=== PATIENT | female | born 1995 | race Caucasian/White ===

== ENCOUNTER 2016-06-23 19:28 | Emergency (ER) | payer OTHER ==
[~2016-06-23] VITALS: Ht 157.5 cm; Wt 63.2 kg
[~2016-06-23 19:28] MED LIST: DOXY100T17 PO
[2016-06-23 19:37] VITALS: TEMP 36.9; Ht 157.5 cm; Wt 63.2 kg
[2016-06-23 21:05] LABS: BASO % 0.3 %; BASO ABS # 0.03 K/uL (0-0.2); COMPLETE YES; EOS % 7.1 %; HEMATOCRIT 39.4 % (37-47); IG% 0.2 %; LYMPH % 23.3 %; LYMPH ABS # 2.08 K/uL (1.2-3.4); MEAN CELL VOLUME 83.8 fL (80-100); MEAN CORPUSCULAR HEMOGLOBIN 29.1 pg (25-34); MEAN CORPUSCULAR HGB CONC 34.8 g/dl (32-36); MEAN PLATELET VOLUME 11.7 fL (7.4-10.4); MONO % 8.6 %; NEUT % 60.5 %; PLATELET COUNT 199 K/uL (130-400); WHITE BLOOD COUNT 8.91 K/uL (4.8-10.8)
[2016-06-23 21:15] LABS: URINE APPEARANCE CLOUDY (CLEAR); URINE BILIRUBIN NEG (NEG); URINE COLOR YELLOW; URINE EPITHELIAL CELL AUTO >30 /lpf (0-5); URINE NITRITE NEG (NEG); URINE PH 6.5 (4.5-7.5); URINE SPECIFIC GRAVITY 1.025 (1.000-1.030); UROBILINOGEN NEG (NEG); ZZUR CULT IF INDIC CLEAN CATCH YES
[2016-06-23 21:17] LABS: MANUAL MICROSCOPIC REQUIRED? NO; REVIEW REQ? YES
[2016-06-23 21:22] LABS: ALT/SGPT 23 U/L (12-78); BLOOD UREA NITROGEN 9 mg/dl (7-18); CALCIUM 9.1 mg/dl (8.5-10.1); CARBON DIOXIDE 20 mmol/L (21-32); CHLORIDE 104 mmol/L (98-107); CREATININE 0.49 mg/dl (0.60-1.20); GLUCOSE 77 mg/dl (70-99); POTASSIUM 3.8 mmol/L (3.5-5.1); SODIUM 138 mmol/L (136-145)
[2016-06-23] MEDS ORDERED: ACET-1311 PO (21:23)
[2016-06-23 21:25] LABS: PREG INTERNAL NEGATIVE QC NEG CLEAR BACKGROUND; PREG INTERNAL POSITIVE QC POS CONTROL LINE
[2016-06-23 21:35] VITALS: BP 107/66; PULSE 85; O2SAT 99
[2016-06-23 21:41] LABS: ALB/GLOB RATIO 1.1 (0.9-2); ALKALINE PHOSPHATASE 81 U/L (45-117); AST/SGOT 16 U/L (15-37); THYROID STIMULATING HORMONE 0.372 uIu/ml (0.300-4.500)
--- NOTE | 2016-06-23 23:24 | EMERGENCY ROOM VISIT NOTE ---
History First contact with patient: 20:19 Chief Complaint: OTHER COMPLAINT Stated Complaint: DIZZINESS, LACK OF ENERGY, MORNING SICKNESS History of Present Illness The patient is a 20 year old female who presents to the Emergency Room with complaints of nausea, abdominal cramping, and lightheadedness for the past several days. The patient is sexually active, and states that she took an at- home test was positive. Patient is concerned that she is . She states this would be her third overall, however she had 2 previous spontaneous abortions. The patient has not had vaginal drainage, discharge, or bleeding. Her period was to start this week, and has not occurred. Review of Systems More than 10 systems were reviewed and otherwise negative with the exception of history of present illness. Past Medical/Surgical History Medical Problems: (1) Bipolar 1 disorder (2) Depression Family History Cancer Diabetes mellitus FHx: cancer Heart disease Hypertension Kidney disease Kidney stones Social History Smoking Status: Current Every Day Smoker Alcohol Use: none Drug Use: none Marital Status: in relationship Housing Status: lives with significant other Occupation Status: employed Current/Historical Medications Scheduled PRN Acetaminophen (Tylenol), 650 MG PO Q6H PRN for Pain Allergies Coded Allergies: No Known Allergies (Unverified , 09/29/15) Physical Exam Vital Signs Date Time Temp Pulse Resp B/P Pulse Ox O2 Delivery O2 Flow Rate FiO2 06/23/16 21:35 85 18 107/66 99 Room Air 06/23/16 19:37 36.9 97 18 110/74 96 Room Air Pain Rating (0-10): 2.0 Physical Exam VITALS: Vitals are noted on the nurse's note and reviewed by myself. Vital signs stable. GENERAL: Well-developed, well-nourished, white female, who is in no acute distress and resting comfortably. Patient is cooperative with the examination. HEAD: Normocephalic atraumatic. EARS: External ear normal. External auditory canals clear, tympanic membranes pearly wang without erythema or effusion bilaterally. EYES: Pupils equal round and reactive to light and accommodation. Conjunctivae without injection, sclerae without icterus. Extraocular movements intact. NOSE: Patent, turbinates without inflammation or discharge. MOUTH: Mucous membranes moist. Tonsils are not enlarged. Pharynx without erythema, blood, or exudate. Uvula midline. Airway patent. NECK: Supple without nuchal rigidity. No lymphadenopathy. No thyromegaly. Cervical spine is nontender. HEART: Regular rate and rhythm without murmurs gallops or rubs. LUNGS: Clear to auscultation bilaterally without wheezes, rales or rhonchi. No retractions or accessory muscle use. ABDOMEN: Positive normal bowel sounds x 4. Soft, nontender, without masses or organomegaly. No guarding or rebound tenderness. MUSCULOSKELETAL: No muscle atrophy, erythema, or edema noted. Full range of motion without joint tenderness in all extremities. Medical Decision & Procedures Laboratory Results 06/23/16 20:45 Red Blood Count 4.70, Mean Corpuscular Volume 83.8, Mean Corpuscular Hemoglobin 29.1, Mean Corpuscular Hemoglobin Concent 34.8, Mean Platelet Volume 11.7, Neutrophils (%) (Auto) 60.5, Lymphocytes (%) (Auto) 23.3, Monocytes (%) (Auto) 8.6, Eosinophils (%) (Auto) 7.1, Basophils (%) (Auto) 0.3, Neutrophils # (Auto) 5.38, Lymphocytes # (Auto) 2.08, Monocytes # (Auto) 0.77, Eosinophils # (Auto) 0.63, Basophils # (Auto) 0.03 06/23/16 20:45 Test 06/23/16 20:45 White Blood Count 8.91 K/uL (4.8-10.8) Red Blood Count 4.70 M/uL (4.2-5.4) Hemoglobin 13.7 g/dL (12.0-16.0) Hematocrit 39.4 % (37-47) Mean Corpuscular Volume 83.8 fL (80-100) Mean Corpuscular Hemoglobin 29.1 pg (25-34) Mean Corpuscular Hemoglobin Concent 34.8 g/dl (32-36) Platelet Count 199 K/uL (130-400) Mean Platelet Volume 11.7 fL (7.4-10.4) Neutrophils (%) (Auto) 60.5 % Lymphocytes (%) (Auto) 23.3 % Monocytes (%) (Auto) 8.6 % Eosinophils (%) (Auto) 7.1 % Basophils (%) (Auto) 0.3 % Neutrophils # (Auto) 5.38 K/uL (1.4-6.5) Lymphocytes # (Auto) 2.08 K/uL (1.2-3.4) Monocytes # (Auto) 0.77 K/uL (0.11-0.59) Eosinophils # (Auto) 0.63 K/uL (0-0.5) Basophils # (Auto) 0.03 K/uL (0-0.2) RDW Standard Deviation 39.3 fL (36.4-46.3) RDW Coefficient of Variation 12.9 % (11.5-14.5) Immature Granulocyte % (Auto) 0.2 % Immature Granulocyte # (Auto) 0.02 K/uL (0.00-0.02) Urine Color YELLOW Urine Appearance CLOUDY (CLEAR) Urine pH 6.5 (4.5-7.5) Urine Specific [place] 1.025 (1.000-1.030) Urine Protein NEG (NEG) Urine Glucose (UA) NEG (NEG) Urine Ketones NEG (NEG) Urine Occult Blood NEG (NEG) Urine Nitrite NEG (NEG) Urine Bilirubin NEG (NEG) Urine Urobilinogen NEG (NEG) Urine Leukocyte Esterase NEG (NEG) Urine WBC (Auto) 1-5 /hpf (0-5) Urine RBC (Auto) 0-4 /hpf (0-4) Urine Hyaline Casts (Auto) 0 /lpf (0-5) Urine Epithelial Cells (Auto) >30 /lpf (0-5) Urine Bacteria (Auto) 2+ (NEG) Urine Crystals CALCIUM OXALATE (NONE Urine Pathogenic Casts /lpf (0) Anion Gap 14.0 mmol/L (3-11) Est Creatinine Clear Calc Drug Dose 158.7 ml/min Estimated GFR () > 150.0 Estimated GFR (Non- 139.3 BUN/Creatinine Ratio 18.0 (10-20) Calcium Level 9.1 mg/dl (8.5-10.1) Total Bilirubin 0.1 mg/dl (0.2-1) Aspartate Amino Transf (AST/SGOT) 16 U/L (15-37) Alanine Aminotransferase (ALT/SGPT) 23 U/L (12-78) Alkaline Phosphatase 81 U/L (45-117) Total Protein 7.0 gm/dl (6.4-8.2) Albumin 3.7 gm/dl (3.4-5.0) Globulin 3.3 gm/dl (2.5-4.0) Albumin/Globulin Ratio 1.1 (0.9-2) Lipase 127 U/L (73-393) Thyroid Stimulating Hormone (TSH) 0.372 uIu/ml (0.300-4.500) Human Chorionic Gonadotropin, Qual POS (NEG) ED Course Physical exam and history were performed. Nursing notes and EMR were reviewed. Patient appears to have several vague symptoms that seem to correlate with . The patient has a primary concern she may be . IV access was established and labs were obtained. The patient bloodwork is as above and was reviewed. She does not have a significant elevated white blood cell count, anemia, bandemia, or gross fluctuant imbalance. TSH is normal.. Was without signs of infection. Her screen was positive here in the department. Overall the patient appears stable for discharge home. She essentially came to the emergency department today to have a test, and to be evaluated for her nausea. She did not require fluids or antiemetics here in the department. She is , and I would consider her to be a high-risk as her 2 previous pregnancies ended with spontaneous . She is to contact her ATTENDANT CAMPGROUND in the morning to arrange appropriate follow-up. She is to avoid NSAIDs and begin a multivitamin, preferably with iron. The patient was pleased with plan of care and voiced understanding. She rated her discomfort a 0/10 at the time of departure. The chart was completed utilizing [employer] Speech Voice Recognition Software. Grammatical errors, random word insertions, pronoun errors, and incomplete sentences are an occasional consequence of this system due to software limitations, ambient noise, and hardware issues. Any formal questions or concerns about the content, text, or information contained within the body of this dictation should be directly addressed to the provider for clarification. . Medical Decision Differential diagnosis: Etiologies such as , gastroenteritis, food borne illness, infections, appendicitis, diverticulitis, inflammatory bowel disease, obstruction, GI bleed , biliary pathology, as well as others were entertained. Impression Primary Impression: test positive Departure Information Dispostion Home / Self-Care Condition GOOD Forms HOME CARE DOCUMENTATION FORM, IMPORTANT VISIT INFORMATION Patient Instructions My [facility] Additional Instructions You were seen and evaluated today on an emergency basis only. This is not a substitute for, or an effort to provide, complete comprehensive medical care. It is not possible to recognize and treat all injuries or illnesses in a single emergency department visit. For this reason it is recommended that you followup with ATTENDANT C[employer]GROUND by telephone in the morning to arrange a follow-up visit. They will likely consider you a high risk , and may wish to see you soon. Begin a daily multivitamin. We also recommend that you take elemental iron. You may need to take a stool softener like Colace while on iron. You are welcome to return to the emergency department anytime with new, worsening, or concerning symptoms.
== END 2016-06-23 22:00 | disposition home or self-care (01) ==
LOC: C.EDB 19:30 → C.EDC 22:00
DX: Z32.01 Encounter for pregnancy test, result positive (principal); F17.200 Nicotine dependence, unspecified, uncomplicated; F31.9 Bipolar disorder, unspecified

== ENCOUNTER → 2016-06-26 | Outpatient (CLI) | payer OTHER ==
[~2016-06-26] MED LIST changes: +ACET-1311 PO; +ACET325T96 PO; +CEPH-571 PO; +CEPH500C PO; +DFL150; -DOXY100T17 PO; +FERR1TAB23 PO; +KFL500 PO; +MTR600X PO; +NITR-5 PO; +OXYC-57 PO; +PREN1TAB29 PO; +PRENTAB26 PO
[2016-06-26 14:26] LABS: URINE APPEARANCE CLOUDY (CLEAR); URINE BILIRUBIN NEG (NEG); URINE COLOR DK YELLOW; URINE EPITHELIAL CELL AUTO >30 /lpf (0-5); URINE NITRITE NEG (NEG); URINE SPECIFIC GRAVITY 1.027 (1.000-1.030); UROBILINOGEN NEG (NEG)
[2016-06-26 14:33] LABS: MANUAL MICROSCOPIC REQUIRED? NO; REVIEW REQ? YES
== END | disposition home or self-care (01) ==
LOC: C.LABSPEC 13:58
PROVIDERS: ATTEND Obstetrics & Gynecology
DX: Z34.01 Encounter for supervision of normal first pregnancy, first trimester (principal)

== ENCOUNTER → 2016-07-08 | Outpatient (CLI) | payer OTHER ==
[2016-07-08 11:24] LABS: BASO % 0.3 %; BASO ABS # 0.02 K/uL (0-0.2); COMPLETE YES; EOS % 5.9 %; HEMATOCRIT 38.6 % (37-47); IG% 0.1 %; LYMPH % 21.6 %; LYMPH ABS # 1.59 K/uL (1.2-3.4); MEAN CELL VOLUME 84.5 fL (80-100); MEAN CORPUSCULAR HEMOGLOBIN 28.7 pg (25-34); MEAN CORPUSCULAR HGB CONC 33.9 g/dl (32-36); MEAN PLATELET VOLUME 11.9 fL (7.4-10.4); MONO % 6.4 %; NEUT % 65.7 %; PLATELET COUNT 213 K/uL (130-400); RED BLOOD COUNT 4.57 M/uL (4.2-5.4); WHITE BLOOD COUNT 7.35 K/uL (4.8-10.8)
[2016-07-12 02:30] LABS: CHLAMYDIA TRACH RNA*** NOT DETECTED (NOT DETECTED); GC (NEIS GONORRHOEAE)RNA** NOT DETECTED (NOT DETECTED)
== END | disposition home or self-care (01) ==
LOC: C.LAB1850 09:56
PROVIDERS: ATTEND Obstetrics & Gynecology
DX: Z34.01 Encounter for supervision of normal first pregnancy, first trimester (principal)

== ENCOUNTER → 2016-07-08 | Outpatient (CLI) | payer OTHER | END | disposition home or self-care (01) | LOC: C.PAPS 09:16 | PROVIDERS: ATTEND Obstetrics & Gynecology | DX: Z12.4 Encounter for screening for malignant neoplasm of cervix (principal) ==

== ENCOUNTER 2016-08-17 09:20 | Emergency (ER) | payer OTHER ==
[~2016-08-17] VITALS: Ht 157.5 cm; Wt 63.5 kg
[2016-08-17 09:17] VITALS: TEMP 36.7; Ht 157.5 cm; Wt 63.5 kg
[~2016-08-17 09:20] MED LIST changes: -ACET325T96 PO; -CEPH-571 PO; -CEPH500C PO; -DFL150; -FERR1TAB23 PO; -KFL500 PO; -MTR600X PO; -NITR-5 PO; -OXYC-57 PO; -PREN1TAB29 PO; -PRENTAB26 PO
[2016-08-17] MEDS ORDERED: PREN1TAB29 PO (09:33)
[2016-08-17] MEDS ORDERED: FERR1TAB23 PO (09:33)
[2016-08-17] MEDS ORDERED: SODIUM CHLORIDE 0.9% 1000ML 1,000 ML IV STA (10:04)
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
[2016-08-17 10:42] LABS: BASO % 0.2 %; BASO ABS # 0.02 K/uL (0-0.2); COMPLETE YES; EOS % 4.5 %; HEMATOCRIT 38.5 % (37-47); IG% 0.2 %; LYMPH % 20.5 %; LYMPH ABS # 1.88 K/uL (1.2-3.4); MEAN CELL VOLUME 85.4 fL (80-100); MEAN CORPUSCULAR HEMOGLOBIN 28.8 pg (25-34); MEAN CORPUSCULAR HGB CONC 33.8 g/dl (32-36); MONO % 4.5 %; NEUT % 70.1 %; PLATELET COUNT 183 K/uL (130-400); RED BLOOD COUNT 4.51 M/uL (4.2-5.4); WHITE BLOOD COUNT 9.18 K/uL (4.8-10.8)
[2016-08-17 10:47] LABS: URINE APPEARANCE CLOUDY (CLEAR); URINE BILIRUBIN NEG (NEG); URINE COLOR YELLOW; URINE NITRITE NEG (NEG); URINE SPECIFIC GRAVITY 1.015 (1.000-1.030); UROBILINOGEN NEG (NEG)
[2016-08-17 10:50] LABS: MANUAL MICROSCOPIC REQUIRED? NO; REVIEW REQ? NO; URINE EPITHELIAL CELL AUTO >30 /lpf (0-5)
[2016-08-17 10:51] LABS: ZZUR CULT IF INDIC CLEAN CATCH YES
[2016-08-17 11:05] LABS: ALT/SGPT 16 U/L (12-78); AST/SGOT 12 U/L (15-37); BLOOD UREA NITROGEN 4 mg/dl (7-18); BUN/CREATININE RATIO 8.1 (10-20); CALCIUM 8.9 mg/dl (8.5-10.1); CARBON DIOXIDE 25 mmol/L (21-32); CHLORIDE 104 mmol/L (98-107); CREATININE 0.51 mg/dl (0.60-1.20); GLUCOSE 76 mg/dl (70-99); POTASSIUM 4.1 mmol/L (3.5-5.1); SODIUM 139 mmol/L (136-145)
[2016-08-17 11:08] LABS: ALKALINE PHOSPHATASE 68 U/L (45-117)
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
[2016-08-17] MEDS ORDERED: NITR-5 PO (14:08)
[2016-08-17] MEDS ORDERED: NITROFURANTOIN MONOHYDRATE 100 MG CAP PO STA (14:09)
[2016-08-17 14:32] VITALS: BP 101/65; PULSE 80; O2SAT 100
== END 2016-08-17 14:33 | disposition home or self-care (01) ==
LOC: EDBD 09:20 → C.EDB 09:22
DX: O99.342 Other mental disorders complicating pregnancy, second trimester (principal); O99.332 Smoking (tobacco) complicating pregnancy, second trimester; N30.00 Acute cystitis without hematuria; V89.2XXA Person injured in unspecified motor-vehicle accident, traffic, initial encounter; F31.9 Bipolar disorder, unspecified; Z3A.15 15 weeks gestation of pregnancy; F17.210 Nicotine dependence, cigarettes, uncomplicated; Z83.3 Family history of diabetes mellitus; Z82.49 Family history of ischemic heart disease and other diseases of the circulatory system; Z84.1 Family history of disorders of kidney and ureter

== ENCOUNTER → 2016-08-25 | Outpatient (CLI) | payer OTHER ==
[~2016-08-25] MED LIST changes: -ACET-1311 PO; +ACET325T96 PO; +CEPH-571 PO; +CEPH500C PO; +DFL150; +FERR1TAB23 PO; +KFL500 PO; +MTR600X PO; +NITR-5 PO; +OXYC-57 PO; +PREN1TAB29 PO; +PRENTAB26 PO
[2016-08-25 17:53] LABS: GTGD 50 Grams
[2016-08-27 15:31] LABS: AFP CONCENTRATION 53.5 NG/ML; AFP MULTIPLE OF MEDIAN 1.45; AFPTS GESTATIONAL AGE 16.6 WEEKS; AFPTS INSULIN DEP DIABETIC? NO; AFPTS MATERNAL WT 140 LBS; ALPHA-FETOPROTEIN RACE CAUCASIAN=W; HISTORY OF NTD NO; REPEAT SAMPLE? NO
== END | disposition home or self-care (01) ==
LOC: C.LAB1850 16:45
PROVIDERS: ATTEND Obstetrics & Gynecology
DX: Z34.02 Encounter for supervision of normal first pregnancy, second trimester (principal)

== ENCOUNTER 2016-09-30 19:02 | Outpatient (CLI) | payer OTHER ==
[~2016-09-30] VITALS: Ht 157.5 cm; Wt 63.7 kg
[~2016-09-30 19:02] MED LIST changes: -ACET325T96 PO; -CEPH-571 PO; -CEPH500C PO; -DFL150; -KFL500 PO; -MTR600X PO; -OXYC-57 PO; -PRENTAB26 PO
[2016-09-30 19:32] LABS: URINE APPEARANCE CLOUDY (CLEAR); URINE BILIRUBIN NEG (NEG); URINE COLOR YELLOW; URINE EPITHELIAL CELL AUTO >30 /lpf (0-5); URINE NITRITE NEG (NEG); URINE PH 5.5 (4.5-7.5); URINE SPECIFIC GRAVITY 1.022 (1.000-1.030); UROBILINOGEN NEG (NEG); ZZUR CULT IF INDIC CLEAN CATCH YES
[2016-09-30 19:35] LABS: MANUAL MICROSCOPIC REQUIRED? NO; REVIEW REQ? YES
[2016-09-30] MEDS ORDERED: NITROFURANTOIN MONOHYDRATE 100 MG CAP PO STA (20:10)
[2016-09-30 20:11] VITALS: Ht 157.5 cm; Wt 63.7 kg
--- NOTE | 2016-10-07 06:43 | EDITING REQUIRED CODING QUERY ---
DIAGNOSIS NEEDED To promote full compliance with coding requirements relating to patient care, physician participation is requested in all cases of marble supervisor uncertainty. Please assist us with the question(s) below: Coding Question: The patient received care in labor and delivery on 09/30/16 as noted within the record. Please document the diagnosis that is being addressed by the medication/treatment. Provider Response: DIAGNOSIS: facial flushing General fatigue Recent spider or tick bite 2nd trimester Thank you for your assistance, Nahomi Hull - Supervisor [employer]
[2017-02-15] MEDS ORDERED: OXYC-57 PO (09:39)
[2017-02-15] MEDS ORDERED: KFL500 PO (09:39)
[2017-02-15] MEDS ORDERED: MTR600X PO (09:40)
[2017-05-03] MEDS ORDERED: LAMO100T16 PO (11:27)
== END 2016-09-30 20:41 | disposition home or self-care (01) ==
LOC: C.LD 19:02 → C.OPB 19:02
PROVIDERS: ATTEND Obstetrics & Gynecology
DX: O99.89 Other specified diseases and conditions complicating pregnancy, childbirth and the puerperium (principal); R53.83 Other fatigue; Z3A.22 22 weeks gestation of pregnancy; T14.8 Other injury of unspecified body region; W57.XXXA Bitten or stung by nonvenomous insect and other nonvenomous arthropods, initial encounter

== ENCOUNTER → 2016-10-21 | Outpatient (CLI) | payer OTHER ==
[~2016-10-21] MED LIST changes: +ACET-1256 PO; +ACET325T96 PO; +CEPH-571 PO; +CEPH500C PO; +DFL150; -FERR1TAB23 PO; +KFL500 PO; +LAMO100T16 PO; +MTR600X PO; +OXYC-57 PO; +PRENTAB26 PO
[2016-10-21 17:10] LABS: URINE APPEARANCE CLOUDY (CLEAR); URINE BILIRUBIN NEG (NEG); URINE COLOR YELLOW; URINE EPITHELIAL CELL AUTO >30 /lpf (0-5); URINE NITRITE NEG (NEG); URINE SPECIFIC GRAVITY 1.014 (1.000-1.030); UROBILINOGEN NEG (NEG)
[2016-10-21 17:13] LABS: MANUAL MICROSCOPIC REQUIRED? NO; REVIEW REQ? NO
== END | disposition home or self-care (01) ==
LOC: C.LABSPEC 16:28
PROVIDERS: ATTEND Obstetrics & Gynecology
DX: Z34.03 Encounter for supervision of normal first pregnancy, third trimester (principal)

== ENCOUNTER → 2016-11-21 | Outpatient (CLI) | payer OTHER ==
[2016-11-21 13:13] LABS: HEMATOCRIT 35.4 % (37-47)
[2016-11-21 13:57] LABS: GTGD 50 Grams
== END | disposition home or self-care (01) ==
LOC: C.LAB1850 11:59
PROVIDERS: ATTEND Obstetrics & Gynecology
DX: Z34.03 Encounter for supervision of normal first pregnancy, third trimester (principal)

== ENCOUNTER → 2016-11-21 | Outpatient (CLI) | payer OTHER ==
[2016-11-21 14:40] LABS: URINE APPEARANCE TURBID (CLEAR); URINE BILIRUBIN NEG (NEG); URINE COLOR YELLOW; URINE EPITHELIAL CELL AUTO >30 /lpf (0-5); URINE NITRITE NEG (NEG); URINE PH 8.5 (4.5-7.5); URINE SPECIFIC GRAVITY 1.016 (1.000-1.030); UROBILINOGEN NEG (NEG)
[2016-11-21 14:54] LABS: MANUAL MICROSCOPIC REQUIRED? NO; REVIEW REQ? YES
[2016-11-24 07:27] LABS: CHLAMYDIA TRACH RNA*** NOT DETECTED (NOT DETECTED); GC (NEIS GONORRHOEAE)RNA** NOT DETECTED (NOT DETECTED)
== END | disposition home or self-care (01) ==
LOC: C.LABSPEC 13:58
PROVIDERS: ATTEND Obstetrics & Gynecology
DX: Z34.03 Encounter for supervision of normal first pregnancy, third trimester (principal)

== ENCOUNTER 2016-11-25 18:02 | Outpatient (CLI) | payer OTHER ==
[~2016-11-25] VITALS: Ht 160 cm; Wt 70.5 kg
[~2016-11-25 18:02] MED LIST changes: -ACET-1256 PO; -ACET325T96 PO; -CEPH-571 PO; -CEPH500C PO; -DFL150; -KFL500 PO; -LAMO100T16 PO; -MTR600X PO; -OXYC-57 PO; -PRENTAB26 PO
[2016-11-25] MEDS ORDERED: DFL150 (19:10)
[2016-11-25] MEDS ORDERED: PRENTAB26 PO (19:10)
[2016-11-25 19:11] VITALS: Ht 160 cm; Wt 70.5 kg
[2016-11-25 19:42] LABS: URINE APPEARANCE CLEAR (CLEAR); URINE BILIRUBIN NEG (NEG); URINE COLOR YELLOW; URINE EPITHELIAL CELL AUTO >30 /lpf (0-5); URINE NITRITE NEG (NEG); URINE SPECIFIC GRAVITY 1.018 (1.000-1.030); UROBILINOGEN NEG (NEG)
[2016-11-25 19:44] LABS: MANUAL MICROSCOPIC REQUIRED? NO; REVIEW REQ? YES
[2017-05-03] MEDS ORDERED: LAMO100T16 PO (11:27)
== END 2016-11-25 20:03 | disposition home or self-care (01) ==
LOC: C.LD 18:02 → C.OPB 18:02
PROVIDERS: ATTEND Obstetrics & Gynecology
DX: O26.893 Other specified pregnancy related conditions, third trimester (principal); R10.2 Pelvic and perineal pain; Z3A.29 29 weeks gestation of pregnancy

== ENCOUNTER 2016-11-27 14:08 | Emergency (ER) | payer OTHER ==
[~2016-11-27] VITALS: Ht 157.5 cm; Wt 70.1 kg
[~2016-11-27 14:08] MED LIST changes: +DFL150; -PREN1TAB29 PO; +PRENTAB26 PO
[2016-11-27 14:13] VITALS: TEMP 36.8; Ht 157.5 cm; Wt 70.1 kg
[2016-11-27] MEDS ORDERED: SODIUM CHLORIDE 0.9% 1000ML 1,000 ML IV STA (14:37)
[2016-11-27] MEDS ORDERED: ACETAMINOPHEN/CODEINE 300/30MG TAB PO ONE (14:45)
[2016-11-27 15:02] LABS: BASO % 0.2 %; BASO ABS # 0.03 K/uL (0-0.2); COMPLETE YES; HEMATOCRIT 36.4 % (37-47); IG% 0.5 %; LYMPH % 14.2 %; LYMPH ABS # 1.91 K/uL (1.2-3.4); MEAN CELL VOLUME 86.9 fL (80-100); MEAN CORPUSCULAR HEMOGLOBIN 28.9 pg (25-34); MEAN CORPUSCULAR HGB CONC 33.2 g/dl (32-36); MEAN PLATELET VOLUME 11.4 fL (7.4-10.4); MONO % 5.8 %; NEUT % 74.3 %; PLATELET COUNT 177 K/uL (130-400); RED BLOOD COUNT 4.19 M/uL (4.2-5.4); WHITE BLOOD COUNT 13.44 K/uL (4.8-10.8)
[2016-11-27 15:20] LABS: ALT/SGPT 13 U/L (12-78); BLOOD UREA NITROGEN 7 mg/dl (7-18); BUN/CREATININE RATIO 12.6 (10-20); CALCIUM 9.4 mg/dl (8.5-10.1); CARBON DIOXIDE 24 mmol/L (21-32); CHLORIDE 107 mmol/L (98-107); CREATININE 0.58 mg/dl (0.60-1.20); GLUCOSE 69 mg/dl (70-99); POTASSIUM 3.7 mmol/L (3.5-5.1); SODIUM 138 mmol/L (136-145)
[2016-11-27 15:23] LABS: ALKALINE PHOSPHATASE 90 U/L (45-117); AST/SGOT 13 U/L (15-37)
[2016-11-27 15:43] LABS: URINE APPEARANCE TURBID (CLEAR); URINE BILIRUBIN NEG (NEG); URINE COLOR YELLOW; URINE EPITHELIAL CELL AUTO >30 /lpf (0-5); URINE NITRITE NEG (NEG); UROBILINOGEN NEG (NEG); ZZUR CULT IF INDIC CLEAN CATCH YES
[2016-11-27 15:48] LABS: MANUAL MICROSCOPIC REQUIRED? NO; REVIEW REQ? YES
[2016-11-27] MEDS ORDERED: CEFTRIAXONE SOD INJ 1 GM ADDVIAL IV STA (16:18)
[2016-11-27 16:41] VITALS: BP 97/59; PULSE 90; O2SAT 98
[2016-11-27] MEDS ORDERED: CEPH500C PO (17:02)
--- NOTE | 2016-11-27 17:14 | EMERGENCY ROOM VISIT NOTE ---
History Report prepared by [place]af[place]: Forrest Adan Under the Supervision of: Dr. Bianca Hernandez M.D. First contact with patient: 14:22 Chief Complaint: BACK PAIN Stated Complaint: BACK PAIN History of Present Illness The patient is a 21 year old female who presents to the Emergency Room with complaints of constant "sharp" lower back pain beginning five hours ago. She is 29 weeks . She denies any excessive straining or injury yesterday. The patient denies any pain radiating down her legs. She states that she has been having problems walking due to the pain. The patient was seen earlier this week for back and abdominal pain. She is being treated for a yeast infection, and states that she has been having to strain to urinate recently. She states that she has been eating and drinking normally. The patient states that she did not have any of her symptoms yesterday. Source of History: patient Onset: Five hours ago Position: back (lower) Quality: sharp Timing: constant Associated Symptoms: + urinary symptoms Note: The patient denies any pain radiating down her legs. Review of Systems See HPI for pertinent positives & negatives. A total of 10 systems reviewed and were otherwise negative. Past Medical & Surgical Medical Problems: (1) Bipolar 1 disorder (2) Depression (3) Pelvic pain affecting in third trimester, antepartum Family History Cancer Diabetes mellitus FHx: cancer Heart disease Hypertension Kidney disease Kidney stones Social History Smoking Status: Current Every Day Smoker Alcohol Use: none Drug Use: none Marital Status: in relationship Housing Status: lives with significant other Occupation Status: employed Current/Historical Medications Scheduled Cephalexin (Keflex), 1 CAP PO QID Miscellaneous Medications Fluconazole (Fluconazole) Allergies Coded Allergies: No Known Allergies (Unverified , 11/27/16) Physical Exam Vital Signs Date Time Temp Pulse Resp B/P (MAP) Pulse Ox O2 Delivery O2 Flow Rate FiO2 11/27/16 16:41 90 18 97/59 98 Room Air 11/27/16 14:35 93 11/27/16 14:13 36.8 88 17 107/66 97 Room Air Physical Exam Vital signs reviewed. General: Well-appearing female, in no significant distress. HEENT: No scleral icterus, PERRLA, neck supple. Atraumatic. Cardiovascular: Regular rate and rhythm, no extra sounds. Pulmonary: Clear to auscultation bilaterally, normal work of breathing. Abdomen: Gravid, nontender, nondistended, positive bowel sounds. Musculoskeletal: Atraumatic, no peripheral edema. Tender to the bilateral lumbar paraspinous muscles. Positive CVA tenderness. Neurologic: Patient awake alert and oriented x 3 Skin: Warm, dry, no rash Medical Decision & Procedures Laboratory Results 11/27/16 14:45 Red Blood Count 4.19, Mean Corpuscular Volume 86.9, Mean Corpuscular Hemoglobin 28.9, Mean Corpuscular Hemoglobin Concent 33.2, Mean Platelet Volume 11.4, Neutrophils (%) (Auto) 74.3, Lymphocytes (%) (Auto) 14.2, Monocytes (%) (Auto) 5.8, Eosinophils (%) (Auto) 5.0, Basophils (%) (Auto) 0.2, Neutrophils # (Auto) 9.98, Lymphocytes # (Auto) 1.91, Monocytes # (Auto) 0.78, Eosinophils # (Auto) 0.67, Basophils # (Auto) 0.03 11/27/16 14:45 Test 11/27/16 14:45 White Blood Count 13.44 K/uL (4.8-10.8) Red Blood Count 4.19 M/uL (4.2-5.4) Hemoglobin 12.1 g/dL (12.0-16.0) Hematocrit 36.4 % (37-47) Mean Corpuscular Volume 86.9 fL (80-100) Mean Corpuscular Hemoglobin 28.9 pg (25-34) Mean Corpuscular Hemoglobin Concent 33.2 g/dl (32-36) Platelet Count 177 K/uL (130-400) Mean Platelet Volume 11.4 fL (7.4-10.4) Neutrophils (%) (Auto) 74.3 % Lymphocytes (%) (Auto) 14.2 % Monocytes (%) (Auto) 5.8 % Eosinophils (%) (Auto) 5.0 % Basophils (%) (Auto) 0.2 % Neutrophils # (Auto) 9.98 K/uL (1.4-6.5) Lymphocytes # (Auto) 1.91 K/uL (1.2-3.4) Monocytes # (Auto) 0.78 K/uL (0.11-0.59) Eosinophils # (Auto) 0.67 K/uL (0-0.5) Basophils # (Auto) 0.03 K/uL (0-0.2) RDW Standard Deviation 41.3 fL (36.4-46.3) RDW Coefficient of Variation 12.9 % (11.5-14.5) Immature Granulocyte % (Auto) 0.5 % Immature Granulocyte # (Auto) 0.07 K/uL (0.00-0.02) Urine Color YELLOW Urine Appearance TURBID (CLEAR) Urine pH 7.0 (4.5-7.5) Urine Specific [place] 1.020 (1.000-1.030) Urine Protein NEG (NEG) Urine Glucose (UA) NEG (NEG) Urine Ketones NEG (NEG) Urine Occult Blood 2+ (NEG) Urine Nitrite NEG (NEG) Urine Bilirubin NEG (NEG) Urine Urobilinogen NEG (NEG) Urine Leukocyte Esterase SMALL (NEG) Urine WBC (Auto) >30 /hpf (0-5) Urine RBC (Auto) 10-30 /hpf (0-4) Urine Hyaline Casts (Auto) 1-5 /lpf (0-5) Urine Epithelial Cells (Auto) >30 /lpf (0-5) Urine Bacteria (Auto) 4+ (NEG) Urine Crystals CALCIUM OXALATE (NONE Urine Pathogenic Casts /lpf (0) Anion Gap 7.0 mmol/L (3-11) Est Creatinine Clear Calc Drug Dose 139.6 ml/min Estimated GFR () > 150.0 Estimated GFR (Non- 130.8 BUN/Creatinine Ratio 12.6 (10-20) Calcium Level 9.4 mg/dl (8.5-10.1) Total Bilirubin 0.2 mg/dl (0.2-1) Direct Bilirubin < 0.1 mg/dl (0-0.2) Aspartate Amino Transf (AST/SGOT) 13 U/L (15-37) Alanine Aminotransferase (ALT/SGPT) 13 U/L (12-78) Alkaline Phosphatase 90 U/L (45-117) Total Protein 6.2 gm/dl (6.4-8.2) Albumin 2.8 gm/dl (3.4-5.0) Laboratory results per my review. Medications Administered Medications (Trade) Dose Ordered Sig/Otry Route Start Time Stop Time Status Last Admin Dose Admin Sodium Chloride 1,000 ml @ 200 mls/hr Q5H STAT IV 11/27/16 14:37 11/27/16 17:37 DC 11/27/16 14:52 200 MLS/HR Acetaminophen/ Codeine Phosphate (Tylenol w/ Codeine #3 Tab) 1 tab NOW ONCE PO 11/27/16 14:45 11/27/16 14:46 DC 11/27/16 14:58 1 TAB Ceftriaxone Sodium (Rocephin Inj) 1 gm NOW STAT IV 11/27/16 16:18 11/27/16 16:20 DC 11/27/16 16:18 1 GM ED Course 1436: Past medical records reviewed. The patient was evaluated in room A10. A complete history and physical examination was performed. 1437: Ordered Sodium Chloride 1000 ml @ 200 mls/hr IV. 1445: Ordered Tylenol w/ Codeine #3 Tab PO. 1618: Ordered Rocephin Inj 1 gm IV. 1705: Upon reevaluation, the patient appeared to have improvement of her symptoms. I discussed findings with her. She verbalized agreement of the treatment plan. The patient was discharged home. Medical Decision Differential diagnosis: Etiologies such as musculoskeletal, disc herniation, fracture, aortic disease, metastatic disease, cord compression, discitis, infection, renal colic, gastrointestinal, acute exacerbation of chronic back pain, sciatica, cauda equina, as well as others were entertained. This patient was evaluated and appeared to be in no significant distress. IV access was obtained and laboratory work was drawn. The patient was placed on the professor of fine art and found to be in a normal sinus rhythm. Patient's physical exam is consistent with a musculoskeletal back pain however her exam is inconsistent. She was hydrated with normal saline solution. She was given Tylenol 3 for pain. heart tones were appreciated in the 130s. Patient's urinalysis is concerning for infection. She was given 1 g of IV ceftriaxone. On reevaluation, she was informed of the findings. She complained that she does not have any food at home. She was given information on [facility] and [facility]. Dr. Sanchez of [facility] was contacted and has agreed with outpatient management. She will be seen in the office tomorrow. She will return to the ER for worsening of symptoms or any medical concerns. Consults Time Called: 1635 Consulting Physician: Dr. Laura POLK Returned Call: 1640 I reviewed the patient's case with Dr. Sanchez. He recommends outpatient care and will follow up with the patient in the office. Impression Primary Impression: Pyelonephritis Additional Impression: Scribe Attestation The scribe's documentation has been prepared under my direction and personally reviewed by me in its entirety. I confirm that the note above accurately reflects all work, treatment, procedures, and medical decision making performed by me. Departure Information Dispostion Home / Self-Care Referrals No Doctor, Assigned (PCP) Forms HOME CARE DOCUMENTATION FORM, IMPORTANT VISIT INFORMATION Patient Instructions My [facility] Additional Instructions Diangosis: Pyelonephritis Keflex 500 mg four times daily for 10 days. Drink plenty of clear fluids. Follow up with [facility] tomorrow, call for an appt first thing in the am. This was discussed with Dr Sanchez. Return to the ED for worsening of symptoms or any medical concerns. Problem Qualifiers Additional Impression: Weeks of gestation: 29 weeks Qualified Codes: Z3A.29 - 29 weeks gestation of
[2016-11-27] MEDS ORDERED: CEPH-571 PO (18:38)
[2016-11-27] MEDS ORDERED: PRENTAB26 PO (21:39)
== END 2016-11-27 17:25 | disposition home or self-care (01) ==
LOC: EDBD 14:08 → C.EDA 14:09
DX: N12 Tubulo-interstitial nephritis, not specified as acute or chronic (principal); Z3A.29 29 weeks gestation of pregnancy; F31.9 Bipolar disorder, unspecified; Z83.3 Family history of diabetes mellitus; Z82.49 Family history of ischemic heart disease and other diseases of the circulatory system; F17.200 Nicotine dependence, unspecified, uncomplicated

== ENCOUNTER 2016-11-27 18:19 | Emergency (ER) | payer OTHER ==
[~2016-11-27] VITALS: Ht 157.5 cm; Wt 68.0 kg
[~2016-11-27 18:19] MED LIST changes: +CEPH500C PO
[2016-11-27 18:23] VITALS: TEMP 36.6; Ht 157.5 cm; Wt 68.0 kg
[2016-11-27] MEDS ORDERED: CEPH-571 PO (18:38)
--- NOTE | 2016-11-27 18:56 | EMERGENCY ROOM VISIT NOTE ---
History First contact with patient: 18:30 Chief Complaint: BACK PAIN Stated Complaint: INTENSE CRAMPS, BACK PAIN, LEG PAIN History of Present Illness The patient is a 21 year old female who presents to the Emergency Room with complaints of back pain. The patient was just discharged from this emergency department with back pain and diagnosed with pyelonephritis. The patient is 30 weeks . She returns to the emergency department because she is still having back pain and abdominal cramping. She states that she is not feeling the baby move. She states that she is still nauseated and in pain. She rates her discomfort a 10/10. She denies any fevers or chills. She denies any diarrhea. She denies any numbness, tingling in the lower extremities bilaterally. Review of Systems A 10 system review of systems was completed with positives and pertinent negatives listed in the HPI. Past Medical/Surgical History Medical Problems: (1) Bipolar 1 disorder (2) Depression (3) Pelvic pain affecting in third trimester, antepartum Family History Cancer Diabetes mellitus FHx: cancer Heart disease Hypertension Kidney disease Kidney stones Social History Smoking Status: Current Every Day Smoker Alcohol Use: none Drug Use: none Marital Status: in relationship Housing Status: lives with significant other Occupation Status: employed Current/Historical Medications Scheduled Multivit/Min/Iron/Fol Ac/Pren ( Vitamin), 1 TAB PO DAILY Miscellaneous Medications Fluconazole (Fluconazole) Allergies Coded Allergies: No Known Allergies (Unverified , 11/27/16) Physical Exam Vital Signs Date Time Temp Pulse Resp B/P (MAP) Pulse Ox O2 Delivery O2 Flow Rate FiO2 11/27/16 19:06 86 18 100/66 99 11/27/16 18:23 36.6 81 20 91/58 96 Room Air Physical Exam VITALS: Vitals are noted on the nurse's note and reviewed by myself. Vital signs stable. GENERAL: This is a 21-year-old female, in no acute distress, nondiaphoretic, well-developed well-nourished. SKIN: The skin was without rashes, erythema, edema, or bruising. There is no tenting of the skin. Capillary reflex less than 2 seconds. HEAD: Normocephalic atraumatic. EARS: The external ears are normal in appearance. EYES: Pupils equal round and reactive to light and accommodation. Conjunctivae without injection, sclerae without icterus. Extraocular movements intact. NOSE: Patent, turbinates without inflammation or discharge. MOUTH: Mucous membranes moist. Tonsils are not enlarged. Pharynx without erythema or exudate. Uvula midline. Airway patent. Tongue does not deviate. NECK: Supple without nuchal rigidity. No lymphadenopathy. No thyromegaly. Cervical spine is nontender. No JVD. HEART: Regular rate and rhythm without murmurs gallops or rubs. LUNGS: Clear to auscultation bilaterally without wheezes, rales or rhonchi. No retractions or accessory muscle use. ABDOMEN: Positive bowel sounds x 4. Soft, nontender, without masses or organomegaly. MUSCULOSKELETAL: No muscle atrophy, erythema, or edema noted. There is tenderness to palpation diffusely over the back but worse on the left. NEURO: Patient was alert and oriented to person place and time. Normal sensation to light and sharp touch. Deep tendon reflexes 2+ throughout. No focal neurological deficits. Medical Decision & Procedures ED Course The patient was seen and examined. Previous visits were reviewed. The patient does not have a fever. The patient was just discharged from the ER with pyelonephritis. At that time, she had requested several times to go to labor and delivery. This was discussed with the on-call CHEMICAL ENGINEERING TEACHER but it was felt that this may more be musculoskeletal or pyelonephritis. The patient is crouched in front of the toilet with some vomiting upon initial evaluation. The patient was able to walk without any significant difficulty whatsoever from the bathroom to the bed. She does not have any neurologic deficit on exam or by history to suggest cauda equina or cord compression. The patient has not had any vaginal bleeding. She states she has had cramping and states she can't feel the baby move now. She has not had any falls or injuries. I discussed the case with Dr. Hernandez who recommends that CHEMICAL ENGINEERING TEACHER be consulted and she go upstairs for monitoring I discussed the case with Dr. Sanchez. The patient will be sent to L&D for monitoring. Otherwise, discharge instructions as previously discussed. Medical Decision DIFFERENTIAL DIAGNOSIS: Lumbar strain, degenerative disc disease, spondylolisthesis, herniated disc, spinal stenosis, osteoporosis, fracture, cauda equina syndrome, neoplasm, infection, inflammatory arthritis, labor, demise, urinary tract infection, pyelonephritis, appendicitis, among others Impression Primary Impression: Back pain Additional Impression: Pyelonephritis Departure Information Dispostion Home / Self-Care Condition GOOD Referrals Meagan Sage MD (PCP) Shanae Sanchez M.D. Patient Instructions My [facility], Preg Back Pain Additional Instructions Go directly upstairs to Labor and Delivery for monitoring Otherwise, instructions as before. Problem Qualifiers Primary Impression: Back pain Back pain location: low back pain
[2016-11-27 19:06] VITALS: BP 100/66; PULSE 86; O2SAT 99
[2016-11-27] MEDS ORDERED: PRENTAB26 PO (21:39)
== END 2016-11-27 19:06 | disposition home or self-care (01) ==
LOC: C.EDB 18:21 → C.EDC 19:06
DX: M54.5 Low back pain (principal); N12 Tubulo-interstitial nephritis, not specified as acute or chronic; Z3A.30 30 weeks gestation of pregnancy; F31.9 Bipolar disorder, unspecified; Z83.3 Family history of diabetes mellitus; Z82.49 Family history of ischemic heart disease and other diseases of the circulatory system; F17.200 Nicotine dependence, unspecified, uncomplicated

== ENCOUNTER 2016-11-27 19:22 | Outpatient (CLI) | payer OTHER ==
[~2016-11-27] VITALS: Ht 157.5 cm; Wt 69.0 kg
[~2016-11-27 19:22] MED LIST changes: +CEPH-571 PO; +PREN1TAB29 PO
[2016-11-27 21:39] VITALS: Ht 157.5 cm; Wt 69.0 kg
[2017-05-03] MEDS ORDERED: LAMO100T16 PO (11:27)
== END 2016-11-27 20:12 | disposition home or self-care (01) ==
LOC: C.OPB 19:22 → C.LD 19:22 → C.OPB 19:33
PROVIDERS: ATTEND Obstetrics & Gynecology
DX: O36.8130 Decreased fetal movements, third trimester, not applicable or unspecified (principal); Z3A.30 30 weeks gestation of pregnancy

== ENCOUNTER 2016-11-27 20:17 | Emergency (ER) | payer OTHER ==
[~2016-11-27] VITALS: Ht 157.5 cm; Wt 68.0 kg
[~2016-11-27 20:17] MED LIST changes: -PREN1TAB29 PO
[2016-11-27 20:20] VITALS: TEMP 36.5; Ht 157.5 cm; Wt 68.0 kg
[2016-11-27] MEDS ORDERED: ONDANSETRON 4MG OD TAB PO STA (20:39)
--- NOTE | 2016-11-27 20:43 | EMERGENCY ROOM VISIT NOTE ---
History First contact with patient: 20:26 Chief Complaint: PAIN (GENERALIZED) Stated Complaint: LOWER BACK PAIN, DIZZY History of Present Illness The patient is a 21 year old female who presents to the Emergency Room with complaints of back pain. The patient is 30 weeks . This is her third visit to the emergency department today. The patient had initial an extensive evaluation that revealed pyelonephritis. The patient returned because she stated she was not feeling the baby move and was having pain. She was sent to labor and delivery and the baby appears to be in no distress. The patient return to the ER because she is still having pain. I did discuss with her several times the concern for narcotic use during the fact that it is a class C. The patient is afebrile. She does not have any loss of bowel or bladder control, numbness, tingling or weakness in the legs. She does not have any vaginal bleeding or discharge. Review of Systems A 10 system review of systems was completed with positives and pertinent negatives listed in the HPI. Past Medical/Surgical History Medical Problems: (1) Bipolar 1 disorder (2) Depression (3) Pelvic pain affecting in third trimester, antepartum Family History Cancer Diabetes mellitus FHx: cancer Heart disease Hypertension Kidney disease Kidney stones Social History Smoking Status: Current Every Day Smoker Alcohol Use: none Drug Use: none Marital Status: in relationship Housing Status: lives with significant other Occupation Status: employed Current/Historical Medications Scheduled Multivit/Min/Iron/Fol Ac/Pren ( Vitamin), 1 TAB PO DAILY Miscellaneous Medications Fluconazole (Fluconazole) Allergies Coded Allergies: No Known Allergies (Unverified , 11/27/16) Physical Exam Vital Signs Date Time Temp Pulse Resp B/P (MAP) Pulse Ox O2 Delivery O2 Flow Rate FiO2 11/27/16 21:37 82 16 104/61 97 11/27/16 20:20 36.5 81 16 98/63 95 Room Air Physical Exam VITALS: Vitals are noted on the nurse's note and reviewed by myself. Vital signs stable. GENERAL: This is a 21-year-old female, in no acute distress, nondiaphoretic, well-developed well-nourished. SKIN: The skin was without rashes, erythema, edema, or bruising. There is no tenting of the skin. Capillary reflex less than 2 seconds. HEAD: Normocephalic atraumatic. EARS: The external ears are normal in appearance. EYES: Pupils equal round and reactive to light and accommodation. Conjunctivae without injection, sclerae without icterus. Extraocular movements intact. NOSE: Patent, turbinates without inflammation or discharge. MOUTH: Mucous membranes moist. Tonsils are not enlarged. Pharynx without erythema or exudate. Uvula midline. Airway patent. Tongue does not deviate. NECK: Supple without nuchal rigidity. No lymphadenopathy. No thyromegaly. Cervical spine is nontender. No JVD. HEART: Regular rate and rhythm without murmurs gallops or rubs. LUNGS: Clear to auscultation bilaterally without wheezes, rales or rhonchi. No retractions or accessory muscle use. ABDOMEN: Positive bowel sounds x 4, gravid in appearance. Soft, nontender, without masses or organomegaly. Dela Cruz sign negative. MUSCULOSKELETAL: No muscle atrophy, erythema, or edema noted. Full range of motion without joint tenderness in all extremities. There is tenderness to palpation over the back and flank bilaterally. Normal gait. Strength 5/5 throughout. NEURO: Patient was alert and oriented to person place and time. Normal sensation to light and sharp touch. Deep tendon reflexes 2+ throughout. No focal neurological deficits. Medical Decision & Procedures Medications Administered Medications (Trade) Dose Ordered Sig/Tory Route Start Time Stop Time Status Last Admin Dose Admin Acetaminophen/ Codeine Phosphate (TYLENOL W/ CODEINE #3 Home Pack) 1 homepack UD ONCE PO 11/27/16 20:45 11/27/16 20:51 DC 11/27/16 21:35 1 HOMEPACK Acetaminophen/ Codeine Phosphate (Tylenol w/ Codeine #3 Tab) 1 tab NOW ONCE PO 11/27/16 20:45 11/27/16 20:51 DC 11/27/16 20:46 1 TAB Ondansetron HCl (Zofran Odt) 4 mg NOW STAT PO 11/27/16 20:39 11/27/16 20:41 DC 11/27/16 20:45 4 MG Ondansetron HCl (ZOFRAN ODT 4MG Home Pack) 1 homepack UD ONCE PO 11/27/16 20:45 11/27/16 20:51 DC 11/27/16 21:35 1 HOMEPACK ED Course The patient was seen and examined. This is her third visit in the department. She has also gone to labor and delivery for monitoring. the patient presents because she is having persistent back pain. She does not have any neurologic deficit on exam or by history. She does not have any fever. The patient does seem to have a small spasm on the left side of the paraspinous muscles on repeat examination. I discussed the risks, benefits and alternatives of narcotic pain medication. The patient understands but is requesting pain medication. She was given a take-home pack of Tylenol 3 as well as Zofran. The patient will see DADO OPERATOR tomorrow. She should return with worsening symptoms. I have the case several times with my attending, Dr. Hernandez. She initially evaluated the patient in the emergency department and did not feel that any additional studies would be of benefit at this time. Medical Decision DIFFERENTIAL DIAGNOSIS: Cervical strain, cervical spondylosis, cervical discogenic pain, thoracic outlet syndrome, cervical radiculopathy, herpes zoster , cervical disc herniation, bulging, meningitis, among others. Impression Primary Impression: Low back pain during Additional Impression: Pyelonephritis Departure Information Dispostion Home / Self-Care Condition GOOD Referrals Meagan Sage MD (PCP) Patient Instructions My [facility], Preg Back Pain Additional Instructions Tylenol #3 every 4-6 hours for severe pain Zofran as needed, as prescribed Follow up with DADO OPERATOR tomorrow as discussed Return with worsening symptoms, fevers, loss of bowel or bladder, worsening symptoms Problem Qualifiers
[2016-11-27] MEDS ORDERED: ACETAMINOPHEN/CODEINE 300/30MG TAB PO ONE (20:45)
[2016-11-27] MEDS ORDERED: TYLENOL #3 HOME PACK PO ONE (20:45)
[2016-11-27] MEDS ORDERED: ONDANSETRON HOME PACK 4MG OD TAB PO ONE (20:45)
[2016-11-27 21:37] VITALS: BP 104/61; PULSE 82; O2SAT 97
[2016-11-27] MEDS ORDERED: PRENTAB26 PO (21:39)
== END 2016-11-27 21:38 | disposition home or self-care (01) ==
LOC: C.EDB 20:18 → C.EDC 21:38
DX: M54.5 Low back pain (principal); N12 Tubulo-interstitial nephritis, not specified as acute or chronic; O26.893 Other specified pregnancy related conditions, third trimester; O99.343 Other mental disorders complicating pregnancy, third trimester; F31.9 Bipolar disorder, unspecified; O99.333 Smoking (tobacco) complicating pregnancy, third trimester; Z3A.30 30 weeks gestation of pregnancy; Z82.49 Family history of ischemic heart disease and other diseases of the circulatory system; Z83.3 Family history of diabetes mellitus; Z84.1 Family history of disorders of kidney and ureter

== ENCOUNTER → 2016-12-29 | Outpatient (CLI) | payer OTHER ==
[~2016-12-29] MED LIST changes: +ACET325T96 PO; -CEPH-571 PO; -CEPH500C PO; +KFL500 PO; +MTR600X PO; -NITR-5 PO; +OXYC-57 PO
[2016-12-29 18:35] LABS: URINE APPEARANCE CLEAR (CLEAR); URINE BILIRUBIN NEG (NEG); URINE COLOR YELLOW; URINE EPITHELIAL CELL AUTO >30 /lpf (0-5); URINE NITRITE NEG (NEG); URINE PH 6.5 (4.5-7.5); URINE SPECIFIC GRAVITY 1.019 (1.000-1.030); UROBILINOGEN NEG (NEG)
[2016-12-29 18:37] LABS: MANUAL MICROSCOPIC REQUIRED? NO; REVIEW REQ? NO
== END | disposition home or self-care (01) ==
LOC: C.LABSPEC 08:47
PROVIDERS: ATTEND Obstetrics & Gynecology
DX: Z34.03 Encounter for supervision of normal first pregnancy, third trimester (principal)

== ENCOUNTER → 2017-01-14 | Outpatient (CLI) | payer OTHER | END | disposition home or self-care (01) | LOC: C.LABSPEC 15:19 | PROVIDERS: ATTEND Obstetrics & Gynecology | DX: Z34.03 Encounter for supervision of normal first pregnancy, third trimester (principal) ==

== ENCOUNTER 2017-02-03 12:49 | Outpatient (CLI) | payer OTHER ==
[~2017-02-03] VITALS: Ht 157.5 cm; Wt 71.2 kg
[~2017-02-03 12:49] MED LIST changes: -ACET325T96 PO; -KFL500 PO; -MTR600X PO; -OXYC-57 PO
[2017-02-03 13:56] VITALS: Ht 157.5 cm; Wt 71.2 kg
== END 2017-02-03 14:28 | disposition home or self-care (01) ==
LOC: C.OPB 12:49 → C.LD 12:50 → C.OPB 14:28
PROVIDERS: ATTEND Obstetrics & Gynecology
DX: O99.89 Other specified diseases and conditions complicating pregnancy, childbirth and the puerperium (principal); M62.838 Other muscle spasm; Z3A.39 39 weeks gestation of pregnancy

== ENCOUNTER 2017-02-07 16:33 | Outpatient (CLI) | payer OTHER ==
[~2017-02-07 16:33] MED LIST changes: -DFL150
== END 2017-02-07 18:40 | disposition home or self-care (01) ==
LOC: C.LD 16:33 → C.OPB 16:33
PROVIDERS: ATTEND Obstetrics & Gynecology
DX: Z34.83 Encounter for supervision of other normal pregnancy, third trimester (principal)

== ENCOUNTER 2017-02-08 23:48 | Outpatient (CLI) | payer OTHER ==
[~2017-02-08] VITALS: Ht 157.5 cm; Wt 72.6 kg
[2017-02-09 00:13] VITALS: Ht 157.5 cm; Wt 72.6 kg
== END 2017-02-09 00:50 | disposition home or self-care (01) ==
LOC: C.OPB 23:48 → C.LD 23:48 → C.OPB 02-09 00:50
PROVIDERS: ATTEND Obstetrics & Gynecology
DX: O36.8130 Decreased fetal movements, third trimester, not applicable or unspecified (principal); Z3A.00 Weeks of gestation of pregnancy not specified

== ENCOUNTER 2017-02-11 18:25 | Outpatient (CLI) | payer OTHER ==
[~2017-02-11] VITALS: Ht 157.5 cm; Wt 72.7 kg
[2017-02-11 19:26] VITALS: Ht 157.5 cm; Wt 72.7 kg
[2017-02-11] MEDS ORDERED: ACET325T96 PO (23:28)
== END 2017-02-11 19:57 | disposition home or self-care (01) ==
LOC: C.OPB 18:25 → C.LD 18:25 → C.OPB 19:57
PROVIDERS: ATTEND Obstetrics & Gynecology
DX: O48.0 Post-term pregnancy (principal); Z3A.00 Weeks of gestation of pregnancy not specified

== ENCOUNTER 2017-02-11 22:13 | Inpatient (IN) | payer OTHER ==
[~2017-02-11] VITALS: Ht 157.5 cm; Wt 72.6 kg
[2017-02-11] MEDS ORDERED: LACTATED RINGER'S 1000ML 1,000 ML IV SCH (22:49)
[2017-02-11] MEDS ORDERED: BUTORPHANOL TARTRATE 1 MG/ML VIAL IV PRN (23:00)
[2017-02-11] MEDS ORDERED: ACET325T96 PO (23:28)
[2017-02-11 23:29] LABS: HEMATOCRIT 35.7 % (37-47); MEAN CELL VOLUME 85.6 fL (80-100); MEAN CORPUSCULAR HGB CONC 33.9 g/dl (32-36); MEAN PLATELET VOLUME 11.9 fL (7.4-10.4); PLATELET COUNT 163 K/uL (130-400); RED BLOOD COUNT 4.17 M/uL (4.2-5.4); WHITE BLOOD COUNT 12.39 K/uL (4.8-10.8)
[2017-02-11 23:32] VITALS: Ht 157.5 cm; Wt 72.6 kg
[2017-02-12] MEDS ORDERED: MISOPROSTOL 25 MCG TAB ONE ×2 (07:44→11:55)
[2017-02-12] MEDS ORDERED: MISOPROSTOL 25 MCG TAB PV ONE (07:45)
[2017-02-12] MEDS ORDERED: ACETAMINOPHEN 325 MG TAB PO PRN ×2 (08:45→12:00)
[2017-02-12] MEDS ORDERED: MISOPROSTOL 25 MCG TAB PV PRN (12:00)
[2017-02-12] MEDS ORDERED: BUTORPHANOL TARTRATE 1 MG/ML VIAL IV PRN (17:15)
[2017-02-12] MEDS ORDERED: LACTATED RINGER'S 1000ML 500 ML IV PRN ×3 (19:03→22:50)
[2017-02-12] MEDS ORDERED: OXYTOCIN 30 UNITS/500ML NSS IV PRN (19:15)
[2017-02-12] MEDS ORDERED: BUPIVACAINE 0.25% 30 ML VIAL ONE (19:57)
[2017-02-12] MEDS ORDERED: FENTANYL 2MCG/ML ROPIV 1.25MG/ML 100ML BAG EPI ONE (19:57)
[2017-02-12] MEDS ORDERED: FENTANYL CITRATE INJ 50 MCG/1 ML 2 ML VIAL ONE (19:57)
[2017-02-12] MEDS ORDERED: EpHEDrine SULFATE INJ 50 MG/ML AMP ONE (19:57)
[2017-02-12] MEDS: LACTATED RINGER'S 1000ML 1,000 ML IV PRN ×2 (20:26→21:38)
[2017-02-12] MEDS ORDERED: NALOXONE HCL INJ 0.4 MG/1 ML VIAL/CARP IV PRN (21:00)
[2017-02-12] MEDS ORDERED: FENTANYL 2MCG/ML ROPIV 1.25MG/ML 100ML BAG EPI PRN (21:00)
[2017-02-12] MEDS ORDERED: EpHEDrine SULFATE INJ 50 MG/ML AMP IV PRN ×3 (21:00→23:00)
[2017-02-12] MEDS ORDERED: LACTATED RINGER'S 1000ML 1,000 ML IV SCH (22:05)
[2017-02-12] MEDS ORDERED: CEFAZOLIN IV 2,000 MG in DEXTROSE 5% 50ML 50 ML IV STA (22:07)
[2017-02-12] MEDS ORDERED: CITRIC ACID/SODIUM CITRATE 15 ML UDC PO ONE (22:15)
[2017-02-12] MEDS ORDERED: MoRPHine SULFATE PF 1 MG/ML 10 ML AMP/VIAL ONE (22:21)
[2017-02-12] MEDS ORDERED: PHENYLEPHRINE HCL INJ 10 MG/ML VIAL ONE (22:33)
[2017-02-12] MEDS ORDERED: ONDANSETRON INJ 2 MG/ML 2 ML VIAL ONE (22:33)
[2017-02-12] MEDS ORDERED: EpHEDrine SULFATE 50MG/5ML SYR ONE (22:33)
[2017-02-12] MEDS ORDERED: PROPOFOL IV EMULSION 10 MG/ML 20 ML VIAL IV ONE (22:33)
[2017-02-12] MEDS ORDERED: LANOLIN OINT EXT PRN ×2 (22:45)
[2017-02-12] MEDS ORDERED: SUPERCREAM 0.870 % 15GM JAR EXT PRN (22:45)
[2017-02-12] MEDS ORDERED: HYDROCORTISONE ACETATE 25 MG SUPP PR PRN (22:45)
[2017-02-12] MEDS ORDERED: BENZOCAINE 20% AER SPR 82.5 GM CAN EXT PRN (22:45)
[2017-02-12] MEDS ORDERED: DIPHTHERIA/TETANUS/PERTUSSIS 0.5 ML SYR/VIAL IM. ONE (22:45)
[2017-02-12] MEDS ORDERED: SODIUM CHLORIDE 0.9% 1000ML 1,000 ML IV PRN (22:50)
[2017-02-12] MEDS ORDERED: NALOXONE HCL INJ 0.08 MG in SYRINGE 1.8 ML IV PRN (22:50)
[2017-02-12] MEDS ORDERED: NALOXONE HCL INJ 1 MG in SODIUM CHLORIDE 0.9% 1000ML 1,000 ML IV PRN ×4 (22:50)
--- NOTE | 2017-02-12 22:51 | [facility] Post Operative Brief Note ---
Immediate Operative Summary Operative Date Feb 12, 2017. Pre-Operative Diagnosis 1) 41 WEEKS post dates 2) Non-reassuring heart rate tracing Post-Operative Diagnosis same Procedure(s) Performed Emergent LCT C/S Surgeon Tereso Stave And Bolt Equalizer Surgeon(s) Nursing Estimated Blood Loss 800 Findings Viable female infant, Apgars 8/9; weight 6lbs 6ozs, gasses pending, placenta for exam, normal appearing tubes and ovaries Fluids (cc crystalloids) 1000 Specimens 1) Cord Blood 2) Cord gasses 3) Placenta Drains Kraus to gravity Anesthesia Epidural Complication(s) None Disposition L&D
[2017-02-12] MEDS ORDERED: DiphenhydrAMINE HCL 50 MG/ML VIAL IV PRN (23:00)
[2017-02-12] MEDS ORDERED: NALBUPHINE HCL INJ 10 MG/ML AMP IV PRN (23:00)
[2017-02-12] MEDS ORDERED: NO NARCOTICS OR SEDATIVES SCH (23:00)
[2017-02-12] MEDS ORDERED: PROMETHAZINE HCL INJ 12.5 MG in SODIUM CHLORIDE 0.9% 50ML 50 ML IV PRN ×4 (23:00)
[2017-02-12] MEDS ORDERED: PHENYLEPHRINE 100MCG/ML 5ML SYR IV PRN (23:00)
[2017-02-12] MEDS ORDERED: MEPERIDINE HCL 25 MG/ML CARP IV PRN ×2 (23:00)
[2017-02-12] MEDS ORDERED: ONDANSETRON INJ 2 MG/ML 2 ML VIAL IV PRN ×2 (23:00)
[2017-02-12] MEDS ORDERED: MoRPHine SULFATE PF 1 MG/ML 10 ML AMP/VIAL EPI PRN (23:00)
[2017-02-12] MEDS ORDERED: NALOXONE HCL 0.4 MG/1 ML VIAL/CARP IV PRN (23:00)
[2017-02-12] MEDS ORDERED: KETOROLAC TROMETHAMINE 30 MG/ML VIAL IV. PRN (23:00)
[2017-02-12] MEDS ORDERED: ATROPINE SULFATE 0.1 MG/ML 5ML SYR IV PRN (23:00)
[2017-02-13] VITALS (21 sets, daily range): BP systolic 100–110; BP diastolic 56–75; PULSE 65–103; TEMP 36.7–37.2; O2SAT 95–100
[2017-02-13] MEDS: OXYTOCIN INJ 20 UNITS in LACTATED RINGER'S 1000ML 1,000 ML IV SCH ×2 (00:48→08:47)
--- NOTE | 2017-02-13 01:01 | OPERATIVE REPORT ---
DATE OF OPERATION: 02/12/2017 PREOPERATIVE DIAGNOSES: 1. A 41 week . 2. Nonreassuring heart rate tracing. POSTOPERATIVE DIAGNOSIS: Same. PROCEDURE PERFORMED: Emergent low cervical transverse section. SURGEON: Dr. Rider. ANESTHESIA: Epidural. FINDINGS: A viable female with Apgars of 8 and 9, weight of 6 pounds 6 ounces. Placenta sent for pathological evaluation. Cord gases pending. Normal appearing tubes and ovaries bilaterally. PROCEDURE IN DETAIL: The patient was taken to the operating room and after verbal consent for an emergent section, she was placed in a supine position and prepped and draped in a sterile fashion. A Pfannenstiel type incision was made. Underlying subcutaneous tissue was dissected down to the ventral abdominal fascia, which was nicked and opened in a horizontal manner. Preperitoneal fascia was dissected away until the peritoneal cavity was entered and opened in a vertical manner. Bladder blade was placed. The uterus was entered in a sharp dissection and opened in a semi-lunar fashion manually. Viable female was delivered. Cord was clamped and cut and the baby was passed off to pediatrics who was in attendance for the delivery. Cord gases, and cord blood samples were obtained. Placenta delivered spontaneously and the uterus exteriorized. The uterine cavity was wiped clean of any residual blood tissue and/or clot. The uterine incision was then closed with 2 layers of 4-0 Vicryl, the first, a running locking stitch; the second, an imbricating stitch. Hemostasis was achieved and the uterus was returned to the pelvic cavity. The paracolic gutters were cleared bilaterally of any blood tissue and/or clot. Uterine incision was inspected for hemostasis, which was present. Sponge and needle count was correct. The rectus muscles were plicated in the midline with a running 2-0 Vicryl suture. The fascia was closed laterally with a running 0 Vicryl stitch. The subcutaneous tissue was irrigated with warm saline and the skin incision was closed with a 4-0 Monocryl subcuticular suture. Sterile dressing was applied and the patient was taken to the recovery room in satisfactory condition. I attest to the content of the Intraoperative Record and any orders documented therein. Any exceptions are noted below. MYAH
--- NOTE | 2017-02-13 01:30 | Anesthesiology Progress Note ---
Anesthesia Post Op Note Date & Time Feb 13, 2017 at 01:30 Vital Signs Pain Intensity: 0.0 Vital Signs Past 12 Hours Date Time Temp Pulse Resp B/P (MAP) Pulse Ox O2 Delivery O2 Flow Rate FiO2 02/13/17 01:00 18 99 Notes Mental Status: alert / awake / arousable, participated in evaluation Pt Amnestic to Procedure: Yes Nausea / Vomiting: adequately controlled Pain: adequately controlled Airway Patency, RR, SpO2: stable & adequate BP & HR: stable & adequate Hydration State: stable & adequate Anesthetic Complications: no major complications apparent
[2017-02-13] MEDS: KETOROLAC TROMETHAMINE 30 MG/ML VIAL IV. PRN ×2 (02:01→08:42)
--- NOTE | 2017-02-13 07:06 | Progress Note ---
Subjective Feb 13, 2017. Subjective conversation w/ patient, physical exam, chart review, lab review Ambulation: limited ambulation Voiding: gayle catheter in place Passing Gas: Yes Diet Tolerance: Clear Liquids Lochia: Moderate Feeding Type: Breast Feeding Pain: controlled Review of Systems Respiratory: No shortness of breath Cardiac: No chest pain Abdomen: No nausea, No vomiting Female : No dysuria Objective Vital Signs Date Time Temp Pulse Resp B/P (MAP) Pulse Ox O2 Delivery O2 Flow Rate FiO2 02/13/17 06:00 16 100 02/13/17 05:00 16 99 02/13/17 04:00 18 100 02/13/17 03:40 37.0 72 18 104/65 (78) 99 Room Air 02/13/17 03:00 18 100 02/13/17 02:00 16 98 02/13/17 01:30 99 Room Air 02/13/17 01:30 36.7 65 18 104/71 (82) Room Air 02/13/17 01:00 18 99 Physical Exam General Appearance: WELL-APPEARING, WD/WN, NO APPARENT DISTRESS Respiratory/Chest: lungs clear, normal breath sounds Cardiovascular: regular rate, rhythm, no gallop Abdomen: normal bowel sounds, soft, + distended Fundus: Firm, Tender (appropriately tender), Relation to Umbilicus (at level of U) Incision Description: Clean, Dry & Intact Extremities: no calf tenderness Laboratory Results Last 24 Hours Test 02/13/17 06:00 Assessment and Plan Post-Op Day#: 1 Continue Routine Care: - Vital Signs reviewed and WNL. - Hgb Pending. - Blood Type: A+, GBS -, Rubella Immune. - Pt is doing well clinically. - Encourage Ambulation, Monitor and Control pain with Motrin PRN, Resume regular diet, Monitor Lochia - Encourage Breast Feeding. - Continue routine post op care. TORI MORTON PGY1 FM RESIDENT Resident Physician Supervision Note: I interviewed and examined the patient. Discussed with Dr. Morton and agree with findings and plan as documented in the note. Any exceptions or clarifications are listed here: I have serious concern about the patient's ability to care of the baby. She has minimal coping skills to take care of herself, do not believe she has the emotional maturity to care for the . Social Service consult in place. Documented By: Félix Rider Resident Tracking Resident Involvement: Resident Care Provided Care Provided: OB Delivery
[2017-02-13 07:44] LABS: BASO % 0.1 %; BASO ABS # 0.01 K/uL (0-0.2); COMPLETE YES; EOS % 0.6 %; HEMATOCRIT 33.5 % (37-47); IG% 0.3 %; LYMPH % 10.6 %; LYMPH ABS # 1.73 K/uL (1.2-3.4); MEAN CELL VOLUME 85.9 fL (80-100); MEAN CORPUSCULAR HEMOGLOBIN 27.4 pg (25-34); MEAN CORPUSCULAR HGB CONC 31.9 g/dl (32-36); MEAN PLATELET VOLUME 11.8 fL (7.4-10.4); MONO % 4.1 %; NEUT % 84.3 %; PLATELET COUNT 142 K/uL (130-400); WHITE BLOOD COUNT 16.29 K/uL (4.8-10.8)
[2017-02-13] MEDS: FERROUS SULFATE 325 MG TAB PO SCH (08:43)
--- NOTE | 2017-02-13 10:06 | Discharge Instructions ---
Discharge Instructions Date of Service Feb 13, 2017. Admission Reason for Admission: Post Term Discharge Discharge Diagnosis / Problem: DELIVERY Discharge Goals Goal(s): Routine recovery after Medications Continue Dispensed Medications: supercream, dermaplast, tucks, lansinoh Activity Recommendations Activity Limitations: per Instructions/Follow-up section . Instructions / Follow-Up Instructions / Follow-Up ACTIVITY RECOMMENDATIONS: * Gradual return to full activity over the next 2-3 weeks. * No lifting - nothing heavier than baby over the next 2-3 weeks. * Do not engage in vigorous exercise, sexual activity or sports until cleared by your physician. * Do not drive or operate any motorized equipment until cleared by your physician. * You may shower/bathe daily. MEDICATIONS: For discomfort or pain, you may use Acetaminophen (Tylenol), Ibuprofen (Advil), or Naproxen (Aleve) following the package directions. For constipation you may use Colace following the package directions. BREAST CARE: If you are not breast feeding: * Wear a supportive bra 24 hours a day for one to two weeks. * Avoid stimulating your breasts and nipples as much as possible during the first few weeks after delivery. * When taking a shower, have the warm water hit your back, not breasts. * When your breasts feel full, apply ice packs. Usually three to four times a day helps ease the discomfort. * Take a mild pain medication (Tylenol / Motrin) when you are uncomfortable. If breast feeding: * Use breast milk to lubricate nipples. Lansinoh cream may be used for sore nipples. You do not need to remove cream prior to breast feeding. If using a different brand of cream, check the label for directions regarding removal of cream prior to nursing. * Wear a supportive bra. * If having problems with breasts or breast feeding, call a fashion consultant sales or your health care provider. SPECIAL CARE INSTRUCTIONS: When you are discharged from the hospital, it is important for you to follow the instructions listed below: * During the first week at home, you should be able to care for yourself and your baby. In addition, the usual light household activities are encouraged. * Limit your activities to the way you feel. Do not try to clean the house or move furniture. Be sensible. * If you actively engage in sports and have done so up until the time of your delivery, you may resume these activities as soon as you feel able. This may take up to one month or even longer. Use good judgment. * Continue to take your vitamins for at least six weeks after the of your baby. * Your diet need not be limited unless you were on a special diet before your delivery. Breast-feeding mothers need around 2500 calories per day and at least 64-80 ounces of fluid per day (8 to 10 glasses). * You should eat foods from the four major food groups. Crash diets or fad diets are to be avoided. Eating lean meats, fresh fruits and vegetables, low-fat dairy products, high fiber foods and a regular exercise program, will help you get back to your pre- weight without putting your health at risk. * Constipation is sometimes a problem after delivery. Take a mild laxative as needed. If breast feeding, Milk of Magnesia is acceptable to use. You may use a suppository or Fleets enema. * A daily shower or tub bath is suggested. Wash incision daily with warm soapy water and pat dry. It doesn't need to be covered unless drainage is present. * A bloody vaginal discharge will usually continue until around four weeks . A small amount of bleeding may continue for as long as six weeks. Vaginal discharge changes from the bright red bleeding after delivery to pink then brownish and finally yellowish-pink before becoming white and disappearing. * Bleeding may increase with activity. Your first period may come in 4-8 weeks. If you are breast feeding, your period may be delayed even longer. * [place] (sex) can begin whenever both you and your partner feel comfortable and do not have any form of genital infection. It is recommended that you wait at least six weeks for internal and external healing to occur. If you have questions, please talk to your health care practitioner. A condom should be used to prevent infection and . * Foreplay, gentle intercourse and lubrication is very important the first several times to prevent pain. A water-based lubricant such as K-Y jelly or Astroglide may be used. * If you have RH negative blood and your baby is RH positive, you will receive RHOGAM by injection prior to discharge. The nurse will give you a card to keep with you that has the date and place that you received RHOGAM after delivery. * During your care, you had a Rubella screen done to check for the presence of rubella antibodies in your blood. If your test was negative, you will receive a Rubella vaccine prior to discharge. This vaccine may cause a fever, soreness at the injection site and flu-like symptoms. If these symptoms persist, notify your health care practitioner. is not advised for one month after a Rubella vaccine. * Verbalizes understanding of car seat law as reviewed with patient nursing. * Car Seat hand-out given and reviewed with patient by nursing. * Shaken baby information reviewed with patient by nursing. Call you doctor if: * Heavy bleeding (saturating several pads an hour) or passing clots the size of your fist. * A fever >101 degrees F (38.3 degrees C) on two occasions four hours apart and /or chills. * Unusual pain in the pelvic or vaginal areas. * Call the doctor for any increased redness, drainage or swelling around the incision and any pain unrelieved by prescribed pain medication. * "Baby Blues" lasting longer than two weeks. If you have any questions or concerns, call your health care practitioner at . FOLLOW UP VISIT: * Please call the office at to schedule a 6 week examination. It is important you keep this appointment. It is important for you to make arrangements for either yearly or twice yearly check-ups thereafter. Current Hospital Diet Patient's current hospital diet: Regular OB Diet Discharge Diet Recommended Diet: Regular Diet Procedures Procedures Performed: Emergent LCT C/S Pending Studies Studies pending at discharge: no Medical Emergencies . Who to Call and When: Medical Emergencies: If at any time you feel your situation is an emergency, please call [phone] immediately. . Non-Emergent Contact Non-Emergency issues call your: Primary Care Provider . . "Provider Documentation" section prepared by Nina Morton. . VTE Core Measure Inpt VTE Proph given/why not?: SCD's
[2017-02-13] MEDS ORDERED: DC INTRASPINAL MORPHINE SCH (15:00)
[2017-02-13] MEDS ORDERED: DiphenhydrAMINE HCL 50 MG/ML VIAL IV PRN (15:00)
[2017-02-13] MEDS ORDERED: KETOROLAC TROMETHAMINE 30 MG/ML VIAL IV. PRN (15:00)
[2017-02-13] MEDS ORDERED: ONDANSETRON INJ 2 MG/ML 2 ML VIAL IV PRN (17:00)
[2017-02-13] MEDS ORDERED: OXYCODONE/ACETAMINOPHEN 5-325 TAB PO PRN (17:00)
[2017-02-13] MEDS: IBUPROFEN 600 MG TAB PO PRN ×2 (17:04→21:36)
[2017-02-13] MEDS: OXYCODONE/ACETAMINOPHEN 5-325 TAB PO PRN (21:36)
[2017-02-14] MEDS: IBUPROFEN 600 MG TAB PO PRN ×4 (04:29→19:45)
[2017-02-14 07:29] LABS: HEMATOCRIT 30.1 % (37-47)
--- NOTE | 2017-02-14 07:30 | Progress Note ---
Subjective Feb 14, 2017. Subjective conversation w/ patient, physical exam, chart review, lab review Ambulation: ambulating normally Voiding: no voiding problems Passing Gas: Yes Diet Tolerance: Regular Diet Feeding Type: Bottle Feeding Pain: controlled Review of Systems Respiratory: No shortness of breath Cardiac: No chest pain Abdomen: No nausea, No vomiting Female : No dysuria Objective Vital Signs Date Time Temp Pulse Resp B/P (MAP) Pulse Ox O2 Delivery O2 Flow Rate FiO2 02/13/17 23:35 Room Air 02/13/17 23:20 37.2 99 18 101/56 (71) Room Air 02/13/17 19:00 36.9 101 20 108/72 (84) Room Air 02/13/17 16:00 20 99 02/13/17 15:30 36.9 96 20 110/75 (87) 98 Room Air 02/13/17 15:30 98 Room Air 02/13/17 15:00 20 99 02/13/17 14:00 18 96 02/13/17 13:00 18 99 02/13/17 12:00 18 100 02/13/17 12:00 37.0 103 18 106/67 (80) 95 Room Air 02/13/17 11:00 20 100 02/13/17 10:00 18 100 02/13/17 09:00 18 100 02/13/17 08:00 18 99 02/13/17 08:00 37.0 92 18 100/68 (79) 97 Room Air Physical Exam General Appearance: WELL-APPEARING, WD/WN, NO APPARENT DISTRESS Respiratory/Chest: lungs clear, normal breath sounds, no respiratory distress Cardiovascular: regular rate, rhythm, no gallop Abdomen: normal bowel sounds, soft Fundus: Firm, Non-Tender, Relation to Umbilicus (at level of U) Incision Description: Clean, Dry & Intact Extremities: no calf tenderness Laboratory Results Last 24 Hours Test 02/14/17 06:54 Assessment and Plan Post-Op Day#: 2 Continue Routine Care: - Vital Signs reviewed and WNL. - Hgb 9.9. - Blood Type: A+, GBS -, Rubella Immune. - Pt is doing well clinically. - Encourage Ambulation, Monitor and Control pain with Motrin PRN, Resume regular diet, Monitor Lochia - Encourage Breast Feeding. - Continue routine post op care. TORI TONNY PGY1 FM RESIDENT Resident Physician Supervision Note: I interviewed and examined the patient. Discussed with Dr. Morton and agree with findings and plan as documented in the note. Any exceptions or clarifications are listed here: [None] Documented By: Meagan Sage Resident Tracking Resident Involvement: Resident Care Provided Care Provided: OB Delivery
[2017-02-14 08:10] VITALS: BP 104/71; PULSE 96; TEMP 37.2
[2017-02-14] MEDS: FERROUS SULFATE 325 MG TAB PO SCH (08:18)
[2017-02-14] MEDS: OXYCODONE/ACETAMINOPHEN 5-325 TAB PO PRN ×3 (08:19→21:42)
[2017-02-14 16:10] VITALS: BP 113/77; PULSE 118; TEMP 37.3; O2SAT 98
[2017-02-14] MEDS ORDERED: NURSING VERBAL MED ORDER ONE (16:45)
[2017-02-14] MEDS: ACETAMINOPHEN 325 MG TAB PO PRN (17:04)
[2017-02-14] MEDS: DOCUSATE SODIUM 100 MG CAP PO SCH (19:36)
[2017-02-14] MEDS ORDERED: MAGNESIUM HYDROXIDE SUSP 30 ML UDC PO SCH (22:00)
[2017-02-14] MEDS: SENNA 8.6 MG TAB PO SCH ×2 (22:29→23:09)
[2017-02-14 23:25] VITALS: BP 110/74; PULSE 100; TEMP 36.4; O2SAT 97
[2017-02-15] MEDS: OXYCODONE/ACETAMINOPHEN 5-325 TAB PO PRN (04:11)
[2017-02-15] MEDS: IBUPROFEN 600 MG TAB PO PRN (07:27)
[2017-02-15] MEDS: FERROUS SULFATE 325 MG TAB PO SCH (07:27)
[2017-02-15] MEDS: DOCUSATE SODIUM 100 MG CAP PO SCH (07:27)
[2017-02-15 08:20] VITALS: BP 113/76; PULSE 98; TEMP 37
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
[2017-02-15] MEDS: ACETAMINOPHEN 325 MG TAB PO PRN (09:26)
[2017-02-15] MEDS ORDERED: KFL500 PO (09:39)
[2017-02-15] MEDS ORDERED: OXYC-57 PO (09:39)
[2017-02-15] MEDS ORDERED: MTR600X PO (09:40)
[2017-02-15] MEDS ORDERED: CEPHALEXIN MONOHYDRATE 500 MG CAP PO SCH (12:00)
[2017-02-15 12:30] VITALS: BP_DIAS 76; PULSE 98; TEMP 37
--- NOTE | 2017-02-16 09:10 | DISCHARGE SUMMARY ---
ADMITTING DIAGNOSIS: Postdates . DISCHARGE DIAGNOSES: 1. Same. 2. Nonreassuring heart rate tracing. PROCEDURES PERFORMED: 1. Emergent low cervical transverse section. 2. Social service consult. DISCHARGE MEDICATIONS: 1. Percocet 5/325 1-2 p.o. q. 4-6 hours p.r.n. pain. 2. Motrin 600 mg p.o. q. 6 hours p.r.n. pain. 3. Keflex 500 mg p.o. t.i.d. for 7 days. ADMISSION HISTORY OF PRESENT ILLNESS: The patient is a 21-year-old 3, para 0 with an EDC of 05 February by first trimester ultrasound who was admitted on 11 February for a postdate induction. The patient had a cervical Kraus placed on the 11 of February and had been discharged home. She returned by ambulance complaining of severe abdominal pain. The patient has been compliant in her care. She carries several psychiatric diagnoses and discontinued all psychiatric medication after finding out she was . The patient has been homeless at times during the living in different shelters in the [facility]. The patient's blood type is A positive, antibody negative, rubella immune, hepatitis B negative. She had a normal 1 hour Glucola x2. She had a negative cell free DNA genetic screen and she had a negative third trimester beta strep culture. ADMISSION PHYSICAL EXAMINATION: GENERAL: Showed a gravid female in no acute distress. VITAL SIGNS: Blood pressure of 120/70. HEENT: Unremarkable. NECK: Supple. LUNGS: Clear. HEART: With a regular rhythm and rate. ABDOMEN: Gravid, vertex, positive heart tones, estimated weight of 7 pounds, mild palpable contractions. PELVIC: Showed the cervix to be fingertip dilated, 50% effaced and posterior. EXTREMITIES: Showed no deep calf tenderness. NEUROLOGIC: Grossly intact. HOSPITAL COURSE: The patient was admitted from the Emergency Room with severe abdominal pain. The Kraus bulb was removed with no cervical change. Tracing was category 1 with variability and accelerations. Because of the postdates status of the , the patient received Cytotec 25 mcg intravaginally to try to induce labor. Social service consult was obtained for the patient's living situations and questions about the obstetrical staffs concerns about the patient's ability to take care of the child. The patient had no cervical change after the first dose and had her second dose of Cytotec placed. 8 hours after the second Cytotec dose, the patient was 1 cm dilated, 90% effaced and -2 station, tracing was category 2. Contractions were q.1-2h. 5 minutes, but were mild to palpation. Because of the frequency of contractions, Cytotec was not felt to be appropriate. The patient received Stadol initially for p.r.n. pain. Contractions spaced out after the Stadol and the third Cytotec dosage was placed at 1830 hours. Tracing was category 1 and at that point, approximately 2 hours after the third Cytotec dose, the patient had received an epidural because of discomfort. The tracing then degenerated into a category 3 with repeated decelerations with slow return to baseline fluid bolus, oxygen and ephedrine times x3, brought to baseline up to 120/30 but repeated decels to the 80s. Tracing was felt to be borderline category 3 and with the patient, remote from vaginal delivery, a decision was made to proceed with an emergent section. The patient was taken to the operating room and under epidural anesthesia underwent an emergency section. She delivered a viable female with Apgars of 8 and 9, a weight of 6 pounds 6 ounces, normal appearing tubes and ovaries bilaterally. Placenta was sent for pathological evaluation. Postoperatively, the patient did well. Kraus catheter was removed on the first postoperative day. H&H came back at 10.7 and 33.5. A social service consult was obtained secondary to concerns about the patient's ability to take care of the child. The patient was interviewed by criminal justice social worker and CYS who deemed the patient competent with enough resources at home to allow the baby to be taken and discharged with the patient. The patient was discharged home on the third postoperative day with the routine discharge instructions and the prescriptions for the medications as listed as above. She will follow up in 2 weeks' time for a postoperative check but as always she has been instructed to call with any questions, problems or difficulties. MYAH
== END 2017-02-15 12:35 | disposition home or self-care (01) | DRG 765 ==
LOC: C.OPB 22:13 → C.LD 22:13 → C.OPB 22:51 → C.LD 22:51 → C.OBG 02-13 00:55
PROVIDERS: ADMIT Obstetrics & Gynecology; ATTEND Obstetrics & Gynecology
PROC: 3E0P7GC Introduction of Other Therapeutic Substance into Female Reproductive, Via Natural or Artificial Opening (ICD-10-PCS; principal; 2017-02-12 22:19)
PROC: 10D00Z1 Extraction of Products of Conception, Low, Open Approach (ICD-10-PCS; principal; 2017-02-12 22:19)
DX: O48.0 Post-term pregnancy (principal); Z3A.41 41 weeks gestation of pregnancy; O76 Abnormality in fetal heart rate and rhythm complicating labor and delivery; O99.73 Diseases of the skin and subcutaneous tissue complicating the puerperium; L03.311 Cellulitis of abdominal wall; O99.344 Other mental disorders complicating childbirth; O99.334 Smoking (tobacco) complicating childbirth; F17.200 Nicotine dependence, unspecified, uncomplicated; Z59.8 Other problems related to housing and economic circumstances; Z37.0 Single live birth

== ENCOUNTER → 2017-02-27 | Outpatient (CLI) | payer OTHER ==
[~2017-02-27] MED LIST changes: +ACET325T96 PO; +KFL500 PO; +MTR600X PO; +OXYC-57 PO
[2017-02-27 17:47] LABS: URINE APPEARANCE CLEAR (CLEAR); URINE BILIRUBIN NEG (NEG); URINE COLOR YELLOW; URINE EPITHELIAL CELL AUTO >30 /lpf (0-5); URINE NITRITE NEG (NEG); URINE SPECIFIC GRAVITY 1.021 (1.000-1.030); UROBILINOGEN NEG (NEG); ZZUR CULT IF INDIC CLEAN CATCH YES
[2017-02-27 17:54] LABS: MANUAL MICROSCOPIC REQUIRED? NO; REVIEW REQ? NO
== END | disposition home or self-care (01) ==
LOC: C.LABSPEC 17:07
PROVIDERS: ATTEND Obstetrics & Gynecology
DX: Z39.2 Encounter for routine postpartum follow-up (principal)

== ENCOUNTER 2017-04-19 10:43 | Emergency (ER) | payer OTHER ==
[~2017-04-19] VITALS: Ht 157.5 cm; Wt 68.0 kg
[2017-04-19 11:01] VITALS: TEMP 37; Ht 157.5 cm; Wt 68.0 kg
[2017-04-19] MEDS ORDERED: LAMO100T16 PO (11:27)
[2017-04-19 11:54] LABS: URINE APPEARANCE CLEAR (CLEAR); URINE BILIRUBIN NEG (NEG); URINE COLOR YELLOW; URINE EPITHELIAL CELL AUTO >30 /lpf (0-5); URINE NITRITE NEG (NEG); URINE SPECIFIC GRAVITY 1.034 (1.000-1.030); UROBILINOGEN NEG (NEG); ZZUR CULT IF INDIC CLEAN CATCH YES
[2017-04-19 11:59] LABS: MANUAL MICROSCOPIC REQUIRED? NO; REVIEW REQ? NO
[2017-04-19] MEDS ORDERED: IBUPROFEN 600 MG TAB PO STA (12:27)
[2017-04-19] MEDS ORDERED: MICONAZOLE NITRATE 2% CR 30 GM TUBE EXT STA (12:27)
[2017-04-19] MEDS ORDERED: FLUCONAZOLE 50 MG TAB PO ONE (12:30)
[2017-04-19 13:44] VITALS: BP 105/68; PULSE 72; O2SAT 93
--- NOTE | 2017-04-19 18:18 | EMERGENCY ROOM VISIT NOTE ---
History Report prepared by Dafne: Jossie Escamilla Under the Supervision of: Dr. Luke Lorenzo M.D. First contact with patient: 11:55 Chief Complaint: URINARY SYMPTOMS Stated Complaint: NAUSEA,CRAMPING,BURN WHEN URINATING Nursing Triage Summary: patient to ed via triage, c/o generalized pain with urinary symptoms, states "I had a c-sectiont wo weeks ago and my incision hurts too" History of Present Illness The patient is a 21 year old female who presents to the Emergency Room with complaints of urinary symptoms beginning prior to arrival. The patient also reports having white vaginal discharge and burning with urination. She states that she had a section 2 weeks ago and that her incision has also been hurting. The patient reports a history of urinary tract yeast. She also reports having cramps in her bladder. The patient states that she is bottle feeding. Pt denies LOC, headache, fevers, chills, diaphoresis, visual changes, neck pain, chest pain, breathing difficulties, nausea, vomiting, abdominal pain, back pain , melena, hematochezia, numbness, weakness, lymphadenopathy, rash, or other complaints. Source of History: patient Onset: prior to arrival Position: other (global) Quality: other (urinary symptoms ) Associated Symptoms: + urinary symptoms (burning with urination), No fevers Note: additional symptom: white vaginal discharge, cramps in bladder Review of Systems See HPI for pertinent positives and negatives. A total of ten systems were reviewed and were otherwise negative. Past Medical & Surgical Medical Problems: (1) Abdominal pain (2) Back pain (3) Bipolar 1 disorder (4) Cramping affecting , antepartum (5) Decreased movement affecting management of in third trimester (6) Depression (7) Fatigue (8) Lightheaded (9) Medication overdose (10) Near syncope (11) Negative test (12) Paresthesias (13) Pelvic pain affecting in third trimester, antepartum (14) Post term (15) (16) test positive (17) with 39 completed weeks gestation (18) Viral illness Surgical Problems: (1) Previous section Family History Cancer Diabetes mellitus FHx: cancer Heart disease Hypertension Kidney disease Kidney stones Social History Smoking Status: Current Every Day Smoker Alcohol Use: none Drug Use: none Marital Status: in relationship Housing Status: lives with significant other Occupation Status: employed Current/Historical Medications Scheduled Lamotrigine (Lamictal), 100 MG PO HS Multivit/Min/Iron/Fol Ac/Pren ( Vitamin), 1 TAB PO DAILY Allergies Coded Allergies: No Known Allergies (Unverified , 04/19/17) Physical Exam Vital Signs Date Time Temp Pulse Resp B/P (MAP) Pulse Ox O2 Delivery O2 Flow Rate FiO2 04/19/17 13:44 72 20 105/68 93 04/19/17 12:15 69 95/59 93 04/19/17 11:01 37.0 98 20 119/71 97 Room Air Physical Exam GENERAL: Awake, alert, well-appearing, in no distress HENT: Normocephalic, atraumatic. Oropharynx unremarkable. EYES: Normal conjunctiva. Sclera non-icteric. NECK: Supple. No nuchal rigidity. FROM. No JVD. RESPIRATORY: Clear to auscultation. CARDIAC: Regular rate, normal rhythm. Extremities warm and well perfused. Pulses equal. ABDOMEN: Soft, non-distended. No tenderness to palpation. No rebound or guarding. No masses. incision is clean, dry, intact. Healing well and no sign of infection. RECTAL: Deferred. : Labia and vaginal erythema. White discharge present. MUSCULOSKELETAL: Chest examination reveals no tenderness. The back is symmetrical on inspection without obvious abnormality. There is no CVA tenderness to palpation. No joint edema. LOWER EXTREMITIES: Calves are equal size bilaterally and non-tender. No edema. No discoloration. NEURO: Normal sensorium. No sensory or motor deficits noted. SKIN: No rash or jaundice noted. Medical Decision & Procedures Laboratory Results Test 04/19/17 11:30 Urine Color YELLOW Urine Appearance CLEAR (CLEAR) Urine pH 6.0 (4.5-7.5) Urine Specific [place] 1.034 (1.000-1.030) Urine Protein NEG (NEG) Urine Glucose (UA) NEG (NEG) Urine Ketones NEG (NEG) Urine Occult Blood NEG (NEG) Urine Nitrite NEG (NEG) Urine Bilirubin NEG (NEG) Urine Urobilinogen NEG (NEG) Urine Leukocyte Esterase NEG (NEG) Urine WBC (Auto) 1-5 /hpf (0-5) Urine RBC (Auto) 0-4 /hpf (0-4) Urine Hyaline Casts (Auto) 5-10 /lpf (0-5) Urine Epithelial Cells (Auto) >30 /lpf (0-5) Urine Bacteria (Auto) 1+ (NEG) Urine Test NEG (NEG) Laboratory results reviewed by me Medications Administered Medications (Trade) Dose Ordered Sig/Tory Route Start Time Stop Time Status Last Admin Dose Admin Fluconazole (Diflucan Tab) 150 mg NOW ONCE PO 04/19/17 12:30 04/19/17 12:31 DC 04/19/17 12:51 150 MG Ibuprofen (Motrin Tab) 600 mg NOW STAT PO 04/19/17 12:27 04/19/17 12:28 DC 04/19/17 12:50 600 MG Miconazole Nitrate (Monistat-Derm Crm) 1 appln NOW STAT EXT 04/19/17 12:27 04/19/17 12:28 DC 04/19/17 12:27 1 APPLN ED Course 1215: The patient was evaluated in room C6. A complete history and physical exam was performed. 1227: Ordered Miconazole Nitrate 1 appln EXT, Ibuprofen 600 mg PO. 1230: Ordered Fluconazole 150 mg PO. 1330: I reevaluated the patient. Discussed results and discharge instructions: She verbalized understanding and agreement. The patient is ready for discharge. Medical Decision Triage Nursing notes reviewed. The patient's presentation and history were concerning for urinary symptoms and recent Etiologies such as UTI, vaginitis, wound complication, intra-abdominal process, appendicitis, diverticulitis, obstruction, inflammatory bowel disease, infections, genitourinary, UTI, , as well as others were entertained. The patient was evaluated. Physical examination revealed findings consistent with a candidal vaginitis. Urinalysis did not reveal significant findings. A culture was sent. The patient had a benign abdomen and a well-healing surgical incision. Blood work or imaging was felt to be unnecessary. The patient has a history of yeast infections. She was given a dose of Diflucan here. Monistat was also ordered. The patient was treated with a dose of Motrin. Conservative management was discussed. She will follow-up closely as an outpatient. If she worsens in any way she will be back. By the evaluation outlined above other emergent etiologies such as those listed in the differential, as well as others, were deemed relatively unlikely. The patient was educated about the findings as listed above. All questions were answered and the patient was pleased with the treatment. Return instructions were outlined and the patient was discharged in stable condition. The patient was referred to her PCP for follow-up for a recheck of the current condition. Medication Reconcilliation Current Medication List: was personally reviewed by me Blood Pressure Screening Patient's blood pressure: Normal blood pressure Impression Primary Impression: Candidal vaginitis Additional Impression: Dysuria Scribe Attestation The scribe's documentation has been prepared under my direction and personally reviewed by me in its entirety. I confirm that the note above accurately reflects all work, treatment, procedures, and medical decision making performed by me. Departure Information Dispostion Home / Self-Care Referrals No Doctor, Assigned (PCP) Forms HOME CARE DOCUMENTATION FORM, IMPORTANT VISIT INFORMATION Patient Instructions My [facility] Additional Instructions Use the Monistat twice daily topically for one week to the vaginal area. Ibuprofen(Motrin, Advil) may be used for fever or pain. Use 600mg every six hours as needed. Take with food. Avoid using more than 2400mg in a 24 hour period. Do not use 2400mg per day for more than three consecutive days without physician direction. Prolonged inappropriate use can lead to stomach upset or ulcers. (AND/OR) Acetaminophen(Tylenol) may be used for fever or pain. Use 1000mg every six hours as needed. Avoid using more than 4000mg in a 24 hour period. Rest and drink plenty of fluids as Continue current medications. Return to the ER immediately for worsening or persistent abdominal pain, vomiting, fevers, chest pains, difficulty breathing, black or bloody stools, worsening of your condition, or as needed. Follow up with your primary physician in 2-3 days for a recheck of your current condition. Problem Qualifiers
== END 2017-04-19 13:44 | disposition home or self-care (01) ==
LOC: C.EDB 10:44 → C.EDC 13:44
DX: B37.3 Candidiasis of vulva and vagina (principal); R30.0 Dysuria; N89.8 Other specified noninflammatory disorders of vagina; F31.9 Bipolar disorder, unspecified; Z79.899 Other long term (current) drug therapy; Z82.49 Family history of ischemic heart disease and other diseases of the circulatory system; Z83.3 Family history of diabetes mellitus; Z84.1 Family history of disorders of kidney and ureter; F17.200 Nicotine dependence, unspecified, uncomplicated

== ENCOUNTER 2017-05-03 17:35 | Emergency (ER) | payer OTHER ==
[~2017-05-03] VITALS: Ht 157.5 cm; Wt 68.6 kg
[~2017-05-03 17:35] MED LIST changes: -ACET325T96 PO; -KFL500 PO; +LAMO100T16 PO; -MTR600X PO; -OXYC-57 PO; -PRENTAB26 PO
[2017-05-03 17:43] VITALS: Ht 157.5 cm; Wt 68.6 kg
[2017-05-03] MEDS ORDERED: KETOROLAC TROMETHAMINE 30 MG/ML VIAL IV STA (18:36)
[2017-05-03] MEDS ORDERED: ACET-1256 PO (18:55)
--- NOTE | 2017-05-03 19:18 | DIAGNOSTIC IMAGING REPORT ---
SINGLE VIEW CHEST CLINICAL HISTORY: Cough. Dyspnea. FINDINGS: An AP, portable, upright chest radiograph is compared to study dated 09/18/2014. The examination is degraded by portable technique and patient rotation. The cardiomediastinal silhouette is unremarkable. The lungs and pleural spaces are clear. No pneumothorax is seen. The bony thorax is grossly intact. IMPRESSION: No active disease in the chest. Electronically signed by: Osmar Byrne M.D. 05/03/2017 7:17 PM Dictated Date/Time: 05/03/2017 7:17 PM
[2017-05-03 19:22] LABS: BASO % 0.6 %; BASO ABS # 0.03 K/uL (0-0.2); COMPLETE YES; EOS % 11.3 %; HEMATOCRIT 39.8 % (37-47); IG% 0.2 %; LYMPH % 49.6 %; LYMPH ABS # 2.41 K/uL (1.2-3.4); MEAN CORPUSCULAR HEMOGLOBIN 28.4 pg (25-34); MEAN CORPUSCULAR HGB CONC 33.4 g/dl (32-36); MEAN PLATELET VOLUME 11.7 fL (7.4-10.4); MONO % 8.2 %; NEUT % 30.1 %; PLATELET COUNT 220 K/uL (130-400); RED BLOOD COUNT 4.68 M/uL (4.2-5.4); WHITE BLOOD COUNT 4.86 K/uL (4.8-10.8)
[2017-05-03 19:40] LABS: BLOOD UREA NITROGEN 16 mg/dl (7-18); BUN/CREATININE RATIO 22.6 (10-20); CALCIUM 8.6 mg/dl (8.5-10.1); CARBON DIOXIDE 27 mmol/L (21-32); CHLORIDE 108 mmol/L (98-107); CREATININE 0.72 mg/dl (0.60-1.20); GLUCOSE 85 mg/dl (70-99); POTASSIUM 3.7 mmol/L (3.5-5.1); SODIUM 137 mmol/L (136-145)
[2017-05-03 19:45] LABS: ALKALINE PHOSPHATASE 108 U/L (45-117); ALT/SGPT 34 U/L (12-78); AST/SGOT 17 U/L (15-37)
[2017-05-03 19:46] LABS: URINE APPEARANCE CLEAR (CLEAR); URINE BILIRUBIN NEG (NEG); URINE COLOR YELLOW; URINE NITRITE NEG (NEG); URINE SPECIFIC GRAVITY 1.043 (1.000-1.030); UROBILINOGEN NEG (NEG)
[2017-05-03 19:57] LABS: MANUAL MICROSCOPIC REQUIRED? NO; REVIEW REQ? YES
[2017-05-03 20:01] VITALS: BP 104/73; PULSE 76; TEMP 36.8; O2SAT 98
[2017-05-03 20:12] LABS: PREG INTERNAL NEGATIVE QC NEG CLEAR BACKGROUND; PREG INTERNAL POSITIVE QC POS CONTROL LINE
--- NOTE | 2017-05-03 20:33 | EMERGENCY ROOM VISIT NOTE ---
History Report prepared by Dafne: Shashi Bedolla Under the Supervision of: Dr. Piyush Chatman D.O. First contact with patient: 18:26 Chief Complaint: RESPIRATORY PROBLEMS Stated Complaint: PROBLEMS BREATHING, PRESSURE IN CHEST, COUGH, PAIN Nursing Triage Summary: pt reports "cough that started the other day after drinking faucet water " History of Present Illness The patient is a 21 year old female who presents to the Emergency Room with complaints of constant illness starting a week ago. The patient states that she is having some shortness of breath, a productive cough brining up mucous, runny nose, ear pain, and a sore throat. She additionally states that she has pain in her chest which started last night and feels like a stabbing pain which is worsened with movement and twisting and bending over. The patient reports that her menstrual period ended today. She denies any past medical history. Pt denies headache, change in vision, fevers, chest pain, shortness of breath, nausea, vomiting, diarrhea, pain with urination, vaginal discharge, and melena. No history of diabetes, hypertension, hyperlipidemia or CAD. Source of History: patient Onset: a week ago Position: other (global ) Quality: other (illness) Timing: constant Associated Symptoms: + sorethroat, + cough, + chest pain, + SOB Review of Systems See HPI for pertinent positives & negatives. A total of 10 systems reviewed and were otherwise negative. Past Medical & Surgical Medical Problems: (1) Abdominal pain (2) Back pain (3) Bipolar 1 disorder (4) Cramping affecting , antepartum (5) Decreased movement affecting management of in third trimester (6) Depression (7) Fatigue (8) Lightheaded (9) Medication overdose (10) Near syncope (11) Negative test (12) Paresthesias (13) Pelvic pain affecting in third trimester, antepartum (14) Post term (15) (16) test positive (17) with 39 completed weeks gestation (18) Viral illness Surgical Problems: (1) Previous section Family History Cancer Diabetes mellitus FHx: cancer Heart disease Hypertension Kidney disease Kidney stones Social History Smoking Status: Current Every Day Smoker Alcohol Use: none Drug Use: none Marital Status: in relationship Housing Status: lives with significant other Occupation Status: employed Current/Historical Medications Scheduled Lamotrigine (Lamictal), 100 MG PO HS Multivit/Min/Iron/Fol Ac/Pren ( Vitamin), 1 TAB PO DAILY Scheduled PRN Acetaminophen (Tylenol), 1,000 MG PO Q6H PRN for Pain or Fever Allergies Coded Allergies: No Known Allergies (Unverified , 04/19/17) Physical Exam Vital Signs Date Time Temp Pulse Resp B/P (MAP) Pulse Ox O2 Delivery O2 Flow Rate FiO2 05/03/17 20:01 36.8 76 18 104/73 98 Room Air 05/03/17 19:34 36.8 90 18 109/69 98 Room Air 05/03/17 17:43 37.0 99 18 121/79 98 Room Air Physical Exam GENERAL: Sitting up in bed, alert, well appearing, well nourished, no distress, non-toxic EYE EXAM: normal conjunctiva. OROPHARYNX: no exudate, no erythema, lips, buccal mucosa, and tongue normal and mucous membranes are moist NECK: supple, no nuchal rigidity, no adenopathy, non-tender LUNGS: Clear to auscultation. Normal chest wall mechanics HEART: no murmurs, S1 normal and S2 normal CHEST: Acute reproducible anterior chest wall pain. ABDOMEN: abdomen soft, non-tender, normo-active bowel sounds, no masses, no rebound or guarding. BACK: Back is symmetrical on inspection and there is no deformity, no midline tenderness, no CVA tenderness. SKIN: no rashes and no bruising UPPER EXTREMITIES: upper extremities are grossly normal. LOWER EXTREMITIES: Calves are equal bilaterally. No pitting edema. NEURO EXAM: Normal sensorium, cranial nerves II-XII grossly intact, normal speech, no gross weakness of arms, no gross weakness of legs. Gross sensation intact. Medical Decision & Procedures ER Provider Diagnostic Interpretation: Radiology results as stated below per my review and the radiologist's interpretation: SINGLE VIEW CHEST CLINICAL HISTORY: Cough. Dyspnea. FINDINGS: An AP, portable, upright chest radiograph is compared to study dated 09/18/2014. The examination is degraded by portable technique and patient rotation. The cardiomediastinal silhouette is unremarkable. The lungs and pleural spaces are clear. No pneumothorax is seen. The bony thorax is grossly intact. IMPRESSION: No active disease in the chest. Electronically signed by: Osmar Byrne M.D. 05/03/2017 7:17 PM Dictated Date/Time: 05/03/2017 7:17 PM Laboratory Results 05/03/17 18:55 Red Blood Count 4.68, Mean Corpuscular Volume 85.0, Mean Corpuscular Hemoglobin 28.4, Mean Corpuscular Hemoglobin Concent 33.4, Mean Platelet Volume 11.7, Neutrophils (%) (Auto) 30.1, Lymphocytes (%) (Auto) 49.6, Monocytes (%) (Auto) 8.2, Eosinophils (%) (Auto) 11.3, Basophils (%) (Auto) 0.6, Neutrophils # (Auto ) 1.46, Lymphocytes # (Auto) 2.41, Monocytes # (Auto) 0.40, Eosinophils # (Auto ) 0.55, Basophils # (Auto) 0.03 05/03/17 18:55 Test 05/03/17 18:50 05/03/17 18:55 Urine Color YELLOW Urine Appearance CLEAR (CLEAR) Urine pH 5.0 (4.5-7.5) Urine Specific [place] 1.043 (1.000-1.030) Urine Protein NEG (NEG) Urine Glucose (UA) NEG (NEG) Urine Ketones 1+ (NEG) Urine Occult Blood NEG (NEG) Urine Nitrite NEG (NEG) Urine Bilirubin NEG (NEG) Urine Urobilinogen NEG (NEG) Urine Leukocyte Esterase NEG (NEG) White Blood Count 4.86 K/uL (4.8-10.8) Red Blood Count 4.68 M/uL (4.2-5.4) Hemoglobin 13.3 g/dL (12.0-16.0) Hematocrit 39.8 % (37-47) Mean Corpuscular Volume 85.0 fL (80-100) Mean Corpuscular Hemoglobin 28.4 pg (25-34) Mean Corpuscular Hemoglobin Concent 33.4 g/dl (32-36) Platelet Count 220 K/uL (130-400) Mean Platelet Volume 11.7 fL (7.4-10.4) Neutrophils (%) (Auto) 30.1 % Lymphocytes (%) (Auto) 49.6 % Monocytes (%) (Auto) 8.2 % Eosinophils (%) (Auto) 11.3 % Basophils (%) (Auto) 0.6 % Neutrophils # (Auto) 1.46 K/uL (1.4-6.5) Lymphocytes # (Auto) 2.41 K/uL (1.2-3.4) Monocytes # (Auto) 0.40 K/uL (0.11-0.59) Eosinophils # (Auto) 0.55 K/uL (0-0.5) Basophils # (Auto) 0.03 K/uL (0-0.2) RDW Standard Deviation 42.7 fL (36.4-46.3) RDW Coefficient of Variation 13.8 % (11.5-14.5) Immature Granulocyte % (Auto) 0.2 % Immature Granulocyte # (Auto) 0.01 K/uL (0.00-0.02) D-Dimer 380 ug/L FEU (0-500) Anion Gap 2.0 mmol/L (3-11) Est Creatinine Clear Calc Drug Dose 111.3 ml/min Estimated GFR () 137.8 Estimated GFR (Non- 118.9 BUN/Creatinine Ratio 22.6 (10-20) Calcium Level 8.6 mg/dl (8.5-10.1) Total Bilirubin < 0.1 mg/dl (0.2-1) Direct Bilirubin < 0.1 mg/dl (0-0.2) Aspartate Amino Transf (AST/SGOT) 17 U/L (15-37) Alanine Aminotransferase (ALT/SGPT) 34 U/L (12-78) Alkaline Phosphatase 108 U/L (45-117) Troponin I < 0.015 ng/ml (0-0.045) Total Protein 7.2 gm/dl (6.4-8.2) Albumin 3.4 gm/dl (3.4-5.0) Lipase 184 U/L (73-393) Human Chorionic Gonadotropin, Qual NEG (NEG) Laboratory results per my review. Medications Administered Medications (Trade) Dose Ordered Sig/Tory Route Start Time Stop Time Status Last Admin Dose Admin Ketorolac Tromethamine (Toradol Inj) 30 mg NOW STAT IV 05/03/17 18:36 05/03/17 18:38 DC 05/03/17 19:26 30 MG ECG Indication: SOB/dyspnea Rate (beats per minute): 83 Rhythm: sinus rhythm Findings: no acute ischemic change, no ectopy, other (normal axis) ED Course ED COURSE: Vital signs were reviewed and showed tachycardia The patients medical record was reviewed The above diagnostic studies were performed and reviewed. ED treatments and interventions as stated above. 182: The patient was evaluated in room B12. A complete history and physical examination was performed. 1835: Toradol 30mg IV 1952: Upon reevaluation, the patient is doing well.I discussed my findings with the patient and she understands and agrees with the treatment plan. Based on the patients age, coexisting illnesses, exam and lab findings the decision to treat as an outpatient was made. The patient remained stable while under my care. The patient appeared well at the time of discharge. Medical Decision Differential diagnoses includes but is not limited to acute coronary syndrome, myocardial infarction, pericarditis, pulmonary embolus, aortic dissection, pneumonia, pneumothorax, musculoskeletal, shingles, esophageal. Patient is a 21-year-old female who presents to ER for cough associated with a runny nose and a sore throat. Patient also complains of chest pain which started last night. It is clearly reproducible on exam. No cardiac risk factors. Troponin was negative. D-dimer negative. EKG unremarkable. Chest x- ray shows no infiltrate. Patient was given IV Toradol had significant improvement of symptoms. Based on her presentation I do believe that this is all consistent with a viral URI. Boyfriend was sick with same symptoms. CBC all BMP, LFTs, lipase was negative. Patient was updated bedside. She was discharged follow-up with PCP and take Tylenol or Motrin as needed for pain. Discussed with Pt concerning signs and symptoms to watch out for. Pt was instructed to follow up with their PCP and discussed with the patient their option to return to the ED at anytime for persistent or worsening symptoms. The appropriate anticipatory guidance and out-patient management, including indications for return to the emergency department, were explained at length to the patient and understood. Medication Reconcilliation Current Medication List: was personally reviewed by me Blood Pressure Screening Patient's blood pressure: Normal blood pressure Impression Primary Impression: Viral URI Additional Impression: Musculoskeletal chest pain Scribe Attestation The scribe's documentation has been prepared under my direction and personally reviewed by me in its entirety. I confirm that the note above accurately reflects all work, treatment, procedures, and medical decision making performed by me. Departure Information Dispostion Home / Self-Care Referrals No Doctor, Assigned (PCP) Forms HOME CARE DOCUMENTATION FORM, IMPORTANT VISIT INFORMATION, WORK / SCHOOL INSTRUCTIONS Patient Instructions ED URI Viral, My [facility] Additional Instructions Please follow up with your primary care doctor with in the next 24 hours. Any worsening of your symptoms, please return to the ED immediately. This includes any fevers greater than 100.4, worsening pain, chest pain, shortness breath, persistent nausea, vomiting, unable to eat or drink, or any other concerning signs or symptoms from your standpoint. Please take Tylenol or Motrin as needed for pain. Problem Qualifiers
[2017-05-03] MEDS ORDERED: PRENTAB26 PO (21:39)
== END 2017-05-03 20:11 | disposition home or self-care (01) ==
LOC: C.EDB 17:36
DX: J06.9 Acute upper respiratory infection, unspecified (principal); F31.9 Bipolar disorder, unspecified; Z83.3 Family history of diabetes mellitus; Z80.9 Family history of malignant neoplasm, unspecified; Z82.49 Family history of ischemic heart disease and other diseases of the circulatory system; Z84.1 Family history of disorders of kidney and ureter; F17.210 Nicotine dependence, cigarettes, uncomplicated; Z79.899 Other long term (current) drug therapy

== ENCOUNTER 2017-06-03 19:38 | Inpatient (IN) | payer OTHER ==
[~2017-06-03] VITALS: Ht 154.9 cm; Wt 59.4 kg
[~2017-06-03 19:38] MED LIST changes: +ACET-1256 PO; +PRENTAB26 PO
--- NOTE | 2017-06-03 20:17 | EMERGENCY ROOM VISIT NOTE ---
History Report prepared by [place]: David Arellano Under the Supervision of: Dr. Felice Boudreaux D.O. First contact with patient: 19:48 Chief Complaint: MENTAL HEALTH EVALUATION Stated Complaint: OVERDOSE History of Present Illness The patient is a 21 year old female who presents to the Emergency Room via EMS due to a recent overdose that began 12 hours ago. Patient states that she took 10 Tylenol pills that were 500mg strength each. She states she took the Tylenol both to get rid of her back pain and to cause herself harm. Patient adds that she told her cousin and two friends about taking the pills. Her cousin then told her mother, who then rushed over to her house and called the ambulance. She states that she has been "overwhelmed" with life at home. She states that she is overwhelmed because people have told her that the people around her 4 month old daughter are not safe people. She adds that she has not signed away parental custody of her child. In addition, patient states she is an open relationship with another darlene named "Tahir". She states that he stopped answering her text throughout the day today which exacerbated her depressive episode. Pertinent past medical history includes major depression. She adds that she was admitted to the [facility] in 2009 for suicidal and homicidal ideations. She adds that she has a history of cutting. She states her last doctor's visit was a month ago. She adds that she feels safe at home. She states she is currently on her menstrual period, but is worried about being . Pertinent medication includes Lamictal. She states she previously took Neurontin. Patient states that she would like to be on an anti-depressant. Patient denies drinking any alcohol today. She states she uses tobacco. She denies any rashes, nausea, vomiting, painful urination, and diarrhea. Source of History: patient Onset: 12 hours ago Position: other (Overdose) Associated Symptoms: No nausea, No vomiting, No diarrhea, No rash Note: Patient denies painful urination. Review of Systems See HPI for pertinent positives & negatives. A total of 10 systems reviewed and were otherwise negative. Past Medical & Surgical Medical Problems: (1) Abdominal pain (2) Acetaminophen overdose (3) Back pain (4) Bipolar 1 disorder (5) Cramping affecting , antepartum (6) Decreased movement affecting management of in third trimester (7) Depression (8) Fatigue (9) Intentional overdose of drug in tablet form (10) Lightheaded (11) Medication overdose (12) Near syncope (13) Negative test (14) Paresthesias (15) Pelvic pain affecting in third trimester, antepartum (16) Post term (17) (18) test positive (19) with 39 completed weeks gestation (20) Viral illness Surgical Problems: (1) Previous section Family History Cancer Diabetes mellitus FHx: cancer Heart disease Hypertension Kidney disease Kidney stones Social History Smoking Status: Current Every Day Smoker Alcohol Use: none Drug Use: none Marital Status: in relationship Housing Status: lives with significant other Occupation Status: employed Current/Historical Medications Scheduled Lamotrigine (Lamictal), 100 MG PO HS Scheduled PRN Acetaminophen (Tylenol), 1,000 MG PO Q6H PRN for Pain or Fever Allergies Coded Allergies: No Known Allergies (Unverified , 04/19/17) Physical Exam Vital Signs Date Time Temp Pulse Resp B/P (MAP) Pulse Ox O2 Delivery O2 Flow Rate FiO2 06/04/17 00:40 85 16 119/83 96 06/03/17 23:02 65 16 115/72 98 Room Air 06/03/17 21:25 66 14 112/67 97 Room Air 06/03/17 19:40 36.7 60 18 111/77 99 Room Air Physical Exam GENERAL: Patient is awake, alert, and in no acute distress. Patient is resting comfortably and showing no signs of anxiety EYES: The conjunctivae are clear. The pupils are round and reactive. EARS, NOSE, MOUTH AND THROAT: The nose is without any evidence of any deformity. Mucous membranes are moist tongue is midline NECK: The neck is nontender and supple. RESPIRATORY: Normal respiratory effort is noted there is no evidence of wheezing rhonchi or rales CARDIOVASCULAR: Regular rate and rhythm noted there no murmurs rubs or gallops normal S1 normal S2 GASTROINTESTINAL: The abdomen is soft. Bowel sounds are present in all quadrants. Abdomen is nontender MUSCULOSKELETAL/EXTREMITIES: There is no evidence of gross deformity full range of motion is noted in the hips and shoulders SKIN: There is no obvious evidence of any rash. There are no petechiae, pallor or cyanosis noted. NEUROLOGIC: Patient is awake alert and oriented x3 strength is symmetric patellar reflexes are 2+ bilaterally PSYCH: Awake and alert. Affect was animated. Patient has mild tangential thought processes. Currently denying SI and HI Medical Decision & Procedures Laboratory Results 06/03/17 20:29 Red Blood Count 4.77, Mean Corpuscular Volume 83.4, Mean Corpuscular Hemoglobin 27.7, Mean Corpuscular Hemoglobin Concent 33.2, Mean Platelet Volume 11.7, Neutrophils (%) (Auto) 49.1, Lymphocytes (%) (Auto) 41.6, Monocytes (%) (Auto) 4.8, Eosinophils (%) (Auto) 4.1, Basophils (%) (Auto) 0.4, Neutrophils # (Auto) 2.67, Lymphocytes # (Auto) 2.26, Monocytes # (Auto) 0.26, Eosinophils # (Auto) 0.22, Basophils # (Auto) 0.02 06/03/17 20:29 Test 06/03/17 19:56 06/03/17 20:29 Urine Color YELLOW Urine Appearance SL CLOUDY (CLEAR) Urine pH 5.0 (4.5-7.5) Urine Specific [place] >= 1.030 (1.000-1.030) Urine Protein TRACE (NEG) Urine Glucose (UA) NEG (NEG) Urine Ketones 2+ (NEG) Urine Occult Blood NEG (NEG) Urine Nitrite NEG (NEG) Urine Bilirubin NEG (NEG) Urine Urobilinogen NEG (NEG) Urine Leukocyte Esterase NEG (NEG) Urine RBC 0-4 /hpf (0-4) Urine WBC 1-5 /hpf (0-5) Urine Epithelial Cells >30 /lpf (0-5) Urine Bacteria NEG (NEG) Urine Mucus PRESENT (NONE PRSENT) Human Chorionic Gonadotropin, Qual NEG (NEG) Urine Opiates Screen NEG (NEG) Urine Methadone, Qualitative NEG (NEG) Urine Barbiturates NEG (NEG) Urine Phencyclidine (PCP) Level NEG (NEG) Ur Amphetamine/Methamphetamine POS (NEG) MDMA (Ecstasy) Screen NEG (NEG) Urine Benzodiazepines Screen NEG (NEG) Urine Cocaine Metabolite NEG (NEG) Urine Marijuana (THC) NEG (NEG) White Blood Count 5.43 K/uL (4.8-10.8) Red Blood Count 4.77 M/uL (4.2-5.4) Hemoglobin 13.2 g/dL (12.0-16.0) Hematocrit 39.8 % (37-47) Mean Corpuscular Volume 83.4 fL (80-100) Mean Corpuscular Hemoglobin 27.7 pg (25-34) Mean Corpuscular Hemoglobin Concent 33.2 g/dl (32-36) Platelet Count 232 K/uL (130-400) Mean Platelet Volume 11.7 fL (7.4-10.4) Neutrophils (%) (Auto) 49.1 % Lymphocytes (%) (Auto) 41.6 % Monocytes (%) (Auto) 4.8 % Eosinophils (%) (Auto) 4.1 % Basophils (%) (Auto) 0.4 % Neutrophils # (Auto) 2.67 K/uL (1.4-6.5) Lymphocytes # (Auto) 2.26 K/uL (1.2-3.4) Monocytes # (Auto) 0.26 K/uL (0.11-0.59) Eosinophils # (Auto) 0.22 K/uL (0-0.5) Basophils # (Auto) 0.02 K/uL (0-0.2) RDW Standard Deviation 43.1 fL (36.4-46.3) RDW Coefficient of Variation 14.0 % (11.5-14.5) Immature Granulocyte % (Auto) 0.0 % Immature Granulocyte # (Auto) 0.00 K/uL (0.00-0.02) Prothrombin Time 10.5 SECONDS (9.0-12.0) Prothromb Time International Ratio 1.0 (0.9-1.1) Activated Partial Thromboplast Time 26.6 SECONDS (21.0-31.0) Partial Thromboplastin Ratio 1.0 Anion Gap 6.0 mmol/L (3-11) Est Creatinine Clear Calc Drug Dose 91.3 ml/min Estimated GFR () 121.3 Estimated GFR (Non- 104.7 BUN/Creatinine Ratio 8.4 (10-20) Calcium Level 8.6 mg/dl (8.5-10.1) Total Bilirubin 0.3 mg/dl (0.2-1) Direct Bilirubin < 0.1 mg/dl (0-0.2) Aspartate Amino Transf (AST/SGOT) 16 U/L (15-37) Alanine Aminotransferase (ALT/SGPT) 27 U/L (12-78) Alkaline Phosphatase 124 U/L (45-117) Total Creatine Kinase 62 U/L (26-192) Total Protein 7.4 gm/dl (6.4-8.2) Albumin 3.6 gm/dl (3.4-5.0) Lipase 105 U/L (73-393) Salicylates Level 2.8 mg/dl (2.8-20) Acetaminophen Level 36 ug/ml (10-30) Ethyl Alcohol mg/dL < 3.0 mg/dl (0-3) Laboratory results per my review. Medications Administered Medications (Trade) Dose Ordered Sig/Tory Route Start Time Stop Time Status Last Admin Dose Admin Acetylcysteine 8910 mg/Dextrose 244.55 ml @ 244.55 mls/hr 2330 IV 06/03/17 23:30 06/04/17 00:29 DC 06/03/17 23:36 244.55 MLS/HR Acetylcysteine 2970 mg/Dextrose 514.85 ml @ 128.713 mls/hr TODAY@0030 IV 06/04/17 00:30 06/04/17 04:29 06/04/17 00:43 128.713 MLS/HR ECG Indication: other (Overdose) Rate (beats per minute): 53 Rhythm: sinus bradycardia Findings: no ectopy, other (No acute ST segment changes.) Comparison ECG Date: 05/03/2017 Change: no significant change ED Course 1999: The patient was evaluated in room A8. A complete history and physical examination were performed. 2204: Nurse called poison control because patient's Tylenol level was 36, 13.5 hours after ingestion. 5: Poison control said to treat the patient. 2240: Acetylcysteine 1ea IV 2330: Acetylcysteine 8,910mg 244.55ml IV 0030: Acetylcystein 2,2970mg 514.85ml IV 0430: Acetylcysteine 5,940mg 1,029.7ml IV 0025: Upon reevaluation, the patient will be further evaluated. I discussed results and treatment plan with her. She verbalizes agreement and understanding. I spoke with Dr. Arsenio Landrum of the [facility] [place] The patient will be evaluated for further management and care. Medical Decision Prior records/ancillary studies reviewed. Triage Nursing notes reviewed. Additional history obtained from the prehospital personnel. The patient's history was concerning for possible psychiatric disturbance. Differential diagnosis: Etiologies such as mood disorder, infection, hypoglycemia, electrolyte abnormalities, cardiac sources, intracerebral event, toxicologic, neurologic, as well as others were entertained. The patient is a 21-year-old female who presented to emergency department for an evaluation of mental health problems. The patient's had significant anxiety problems. She has multiple relationships at this time and has been having arguments with her significant other's. The patient took unknown amount of Tylenol at approximate 7 o'clock this morning. She made this known to some family members. The patient had a mental health evaluation in the field and then was sent to the emergency department for further evaluation. The patient was unable to be medically cleared because her Tylenol level was still elevated. We discussed this case with Poison Control Center and they recommended starting the n-acetylcysteine protocol. I discussed his case with the on-call [facility] hospitalist group. They've agreed to evaluate the patient in the emergency department for further management and disposition. Medication Reconcilliation Current Medication List: was personally reviewed by me Blood Pressure Screening Patient's blood pressure: Normal blood pressure Blood pressure disposition: Did not require urgent referral Consults Time Called: 001 Consulting Physician: Dr. Arsenio Landrum - Hospitalist Returned Call: 0020 I discussed the patient's case with Dr. Arsenio Landrum. The patient will be evaluated for further management. Impression Primary Impression: Depression Additional Impression: Tylenol overdose Scribe Attestation The scribe's documentation has been prepared under my direction and personally reviewed by me in its entirety. I confirm that the note above accurately reflects all work, treatment, procedures, and medical decision making performed by me. Departure Information Dispostion Being Evaluated By Hospitalist Referrals No Doctor, Assigned (PCP) Forms HOME CARE DOCUMENTATION FORM, IMPORTANT VISIT INFORMATION Patient Instructions My [facility] Problem Qualifiers
[2017-06-03 20:46] LABS: BASO % 0.4 %; BASO ABS # 0.02 K/uL (0-0.2); EOS % 4.1 %; EOS ABS # 0.22 K/uL (0-0.5); HEMATOCRIT 39.8 % (37-47); HEMOGLOBIN 13.2 g/dL (12.0-16.0); LYMPH % 41.6 %; LYMPH ABS # 2.26 K/uL (1.2-3.4); MEAN CELL VOLUME 83.4 fL (80-100); MEAN CORPUSCULAR HEMOGLOBIN 27.7 pg (25-34); MEAN CORPUSCULAR HGB CONC 33.2 g/dl (32-36); MEAN PLATELET VOLUME 11.7 fL (7.4-10.4); MONO % 4.8 %; MONO ABS # 0.26 K/uL (0.11-0.59); NEUT % 49.1 %; NEUT ABS # 2.67 K/uL (1.4-6.5); PLATELET COUNT 232 K/uL (130-400); RED CELL DISTRIBUTION WIDTH SD 43.1 fL (36.4-46.3); WHITE BLOOD COUNT 5.43 K/uL (4.8-10.8)
[2017-06-03 21:05] LABS: ALBUMIN 3.6 gm/dl (3.4-5.0); ALT/SGPT 27 U/L (12-78); AST/SGOT 16 U/L (15-37); BLOOD UREA NITROGEN 7 mg/dl (7-18); CALCIUM 8.6 mg/dl (8.5-10.1); CARBON DIOXIDE 24 mmol/L (21-32); GLUCOSE 78 mg/dl (70-99); LIPASE 105 U/L (73-393); POTASSIUM 3.6 mmol/L (3.5-5.1); SODIUM 137 mmol/L (136-145)
[2017-06-03 21:06] LABS: PTT PATIENT 26.6 SECONDS (21.0-31.0)
[2017-06-03 21:07] LABS: ALKALINE PHOSPHATASE 124 U/L (45-117); TOTAL PROTEIN 7.4 gm/dl (6.4-8.2)
[2017-06-03] MEDS ORDERED: ACETYLCYSTEINE IV 21 HOUR REGIMEN IV STA (22:40)
[2017-06-03] MEDS ORDERED: ACETYLCYSTEINE IV SCH (23:30)
[2017-06-03] MEDS ORDERED: DEXTROSE 5% IV SCH (23:30)
[2017-06-04] MEDS ORDERED: ACETYLCYSTEINE IV 21 HOUR REGIMEN IV STA (00:12)
[2017-06-04] MEDS ORDERED: ALUMINUM/MAGNESIUM/SIMETH (MAALOX MAX) 30 ML UDC PO PRN (00:15)
[2017-06-04] MEDS ORDERED: MAGNESIUM HYDROXIDE SUSP 30 ML UDC PO PRN (00:15)
[2017-06-04] MEDS ORDERED: ONDANSETRON INJ 2 MG/ML 2 ML VIAL IV PRN (00:15)
[2017-06-04] MEDS ORDERED: POLYETHYLENE (MIRALAX) 17 GM PACK PO PRN (00:15)
[2017-06-04] MEDS ORDERED: ZOLPIDEM TARTRATE 5 MG TAB PO PRN (00:15)
[2017-06-04] MEDS ORDERED: ACETYLCYSTEINE IV SCH (00:30)
[2017-06-04] MEDS ORDERED: DEXTROSE 5% IV SCH (00:30)
[2017-06-04 00:40] VITALS: O2SAT 96
[2017-06-04] MEDS ORDERED: DiphenhydrAMINE HCL 50 MG/ML VIAL IV STA (00:45)
--- NOTE | 2017-06-04 01:09 | History and Physical ---
History & Physical Date & Time of Service: Jun 04, 2017 at 01:02 Chief Complaint: Overdose Primary Care Physician: No Doctor, Assigned History of Present Illness Source: patient 21 y/o F with bipolar disorder presents to the ER having ingested a large amount of Tylenol with intent to commit suicide. She states that she was depressed earlier in the day as her daughter is currently residing with a grandparent. As I understood, she technically has custody of her child, however , her grandmother does not want to transfer the child to her care as she is concerned regarding the company she keeps. She states that she does not know who called EMS after she had ingested Tylenol, although she may have discussed her overdose with a friend or relative. On arrival to the hospital, a toxic level was confirmed. LFTs are thus far normal. She states that she ingested a total of 5g, 12 hours prior to arrival. It is noted that the information provided to the ER attending varies from what the pt provided to the medical service. Past Medical/Surgical History Medical Problems: (1) Abdominal pain Status: Resolved (2) Back pain Status: Resolved (3) Bipolar 1 disorder Status: Chronic (4) Cramping affecting , antepartum Status: Resolved (5) Decreased movement affecting management of in third trimester Status: Resolved (6) Depression Status: Chronic (7) Fatigue Status: Resolved (8) Lightheaded Status: Resolved (9) Medication overdose Status: Resolved (10) Near syncope Status: Resolved (11) Negative test Status: Resolved (12) Paresthesias Status: Resolved (13) Pelvic pain affecting in third trimester, antepartum Status: Resolved (14) Status: Resolved (15) test positive Status: Resolved (16) with 39 completed weeks gestation Status: Resolved (17) Viral illness Status: Resolved Surgical Problems: (1) Previous section Status: Resolved Family History Cancer Diabetes mellitus FHx: cancer Heart disease Hypertension Kidney disease Kidney stones Social History Smoking Status: Current Every Day Smoker Drug Use: none Marital Status: in relationship Housing status: lives with family Occupational Status: employed Multi-Drug Resistant Organisms History of MDRO: No Allergies Coded Allergies: No Known Allergies (Unverified , 04/19/17) Home Medications Scheduled Lamotrigine (Lamictal), 100 MG PO HS Scheduled PRN Acetaminophen (Tylenol), 1,000 MG PO Q6H PRN for Pain or Fever Review of Systems Constitutional: No fever, No chills, No sweats Eyes: No worsening of vision ENT: No hearing loss, No unusual epistaxis, No nasal symptoms Respiratory: No cough, No sputum, No wheezing Cardiovascular: No chest pain Abdomen: No pain, No nausea, No vomiting Musculoskeletal: No joint pain Genitourinary - Female: No dysuria, No urinary frequency, No urinary urgency Neurologic: No memory loss, No paralysis, No weakness Psychiatric: + depression symptoms, + problem reported (Suicidal ideation) Endocrine: No fatigue Hematologic / Lymphatic: No abnormal bleeding/bruising Integumentary: No rash Allergic / Immunologic: No environmental allergies Physical Exam Vital Signs Date Time Temp Pulse Resp B/P (MAP) Pulse Ox O2 Delivery O2 Flow Rate FiO2 06/04/17 00:40 85 16 119/83 96 06/03/17 23:02 65 16 115/72 98 Room Air 06/03/17 21:25 66 14 112/67 97 Room Air 06/03/17 19:40 36.7 60 18 111/77 99 Room Air General Appearance: WD/WN, no apparent distress Head: normocephalic ENT: normal ENT inspection, pharynx normal Neck: supple, no JVD Respiratory/Chest: chest non-tender, lungs clear, normal breath sounds Cardiovascular: regular rate, rhythm, no edema, no gallop Abdomen/GI: normal bowel sounds, non tender, soft Back: normal inspection, no muscle spasm Extremities/Musculoskelatal: normal inspection, no calf tenderness, normal capillary refill Neurologic/Psych: preparation operator II-XII nml as tested, no motor/sensory deficits, alert, oriented x 3 Skin: normal color Diagnostics Laboratory Results Results Past 24 Hours Test 06/03/17 19:56 06/03/17 20:29 Range/Units Urine Color YELLOW Urine Appearance SL CLOUDY CLEAR Urine pH 5.0 4.5-7.5 Urine Specific [place] >= 1.030 1.000-1.030 Urine Protein TRACE NEG Urine Glucose (UA) NEG NEG Urine Ketones 2+ NEG Urine Occult Blood NEG NEG Urine Nitrite NEG NEG Urine Bilirubin NEG NEG Urine Urobilinogen NEG NEG Urine Leukocyte Esterase NEG NEG Urine RBC 0-4 0-4 /hpf Urine WBC 1-5 0-5 /hpf Urine Epithelial Cells >30 0-5 /lpf Urine Bacteria NEG NEG Urine Mucus PRESENT NONE PRSENT Human Chorionic Gonadotropin, Qual NEG NEG Urine Opiates Screen NEG NEG Urine Methadone, Qualitative NEG NEG Urine Barbiturates NEG NEG Urine Phencyclidine (PCP) Level NEG NEG Ur Amphetamine/Methamphetamine POS NEG MDMA (Ecstasy) Screen NEG NEG Urine Benzodiazepines Screen NEG NEG Urine Cocaine Metabolite NEG NEG Urine Marijuana (THC) NEG NEG White Blood Count 5.43 4.8-10.8 K/uL Red Blood Count 4.77 4.2-5.4 M/uL Hemoglobin 13.2 12.0-16.0 g/dL Hematocrit 39.8 37-47 % Mean Corpuscular Volume 83.4 80-100 fL Mean Corpuscular Hemoglobin 27.7 25-34 pg Mean Corpuscular Hemoglobin Concent 33.2 32-36 g/dl Platelet Count 232 130-400 K/uL Mean Platelet Volume 11.7 7.4-10.4 fL Neutrophils (%) (Auto) 49.1 % Lymphocytes (%) (Auto) 41.6 % Monocytes (%) (Auto) 4.8 % Eosinophils (%) (Auto) 4.1 % Basophils (%) (Auto) 0.4 % Neutrophils # (Auto) 2.67 1.4-6.5 K/uL Lymphocytes # (Auto) 2.26 1.2-3.4 K/uL Monocytes # (Auto) 0.26 0.11-0.59 K/uL Eosinophils # (Auto) 0.22 0-0.5 K/uL Basophils # (Auto) 0.02 0-0.2 K/uL RDW Standard Deviation 43.1 36.4-46.3 fL RDW Coefficient of Variation 14.0 11.5-14.5 % Immature Granulocyte % (Auto) 0.0 % Immature Granulocyte # (Auto) 0.00 0.00-0.02 K/uL Prothrombin Time 10.5 9.0-12.0 SECONDS Prothromb Time International Ratio 1.0 0.9-1.1 Activated Partial Thromboplast Time 26.6 21.0-31.0 SECONDS Partial Thromboplastin Ratio 1.0 Sodium Level 137 136-145 mmol/L Potassium Level 3.6 3.5-5.1 mmol/L Chloride Level 107 98-107 mmol/L Carbon Dioxide Level 24 21-32 mmol/L Anion Gap 6.0 3-11 mmol/L Blood Urea Nitrogen 7 7-18 mg/dl Creatinine 0.80 0.60-1.20 mg/dl Est Creatinine Clear Calc Drug Dose 91.3 ml/min Estimated GFR () 121.3 Estimated GFR (Non- 104.7 BUN/Creatinine Ratio 8.4 10-20 Random Glucose 78 70-99 mg/dl Calcium Level 8.6 8.5-10.1 mg/dl Total Bilirubin 0.3 0.2-1 mg/dl Direct Bilirubin < 0.1 0-0.2 mg/dl Aspartate Amino Transf (AST/SGOT) 16 15-37 U/L Alanine Aminotransferase (ALT/SGPT) 27 12-78 U/L Alkaline Phosphatase 124 45-117 U/L Total Creatine Kinase 62 26-192 U/L Total Protein 7.4 6.4-8.2 gm/dl Albumin 3.6 3.4-5.0 gm/dl Lipase 105 73-393 U/L Salicylates Level 2.8 2.8-20 mg/dl Acetaminophen Level 36 10-30 ug/ml Ethyl Alcohol mg/dL < 3.0 0-3 mg/dl Impression Assessment and Plan 21 y/o F with bipolar disorder presents to the ER having ingested a large amount of Tylenol with intent to commit suicide. She states that she was depressed earlier in the day as her daughter is currently residing with a grandparent. As I understood, she technically has custody of her child, however , her grandmother does not want to transfer the child to her care as she is concerned regarding the company she keeps. She states that she does not know who called EMS after she had ingested Tylenol, although she may have discussed her overdose with a friend or relative. On arrival to the hospital, a toxic level was confirmed. LFTs are thus far normal. She states that she ingested a total of 5g, 12 hours prior to arrival. The pt is assigned to the medical floor for treatment with Acetadote. We have placed her on one-to-one observation and requested a mental health evaluation. LFTs will be trended. She will remain on Lamotrigine for depression/bipolar disorder. UDS is + for Amphetamines - she denies use presently Full code Lovenox prophylaxis Total time for this admit including review of labs, meds, imaging - discussion with pt and ER attending - 35 min Level of Care Med/Surg Resuscitation Status FULL RESUSCITATION VTE Prophylaxis VTE Risk Assessment Done? Y/N: Yes Risk Level: Very Low Given or contraindicated: Enoxaparin (Lovenox)SQ
[2017-06-04 01:24] VITALS: BP 130/86; PULSE 72; TEMP 36.6; O2SAT 92
[2017-06-04 01:30] VITALS: BP 130/86; PULSE 72; TEMP 36.6; Ht 154.9 cm; Wt 59.4 kg
[2017-06-04] MEDS: D5NSS + 20MEQ KCL 1,000 ML IV SCH ×2 (03:16→12:23)
[2017-06-04] MEDS: DEXTROSE 5% IV SCH ×2 (06:04→06:41)
[2017-06-04] MEDS: ACETYLCYSTEINE IV SCH ×2 (06:04→06:41)
[2017-06-04 07:32] VITALS: BP 104/70; PULSE 66; TEMP 36.6; O2SAT 98
[2017-06-04] MEDS ORDERED: ENOXAPARIN 40 MG/0.4 ML SYR SQ SCH (08:00)
[2017-06-04 08:35] LABS: HEMATOCRIT 39.9 % (37-47); HEMOGLOBIN 13.4 g/dL (12.0-16.0); MEAN CELL VOLUME 83.3 fL (80-100); MEAN CORPUSCULAR HGB CONC 33.6 g/dl (32-36); MEAN PLATELET VOLUME 12.1 fL (7.4-10.4); PLATELET COUNT 214 K/uL (130-400); RED CELL DISTRIBUTION WIDTH SD 42.2 fL (36.4-46.3); WHITE BLOOD COUNT 5.77 K/uL (4.8-10.8)
[2017-06-04 09:51] LABS: ALT/SGPT 25 U/L (12-78); AST/SGOT 10 U/L (15-37); BLOOD UREA NITROGEN 8 mg/dl (7-18); CALCIUM 8.4 mg/dl (8.5-10.1); CARBON DIOXIDE 21 mmol/L (21-32); CREATININE 0.69 mg/dl (0.60-1.20); GLUCOSE 97 mg/dl (70-99); POTASSIUM 3.4 mmol/L (3.5-5.1); SODIUM 141 mmol/L (136-145)
[2017-06-04 09:54] LABS: ALKALINE PHOSPHATASE 101 U/L (45-117); TOTAL PROTEIN 6.5 gm/dl (6.4-8.2)
[2017-06-04 11:29] LABS: ALKALINE PHOSPHATASE 100 U/L (45-117); ALT/SGPT 20 U/L (12-78); AST/SGOT 11 U/L (15-37); TOTAL PROTEIN 6.4 gm/dl (6.4-8.2)
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
[2017-06-04] MEDS ORDERED: NICOTINE 14 MG/24 HR TDSY TD SCH (14:45)
[2017-06-04 15:00] VITALS: BP 112/70; PULSE 63; TEMP 36.3; O2SAT 97
[2017-06-04 15:08] LABS: INR 1.1 (0.9-1.1)
[2017-06-04 15:32] LABS: ALKALINE PHOSPHATASE 101 U/L (45-117); ALT/SGPT 21 U/L (12-78); AST/SGOT 9 U/L (15-37); TOTAL PROTEIN 6.5 gm/dl (6.4-8.2)
--- NOTE | 2017-06-04 16:38 | Discharge Instructions ---
Discharge Instructions Date of Service Jun 04, 2017. Admission Reason for Admission: Acetaminophen Od, Intentional Od Of Drug In Tablet Discharge Discharge Diagnosis / Problem: tylenol overdose, depression Discharge Goals Goal(s): Diagnostic testing, Therapeutic intervention Activity Recommendations Activity Limitations: as noted below Lifting Limitations: gradually increase as tolerated . Current Hospital Diet Patient's current hospital diet: Regular Diet Discharge Diet Recommended Diet: Regular Diet Pending Studies Studies pending at discharge: yes List of pending studies: will need LFT check 06/04/17 at 1900, if not done on floor Medical Emergencies . Who to Call and When: Medical Emergencies: If at any time you feel your situation is an emergency, please call 911 immediately. . Non-Emergent Contact Non-Emergency issues call your: Primary Care Provider Call Non-Emergent contact if: temperature is above 101, your pain is unusual for you . . "Provider Documentation" section prepared by David Chun. . VTE Core Measure Inpt VTE Proph given/why not?: Enoxaparin (Lovenox)SQ
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
[2017-06-04 17:28] VITALS: BP 112/70; PULSE 63; TEMP 36.3; O2SAT 97
[2017-06-04 20:31] LABS: ALBUMIN 3.4 gm/dl (3.4-5.0); CALCIUM 8.6 mg/dl (8.5-10.1); CREATININE 0.7 mg/dl (0.60-1.20); POTASSIUM 3.9 mmol/L (3.5-5.1)
[2017-06-04 20:48] LABS: TOTAL PROTEIN 7.1 gm/dl (6.4-8.2)
--- NOTE | 2017-06-05 07:12 | Discharge Summary ---
Discharge Summary Date of Service Jun 04, 2017. Discharge Summary Admission Date: Jun 04, 2017 at 00:16 Discharge Date: Jun 04, 2017 Discharge Disposition: Acute care mental health Principal Diagnosis: tylenol overdose, depression Problems/Secondary Diagnoses: (1) Depression Status: Chronic Consultations: [facility], requests need for inpatient mental health treatment Medication Reconciliation Continued Medications: Lamotrigine (Lamictal) 100 Mg Tab 100 MG PO HS, TAB Discontinued Medications: Acetaminophen (Tylenol) 500 Mg Tab 1000 MG PO Q6H PRN for Pain or Fever, TAB Discharge Exam Review of Systems: Constitutional: No fever, No chills Respiratory: No cough, No sputum Cardiovascular: No chest pain, No edema Abdomen: No pain, No nausea, No vomiting Neurologic: No memory loss, No weakness Psychiatric: + depression symptoms, + anxiety Endocrine: + fatigue Physical Exam: General Appearance: WD/WN, + mild distress (emotional) Eyes: normal inspection, PERRL, EOMI, sclerae normal Abdomen / GI: non tender, soft Neurologic/Psychiatric: alert, oriented x 3 Skin: normal color, warm/dry, no rash Hospital Course 21 y/o F with bipolar disorder presents to the ER after a tylenol overdose and suiscide gesture. On arrival to the hospital, a toxic level was confirmed. LFTs have remained normal. She states that she ingested a total of 5g, 12 hours prior to arrival. Completed treatment with Acetadote prior to transfer to Behavioral health unit for mental health evaluation. LFT's have remained without elevation, Poison control was contacted She remains on Lamotrigine for depression/bipolar disorder. Tobacco abuse, pt requested nicotine patch Full code Total Time Spent: Greater than 30 minutes This includes examination of the patient, discharge planning, medication reconciliation, and communication with other providers. Discharge Instructions Please refer to the electronic Patient Visit Report (Discharge Instructions) for additional information.
== END 2017-06-04 22:00 | DRG 918 ==
LOC: C.EDB 19:38 → C.4E 06-04 00:16 → ENRESERV 06-04 00:27
PROVIDERS: ADMIT Internal Medicine; ATTEND Internal Medicine
DX: T39.1X2A Poisoning by 4-Aminophenol derivatives, intentional self-harm, initial encounter (principal); T50.992A Poisoning by other drugs, medicaments and biological substances, intentional self-harm, initial encounter; F31.9 Bipolar disorder, unspecified; F41.0 Panic disorder [episodic paroxysmal anxiety]; R82.5 Elevated urine levels of drugs, medicaments and biological substances; F17.200 Nicotine dependence, unspecified, uncomplicated; Z62.810 Personal history of physical and sexual abuse in childhood; Z91.5 Personal history of self-harm; Z63.32 Other absence of family member; Z79.899 Other long term (current) drug therapy

== ENCOUNTER 2017-06-04 22:00 | Inpatient (IN) | payer OTHER ==
[~2017-06-04] VITALS: Ht 154.9 cm; Wt 64.7 kg
[~2017-06-04 22:00] MED LIST changes: -PRENTAB26 PO
[2017-06-04] MEDS ORDERED: NURSING VERBAL MED ORDER ONE ×3 (22:45→23:00)
[2017-06-04] MEDS ORDERED: hydrOXYzine HCL 25 MG TAB PO PRN ×2 (23:00)
[2017-06-04] MEDS ORDERED: ACETAMINOPHEN 325 MG TAB PO PRN (23:00)
[2017-06-04] MEDS ORDERED: SODIUM CHLORIDE 0.65% NA SOLN 45 ML (OCEAN) PRN (23:00)
[2017-06-04] MEDS ORDERED: BISMUTH SUBSALICYLATE PER ML OMNICELL CHARGE PO PRN (23:00)
[2017-06-04] MEDS ORDERED: ALUMINUM/MAGNESIUM SUSP 30 ML UDC PO PRN (23:00)
[2017-06-04] MEDS ORDERED: MAGNESIUM HYDROXIDE SUSP 30 ML UDC PO PRN (23:00)
[2017-06-04 23:21] VITALS: BP 111/75; PULSE 89; TEMP 36.9; Ht 154.9 cm; Wt 64.7 kg
[2017-06-05] MEDS ORDERED: NURSING VERBAL MED ORDER ONE
[2017-06-05 06:35] VITALS: BP_SYST 105; BP_SYST 117; BP_DIAS 70; BP_DIAS 83; PULSE 77; PULSE 99; TEMP 36.8
[2017-06-05] MEDS: IBUPROFEN 600 MG TAB PO PRN ×3 (07:09→22:03)
[2017-06-05] MEDS: NICOTINE 14 MG/24 HR TDSY TD SCH (08:07)
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
[2017-06-05] MEDS ORDERED: NICOTINE POLACRILEX 2 MG GUM MT PRN (14:15)
[2017-06-06 06:31] VITALS: BP_SYST 100; BP_SYST 109; BP_DIAS 68; BP_DIAS 72; PULSE 75; PULSE 85; TEMP 36.8
[2017-06-06] MEDS: NICOTINE 14 MG/24 HR TDSY TD SCH (08:02)
[2017-06-06] MEDS: IBUPROFEN 600 MG TAB PO PRN ×2 (08:42→19:32)
[2017-06-06] MEDS ORDERED: RISPERIDONE 0.5 MG TAB PO ONE (11:00)
--- NOTE | 2017-06-06 11:43 | Psychiatric Progress Notes ---
Progress Note Date of Service Jun 06, 2017. (Lexie Love, RAVI) Interval History 21 yo female transferred from the medical floor following an intentional toxic ingestions of tylenol in a suicide attempt. She is admitted voluntarily with a back up 302 petitioner's statement. (Lexie Love, RAVI) Chief Complaint "I need to be put on an antidepressant". (Lexie Love, RAVI) Subjective Patient was seen & assessed interval progress reviewed with Nursing. - broke off relationship with daughter's father, Antonino this morning - Meeting Thursday with new boyfriend, Tahir Pt was seen today along with weekend rounding psychiatrist, Dr. Al. Pt states she feels she is doing well. Pt states her dose of Lamictal was increased to 150mg. She reports being on Lamictal for the past 4 months and that it has been helpful overall, but she feels it has not adequately been targeting her depression. Pt states "it helps, but it just takes where I'm at in the morning and keeps me there all day". Pt was to have a meeting this afternoon with her fiance/daughter's father in order to break off the relationship in a safe environment as she was concerned about his reaction. She reports she was able to call him this morning and "broke things off" which he took "better than I thought he would". Pt reports significant family history of bipolar disorder, but is uncertain of medications that have worked well for other family members. Pt denies SI, HI, A/V hallucination at this time. (Lexie Love, PRISCILAC) Review of Systems Psych: denies symptoms other than stated above Constitutional: denied Cardiovascular: denied GI: denied Neurologic: denied Remainder of 10 body systems also reviewed and denied other than noted above. (Lexie Love, PRISCILAC) Sleep Information Total Hours of Sleep: 6.50 (Lexie Love, RAVI) Meal Information Percent of Breakfast Consumed: 100 Percent of Lunch Consumed: 100 Percent of Dinner Consumed: 100 (Lexie Love, PRISCILAC) Mental Status Exam During interview pt is: alert and oriented, cooperative Appearance: appropriately dressed, appropriately groomed Eye contact is: good Motor behavior is: steady gait & station, no abnormal motor movements Speech: normal in rate, rhythm & volume (rapid speech, mildly expansive in discussion) Affect: euthymic Mood is: other (cheerful) Thought process: tangential (mildly so) Thought content: reality based without delusions Suicidal thought are: denied Homicidal thoughts are: denied Hallucinations: auditory, denies visual Cognition: memory grossly intact, language grossly intact Intelligence estimated to be: below average Insight: impaired Judgement: impaired (Lexie Love, PRISCILAC) Medication Trials neurontin- didn't help abilify- couldn't afford Concerta- father wanted her off of it celexa- doesn't remember Risperdal - good response (Lexie Love, DONG-C) Impression Pt continues to participate frequently in activities on the unit and engage with peers outside of scheduled events. She states that she has not had ongoing incidence of command hallucinations since admission. Pt agrees with bipolar disorder diagnosis as it seems to be very prevalent in her family history. She does feel Lamictal has been helpful, but feels that her depressive symptoms are ongoing at this point. Pt started on Risperdal 0.5mg at bedtime as she has had a good response to this medication in the past, could consider other options such as Seroquel or Abilify (not previously covered) as well. Pt reports she broke off relationship with ex-fiance, Antonino, which went better than she expected. (Lexie Love, PRISCILAC) Plan (1) Bipolar disorder current episode depressed 1/ - Q 15 min checks for safety - Encourage participation in group and individual counseling - Coordinate with OP providers - Family meeting with Antonino and Antonino's mother who currently has the baby - Increase Lamictal to 150 mg. daily - OP records already obtained and on the medical admission's chart - Instructed never to take OTC weight loss supplements in view of bipolarity ( possibly explains +UDS for amphetamines). 1/6 - Trial Risperdal 0.5mg to target depressive symptoms while tapering Lamictal to an effective dosage. Risperdal 0.25 ordered for now, 0.5mg standing at bedtime. Risperdal considered as it has been effective for her in the past, could also consider Seroquel or Abilify (not previously covered by insurance) if response is unfavorable. - Continue current dosage of Lamictal 150mg. - Family meetings with Tahir scheduled, follow up on status with ex-Antonino gasca - Continue to encourage participation in groups and therapy. (Lexie Love PA-C) Pt was seen for face to face examination with Lexie Love PA-C and I am in agreement with her assessment and plan as above. Pt described recollection that she decompensated when risperdal was discontinued after a lengthy duration of tx in the past. Common risks and benefits of the medication were reviewed including metabolic and motor. She will require fasting lab work for baseline. (Tony Al MD) Discharge / Aftercare Planning Primary Care Physician: Name: [facility] Psychiatrist: Name: Dr. Didi FREY Date of Appointment: Jun 10, 2017 Time of Appointment: 1:45 p.m. Therapist: Name: SHANTE Sanchez Date of Appointment: Jun 12, 2017 Time of Appointment: 10 a.m. Search Specialist: Name: Denisse Canaseragairving Zhang (Lexie Love PA-C) Visit Code E&M Code: 38086 (Lexie Love PA-C) Inventory Assets Strengths: Love of daughter Needs: Abstain from alcohol (Lexie Love PA-C) Risk Factors Assessment : Yes /single/: No Higher / Fall in social status: No Access to guns: No Health problems: No Mental Health Diagnoses: Yes Substance use disorders: No Previous attempt: Yes Family history of suicide: Yes Previous psychiatric stay: Yes Hopelessness: No (Lexie Love PA-C) Protective Factors Assessment Hindu beliefs: No : No Responsible for young children: Yes Employed: No Stable relationships: No Supportive family: No (Lexie Love PA-C) Data Vital Signs Last 24 Hrs: Date Time Temp Pulse Resp B/P (MAP) Pulse Ox O2 Delivery O2 Flow Rate FiO2 06/06/17 06:31 36.8 85 16 100/68 75 109/72 Meds Administered Last 24 Hrs: Meds Administered (Past 24Hrs) Medications (Trade) Dose Ordered Sig/Tory Route Start Time Stop Time Status Last Admin Dose Admin Ibuprofen (Motrin Tab) 600 mg Q6H PRN PO 06/04/17 23:15 07/04/17 23:14 06/06/17 08:42 600 MG Nicotine (Nicoderm Cq 14MG Patch) 1 patch QAM TD 06/05/17 09:00 07/05/17 08:59 06/06/17 08:02 1 PATCH Miscellaneous (Remove Nicoderm Patch) 1 ea QAM N/A 06/06/17 09:00 07/06/17 08:59 06/06/17 08:14 1 EA Lamotrigine (Lamictal Tab) 150 mg HS PO 06/05/17 22:00 07/05/17 21:59 06/05/17 21:37 150 MG Nicotine Polacrilex (Nicorette 2MG Gum) 1 piece Q2H PRN MT 06/05/17 14:15 07/05/17 14:14 06/05/17 15:11 1 PIECE (Lexie Love, RAVI)
[2017-06-06] MEDS: RISPERIDONE 0.5 MG TAB PO SCH (22:12)
[2017-06-07 06:54] VITALS: BP_SYST 106; BP_SYST 94; BP_DIAS 62; BP_DIAS 71; PULSE 101; PULSE 81; TEMP 36.3
[2017-06-07] MEDS: IBUPROFEN 600 MG TAB PO PRN ×3 (07:58→20:35)
[2017-06-07] MEDS: NICOTINE 14 MG/24 HR TDSY TD SCH (07:59)
--- NOTE | 2017-06-07 15:51 | Psychiatric Progress Notes ---
Progress Note Date of Service Jun 07, 2017. Interval History 21 yo female transferred from the medical floor following an intentional toxic ingestions of tylenol in a suicide attempt. She is admitted voluntarily with a back up 302 petitioner's statement. Chief Complaint "I'm awesome." Subjective Patient was seen & assessed interval progress reviewed with Treatment Team. Per staff, patient seems a little more calm and composed in last 24 hours. She has another family meeting with her boyfriend scheduled for tomorrow. On interview she rates her mood 10+. She does acknowledge some irritability regarding interactions with another patient who "is pushing my bitch button" but denies concern that she will lose behavioral control. She expresses eagerness for discharge. She denies any suicidal ideation presently. Review of Systems Denies constitutional symptoms. Denies dystonia, dyskinesia, restlessness Psychiatric: No depression symptoms Sleep Information Total Hours of Sleep: 6.50 Meal Information Percent of Breakfast Consumed: 90 Percent of Lunch Consumed: 90 Percent of Dinner Consumed: 75 Mental Status Exam During interview pt is: alert and oriented, cooperative Appearance: appropriately dressed, appropriately groomed Eye contact is: good Motor behavior is: steady gait & station, no abnormal motor movements Speech: normal in rate, rhythm & volume Affect: euthymic Mood is: other (amazing) Thought process: goal directed Thought content: reality based without delusions Suicidal thought are: denied Homicidal thoughts are: denied Hallucinations: denies auditory, denies visual Cognition: memory grossly intact, language grossly intact Intelligence estimated to be: below average Insight: impaired Judgement: limited Medication Trials neurontin- didn't help abilify- couldn't afford Concerta- father wanted her off of it celexa- doesn't remember Risperdal - good response Impression Pt continues to participate frequently in activities on the unit and engage with peers outside of scheduled events. She states that she has not had ongoing incidence of command hallucinations since admission. Pt agrees with bipolar disorder diagnosis as it seems to be very prevalent in her family history. She does feel Lamictal has been helpful, but feels that her depressive symptoms are ongoing at this point. Pt started on Risperdal 0.5mg at bedtime as she has had a good response to this medication in the past, could consider other options such as Seroquel or Abilify (not previously covered) as well. Pt reports she broke off relationship with romuloAntonino taveras, which went better than she expected. Plan (1) Bipolar disorder current episode depressed 06/05 - Q 15 min checks for safety - Encourage participation in group and individual counseling - Coordinate with OP providers - Family meeting with Antonino and Antonino's mother who currently has the baby - Increase Lamictal to 150 mg. daily - OP records already obtained and on the medical admission's chart - Instructed never to take OTC weight loss supplements in view of bipolarity ( possibly explains +UDS for amphetamines). 06/06 - Trial Risperdal 0.5mg to target depressive symptoms while tapering Lamictal to an effective dosage. Risperdal 0.25 ordered for now, 0.5mg standing at bedtime. Risperdal considered as it has been effective for her in the past, could also consider Seroquel or Abilify (not previously covered by insurance) if response is unfavorable. - Continue current dosage of Lamictal 150mg. - Family meetings with Tahir scheduled, follow up on status with romulodarcy Antonino - Continue to encourage participation in groups and therapy. 06/07 - Tolerating Risperdal well and affect more contained today. - Has another family meeting scheduled for tomorrow with boyfriend - fasting lab order for AM for baseline as she will likely be discharged on risperdal Discharge / Aftercare Planning Primary Care Physician: Name: [facility] Psychiatrist: Name: Dr. Didi FREY Date of Appointment: Jun 10, 2017 Time of Appointment: 1:45 p.m. Therapist: Name: SHANTE Sanchez Date of Appointment: Jun 12, 2017 Time of Appointment: 10 a.m. Dining Room Supervisor: Name: Wale Salcedo Visit Code E&M Code: 66672 Inventory Assets Strengths: Love of daughter Needs: Abstain from alcohol Risk Factors Assessment : Yes /single/: No Higher / Fall in social status: No Access to guns: No Health problems: No Mental Health Diagnoses: Yes Substance use disorders: No Previous attempt: Yes Family history of suicide: Yes Previous psychiatric stay: Yes Hopelessness: No Protective Factors Assessment Alevism beliefs: No : No Responsible for young children: Yes Employed: No Stable relationships: No Supportive family: No Data Vital Signs Last 24 Hrs: Date Time Temp Pulse Resp B/P (MAP) Pulse Ox O2 Delivery O2 Flow Rate FiO2 06/07/17 06:54 36.3 81 16 94/62 101 106/71 Meds Administered Last 24 Hrs: Meds Administered (Past 24Hrs) Medications (Trade) Dose Ordered Sig/Tory Route Start Time Stop Time Status Last Admin Dose Admin Miscellaneous (Remove Nicoderm Patch) 1 ea QAM N/A 06/06/17 09:00 07/06/17 08:59 06/06/17 22:17 1 EA Lamotrigine (Lamictal Tab) 150 mg HS PO 06/05/17 22:00 07/05/17 21:59 06/06/17 22:11 150 MG Risperidone (Risperdal Tab) 0.25 mg NOW ONCE PO 06/06/17 11:00 06/06/17 11:01 DC 06/06/17 11:42 0.25 MG Risperidone (Risperdal Tab) 0.5 mg HS PO 06/06/17 22:00 07/06/17 21:59 06/06/17 22:12 0.5 MG
[2017-06-07] MEDS: RISPERIDONE 0.5 MG TAB PO SCH (21:25)
[2017-06-08 07:03] VITALS: BP_SYST 111; BP_SYST 112; BP_DIAS 77; PULSE 105; PULSE 96; TEMP 36.6
[2017-06-08] MEDS: NICOTINE 14 MG/24 HR TDSY TD SCH (09:40)
[2017-06-08] MEDS ORDERED: LAMO100T16 PO (10:48)
[2017-06-08] MEDS ORDERED: RISP-99 PO (10:48)
[2017-06-08] MEDS ORDERED: NICO14DI5 TD (10:48)
[2017-06-08] MEDS ORDERED: NCR2 MT (10:48)
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
== END 2017-06-08 11:14 | disposition home or self-care (01) | DRG 885 ==
LOC: C.MHU 22:00
PROVIDERS: ADMIT Psychiatry & Neurology Child & Adolescent Psychiatry; ATTEND Psychiatry & Neurology Child & Adolescent Psychiatry
DX: F31.9 Bipolar disorder, unspecified (principal); R45.851 Suicidal ideations; F17.200 Nicotine dependence, unspecified, uncomplicated; Z79.899 Other long term (current) drug therapy; Z62.810 Personal history of physical and sexual abuse in childhood

== ENCOUNTER 2017-06-10 13:44 | Emergency (ER) | payer OTHER ==
[~2017-06-10] VITALS: Ht 157.5 cm; Wt 63.8 kg
[~2017-06-10 13:44] MED LIST changes: -ACET-1256 PO; +NCR2 MT; +NICO14DI5 TD; +RISP-99 PO
[2017-06-10 13:47] VITALS: Ht 157.5 cm; Wt 63.8 kg
--- NOTE | 2017-06-10 14:36 | EMERGENCY ROOM VISIT NOTE ---
History First contact with patient: 14:05 Chief Complaint: VAGINAL BLEEDING Stated Complaint: RIGHT SIDE PAIN,CRAMPS,BLEEDING History of Present Illness The patient is a 21 year old female who presents to the Emergency Room with complaints of vaginal bleeding that started this morning. The patient reports taking a home test yesterday. It was positive. She did not have any pads or tampons. She has been using toilet paper to control the bleeding, which she describes as "pretty bad." She denies any clots. She is having right -sided abdominal cramping. The patient is having a total of 5 miscarriages. She reportedly has a 4-month-old daughter, which she does not have custody of. Patient was admitted to the mental health unit last week for an intentional Tylenol overdose. She was discharged 3 days ago. She currently denies any suicidal ideations. She denies any illicit drug use. No fever or chills. Review of Systems 10 system review performed and negative unless noted in HPI or below Past Medical/Surgical History Medical Problems: (1) Abdominal pain (2) Acetaminophen overdose (3) Back pain (4) Bipolar 1 disorder (5) Bipolar disorder current episode depressed (6) Cramping affecting , antepartum (7) Decreased movement affecting management of in third trimester (8) Depression (9) Fatigue (10) Intentional overdose of drug in tablet form (11) Lightheaded (12) Medication overdose (13) Near syncope (14) Negative test (15) Paresthesias (16) Pelvic pain affecting in third trimester, antepartum (17) Post term (18) (19) test positive (20) with 39 completed weeks gestation (21) Viral illness Surgical Problems: (1) Previous section Family History Cancer Diabetes mellitus FHx: cancer Heart disease Hypertension Kidney disease Kidney stones Social History Smoking Status: Current Every Day Smoker Alcohol Use: none Drug Use: none Marital Status: in relationship Housing Status: lives with significant other Occupation Status: employed Current/Historical Medications Scheduled Lamotrigine (Lamictal), 150 MG PO HS Nicotine (Nicoderm Cq 14MG Patch), 1 PATCH TD QAM Risperidone (Risperidone), 0.5 MG PO HS Scheduled PRN Nicotine Polacrilex (Nicorelief), 1 PIECE MT Q2H PRN for TO AVOID WITHDRAWL SYMPTOMS Physical Exam Vital Signs Date Time Temp Pulse Resp B/P (MAP) Pulse Ox O2 Delivery O2 Flow Rate FiO2 06/10/17 17:03 36.8 77 16 111/66 96 06/10/17 16:18 77 16 111/66 96 Room Air 06/10/17 13:47 36.8 122 18 112/76 97 Room Air Physical Exam VITALS: Vitals are noted on the nurse's note and reviewed by myself. Vital signs stable. GENERAL: 21-year-old female, in no acute distress, nondiaphoretic, well- developed well-nourished. SKIN: The skin was without rashes, erythema, edema, or bruising. HEAD: Normocephalic atraumatic. NECK: Supple without nuchal rigidity. No JVD. HEART: Regular rate and rhythm without murmurs gallops or rubs. LUNGS: Clear to auscultation bilaterally without wheezes, rales or rhonchi. No accessory muscle use. ABDOMEN: Positive bowel sounds x 4.Soft, nontender, without organomegaly. No guarding or rebound tenderness. MUSCULOSKELETAL: No muscle atrophy, erythema, or edema noted.. Strength 5/5 throughout. NEURO: Patient was alert and oriented to person place and time. Normal sensation to touch. No focal neurological deficits. Medical Decision & Procedures ER Provider Diagnostic Interpretation: Transabdominal pelvic ultrasound Patient Name: KACIE SILVEIRA Unit Number: [id number] Dictated: 06/10/171526 Transcribed: 06/10/171526 ARG Printed Date/Time: [~ rep prt dt]/[~ rep prt tm] [~ rep ct labl] - [~ rep ct ivnm] [facility] [place] [address] Dictated: 06/10/171526 Transcribed: 06/10/171526 ARG Printed Date/Time: [~ rep prt dt]/[~ rep prt tm] [~ rep ct labl] - [~ rep ct ivnm] IMPRESSION: Indwelling IUD. No significant abnormalities identified, on this transabdominal examination. Electronically signed by: Austyn Potter M.D. 06/10/2017 3:30 PM Dictated Date/Time: 06/10/2017 3:27 PM The status of this report is Signed. Draft = Not yet reviewed or approved by Radiologist. Signed = Reviewed and approved by Radiologist. <AttendingPhy></AttendingPhy> <FamilyPhy>No Doctor, Assigned</FamilyPhy> < PrimaryPhy>No Doctor, Assigned</PrimaryPhy> <UnitNumber>[id number]</UnitNumber> <VisitNumber>[id number]</VisitNumber> <PatientName>KACIE SILVEIRA</ PatientName> <DateOfBirth>1995</DateOfBirth> <Location>[facility]</Location> < ServiceDate>06/10/17</ServiceDate> <MNE>ESINDI</MNE> <OrderingPhy>Anastasia Child PA-C</OrderingPhy> <OrderingPhyMNE>f rep ord dr potter</OrderingPhyMNE> < DictatingPhyMNE>f rep dict dr potter</DictatingPhyMNE> <CCListMNE>f rep ct mne</ CCListMNE> <AdmittingPhyMNE>f pt admit dr potter</AdmittingPhyMNE> <AttendingPhyMNE >f pt attend dr potter</AttendingPhyMNE> <ConsultingPhyMNE>f pt consult dr potter</ConsultingPhyMNE> <FamilyPhyMNE>f pt fam dr potter</FamilyPhyMNE> <OtherPhyMNE>f pt other dr potter</OtherPhyMNE> < PrimaryPhyMNE>f pt prim care dr potter</PrimaryPhyMNE> <ReferringPhyMNE>f pt referring dr potter</ReferringPhyMNE> Laboratory Results 06/10/17 14:35 Red Blood Count 4.98, Mean Corpuscular Volume 82.9, Mean Corpuscular Hemoglobin 28.3, Mean Corpuscular Hemoglobin Concent 34.1, Mean Platelet Volume 11.5, Neutrophils (%) (Auto) 55.5, Lymphocytes (%) (Auto) 33.0, Monocytes (%) (Auto) 5.6, Eosinophils (%) (Auto) 5.2, Basophils (%) (Auto) 0.5, Neutrophils # (Auto) 3.09, Lymphocytes # (Auto) 1.84, Monocytes # (Auto) 0.31, Eosinophils # (Auto) 0.29, Basophils # (Auto) 0.03 06/10/17 14:35 Test 06/10/17 14:35 06/10/17 15:39 06/10/17 16:52 White Blood Count 5.57 K/uL (4.8-10.8) Red Blood Count 4.98 M/uL (4.2-5.4) Hemoglobin 14.1 g/dL (12.0-16.0) Hematocrit 41.3 % (37-47) Mean Corpuscular Volume 82.9 fL (80-100) Mean Corpuscular Hemoglobin 28.3 pg (25-34) Mean Corpuscular Hemoglobin Concent 34.1 g/dl (32-36) Platelet Count 241 K/uL (130-400) Mean Platelet Volume 11.5 fL (7.4-10.4) Neutrophils (%) (Auto) 55.5 % Lymphocytes (%) (Auto) 33.0 % Monocytes (%) (Auto) 5.6 % Eosinophils (%) (Auto) 5.2 % Basophils (%) (Auto) 0.5 % Neutrophils # (Auto) 3.09 K/uL (1.4-6.5) Lymphocytes # (Auto) 1.84 K/uL (1.2-3.4) Monocytes # (Auto) 0.31 K/uL (0.11-0.59) Eosinophils # (Auto) 0.29 K/uL (0-0.5) Basophils # (Auto) 0.03 K/uL (0-0.2) RDW Standard Deviation 42.1 fL (36.4-46.3) RDW Coefficient of Variation 14.0 % (11.5-14.5) Immature Granulocyte % (Auto) 0.2 % Immature Granulocyte # (Auto) 0.01 K/uL (0.00-0.02) Anion Gap 7.0 mmol/L (3-11) Est Creatinine Clear Calc Drug Dose 94.4 ml/min Estimated GFR () 117.7 Estimated GFR (Non- 101.6 BUN/Creatinine Ratio 16.1 (10-20) Calcium Level 8.9 mg/dl (8.5-10.1) Total Bilirubin 0.3 mg/dl (0.2-1) Aspartate Amino Transf (AST/SGOT) 18 U/L (15-37) Alanine Aminotransferase (ALT/SGPT) 24 U/L (12-78) Alkaline Phosphatase 118 U/L (45-117) Total Protein 7.4 gm/dl (6.4-8.2) Albumin 3.8 gm/dl (3.4-5.0) Globulin 3.6 gm/dl (2.5-4.0) Albumin/Globulin Ratio 1.1 (0.9-2) Human Chorionic Gonadotropin, Quant < 1 mIU/mL Urine Color DK YELLOW Urine Appearance CLOUDY (CLEAR) Urine pH 5.0 (4.5-7.5) Urine Specific [place] 1.032 (1.000-1.030) Urine Protein TRACE (NEG) Urine Glucose (UA) NEG (NEG) Urine Ketones 2+ (NEG) Urine Occult Blood 3+ (NEG) Urine Nitrite NEG (NEG) Urine Bilirubin NEG (NEG) Urine Urobilinogen NEG (NEG) Urine Leukocyte Esterase TRACE (NEG) Urine WBC (Auto) 1-5 /hpf (0-5) Urine RBC (Auto) 0-4 /hpf (0-4) Urine Hyaline Casts (Auto) 5-10 /lpf (0-5) Urine Epithelial Cells (Auto) >30 /lpf (0-5) Urine Bacteria (Auto) 1+ (NEG) Urine Crystals CALCIUM OXALATE (NONE Urine Pathogenic Casts /lpf (0) Urine Mucus PRESENT (NONE PRSENT) Urine Yeast (Auto) (NONE PRSENT) Urine Opiates Screen NEG (NEG) Urine Methadone, Qualitative NEG (NEG) Urine Barbiturates NEG (NEG) Urine Phencyclidine (PCP) Level NEG (NEG) Ur Amphetamine/Methamphetamine NEG (NEG) MDMA (Ecstasy) Screen NEG (NEG) Urine Benzodiazepines Screen NEG (NEG) Urine Cocaine Metabolite NEG (NEG) Urine Marijuana (THC) NEG (NEG) Bedside Glucose 74 mg/dl (70-90) ED Course Patient was seen and examined Vital signs including blood pressure were reviewed medications list was verified with patient Labs were obtained, and a saline lock was established Imaging was performed Upon reevaluation, the patient was resting comfortably in bed. We discussed the results of her workup. She voiced understanding. I reviewed discharge instructions the patient. They voiced understanding and had no further questions. Medical Decision Differential diagnosis: , threatened miscarriage, spontaneous miscarriage, heavy menses, coagulopathy, infection This patient is a 21-year-old female that presents to the emergency department with complaints of vaginal bleeding that started this morning in the setting of being . She told me at the bedside that she took a test yesterday that was positive. While the patient was getting an ultrasound, she admitted that she did not take a test, just felt movement in her belly and thought she was . On exam, the patient is nontoxic in appearance. Her abdomen was benign. Her hCG Quant is less than 1. She is not anemic. Her ultrasound reveals an IUD in good position with no other acute abnormalities. She could be having some breakthrough bleeding. I believe she is stable to be discharged home. She was encouraged to have close follow-up with her [facility]. She is comfortable with this plan. She will return to the emergency department with any new, worsening or concerning symptoms. Of note, the patient was recently admitted for an intentional Tylenol overdose. This was thoroughly questioned today. She adamantly denies any thoughts of harming herself or others. she feels safe at home. This chart was completed in part utilizing [employer] Speech Voice Recognition software. Attempts were made to minimize the grammatical errors, random word insertions, pronoun errors and incomplete sentences. Any formal questions or concerns about the content, text or information contained within the body of this dictation should be directly addressed to the provider for clarification. Medication Reconcilliation Current Medication List: was personally reviewed by me Blood Pressure Screening Patient's blood pressure: Normal blood pressure Impression Primary Impression: Vaginal bleeding Departure Information Dispostion Home / Self-Care Condition GOOD Referrals No Doctor, Assigned (PCP) Meagan Sage MD Patient Instructions My [facility] Additional Instructions You had been evaluated in the emergency department for vaginal bleeding. A test was performed and negative. There were no significant abnormalities on the ultrasound Please continue current medications as prescribed. Please follow up closely with your [facility] doctor. Call tomorrow morning for a follow-up appointment. Do not hesitate to return to the emergency department with any new, worsening or concerning symptoms; especially, bleeding through more than 2 pads per hour or severe pain.
[2017-06-10 14:46] LABS: BASO % 0.5 %; BASO ABS # 0.03 K/uL (0-0.2); EOS % 5.2 %; EOS ABS # 0.29 K/uL (0-0.5); HEMATOCRIT 41.3 % (37-47); HEMOGLOBIN 14.1 g/dL (12.0-16.0); IG# 0.01 K/uL (0.00-0.02); LYMPH ABS # 1.84 K/uL (1.2-3.4); MEAN CELL VOLUME 82.9 fL (80-100); MEAN CORPUSCULAR HEMOGLOBIN 28.3 pg (25-34); MEAN CORPUSCULAR HGB CONC 34.1 g/dl (32-36); MEAN PLATELET VOLUME 11.5 fL (7.4-10.4); MONO % 5.6 %; MONO ABS # 0.31 K/uL (0.11-0.59); NEUT % 55.5 %; NEUT ABS # 3.09 K/uL (1.4-6.5); PLATELET COUNT 241 K/uL (130-400); RED CELL DISTRIBUTION WIDTH SD 42.1 fL (36.4-46.3); WHITE BLOOD COUNT 5.57 K/uL (4.8-10.8)
[2017-06-10 15:07] LABS: ALBUMIN 3.8 gm/dl (3.4-5.0); CALCIUM 8.9 mg/dl (8.5-10.1); CREATININE 0.82 mg/dl (0.60-1.20); POTASSIUM 3.9 mmol/L (3.5-5.1)
[2017-06-10 15:10] LABS: TOTAL PROTEIN 7.4 gm/dl (6.4-8.2)
--- NOTE | 2017-06-10 15:31 | DIAGNOSTIC IMAGING REPORT ---
EXAMINATION: PELVIC ULTRASOUND (transabdominal only) CLINICAL HISTORY: vag bleeding COMPARISON STUDY: ultrasound dated 08/17/2016 FINDINGS: The uterus measured 6.6 x 3.2 x 4.6 cm. The endometrial stripe measured 4 mm. An IUD is visualized. The right ovary measured 21 x 13 x 14 mm. The left ovary measured 33 x 22 x 16 mm.. There is no ultrasonographic evidence of ovarian torsion. It should be noted that ovarian torsion can be present with normal Doppler ultrasonographic findings. There was no evidence of pathologic free pelvic fluid. IMPRESSION: Indwelling IUD. No significant abnormalities identified, on this transabdominal examination. Electronically signed by: Austyn Potter M.D. 06/10/2017 3:30 PM Dictated Date/Time: 06/10/2017 3:27 PM
[2017-06-10 17:03] VITALS: BP 111/66; PULSE 77; TEMP 36.8; O2SAT 96
== END 2017-06-10 17:05 | disposition home or self-care (01) ==
LOC: C.EDB 13:47 → C.EDC 17:05
DX: N93.9 Abnormal uterine and vaginal bleeding, unspecified (principal); F31.9 Bipolar disorder, unspecified; F17.200 Nicotine dependence, unspecified, uncomplicated; Z97.5 Presence of (intrauterine) contraceptive device; Z80.9 Family history of malignant neoplasm, unspecified; Z83.3 Family history of diabetes mellitus; Z82.49 Family history of ischemic heart disease and other diseases of the circulatory system; Z84.1 Family history of disorders of kidney and ureter

== ENCOUNTER → 2017-06-17 | Outpatient (CLI) | payer OTHER ==
[~2017-06-17] MED LIST changes: +BCPILLS PO
== END | disposition home or self-care (01) ==
LOC: C.LAB1850 12:14
PROVIDERS: ATTEND Physician Assistant
DX: N92.6 Irregular menstruation, unspecified (principal)

== ENCOUNTER 2017-06-18 20:14 | Emergency (ER) | payer OTHER ==
[~2017-06-18] VITALS: Ht 157.5 cm; Wt 64.6 kg
[~2017-06-18 20:14] MED LIST changes: -BCPILLS PO
[2017-06-18 20:34] VITALS: TEMP 36.6; Ht 157.5 cm; Wt 64.6 kg
--- NOTE | 2017-06-18 22:48 | DIAGNOSTIC IMAGING REPORT ---
CT SCAN OF THE BRAIN WITHOUT IV CONTRAST CLINICAL HISTORY: Headache. COMPARISON STUDY: No priors. TECHNIQUE: Unenhanced axial CT scan of the brain is performed from the vertex to the skull base. A dose lowering technique was utilized adhering to the principles of ALARA. CT DOSE: 537.48 mGy.cm FINDINGS: Brain parenchyma: The brain parenchyma is normal in appearance. There is no hemorrhage, mass effect, or evidence of acute territorial ischemia by CT criteria. Mcclain-white matter is preserved. No extra-axial fluid collection is seen. Ventricles, sulci, cisterns: Normal in configuration. Intracranial vasculature: The visualized intracranial vasculature at the skull base is normal in appearance. Calvarium: Unremarkable. Sinuses and mastoids: The visualized paranasal sinuses are clear. The mastoid air cells are well pneumatized. Orbits: The bony orbits are grossly intact. IMPRESSION: No acute intracranial abnormality. Electronically signed by: Omsar Byrne M.D. 06/18/2017 10:46 PM Dictated Date/Time: 06/18/2017 10:45 PM
[2017-06-18 23:28] VITALS: BP 126/62; PULSE 74; O2SAT 99
--- NOTE | 2017-06-22 18:24 | EMERGENCY ROOM VISIT NOTE ---
History First contact with patient: 21:41 Chief Complaint: OTHER COMPLAINT Stated Complaint: HAS TROUBLE REMEMBERING THINGS/FORGETS History of Present Illness The patient is a 21 year old female who presents to the Emergency Room with complaints of headache and difficulty remembering things today. The patient has a long-standing history of mental health disease and was recently admitted following suicidality. The patient is not homicidal or suicidal today. She does not have self harm thoughts. She is not had significant medication changes. Evidently she has episodes of anxiety/panic attacks, and had one of these today according to her boyfriend. The boyfriend attempted to console her , however her episode lasted longer than normal. She ultimately improved after 15-20 minutes, and return to baseline. At that time the patient had difficulty remembering what happened. The episode was not seizure-like, and she did not injure herself. She has had episodes like this in the past. No recent fevers or chills. She does not report other symptoms. She rates her discomfort a 2/ 10. Review of Systems More than 10 systems were reviewed and otherwise negative with the exception of history of present illness. Past Medical/Surgical History Medical Problems: (1) Abdominal pain (2) Acetaminophen overdose (3) Back pain (4) Bipolar 1 disorder (5) Bipolar disorder current episode depressed (6) Cramping affecting , antepartum (7) Decreased movement affecting management of in third trimester (8) Depression (9) Fatigue (10) Intentional overdose of drug in tablet form (11) Lightheaded (12) Medication overdose (13) Near syncope (14) Negative test (15) Paresthesias (16) Pelvic pain affecting in third trimester, antepartum (17) Post term (18) (19) test positive (20) with 39 completed weeks gestation (21) Viral illness Surgical Problems: (1) Previous section Family History Cancer Diabetes mellitus FHx: cancer Heart disease Hypertension Kidney disease Kidney stones Social History Smoking Status: Never Smoker Alcohol Use: none Drug Use: none Marital Status: in relationship Housing Status: lives with significant other Occupation Status: employed Current/Historical Medications Scheduled Control Pills ( Control Pills), 1 TAB PO DAILY Lamotrigine (Lamictal), 150 MG PO HS Nicotine (Nicoderm Cq 14MG Patch), 1 PATCH TD QAM Risperidone (Risperidone), 0.5 MG PO HS Scheduled PRN Nicotine Polacrilex (Nicorelief), 1 PIECE MT Q2H PRN for TO AVOID WITHDRAWL SYMPTOMS Physical Exam Vital Signs Date Time Temp Pulse Resp B/P (MAP) Pulse Ox O2 Delivery O2 Flow Rate FiO2 06/18/17 23:28 74 18 126/62 99 Room Air 06/18/17 20:34 36.6 71 18 113/73 99 Room Air Physical Exam VITALS: Vitals are noted on the nurse's note and reviewed by myself. Vital signs stable. GENERAL: Well-developed, well-nourished, white female, who is in no acute distress and resting comfortably. Patient is cooperative with the examination. GCS 15 HEAD: Normocephalic atraumatic. EARS: External ear normal. External auditory canals clear, tympanic membranes pearly mcclain without erythema or effusion bilaterally. EYES: Pupils equal round and reactive to light and accommodation. Conjunctivae without injection, sclerae without icterus. Extraocular movements intact. NOSE: Patent, turbinates without inflammation or discharge. MOUTH: Mucous membranes moist. Tonsils are not enlarged. Pharynx without erythema, blood, or exudate. Uvula midline. Airway patent. NECK: Supple without nuchal rigidity. No lymphadenopathy. No thyromegaly. Cervical spine is nontender. HEART: Regular rate and rhythm without murmurs gallops or rubs. LUNGS: Clear to auscultation bilaterally without wheezes, rales or rhonchi. No retractions or accessory muscle use. ABDOMEN: Positive normal bowel sounds x 4. Soft, nontender, without masses or organomegaly. No guarding or rebound tenderness. MUSCULOSKELETAL: No muscle atrophy, erythema, or edema noted. Full range of motion without joint tenderness in all extremities. No tenderness to palpation. Normal gait. Strength 5/5 throughout. NEURO: Patient was alert and oriented to person place and time. CN II through XII grossly intact. Medical Decision & Procedures ER Provider Diagnostic Interpretation: [~ rep ct add3]] CT SCAN OF THE BRAIN WITHOUT IV CONTRAST CLINICAL HISTORY: Headache. COMPARISON STUDY: No priors. TECHNIQUE: Unenhanced axial CT scan of the brain is performed from the vertex to the skull base. A dose lowering technique was utilized adhering to the principles of ALARA. CT DOSE: 537.48 mGy.cm FINDINGS: Brain parenchyma: The brain parenchyma is normal in appearance. There is no hemorrhage, mass effect, or evidence of acute territorial ischemia by CT criteria. Mcclain-white matter is preserved. No extra-axial fluid collection is seen. Ventricles, sulci, cisterns: Normal in configuration. Intracranial vasculature: The visualized intracranial vasculature at the skull base is normal in appearance. Calvarium: Unremarkable. Sinuses and mastoids: The visualized paranasal sinuses are clear. The mastoid air cells are well pneumatized. Orbits: The bony orbits are grossly intact. IMPRESSION: No acute intracranial abnormality. ED Course Physical exam and history were performed. Nursing notes, EMR, and Medication List were personally reviewed. Patient appears to have a history of anxiety, panic attacks, and recent suicidality. On examination she appears well. Neurologically she is intact. Her GCS is 15. I do not appreciate signs of meningitis or encephalitis. She is evidently been with her boyfriend all day, and he does not believe that she has ingested any medication other than her prescriptions. I discussed options of care with the patient and her primary complaint is a headache, and CT scan was performed. The patient was monitored for some time here in the emergency department. She was comfortably able to watch television and use her cell phone in the department. Her CT scan does not show acute findings. I did offer mental health evaluation to the patient, however she has these resources in place. She does not appear to need inpatient care at this time, and I do suspect a large portion of her symptoms or mental health-related. The patient needs to follow with her PCP and her specialist for further care and management. She was otherwise invited back to the ER with any new, worsening, or concerning symptoms. The chart was completed utilizing [employer] Speech Voice Recognition Software. Grammatical errors, random word insertions, pronoun errors, and incomplete sentences are an occasional consequence of this system due to software limitations, ambient noise, and hardware issues. Any formal questions or concerns about the content, text, or information contained within the body of this dictation should be directly addressed to the provider for clarification. . Medical Decision The differential diagnosis includes, but is not limited to: acute intracranial bleed, meningitis, encephalitis, mass or mass effect, sinusitis, infection, tumor, headache, temporal arteritis and carbon monoxide exposure, and migraine. Impression Primary Impression: Headache Departure Information Dispostion Home / Self-Care Condition GOOD Forms HOME CARE DOCUMENTATION FORM, IMPORTANT VISIT INFORMATION Patient Instructions My [facility] Additional Instructions You were seen and evaluated today on an emergency basis only. This is not a substitute for, or an effort to provide, complete comprehensive medical care. It is not possible to recognize and treat all injuries or illnesses in a single emergency department visit. For this reason it is recommended that you followup with your primary care physician or neurologist this week for ongoing care and evaluation. Rest today in a quiet, peaceful, dark environment and get a full 8-10 hrs of sleep tonight. Avoid loud noises, smoke/smoking, alcohol, bright lights, stress, or physical exertion today to minimize the chance the headache may return. Continue current medications. Ibuprofen(Motrin, Advil) may be used for fever or pain. Use 600mg every six hours as needed. Take with food. Avoid using more than 2400mg in a 24 hour period. Do not use 2400mg per day for more than three consecutive days without physician direction. Prolonged inappropriate use can lead to stomach upset or ulcers. (AND/OR) Acetaminophen(Tylenol) may be used for fever or pain. Use 1000mg every six hours as needed. Avoid using more than 4000mg in a 24 hour period. Return to the ER for passing out, worsening headache, vision problems, neck stiffness/pain, fevers, vomiting, worsening of your condition, or as needed.
== END 2017-06-18 23:39 | disposition home or self-care (01) ==
LOC: C.EDB 20:15 → C.EDC 23:39
DX: R51 Headache (principal); R41.82 Altered mental status, unspecified; F31.9 Bipolar disorder, unspecified; Z79.3 Long term (current) use of hormonal contraceptives; Z83.3 Family history of diabetes mellitus; Z82.49 Family history of ischemic heart disease and other diseases of the circulatory system; Z84.1 Family history of disorders of kidney and ureter

== ENCOUNTER 2017-06-26 19:18 | Emergency (ER) | payer OTHER ==
[~2017-06-26] VITALS: Ht 157.5 cm; Wt 64.0 kg
[2017-06-26 19:33] VITALS: TEMP 36.8; Ht 157.5 cm; Wt 64.0 kg
[2017-06-26] MEDS ORDERED: DiphenhydrAMINE HCL 50 MG/ML VIAL IV STA (20:34)
[2017-06-26] MEDS ORDERED: KETOROLAC TROMETHAMINE 30 MG/ML VIAL IV STA (20:34)
[2017-06-26] MEDS ORDERED: PROCHLORPERAZINE 5 MG/ML 2 ML VIAL IV STA (20:34)
[2017-06-26] MEDS ORDERED: MAGNESIUM SULFATE 1GM / D5W 1 GM BAG IV STA (20:34)
[2017-06-26] MEDS ORDERED: LAMO150T PO (20:42)
[2017-06-26] MEDS ORDERED: RISP0.5T10 PO (20:42)
--- NOTE | 2017-06-26 20:43 | EMERGENCY ROOM VISIT NOTE ---
History Report prepared by [place]: David Arellano Under the Supervision of: Dr. Phan Moreno M.D. First contact with patient: 20:26 Chief Complaint: SEIZURE Stated Complaint: SEIZURE, STROKE LIKE SX History of Present Illness The patient is a 21 year old female who presents to the Emergency Room with complaints of intermittent weakness on the right side of her body that began 3 hours ago. She states that the weakness eventually turned into pain. She has associated symptoms of a headache. She states she does not fully remember what occurred during the episode. She states her symptoms of weakness and pain have resolved since coming to the ED. She denies a history of right sided body weakness. She states her friend said "she had a stroke". Patient denies a history of strokes. Patient adds that she had a seizure 2 weeks ago. She states during her seizure episode she "lost all memory for 2 hours". She denies being referred to a neurologist after her seizure episode. She denies currently seeing a neurologist. She denies taking seizure medications. Patient denies having a PCP. Source of History: patient Onset: 3 hours ago Position: other (Right side of body) Timing: intermittent Associated Symptoms: + headache Review of Systems See HPI for pertinent positives & negatives. A total of 10 systems reviewed and were otherwise negative. Past Medical & Surgical Medical Problems: (1) Abdominal pain (2) Acetaminophen overdose (3) Back pain (4) Bipolar 1 disorder (5) Bipolar disorder current episode depressed (6) Cramping affecting , antepartum (7) Decreased movement affecting management of in third trimester (8) Depression (9) Fatigue (10) Intentional overdose of drug in tablet form (11) Lightheaded (12) Medication overdose (13) Near syncope (14) Negative test (15) Paresthesias (16) Pelvic pain affecting in third trimester, antepartum (17) Post term (18) (19) test positive (20) with 39 completed weeks gestation (21) Viral illness Surgical Problems: (1) Previous section Family History Cancer Diabetes mellitus FHx: cancer Heart disease Hypertension Kidney disease Kidney stones Social History Smoking Status: Current Every Day Smoker Alcohol Use: none Drug Use: none Marital Status: in relationship Housing Status: lives with significant other Occupation Status: employed Current/Historical Medications Scheduled Control Pills ( Control Pills), 1 TAB PO QPM Lamotrigine (Lamictal), 150 MG PO QD@1200 Risperidone (Risperdal), 0.5 MG PO QD@1200 Allergies Coded Allergies: No Known Allergies (Unverified , 06/18/17) Physical Exam Vital Signs Date Time Temp Pulse Resp B/P (MAP) Pulse Ox O2 Delivery O2 Flow Rate FiO2 06/26/17 22:18 91 16 111/71 100 Room Air 06/26/17 21:30 96 15 116/70 99 Room Air 06/26/17 21:23 79 06/26/17 21:22 98 Room Air 06/26/17 21:17 98 Room Air 06/26/17 21:17 98 Room Air 06/26/17 19:33 36.8 90 18 105/68 99 Room Air Physical Exam GENERAL: Patient is a healthy-appearing well-nourished female HEAD: Normocephalic atraumatic EYES: Ocular movements intact pupils equal and react to light OROPHARYNX mucous membranes are moist no exudates present no erythema or edema present NECK: Supple no nuchal rigidity CHEST: Good equal expansion LUNGS: Clear and equal to auscultation CARDIAC: Normal S1 and S2 ABDOMEN: Soft nontender no guarding BACK: No CVA tenderness EXTREMITIES: No pain upon palpation normal muscle strength in all groups no clubbing cyanosis or edema. No evidence of meningitis or cephalitis on exam. NEURO: Patient is following commands and answering questions appropriately. Alert and oriented x3 Cranial Nerves 2-12 grossly intact Medical Decision & Procedures Laboratory Results 06/26/17 20:50 Red Blood Count 4.52, Mean Corpuscular Volume 83.8, Mean Corpuscular Hemoglobin 27.9, Mean Corpuscular Hemoglobin Concent 33.2, Mean Platelet Volume 11.5, Neutrophils (%) (Auto) 53.3, Lymphocytes (%) (Auto) 30.4, Monocytes (%) (Auto) 6.6, Eosinophils (%) (Auto) 9.1, Basophils (%) (Auto) 0.5, Neutrophils # (Auto) 4.70, Lymphocytes # (Auto) 2.68, Monocytes # (Auto) 0.58, Eosinophils # (Auto) 0.80, Basophils # (Auto) 0.04 06/26/17 20:50 Test 06/26/17 20:50 White Blood Count 8.81 K/uL (4.8-10.8) Red Blood Count 4.52 M/uL (4.2-5.4) Hemoglobin 12.6 g/dL (12.0-16.0) Hematocrit 37.9 % (37-47) Mean Corpuscular Volume 83.8 fL (80-100) Mean Corpuscular Hemoglobin 27.9 pg (25-34) Mean Corpuscular Hemoglobin Concent 33.2 g/dl (32-36) Platelet Count 202 K/uL (130-400) Mean Platelet Volume 11.5 fL (7.4-10.4) Neutrophils (%) (Auto) 53.3 % Lymphocytes (%) (Auto) 30.4 % Monocytes (%) (Auto) 6.6 % Eosinophils (%) (Auto) 9.1 % Basophils (%) (Auto) 0.5 % Neutrophils # (Auto) 4.70 K/uL (1.4-6.5) Lymphocytes # (Auto) 2.68 K/uL (1.2-3.4) Monocytes # (Auto) 0.58 K/uL (0.11-0.59) Eosinophils # (Auto) 0.80 K/uL (0-0.5) Basophils # (Auto) 0.04 K/uL (0-0.2) RDW Standard Deviation 42.9 fL (36.4-46.3) RDW Coefficient of Variation 14.1 % (11.5-14.5) Immature Granulocyte % (Auto) 0.1 % Immature Granulocyte # (Auto) 0.01 K/uL (0.00-0.02) Prothrombin Time 9.7 SECONDS (9.0-12.0) Prothromb Time International Ratio 0.9 (0.9-1.1) Activated Partial Thromboplast Time 23.4 SECONDS (21.0-31.0) Partial Thromboplastin Ratio 0.9 Anion Gap 7.0 mmol/L (3-11) Est Creatinine Clear Calc Drug Dose 114.0 ml/min Estimated GFR () 143.9 Estimated GFR (Non- 124.2 BUN/Creatinine Ratio 20.0 (10-20) Calcium Level 8.9 mg/dl (8.5-10.1) Phosphorus Level 3.6 mg/dl (2.5-4.9) Magnesium Level 2.0 mg/dl (1.8-2.4) Thyroid Stimulating Hormone (TSH) 1.830 uIu/ml (0.300-4.500) Labs reviewed by ED physician. Medications Administered Medications (Trade) Dose Ordered Sig/Tory Route Start Time Stop Time Status Last Admin Dose Admin Ketorolac Tromethamine (Toradol Inj) 30 mg NOW STAT IV 06/26/17 20:34 06/26/17 20:37 DC 06/26/17 20:55 30 MG Prochlorperazine Edisylate (Compazine Inj) 10 mg NOW STAT IV 06/26/17 20:34 06/26/17 20:37 DC 06/26/17 20:56 10 MG Diphenhydramine HCl (Benadryl Inj) 50 mg NOW STAT IV 06/26/17 20:34 06/26/17 20:37 DC 06/26/17 20:55 50 MG Magnesium Sulfate (Magnesium Sulfate) 1 gm NOW STAT IV 06/26/17 20:34 06/26/17 20:37 DC 06/26/17 20:56 1 GM ED Course 2030: Past medical records reviewed. The patient was evaluated in room A11. A complete history and physical examination was performed. 2033: Magnesium Sulfate 1gm IV, Benadryl Inj 50mg IV, Compazine Inj 10mg IV, Toradol Inj 30mg IV 5: Upon reexamination the patient is resting comfortably. I discussed results and treatment plan with the patient. She verbalizes agreement and understanding. The patient is ready for discharge. Medical Decision Differential diagnosis: Etiologies such as infection, hypoglycemia, electrolyte abnormalities, cardiac sources, intracerebral event, trauma, toxicologic, neurologic, as well as others were entertained. This is a 21-year-old female who presents emergency Department with a history of seizures. The patient reports she had a shaking sensation to the right side of her body which lasted several minutes during which she could not control the right side of her body. This resolved. Per bystanders the patient was then confused. Based on this I do feel that the patient had a seizure. She is moving all 4 extremities at this point. She just had a CAT scan of the head performed approximately 2 weeks ago. She has a normal CBC normal renal profile. Patient has no evidence of meningitis encephalitis on examination. She was given Toradol Compazine and Benadryl here in the emergency department. I stressed the need for follow-up with neurology. Patient was in agreement with the treatment plan. Medication Reconcilliation Current Medication List: was personally reviewed by me Blood Pressure Screening Patient's blood pressure: Normal blood pressure Blood pressure disposition: Did not require urgent referral Impression Primary Impression: Seizure Scribe Attestation The scribe's documentation has been prepared under my direction and personally reviewed by me in its entirety. I confirm that the note above accurately reflects all work, treatment, procedures, and medical decision making performed by me. Departure Information Dispostion Home / Self-Care Referrals No Doctor, Assigned (PCP) Forms HOME CARE DOCUMENTATION FORM, IMPORTANT VISIT INFORMATION Patient Instructions ED Seizure Recurrent, My [facility] Additional Instructions For a new PCP call [phone]. Need follow up with DR Ziegler's office You have been examined and treated today on an emergency basis only. This is not a substitute for, or an effort to provide, complete comprehensive medical care. It is impossible to recognize and treat all injuries or illnesses in a single emergency department visit. It is therefore important that you follow up closely with your PCP. Call as soon as possible for an appointment. Thank you for your time and consideration. I look forward to speaking with you again soon. Please don't hesitate to call us if you have any questions.
[2017-06-26 21:14] LABS: BASO % 0.5 %; BASO ABS # 0.04 K/uL (0-0.2); EOS % 9.1 %; HEMATOCRIT 37.9 % (37-47); HEMOGLOBIN 12.6 g/dL (12.0-16.0); IG# 0.01 K/uL (0.00-0.02); LYMPH % 30.4 %; LYMPH ABS # 2.68 K/uL (1.2-3.4); MEAN CELL VOLUME 83.8 fL (80-100); MEAN CORPUSCULAR HEMOGLOBIN 27.9 pg (25-34); MEAN CORPUSCULAR HGB CONC 33.2 g/dl (32-36); MEAN PLATELET VOLUME 11.5 fL (7.4-10.4); MONO % 6.6 %; MONO ABS # 0.58 K/uL (0.11-0.59); NEUT % 53.3 %; PLATELET COUNT 202 K/uL (130-400); RED CELL DISTRIBUTION WIDTH CV 14.1 % (11.5-14.5); RED CELL DISTRIBUTION WIDTH SD 42.9 fL (36.4-46.3); WHITE BLOOD COUNT 8.81 K/uL (4.8-10.8)
[2017-06-26 21:17] VITALS: O2SAT 98
[2017-06-26 21:28] LABS: INR 0.9 (0.9-1.1); PTT PATIENT 23.4 SECONDS (21.0-31.0)
[2017-06-26 21:33] LABS: CALCIUM 8.9 mg/dl (8.5-10.1); CREATININE 0.68 mg/dl (0.60-1.20); POTASSIUM 3.6 mmol/L (3.5-5.1)
[2017-06-26 21:44] LABS: PHOSPHORUS 3.6 mg/dl (2.5-4.9)
[2017-06-26] MEDS ORDERED: BCPILLS PO (21:44)
[2017-06-26 22:18] VITALS: BP 111/71; PULSE 91; O2SAT 100
== END 2017-06-26 22:20 | disposition home or self-care (01) ==
LOC: C.EDB 19:19 → C.EDA 22:20
DX: R56.9 Unspecified convulsions (principal); F31.9 Bipolar disorder, unspecified; F17.200 Nicotine dependence, unspecified, uncomplicated; Z79.3 Long term (current) use of hormonal contraceptives; Z80.9 Family history of malignant neoplasm, unspecified; Z83.3 Family history of diabetes mellitus; Z82.49 Family history of ischemic heart disease and other diseases of the circulatory system; Z84.1 Family history of disorders of kidney and ureter

== ENCOUNTER 2017-07-16 07:05 | Emergency (ER) | payer OTHER ==
[~2017-07-16] VITALS: Ht 157.5 cm; Wt 63.4 kg
[~2017-07-16 07:05] MED LIST changes: +BCPILLS PO; -LAMO100T16 PO; +LAMO150T PO; -NCR2 MT; -NICO14DI5 TD; -RISP-99 PO; +RISP0.5T10 PO
[2017-07-16 07:09] VITALS: TEMP 36.4; Ht 157.5 cm; Wt 63.4 kg
[2017-07-16] MEDS ORDERED: ONDANSETRON 4MG OD TAB PO STA (07:24)
[2017-07-16] MEDS ORDERED: ACETAMINOPHEN 500 MG TAB PO STA (08:11)
--- NOTE | 2017-07-16 08:17 | DIAGNOSTIC IMAGING REPORT ---
KUB CLINICAL HISTORY: 21 years-old Female presenting with ABD PAIN. TECHNIQUE: Single supine view of the abdomen was obtained. COMPARISON: CT from 03/26/2016. FINDINGS: Nonobstructive bowel gas pattern. No gross pneumoperitoneum. Allowing for bowel gas and stool, calcification projects over the right kidney suspicious for right renal calculus. This was not present on prior CT. Transitional lumbosacral anatomy of L5 with sacralization of the right transverse process. Lung bases clear. IMPRESSION: 1. No bowel obstruction or free air. 2. Findings suspicious for right renal calculus though no nephrolithiasis was visualized on most recent CT from March. Electronically signed by: Fransisco Gray M.D. 07/16/2017 8:16 AM Dictated Date/Time: 07/16/2017 8:14 AM
[2017-07-16 08:55] VITALS: BP 101/58; O2SAT 98
[2017-07-16] MEDS ORDERED: PHEN-876 PO (09:11)
[2017-07-16] MEDS ORDERED: SULF800T23 PO (09:11)
[2017-07-16 09:55] VITALS: PULSE 76
--- NOTE | 2017-07-16 14:16 | EMERGENCY ROOM VISIT NOTE ---
History First contact with patient: 07:08 Chief Complaint: ILLNESS Stated Complaint: ILLNESS History of Present Illness The patient is a 21 year old female who presents to the Emergency Room via BLS ambulance with audible complaints, including urinary symptoms, nausea, abdominal pain, hurting all over and diarrhea. The patient reports that she developed urinary symptoms yesterday. She shortly thereafter developed lower abdominal pain. The pain does not extend into the back. The patient denies fevers or chills. She has had nausea without vomiting. She has had approximately 5-6 episodes of watery diarrhea over the past 24 hours. The patient does report a prior history of UTI, but cannot recall the last episode. She cannot rule out . The patient is currently menstruating, and reports moderate bleeding. The patient has not taken any medicine for her pain. She has not taken a home test. The patient reports she currently no longer has money. She also lost her medical assistance "because I misused my food stamps". The patient rates her overall discomfort an 8 out of 10. Review of Systems HEENT: Denies dizziness, visual problems, hearing loss, tinnitus. Denies difficulty swallowing or oral lesions. PULMONARY: Denies cough, shortness of breath, sputum production or hemoptysis. CARDIOVASCULAR: Denies chest pain, palpitations, dyspnea on exertion, orthopnea or peripheral edema. GASTROINTESTINAL: Denies recent constipation, otherwise see history of present illness. GENITOURINARY: Reports dysuria, frequency and urgency. She has not noticed any hematuria. NEUROLOGIC: Denies history of epilepsy, CVA, TIA or chronic headaches. MUSCULOSKELETAL: Denies history of joint tenderness/swelling. SKIN: Denies rashes or lesions. PSYCHIATRIC: History of mental illness. ENDOCRINE: Denies history of diabetes or thyroid disorders. Past Medical/Surgical History Medical Problems: (1) Abdominal pain (2) Acetaminophen overdose (3) Back pain (4) Bipolar 1 disorder (5) Bipolar disorder current episode depressed (6) Cramping affecting , antepartum (7) Decreased movement affecting management of in third trimester (8) Depression (9) Fatigue (10) Intentional overdose of drug in tablet form (11) Lightheaded (12) Medication overdose (13) Near syncope (14) Negative test (15) Paresthesias (16) Pelvic pain affecting in third trimester, antepartum (17) Post term (18) (19) test positive (20) with 39 completed weeks gestation (21) Viral illness Surgical Problems: (1) Previous section Family History Cancer Diabetes mellitus FHx: cancer Heart disease Hypertension Kidney disease Kidney stones Social History Smoking Status: Current Every Day Smoker Alcohol Use: none Drug Use: none Marital Status: in relationship Housing Status: lives with significant other Occupation Status: employed Current/Historical Medications Scheduled Lamotrigine (Lamictal), 150 MG PO QD@1200 Risperidone (Risperdal), 0.5 MG PO QD@1200 Sulfa/Trimethoprim (Bactrim Ds 800MG/160MG), 1 TAB PO BID Scheduled PRN Phenazopyridine HCl (Pyridium), 200 MG PO TID PRN for dysuria Physical Exam Vital Signs Date Time Temp Pulse Resp B/P (MAP) Pulse Ox O2 Delivery O2 Flow Rate FiO2 07/16/17 09:55 76 16 07/16/17 08:55 57 16 101/58 98 Room Air 07/16/17 07:09 36.4 59 18 119/71 98 Room Air Physical Exam CONSTITUTIONAL: Healthy and well nourished. Alert and oriented X 3. She does not appear in any acute distress on exam. PSYCHIATRIC: Flat affect. She answers all questions appropriately. HEENT: Normocephalic, atraumatic. Pupils equal, round and reactive. Ears and nares are clear. No scrotal icterus or conjunctival injection/pallor. OROPHARYNX: No posterior frontal erythema. Mucous membranes are normal. NECK: Full active range of motion without discomfort. No nuchal rigidity. RESPIRATORY: Clear to auscultation bilaterally with no wheezing, crackles, rhonchi or stridor. CARDIOVASCULAR: Regular rate and rhythm with no murmurs, rubs or gallops. GASTROINTESTINAL: Bowel sounds present in all quadrants. Examination shows mild nonfocal tenderness to palpation of the abdomen. Negative McBurney's point tenderness. Negative CVA tenderness. MUSCULOSKELETAL: Full range of motion of all joints without discomfort. Patient has no focal tenderness through the central thoracolumbar spine. No erythema or bogginess to palpation of the major joints. INTEGUMENTARY: No rash or other significant dermatologic conditions noted. HEMATOLOGIC: No ecchymosis or petechiae noted. NEUROLOGIC: No focal neurologic deficits noted. Medical Decision & Procedures ER Provider Diagnostic Interpretation: My interpretation of a KUB x-ray does not show any free air or obvious obstructive pattern. The radiologist questions a possible right renal calculus which was not visualized on the patient's last CT in March 2017. Radiologist report is as follows: KUB CLINICAL HISTORY: 21 years-old Female presenting with ABD PAIN. TECHNIQUE: Single supine view of the abdomen was obtained. COMPARISON: CT from 03/26/2016. FINDINGS: Nonobstructive bowel gas pattern. No gross pneumoperitoneum. Allowing for bowel gas and stool, calcification projects over the right kidney suspicious for right renal calculus. This was not present on prior CT. Transitional lumbosacral anatomy of L5 with sacralization of the right transverse process. Lung bases clear. IMPRESSION: 1. No bowel obstruction or free air. 2. Findings suspicious for right renal calculus though no nephrolithiasis was visualized on most recent CT from March. Laboratory Results Test 07/16/17 07:41 Urine Color YELLOW Urine Appearance CLOUDY (CLEAR) Urine pH 5.0 (4.5-7.5) Urine Specific [place] 1.033 (1.000-1.030) Urine Protein TRACE (NEG) Urine Glucose (UA) NEG (NEG) Urine Ketones TRACE (NEG) Urine Occult Blood 3+ (NEG) Urine Nitrite NEG (NEG) Urine Bilirubin NEG (NEG) Urine Urobilinogen NEG (NEG) Urine Leukocyte Esterase NEG (NEG) Urine WBC (Auto) 10-30 /hpf (0-5) Urine RBC (Auto) 0-4 /hpf (0-4) Urine Hyaline Casts (Auto) 1-5 /lpf (0-5) Urine Epithelial Cells (Auto) >30 /lpf (0-5) Urine Bacteria (Auto) 1+ (NEG) Urine Pathogenic Casts /lpf (0) Urine Test NEG (NEG) Urine is negative. Urine dip and urinalysis show hematuria with possible infection. Urine culture is pending. Medications Administered Medications (Trade) Dose Ordered Sig/Tory Route Start Time Stop Time Status Last Admin Dose Admin Ondansetron HCl (Zofran Odt) 4 mg NOW STAT PO 07/16/17 07:24 07/16/17 07:27 DC 07/16/17 07:41 4 MG Acetaminophen (Tylenol Tab) 1,000 mg NOW STAT PO 07/16/17 08:11 07/16/17 08:13 DC 07/16/17 08:17 1,000 MG ED Course Patient history and physical exam were performed. Nurse's notes were reviewed. Vital signs were reviewed and were normal. The patient was administered Zofran ODT for nausea. Urine was negative. Urine dip and urinalysis is consistent with infection. Urine cultures are pending. A KUB x-ray was normal, and suggestive of a possible right nephrolithiasis. No ureteral calculi appreciated. The patient was advised that her symptoms are likely secondary to a UTI. The patient was provided a prescription for Bactrim DS and Pyridium. Alternatively she may use [id number] Azo for urine discomfort if her Pyridium prescription is unaffordable. The patient was instructed to follow-up with her PCP if symptoms are not improving within the next 2-3 days. Return to the emergency department for any progressively worsening symptoms, increasing fever, persistent vomiting, worsening abdominal pain or other concerning symptoms. The patient was happy with plan of care, and voiced understanding of all discharge instructions. Medical Decision Patient presents to the emergency department with urinary complaints, and also voiced concern that she has a urinary tract infection. Her urinalysis is consistent with an infection. Vital exam is not consistent with pyelonephritis. Her abdominal exam is otherwise benign. The patient is currently afebrile. At this point, I do not feel that further advanced imaging studies or laboratory studies are needed. Medication Reconcilliation Current Medication List: was personally reviewed by me Blood Pressure Screening Patient's blood pressure: Normal blood pressure Impression Primary Impression: Urinary tract infection Departure Information Prescriptions Phenazopyridine HCl (Pyridium) 200 Mg Tab 200 MG PO TID Y for dysuria, #6 TAB Prov: Moise Finch PA 07/16/17 Sulfa/Trimethoprim (Bactrim Ds 800MG/160MG) Tab 1 TAB PO BID for 5 Days, #10 TAB Prov: Moise Finch PA 07/16/17 Referrals No Doctor, Assigned (PCP) Patient Instructions [facility] Problem Qualifiers Primary Impression: Urinary tract infection
== END 2017-07-16 09:55 | disposition home or self-care (01) ==
LOC: EDBD 07:05 → C.EDB 07:06
DX: N39.0 Urinary tract infection, site not specified (principal); R19.7 Diarrhea, unspecified; R11.0 Nausea; F31.9 Bipolar disorder, unspecified; Z79.899 Other long term (current) drug therapy; Z87.440 Personal history of urinary (tract) infections; Z82.49 Family history of ischemic heart disease and other diseases of the circulatory system; Z83.3 Family history of diabetes mellitus; Z84.1 Family history of disorders of kidney and ureter; F17.200 Nicotine dependence, unspecified, uncomplicated

== ENCOUNTER 2017-07-22 16:09 | Emergency (ER) | payer OTHER ==
[~2017-07-22] VITALS: Ht 157.5 cm; Wt 63.2 kg
[~2017-07-22 16:09] MED LIST changes: -BCPILLS PO; -LAMO150T PO; +PHEN-876 PO; +SULF800T23 PO
[2017-07-22 16:41] VITALS: Ht 157.5 cm; Wt 63.2 kg
[2017-07-22 18:38] LABS: BASO % 0.5 %; BASO ABS # 0.04 K/uL (0-0.2); EOS % 7.4 %; EOS ABS # 0.59 K/uL (0-0.5); HEMATOCRIT 37.9 % (37-47); HEMOGLOBIN 12.8 g/dL (12.0-16.0); IG# 0.02 K/uL (0.00-0.02); LYMPH % 29.3 %; LYMPH ABS # 2.33 K/uL (1.2-3.4); MEAN CELL VOLUME 83.8 fL (80-100); MEAN CORPUSCULAR HEMOGLOBIN 28.3 pg (25-34); MEAN CORPUSCULAR HGB CONC 33.8 g/dl (32-36); MEAN PLATELET VOLUME 11.7 fL (7.4-10.4); MONO % 4.7 %; MONO ABS # 0.37 K/uL (0.11-0.59); NEUT % 57.8 %; PLATELET COUNT 195 K/uL (130-400); RED CELL DISTRIBUTION WIDTH CV 14.3 % (11.5-14.5); RED CELL DISTRIBUTION WIDTH SD 43.9 fL (36.4-46.3); WHITE BLOOD COUNT 7.95 K/uL (4.8-10.8)
--- NOTE | 2017-07-22 18:43 | EMERGENCY ROOM VISIT NOTE ---
History First contact with patient: 18:09 Chief Complaint: URINARY SYMPTOMS Stated Complaint: CRAMPS, VAGINAL PAINS, PAIN WHEN URINATING Nursing Triage Summary: patinet with UTI and on antibiotics comes today with no improvment of pain and nausea History of Present Illness The patient is a 21 year old female who presents to the Emergency Room with complaints of persistent urinary symptoms. The patient reports that she was seen here 1 week ago and diagnosed with a UTI. She was placed on antibiotics but states that these did not help. She reports vaginal burning and irritation as well. She reports she has had some lower abdominal cramping for approximately 2 weeks. She has had persistent burning with urination. She reports some creamy white vaginal discharge. She denies any recent new sexual partners or concern for STI. She denies any fever/chills, changes in bowel movements, nausea or vomiting. Review of Systems A complete 10 point review of systems was reviewed with the patient with pertinent positives and negatives as per history of present illness. All else were negative. Past Medical/Surgical History Medical Problems: (1) Abdominal pain (2) Acetaminophen overdose (3) Back pain (4) Bipolar 1 disorder (5) Bipolar disorder current episode depressed (6) Cramping affecting , antepartum (7) Decreased movement affecting management of in third trimester (8) Depression (9) Fatigue (10) Intentional overdose of drug in tablet form (11) Lightheaded (12) Medication overdose (13) Near syncope (14) Negative test (15) Paresthesias (16) Pelvic pain affecting in third trimester, antepartum (17) Post term (18) (19) test positive (20) with 39 completed weeks gestation (21) Viral illness Surgical Problems: (1) Previous section Family History Cancer Diabetes mellitus FHx: cancer Heart disease Hypertension Kidney disease Kidney stones Social History Smoking Status: Current Every Day Smoker Alcohol Use: none Drug Use: none Marital Status: in relationship Housing Status: lives with significant other Occupation Status: employed Current/Historical Medications Scheduled Acetaminophen (Tylenol), 1,000 MG PO PRN UD Lamotrigine (Lamictal), 150 MG PO QPM Metronidazole (Flagyl), 500 MG PO BID Risperidone (Risperdal), 0.5 MG PO QPM Scheduled PRN Phenazopyridine HCl (Pyridium), 200 MG PO TID PRN for dysuria Physical Exam Vital Signs Date Time Temp Pulse Resp B/P (MAP) Pulse Ox O2 Delivery O2 Flow Rate FiO2 07/22/17 16:41 36.9 81 18 114/78 97 Room Air Physical Exam VITALS: Vitals are noted on the nurse's note and reviewed by myself. Vital signs stable. GENERAL: This is a 21-year-old female, in no acute distress, nondiaphoretic, well-developed well-nourished. SKIN: The skin was without rashes. HEART: Regular rate and rhythm without murmurs gallops or rubs. LUNGS: Clear to auscultation bilaterally without wheezes, rales or rhonchi. ABDOMEN: Soft, moderate tenderness to palpation across the lower abdomen without guarding or rebound tenderness. PELVIC: Moderate amount of foul-smelling whitish green vaginal discharge. No cervicitis. No cervical motion or adnexal tenderness. NEURO: Patient was alert and oriented to person place and time. Medical Decision & Procedures ER Provider Diagnostic Interpretation: PELVIC ULTRASOUND, TRANSABDOMINAL AND TRANSVAGINAL HISTORY: pelvic pain, vaginal discharge COMPARISON: Pelvic ultrasound 06/10/2017. FINDINGS: Uterus: 8.1 x 4.5 x 4.8 cm. Endometrial stripe: 8 mm in thickness. Right ovary: Normal in size and demonstrates normal color flow. Left ovary: Normal in size and demonstrates normal color flow. A 2.4 cm cyst. Miscellaneous:Trace pelvic free fluid. IMPRESSION: 1. A 2.4 cm simple cyst within the left ovary. 2. Normal right ovary. 3. Normal uterus. 4. Trace pelvic free fluid. This is likely physiologic. Laboratory Results 07/22/17 18:30 Red Blood Count 4.52, Mean Corpuscular Volume 83.8, Mean Corpuscular Hemoglobin 28.3, Mean Corpuscular Hemoglobin Concent 33.8, Mean Platelet Volume 11.7, Neutrophils (%) (Auto) 57.8, Lymphocytes (%) (Auto) 29.3, Monocytes (%) (Auto) 4.7, Eosinophils (%) (Auto) 7.4, Basophils (%) (Auto) 0.5, Neutrophils # (Auto) 4.60, Lymphocytes # (Auto) 2.33, Monocytes # (Auto) 0.37, Eosinophils # (Auto) 0.59, Basophils # (Auto) 0.04 07/22/17 18:30 Test 07/22/17 18:15 07/22/17 18:30 07/22/17 21:10 Urine Color YELLOW Urine Appearance SL CLOUDY (CLEAR) Urine pH 6.0 (4.5-7.5) Urine Specific [place] 1.020 (1.000-1.030) Urine Protein NEG (NEG) Urine Glucose (UA) NEG (NEG) Urine Ketones TRACE (NEG) Urine Occult Blood NEG (NEG) Urine Nitrite NEG (NEG) Urine Bilirubin NEG (NEG) Urine Urobilinogen NEG (NEG) Urine Leukocyte Esterase NEG (NEG) Urine Test NEG (NEG) White Blood Count 7.95 K/uL (4.8-10.8) Red Blood Count 4.52 M/uL (4.2-5.4) Hemoglobin 12.8 g/dL (12.0-16.0) Hematocrit 37.9 % (37-47) Mean Corpuscular Volume 83.8 fL (80-100) Mean Corpuscular Hemoglobin 28.3 pg (25-34) Mean Corpuscular Hemoglobin Concent 33.8 g/dl (32-36) Platelet Count 195 K/uL (130-400) Mean Platelet Volume 11.7 fL (7.4-10.4) Neutrophils (%) (Auto) 57.8 % Lymphocytes (%) (Auto) 29.3 % Monocytes (%) (Auto) 4.7 % Eosinophils (%) (Auto) 7.4 % Basophils (%) (Auto) 0.5 % Neutrophils # (Auto) 4.60 K/uL (1.4-6.5) Lymphocytes # (Auto) 2.33 K/uL (1.2-3.4) Monocytes # (Auto) 0.37 K/uL (0.11-0.59) Eosinophils # (Auto) 0.59 K/uL (0-0.5) Basophils # (Auto) 0.04 K/uL (0-0.2) RDW Standard Deviation 43.9 fL (36.4-46.3) RDW Coefficient of Variation 14.3 % (11.5-14.5) Immature Granulocyte % (Auto) 0.3 % Immature Granulocyte # (Auto) 0.02 K/uL (0.00-0.02) Anion Gap 4.0 mmol/L (3-11) Est Creatinine Clear Calc Drug Dose 94.0 ml/min Estimated GFR () 117.7 Estimated GFR (Non- 101.6 BUN/Creatinine Ratio 6.4 (10-20) Calcium Level 8.6 mg/dl (8.5-10.1) Total Bilirubin 0.2 mg/dl (0.2-1) Aspartate Amino Transf (AST/SGOT) 15 U/L (15-37) Alanine Aminotransferase (ALT/SGPT) 19 U/L (12-78) Alkaline Phosphatase 103 U/L (45-117) Total Protein 6.6 gm/dl (6.4-8.2) Albumin 3.4 gm/dl (3.4-5.0) Globulin 3.2 gm/dl (2.5-4.0) Albumin/Globulin Ratio 1.1 (0.9-2) Human Chorionic Gonadotropin, Qual NEG (NEG) Date/Time Source Procedure Growth Status 07/22/17 21:10 Vaginal Swab Trichomonas Preparation - Final Complete Medications Administered Medications (Trade) Dose Ordered Sig/Tory Route Start Time Stop Time Status Last Admin Dose Admin Fluconazole (Diflucan Tab) 150 mg NOW ONCE PO 07/22/17 21:30 07/22/17 21:31 DC 07/22/17 21:36 150 MG Azithromycin (Zithromax Tab) 1,000 mg NOW ONCE PO 07/22/17 21:30 07/22/17 21:31 DC 07/22/17 21:35 1,000 MG Metronidazole (Flagyl Tab) 500 mg NOW STAT PO 07/22/17 21:18 07/22/17 21:22 DC 07/22/17 21:35 500 MG Ceftriaxone Sodium (Rocephin Im) 997.5 mg STK-MED ONCE IM 07/22/17 21:26 07/22/17 21:27 DC 07/22/17 21:37 250 MG Medical Decision Differential diagnosis includes urinary tract infection, BV, STI, vaginal candidiasis, PID, ovarian cyst, among others. The patient is a 21-year-old female who presents today complaining of urinary symptoms and vaginal discharge. Pelvic ultrasound showed a small left-sided ovarian cyst. Labs revealed no leukocytosis, anemia or concerning electrolyte abnormalities. Urinalysis was not suggestive of infection. Urine and serum pregnancies were negative. Pelvic exam was performed and did show a moderate amount of discharge. Cultures were obtained and are pending. Patient was treated empirically with Rocephin, Zithromax, Diflucan and will be placed on Flagyl as I suspect BV. No evidence of PID on exam. She was instructed to follow-up with [employer]. Based on the patient's presentation and work up, I feel the patient is stable for outpatient treatment. The patient was educated to return to the emergency department for any worsening of their current condition or new/concerning symptoms. She will follow up with [employer]. Medication Reconcilliation Current Medication List: was personally reviewed by me Blood Pressure Screening Patient's blood pressure: Normal blood pressure Impression Primary Impression: Vaginal discharge Departure Information Dispostion Home / Self-Care Condition GOOD Prescriptions Metronidazole (Flagyl) 500 Mg Tab 500 MG PO BID for 7 Days, #13 TAB Prov: Celestina Vargas .RAVI 07/22/17 Referrals No Doctor, Assigned (PCP) Patient Instructions My [facility] Additional Instructions Some of your cultures are still pending. You will be contacted if these become positive. If you do not hear from us in 2-3 days, you may contact the ED. For pain control, you can use the following clei-ptr-lkpluco medicines (if >12 yo): - Regular strength (325mg/tab) Tylenol (acetaminophen) 2 tabs every 4-6 hours as needed. Do not exceed 12 tablets in a 24 hour period. Avoid taking more than 4 grams (4000 mg) of Tylenol per day. This includes any other sources of acetaminophen you may take on a regular basis. - Regular strength (200 mg/tab) Advil (ibuprofen) 1-2 tabs every 4-6 hours as needed. Do not exceed a dose of 3200 mg per day. You were prescribed Flagyl to be taken as prescribed. This is an antibiotic. All antibiotics have the potential to cause diarrhea. Stop this medication and contact a medical provider if you were to develop any significant adverse side effects including: wheezing, shortness of breath, passing out, vomiting, or a diffuse rash. Always take antibiotics as directed and COMPLETE the ENTIRE course regardless of the improvement of your symptoms. Do not drink any alcohol while taking the medication, as it will make you very ill. Follow-up with [facility]. Return to the ED with worsening pain, fevers or any other new/concerning symptoms.
[2017-07-22 18:57] LABS: ALBUMIN 3.4 gm/dl (3.4-5.0); CALCIUM 8.6 mg/dl (8.5-10.1); CREATININE 0.82 mg/dl (0.60-1.20); POTASSIUM 3.5 mmol/L (3.5-5.1)
[2017-07-22] MEDS ORDERED: ACET-1256 PO (18:57)
[2017-07-22 19:00] LABS: TOTAL PROTEIN 6.6 gm/dl (6.4-8.2)
--- NOTE | 2017-07-22 20:24 | DIAGNOSTIC IMAGING REPORT ---
PELVIC ULTRASOUND, TRANSABDOMINAL AND TRANSVAGINAL HISTORY: pelvic pain, vaginal discharge COMPARISON: Pelvic ultrasound 06/10/2017. FINDINGS: Uterus: 8.1 x 4.5 x 4.8 cm. Endometrial stripe: 8 mm in thickness. Right ovary: Normal in size and demonstrates normal color flow. Left ovary: Normal in size and demonstrates normal color flow. A 2.4 cm cyst. Miscellaneous:Trace pelvic free fluid. IMPRESSION: 1. A 2.4 cm simple cyst within the left ovary. 2. Normal right ovary. 3. Normal uterus. 4. Trace pelvic free fluid. This is likely physiologic. Electronically signed by: Meño Bryant M.D. 07/22/2017 8:22 PM Dictated Date/Time: 07/22/2017 8:21 PM
[2017-07-22] MEDS ORDERED: LAMO150T PO (20:42)
[2017-07-22] MEDS ORDERED: METRONIDAZOLE 250 MG TAB PO STA (21:18)
[2017-07-22] MEDS ORDERED: CEFTRIAXONE SOD 350MG/ML 1 GM VIAL IM ONE (21:26)
[2017-07-22] MEDS ORDERED: METR-163 PO (21:26)
[2017-07-22] MEDS ORDERED: FLUCONAZOLE 50 MG TAB PO ONE (21:30)
[2017-07-22] MEDS ORDERED: AZITHROMYCIN 250 MG TAB PO ONE (21:30)
[2017-07-22] MEDS ORDERED: CEFTRIAXONE SOD INJ 250 MG/ML VIAL IM ONE (21:30)
[2017-07-22 22:25] VITALS: BP 125/68; PULSE 81; TEMP 36.9; O2SAT 97
== END 2017-07-22 22:26 | disposition home or self-care (01) ==
LOC: C.EDB 16:12 → C.EDA 22:26
DX: N89.8 Other specified noninflammatory disorders of vagina (principal); F31.9 Bipolar disorder, unspecified; F32.9 Major depressive disorder, single episode, unspecified; Z80.9 Family history of malignant neoplasm, unspecified; Z83.3 Family history of diabetes mellitus; Z82.49 Family history of ischemic heart disease and other diseases of the circulatory system; Z84.1 Family history of disorders of kidney and ureter; F17.210 Nicotine dependence, cigarettes, uncomplicated; Z79.899 Other long term (current) drug therapy

== ENCOUNTER 2017-07-31 01:23 | Emergency (ER) | payer SELFPAY ==
[~2017-07-31] VITALS: Ht 157.5 cm; Wt 64.5 kg
[~2017-07-31 01:23] MED LIST changes: +ACET-1256 PO; +LAMO150T PO; +MTR500 PO
[2017-07-31 01:31] VITALS: TEMP 36.8; O2SAT 96; Ht 157.5 cm; Wt 64.5 kg
[2017-07-31] MEDS ORDERED: SODIUM CHLORIDE 0.9% 1000ML 2,000 ML IV STA (02:06)
--- NOTE | 2017-07-31 02:08 | EMERGENCY ROOM VISIT NOTE ---
History Report prepared by [place]: Jossie Escamilla Under the Supervision of: Dr. Jeb Boyd M.D. First contact with patient: 01:35 Chief Complaint: OVERDOSE (INTENTIONAL) Stated Complaint: OVERDOSE History of Present Illness The patient is a 21 year old female who presents to the Emergency Room with complaints of an overdose occurring shortly prior to arrival. The patient states that she 15-20 pills of Risperidone. She reports that her depression and anxiety have been worse recently and that she was trying to get rid of it with the overdose. The patient denies that she was trying to kill herself. The patient states that she did not tell anyone that she is trying to hurt herself. The patient denies having other symptoms. Source of History: patient Onset: shortly prior to arrival Position: other (global) Quality: other (overdose) Timing: constant Associated Symptoms: No fevers Review of Systems See HPI for pertinent positives & negatives. A total of 10 systems reviewed and were otherwise negative. Past Medical & Surgical Medical Problems: (1) Abdominal pain (2) Acetaminophen overdose (3) Back pain (4) Bipolar 1 disorder (5) Bipolar disorder current episode depressed (6) Cramping affecting , antepartum (7) Decreased movement affecting management of in third trimester (8) Depression (9) Fatigue (10) Intentional overdose of drug in tablet form (11) Lightheaded (12) Medication overdose (13) Near syncope (14) Negative test (15) Paresthesias (16) Pelvic pain affecting in third trimester, antepartum (17) Post term (18) (19) test positive (20) with 39 completed weeks gestation (21) Viral illness Surgical Problems: (1) Previous section Family History Cancer Diabetes mellitus FHx: cancer Heart disease Hypertension Kidney disease Kidney stones Social History Smoking Status: Current Some Day Smoker Alcohol Use: none Drug Use: none Marital Status: in relationship Housing Status: lives with significant other Occupation Status: employed Current/Historical Medications Scheduled Lamotrigine (Lamictal), 150 MG PO QPM Risperidone (Risperdal), 0.5 MG PO QPM Scheduled PRN Acetaminophen (Tylenol), 1,000 MG PO Q4 PRN for Pain Allergies Coded Allergies: No Known Allergies (Unverified , 07/31/17) Physical Exam Vital Signs Date Time Temp Pulse Resp B/P (MAP) Pulse Ox O2 Delivery O2 Flow Rate FiO2 07/31/17 07:04 135 07/31/17 06:56 84 18 110/73 96 Room Air 07/31/17 06:00 108 15 111/66 94 Room Air 07/31/17 05:30 97 14 120/70 95 Room Air 07/31/17 05:09 98 07/31/17 05:00 104 15 109/68 94 Room Air 07/31/17 04:30 94 15 109/68 96 Room Air 07/31/17 04:00 97 15 110/66 96 Room Air 07/31/17 03:30 99 16 111/65 96 Room Air 07/31/17 03:23 123/73 07/31/17 03:00 105 14 111/67 98 Room Air 07/31/17 02:30 103 16 112/68 96 Room Air 07/31/17 02:00 112 15 101/55 98 Room Air 07/31/17 01:32 114 07/31/17 01:31 96 Room Air 07/31/17 01:31 36.8 119 20 116/73 96 Room Air Physical Exam GENERAL: Patient is well appearing and in no acute distress. HEENT: No acute trauma, normocephalic atraumatic, mucous membranes moist, no nasal congestion, no scleral icterus. NECK: No stridor, no adenopathy, no meningismus, trachea is midline. LUNGS: No dyspnea. Clear to auscultation and equal bilaterally. No wheeze, no rhonchi. HEART:Mildly tachycardic, regular rhythm. No murmurs, rubs, gallops appreciated. ABDOMEN: Soft, nontender, bowel sounds positive, no masses appreciated, no peritonitis. BACK: No midline tenderness, no CVA tenderness EXTREMITIES: Normal motion all extremities, no cyanosis, no edema. NEUROLOGIC: Alert and oriented, no acute motor or sensory deficits, no focal weakness, cranial nerves grossly intact. Somnolent. Answers all questions. SKIN: No rash, no jaundice, no diaphoresis. PSYCH: Admits depression, admits suicidal ideation. Medical Decision & Procedures Laboratory Results 07/31/17 02:22 Red Blood Count 4.83, Mean Corpuscular Volume 84.5, Mean Corpuscular Hemoglobin 28.6, Mean Corpuscular Hemoglobin Concent 33.8, Mean Platelet Volume 11.9, Neutrophils (%) (Auto) 72.0, Lymphocytes (%) (Auto) 18.5, Monocytes (%) (Auto) 5.8, Eosinophils (%) (Auto) 3.2, Basophils (%) (Auto) 0.4, Neutrophils # (Auto) 5.63, Lymphocytes # (Auto) 1.45, Monocytes # (Auto) 0.45, Eosinophils # (Auto) 0.25, Basophils # (Auto) 0.03 07/31/17 02:22 Test 07/31/17 02:22 07/31/17 03:25 07/31/17 04:48 White Blood Count 7.82 K/uL (4.8-10.8) Red Blood Count 4.83 M/uL (4.2-5.4) Hemoglobin 13.8 g/dL (12.0-16.0) Hematocrit 40.8 % (37-47) Mean Corpuscular Volume 84.5 fL (80-100) Mean Corpuscular Hemoglobin 28.6 pg (25-34) Mean Corpuscular Hemoglobin Concent 33.8 g/dl (32-36) Platelet Count 191 K/uL (130-400) Mean Platelet Volume 11.9 fL (7.4-10.4) Neutrophils (%) (Auto) 72.0 % Lymphocytes (%) (Auto) 18.5 % Monocytes (%) (Auto) 5.8 % Eosinophils (%) (Auto) 3.2 % Basophils (%) (Auto) 0.4 % Neutrophils # (Auto) 5.63 K/uL (1.4-6.5) Lymphocytes # (Auto) 1.45 K/uL (1.2-3.4) Monocytes # (Auto) 0.45 K/uL (0.11-0.59) Eosinophils # (Auto) 0.25 K/uL (0-0.5) Basophils # (Auto) 0.03 K/uL (0-0.2) RDW Standard Deviation 44.0 fL (36.4-46.3) RDW Coefficient of Variation 14.2 % (11.5-14.5) Immature Granulocyte % (Auto) 0.1 % Immature Granulocyte # (Auto) 0.01 K/uL (0.00-0.02) Anion Gap 9.0 mmol/L (3-11) Est Creatinine Clear Calc Drug Dose 102.4 ml/min Estimated GFR () 129.1 Estimated GFR (Non- 111.3 BUN/Creatinine Ratio 11.0 (10-20) Calcium Level 9.5 mg/dl (8.5-10.1) Total Bilirubin 0.3 mg/dl (0.2-1) Aspartate Amino Transf (AST/SGOT) 14 U/L (15-37) Alanine Aminotransferase (ALT/SGPT) 19 U/L (12-78) Alkaline Phosphatase 101 U/L (45-117) Total Protein 7.6 gm/dl (6.4-8.2) Albumin 3.8 gm/dl (3.4-5.0) Globulin 3.8 gm/dl (2.5-4.0) Albumin/Globulin Ratio 1.0 (0.9-2) Thyroid Stimulating Hormone (TSH) 3.690 uIu/ml (0.300-4.500) Salicylates Level < 1.7 mg/dl (2.8-20) Ethyl Alcohol mg/dL < 3.0 mg/dl (0-3) Urine Color YELLOW Urine Appearance CLEAR (CLEAR) Urine pH 5.5 (4.5-7.5) Urine Specific [place] 1.007 (1.000-1.030) Urine Protein NEG (NEG) Urine Glucose (UA) NEG (NEG) Urine Ketones NEG (NEG) Urine Occult Blood NEG (NEG) Urine Nitrite NEG (NEG) Urine Bilirubin NEG (NEG) Urine Urobilinogen NEG (NEG) Urine Leukocyte Esterase NEG (NEG) Urine WBC (Auto) 1-5 /hpf (0-5) Urine RBC (Auto) 0-4 /hpf (0-4) Urine Hyaline Casts (Auto) 1-5 /lpf (0-5) Urine Epithelial Cells (Auto) >30 /lpf (0-5) Urine Bacteria (Auto) NEG (NEG) Urine Test NEG (NEG) Urine Opiates Screen NEG (NEG) Urine Methadone, Qualitative NEG (NEG) Urine Barbiturates NEG (NEG) Urine Phencyclidine (PCP) Level NEG (NEG) Ur Amphetamine/Methamphetamine NEG (NEG) MDMA (Ecstasy) Screen NEG (NEG) Urine Benzodiazepines Screen NEG (NEG) Urine Cocaine Metabolite NEG (NEG) Urine Marijuana (THC) NEG (NEG) Acetaminophen Level 5 ug/ml (10-30) Laboratory results as reviewed by me. Medications Administered Medications (Trade) Dose Ordered Sig/Tory Route Start Time Stop Time Status Last Admin Dose Admin Sodium Chloride 2,000 ml @ 999 mls/hr Q2H1M STAT IV 07/31/17 02:06 07/31/17 04:06 DC 07/31/17 02:06 999 MLS/HR ECG Per My Interpretation Indication: other (overdose) Rate (beats per minute): 118 Rhythm: sinus tachycardia Findings: no acute ischemic change, no ectopy, other (QRS is 72, QTC is 448) Change: repeat: sinus tachycardia, 112, no ectopy, no ischemia, unchanged from previous repeat: sinus tachycardia, 103, no ectopy, no ischemia, normal QTC, normal QRS, similar to previous ED Course 0203: The patient was evaluated in room A12B. A complete history and physical exam was performed. 0419: I checked on the patient and she is still mildly tachycardic. Her boyfriend requested that I give him medical advice about his anxiety disorder to which I advised that he check in if he has an emergency. He is against the patient being evaluated by a mental health professional and he feels that her overdose was not an attempt to harm herself and that she should be discharged to him. 0615: I checked on the patient and she is asymptomatic and is no longer somnolent. She has a heart rate of 90. I have asked for a mental health evaluation at this time. 0730: The patient was signed out to Dr. Lorenzo. Medical Decision Differential: Suicide Attempt, Mood Disorder, Poisoning, Medication OD, Narcotic OD, Tylenol OD, Salicylated OD, Prolonged QTc, Metabolic/Electrolyte imbalance, Trauma, Rhabdo, Infectious, amongst other pathologies entertained. 21 yr old female arrives mildly tachycardic and somnolent after taking 15 tablets of Risperdal an hour or two prior to arrival. No other obvious overdose and she denies this was suicide attempt. I made clear to her that given fact she overdosed with her history I feel she is at high risk to repeat if discharged. She was cleared after several hours and stable EKG with improving HR and mental status. Repeat Tylenol wnl. She was stable throughout evening. Of note significant other with her this evening is unable to comprehend the seriousness of this situation, and even at one point was trying to ask me medical advice about himself. Signed out to Dr Lorenzo pending placement. At this point patient cooperative and agreeable to 201 mental health admission. Medication Reconcilliation Current Medication List: was personally reviewed by me Blood Pressure Screening Patient's blood pressure: Normal blood pressure Impression Primary Impression: Intentional drug overdose Additional Impression: Risperdal Overdose Scribe Attestation The scribe's documentation has been prepared under my direction and personally reviewed by me in its entirety. I confirm that the note above accurately reflects all work, treatment, procedures, and medical decision making performed by me. Departure Information Dispostion Still a Patient Referrals No Doctor, Assigned (PCP) Patient Instructions My [facility] Problem Qualifiers
[2017-07-31 02:33] LABS: BASO % 0.4 %; BASO ABS # 0.03 K/uL (0-0.2); EOS % 3.2 %; EOS ABS # 0.25 K/uL (0-0.5); HEMATOCRIT 40.8 % (37-47); HEMOGLOBIN 13.8 g/dL (12.0-16.0); IG# 0.01 K/uL (0.00-0.02); LYMPH % 18.5 %; LYMPH ABS # 1.45 K/uL (1.2-3.4); MEAN CELL VOLUME 84.5 fL (80-100); MEAN CORPUSCULAR HEMOGLOBIN 28.6 pg (25-34); MEAN CORPUSCULAR HGB CONC 33.8 g/dl (32-36); MEAN PLATELET VOLUME 11.9 fL (7.4-10.4); MONO % 5.8 %; MONO ABS # 0.45 K/uL (0.11-0.59); NEUT ABS # 5.63 K/uL (1.4-6.5); PLATELET COUNT 191 K/uL (130-400); RED CELL DISTRIBUTION WIDTH CV 14.2 % (11.5-14.5); WHITE BLOOD COUNT 7.82 K/uL (4.8-10.8)
[2017-07-31 02:57] LABS: ALBUMIN 3.8 gm/dl (3.4-5.0); CALCIUM 9.5 mg/dl (8.5-10.1); CREATININE 0.76 mg/dl (0.60-1.20); POTASSIUM 3.7 mmol/L (3.5-5.1)
[2017-07-31 03:25] LABS: TOTAL PROTEIN 7.6 gm/dl (6.4-8.2)
--- NOTE | 2017-07-31 08:13 | EMERGENCY ROOM VISIT NOTE ---
ED Visit Note First contact with patient: 08:05 The patient was taken in signout from Dr. Obregon at the change of shift. Please see that note for details. The patient was pending psychiatric bed placement. The patient was accepted at [facility] and transported securely for further treatment.
[2017-07-31 11:23] VITALS: BP 132/70; PULSE 110; O2SAT 98
== END 2017-07-31 11:47 ==
LOC: EDBD 01:23 → C.EDA 01:25
DX: T43.502A Poisoning by unspecified antipsychotics and neuroleptics, intentional self-harm, initial encounter (principal); R45.851 Suicidal ideations; F31.9 Bipolar disorder, unspecified; F17.200 Nicotine dependence, unspecified, uncomplicated; Z83.3 Family history of diabetes mellitus; Z82.49 Family history of ischemic heart disease and other diseases of the circulatory system; Z84.1 Family history of disorders of kidney and ureter

== ENCOUNTER 2017-10-14 12:04 | Emergency (ER) | payer SELFPAY ==
[~2017-10-14] VITALS: Ht 157.5 cm; Wt 61.1 kg
[~2017-10-14 12:04] MED LIST changes: -MTR500 PO; -PHEN-876 PO; -SULF800T23 PO
[2017-10-14 12:12] VITALS: TEMP 36.9; Ht 157.5 cm; Wt 61.1 kg
[2017-10-14] MEDS ORDERED: SERT25TA PO (12:14)
[2017-10-14] MEDS ORDERED: SODIUM CHLORIDE 0.9% 1000ML 1,000 ML IV STA (12:29)
[2017-10-14 13:05] LABS: BASO % 0.4 %; BASO ABS # 0.03 K/uL (0-0.2); EOS % 4.7 %; EOS ABS # 0.32 K/uL (0-0.5); HEMATOCRIT 36.7 % (37-47); HEMOGLOBIN 12.5 g/dL (12.0-16.0); LYMPH % 27.6 %; LYMPH ABS # 1.89 K/uL (1.2-3.4); MEAN CORPUSCULAR HEMOGLOBIN 28.3 pg (25-34); MEAN CORPUSCULAR HGB CONC 34.1 g/dl (32-36); MEAN PLATELET VOLUME 11.1 fL (7.4-10.4); MONO % 5.4 %; MONO ABS # 0.37 K/uL (0.11-0.59); NEUT % 61.9 %; NEUT ABS # 4.23 K/uL (1.4-6.5); PLATELET COUNT 203 K/uL (130-400); RED CELL DISTRIBUTION WIDTH CV 13.3 % (11.5-14.5); RED CELL DISTRIBUTION WIDTH SD 40.5 fL (36.4-46.3); WHITE BLOOD COUNT 6.84 K/uL (4.8-10.8)
[2017-10-14 13:21] LABS: ALBUMIN 3.5 gm/dl (3.4-5.0); ALT/SGPT 16 U/L (12-78); AST/SGOT 14 U/L (15-37); BLOOD UREA NITROGEN 6 mg/dl (7-18); CALCIUM 8.7 mg/dl (8.5-10.1); CARBON DIOXIDE 23 mmol/L (21-32); CREATININE 0.55 mg/dl (0.60-1.20); GLUCOSE 73 mg/dl (70-99); LIPASE 106 U/L (73-393); POTASSIUM 4.2 mmol/L (3.5-5.1); SODIUM 136 mmol/L (136-145)
[2017-10-14 13:26] LABS: ALKALINE PHOSPHATASE 68 U/L (45-117); TOTAL PROTEIN 6.8 gm/dl (6.4-8.2)
--- NOTE | 2017-10-14 15:38 | DIAGNOSTIC IMAGING REPORT ---
<14 WKS SINGLE HISTORY: 21 years-old Female abd pain acute lower abdominal pain with COMPARISON: Ultrasound 07/22/2017 TECHNIQUE: Multiple real-time sonographic images of the deep pelvic structures were obtained transabdominally assessing grayscale appearance, M-mode analysis and color flow FINDINGS: Gravid anteflexed uterus measures 11.9 x 7.0 x 5.0 cm. The right ovary measures 3.4 x 2.7 x 2.5 cm and demonstrates follicles measuring up to 1.7 cm. Arterial inflow and venous outflow is seen within the right ovary. Single living intrauterine gestation is noted, crown-rump length measuring 2.5 cm which correlates with estimated gestational age of 9 weeks and 2 days. heart rate is measured at 173 bpm. Yolk sac measures 0.4 cm. Gestational sac has a mean diameter of 3.4 cm, correlating with estimated gestational age of 8 weeks and 4 days. Left ovary measures 2.6 x 2.7 x 1.2 cm and is unremarkable with arterial inflow and venous outflow documented. The cervix appears closed. No significant free pelvic fluid identified. IMPRESSION: 1. Single living intrauterine gestation with estimated gestational age by crown-rump length of 9 weeks and 2 days. 2. Unremarkable sonographic appearance of the bilateral ovaries. The above report was generated using voice recognition software. It may contain grammatical, syntax or spelling errors. Electronically signed by: David Rutherford M.D. 10/14/2017 3:37 PM Dictated Date/Time: 10/14/2017 3:34 PM
[2017-10-14] MEDS ORDERED: ACETAMINOPHEN 500 MG TAB PO STA (15:40)
[2017-10-14 17:00] VITALS: BP 99/60; PULSE 73; O2SAT 99
--- NOTE | 2017-10-14 18:11 | EMERGENCY ROOM VISIT NOTE ---
History Report prepared by [place]: Abel Selby Under the Supervision of: Dr. Piyush Chatman D.O. First contact with patient: 12:18 Chief Complaint: ABDOMINAL PAIN Stated Complaint: ABDOMINAL PAIN Nursing Triage Summary: Yesterday and this morning pt woke up in pain pt tried to "go to the bathroom and couldn't, so I got into the bath tub to try to relieve some pain and it didn't, so I came in here." Pt states she is having abdominal and chest pain. Pt states her back has been "sore," and her body in general has been numb since she got in the tub this morning. Pt states that she has been nauseous for two months and she is and unsure of how far along she is. She took a test two months ago and it was positive. Pt denies having seen a doctor for the past two months d/t lack of insurance. History of Present Illness The patient is a 21 year old female with a history of anxiety who presents to the Emergency Room with complaints of persistent chest pain that started yesterday. The patient has had multiple previous visits here. She notes that her last menstrual period was 2 months ago, and at that time she took a test which came back positive. She notes that she has not been taking Folic acid or multivitamin. The patient says that she has not followed-up with OB, and she is mostly here for the ultrasound. She notes that her chest pain does not feel like anxiety, and rubbing it makes it better. She adds that laying down makes the pain a bit better. She says that pushing on the area makes it worse. The patient states that she had an episode of abdominal pain this morning, and currently she has no pain when laying down here. The patient notes that she has been nauseous for that past couple months. She denies any vomiting, diarrhea, or pain or burning with urination. She states that her last bowel movement was this morning and it was normal. The patient says that she has a cyst on her left ovary. She adds that she is a smoker, and is still smoking. She notes no history of diabetes, hypertension, or hyperlipidemia. Source of History: patient Onset: Yesterday Position: chest Symptom Intensity: does not feel like her anxiety Quality: other (pain) Timing: other (persistent) Modifying Factors (Worsening): other (pushing on area) Modifying Factors (Relieving): other (rubbing it) Associated Symptoms: + nausea, + abdominal pain, No vomiting, No diarrhea, No urinary symptoms Review of Systems See HPI for pertinent positives & negatives. A total of 10 systems reviewed and were otherwise negative. Past Medical & Surgical Medical Problems: (1) Abdominal pain (2) Acetaminophen overdose (3) Back pain (4) Bipolar 1 disorder (5) Bipolar disorder current episode depressed (6) Cramping affecting , antepartum (7) Decreased movement affecting management of in third trimester (8) Depression (9) Fatigue (10) Intentional overdose of drug in tablet form (11) Lightheaded (12) Medication overdose (13) Near syncope (14) Negative test (15) Paresthesias (16) Pelvic pain affecting in third trimester, antepartum (17) Post term (18) (19) test positive (20) with 39 completed weeks gestation (21) Viral illness Surgical Problems: (1) Previous section Family History Cancer Diabetes mellitus FHx: cancer Heart disease Hypertension Kidney disease Kidney stones Social History Smoking Status: Current Every Day Smoker Alcohol Use: none Drug Use: none Marital Status: in relationship Housing Status: lives with significant other Occupation Status: employed Current/Historical Medications Scheduled Lamotrigine (Lamictal), 150 MG PO QPM Risperidone (Risperdal), 0.5 MG PO QPM Sertraline (Zoloft), 1 TAB PO DAILY Scheduled PRN Acetaminophen (Tylenol), 1,000 MG PO Q4 PRN for Pain Allergies Coded Allergies: No Known Allergies (Unverified , 10/14/17) Physical Exam Vital Signs Date Time Temp Pulse Resp B/P (MAP) Pulse Ox O2 Delivery O2 Flow Rate FiO2 10/14/17 17:00 73 16 99/60 99 10/14/17 15:18 68 18 96/64 97 Room Air 10/14/17 14:02 69 17 96/67 97 Room Air 10/14/17 12:12 36.9 88 18 103/59 99 Room Air Physical Exam GENERAL: Sitting up in bed, alert, well appearing, well nourished, no distress, non-toxic EYE EXAM: normal conjunctiva. OROPHARYNX: no exudate, no erythema, lips, buccal mucosa, and tongue normal and mucous membranes are moist NECK: supple, no nuchal rigidity, no adenopathy, non-tender LUNGS: Clear to auscultation. Normal chest wall mechanics CHEST: Reproducible anterior chest wall pain. HEART: no murmurs, S1 normal and S2 normal ABDOMEN: abdomen soft, non-tender, normo-active bowel sounds, no masses, no rebound or guarding. BACK: Back is symmetrical on inspection and there is no deformity, no midline tenderness, no CVA tenderness. SKIN: no rashes and no bruising UPPER EXTREMITIES: upper extremities are grossly normal. LOWER EXTREMITIES: No pitting edema. NEURO EXAM: Normal sensorium, cranial nerves II-XII grossly intact, normal speech, no gross weakness of arms, no gross weakness of legs. Medical Decision & Procedures ER Provider Diagnostic Interpretation: US results as stated below per my review and the radiologist's interpretation: <14 WKS SINGLE HISTORY: 21 years-old Female abd pain acute lower abdominal pain with COMPARISON: Ultrasound 07/22/2017 TECHNIQUE: Multiple real-time sonographic images of the deep pelvic structures were obtained transabdominally assessing grayscale appearance, M-mode analysis and color flow FINDINGS: Gravid anteflexed uterus measures 11.9 x 7.0 x 5.0 cm. The right ovary measures 3.4 x 2.7 x 2.5 cm and demonstrates follicles measuring up to 1.7 cm. Arterial inflow and venous outflow is seen within the right ovary. Single living intrauterine gestation is noted, crown-rump length measuring 2.5 cm which correlates with estimated gestational age of 9 weeks and 2 days. heart rate is measured at 173 bpm. Yolk sac measures 0.4 cm. Gestational sac has a mean diameter of 3.4 cm, correlating with estimated gestational age of 8 weeks and 4 days. Left ovary measures 2.6 x 2.7 x 1.2 cm and is unremarkable with arterial inflow and venous outflow documented. The cervix appears closed. No significant free pelvic fluid identified. IMPRESSION: 1. Single living intrauterine gestation with estimated gestational age by crown-rump length of 9 weeks and 2 days. 2. Unremarkable sonographic appearance of the bilateral ovaries. The above report was generated using voice recognition software. It may contain grammatical, syntax or spelling errors. Electronically signed by: David Rutherfodr M.D. 10/14/2017 3:37 PM Dictated Date/Time: 10/14/2017 3:34 PM Laboratory Results 10/14/17 12:54 Red Blood Count 4.42, Mean Corpuscular Volume 83.0, Mean Corpuscular Hemoglobin 28.3, Mean Corpuscular Hemoglobin Concent 34.1, Mean Platelet Volume 11.1, Neutrophils (%) (Auto) 61.9, Lymphocytes (%) (Auto) 27.6, Monocytes (%) (Auto) 5.4, Eosinophils (%) (Auto) 4.7, Basophils (%) (Auto) 0.4, Neutrophils # (Auto) 4.23, Lymphocytes # (Auto) 1.89, Monocytes # (Auto) 0.37, Eosinophils # (Auto) 0.32, Basophils # (Auto) 0.03 10/14/17 12:54 Test 10/14/17 12:54 10/14/17 15:45 White Blood Count 6.84 K/uL (4.8-10.8) Red Blood Count 4.42 M/uL (4.2-5.4) Hemoglobin 12.5 g/dL (12.0-16.0) Hematocrit 36.7 % (37-47) Mean Corpuscular Volume 83.0 fL (80-100) Mean Corpuscular Hemoglobin 28.3 pg (25-34) Mean Corpuscular Hemoglobin Concent 34.1 g/dl (32-36) Platelet Count 203 K/uL (130-400) Mean Platelet Volume 11.1 fL (7.4-10.4) Neutrophils (%) (Auto) 61.9 % Lymphocytes (%) (Auto) 27.6 % Monocytes (%) (Auto) 5.4 % Eosinophils (%) (Auto) 4.7 % Basophils (%) (Auto) 0.4 % Neutrophils # (Auto) 4.23 K/uL (1.4-6.5) Lymphocytes # (Auto) 1.89 K/uL (1.2-3.4) Monocytes # (Auto) 0.37 K/uL (0.11-0.59) Eosinophils # (Auto) 0.32 K/uL (0-0.5) Basophils # (Auto) 0.03 K/uL (0-0.2) RDW Standard Deviation 40.5 fL (36.4-46.3) RDW Coefficient of Variation 13.3 % (11.5-14.5) Immature Granulocyte % (Auto) 0.0 % Immature Granulocyte # (Auto) 0.00 K/uL (0.00-0.02) Anion Gap 6.0 mmol/L (3-11) Est Creatinine Clear Calc Drug Dose 138.1 ml/min Estimated GFR () > 150.0 Estimated GFR (Non- 133.1 BUN/Creatinine Ratio 10.3 (10-20) Calcium Level 8.7 mg/dl (8.5-10.1) Total Bilirubin 0.3 mg/dl (0.2-1) Direct Bilirubin < 0.1 mg/dl (0-0.2) Aspartate Amino Transf (AST/SGOT) 14 U/L (15-37) Alanine Aminotransferase (ALT/SGPT) 16 U/L (12-78) Alkaline Phosphatase 68 U/L (45-117) Troponin I < 0.015 ng/ml (0-0.045) Total Protein 6.8 gm/dl (6.4-8.2) Albumin 3.5 gm/dl (3.4-5.0) Lipase 106 U/L (73-393) Human Chorionic Gonadotropin, Quant 85816 mIU/mL Urine Color YELLOW Urine Appearance CLEAR (CLEAR) Urine pH 7.5 (4.5-7.5) Urine Specific [place] 1.012 (1.000-1.030) Urine Protein NEG (NEG) Urine Glucose (UA) NEG (NEG) Urine Ketones NEG (NEG) Urine Occult Blood NEG (NEG) Urine Nitrite NEG (NEG) Urine Bilirubin NEG (NEG) Urine Urobilinogen NEG (NEG) Urine Leukocyte Esterase NEG (NEG) Urine WBC (Auto) 1-5 /hpf (0-5) Urine RBC (Auto) 0-4 /hpf (0-4) Urine Hyaline Casts (Auto) 0 /lpf (0-5) Urine Epithelial Cells (Auto) >30 /lpf (0-5) Urine Bacteria (Auto) NEG (NEG) Urine Test POS (NEG) Laboratory results per my review. Medications Administered Medications (Trade) Dose Ordered Sig/Tory Route Start Time Stop Time Status Last Admin Dose Admin Sodium Chloride 1,000 ml @ 999 mls/hr Q1H1M STAT IV 10/14/17 12:29 10/14/17 13:29 DC 5/16/18 12:55 999 MLS/HR Acetaminophen (Tylenol Tab) 1,000 mg NOW STAT PO 10/14/17 15:40 10/14/17 15:41 DC 10/14/17 15:46 1,000 MG ECG Per My Interpretation Indication: abdominal pain Rate (beats per minute): 63 Rhythm: sinus rhythm Findings: other (sinus arrhythmia, normal axis) ED Course ED COURSE: Vital signs were reviewed and showed normal vitals. The patients medical record was reviewed The above diagnostic studies were performed and reviewed. ED treatments and interventions as stated above. 1218: The patient was evaluated in room C2B. A complete history and physical examination was performed. 1229: NSS 1000 ml @ 999 mls/hr IV. 1540: Tylenol Tab 1000 mg PO. 1543: I reevaluated the patient and she is urinating right now. 1622: Upon reevaluation, the patient is resting comfortably.I discussed my findings with the patient and she understands and agrees with the treatment plan. Based on the patients age, coexisting illnesses, exam and lab findings the decision to treat as an outpatient was made. The patient remained stable while under my care. The patient appeared well at the time of discharge. Medical Decision Differential diagnoses includes but is not limited to gastritis, peptic ulcer disease, GERD, gallbladder disease, pancreatitis, small bowel obstruction, acute coronary syndrome, pericarditis, ischemic bowel, irritable bowel disease, irritable bowel syndrome, appendicitis, diverticulitis, malignancy, hernia, urinary tract infection, torsion, /ectopic , perforation, trauma, infectious. Patient is a 21-year-old female that presents the ER initially complaining of 9 out of 10 abdominal pain but then notes that she actually presented here just for an ultrasound and has not had any pain since this morning which is very faint. She denies any vaginal bleeding vaginal discharge. She also complains of chest pain which feels better with rubbing her chest. On exam she has clear reproducible chest pain. CBC along with BMP, LFTs, bilirubin and troponin was unremarkable. Lipase was normal. Beta-hCG was 43,000. Ultrasound shows an IUP. UA was negative. Patient was updated at bedside. She was discharged follow-up with PCP as an outpatient. EKG was unremarkable. As stated before I do feel that this chest pain is clearly musculoskeletal and was not pursued any further although EKG was obtained and was negative along with troponin. Discussed with Pt concerning signs and symptoms to watch out for. Pt was instructed to follow up with their PCP and discussed with the patient their option to return to the ED at anytime for persistent or worsening symptoms. The appropriate anticipatory guidance and out-patient management, including indications for return to the emergency department, were explained at length to the patient and understood. Medication Reconcilliation Current Medication List: was personally reviewed by me Blood Pressure Screening Patient's blood pressure: Normal blood pressure Impression Primary Impression: IUP (intrauterine ), incidental Scribe Attestation The scribe's documentation has been prepared under my direction and personally reviewed by me in its entirety. I confirm that the note above accurately reflects all work, treatment, procedures, and medical decision making performed by me. Departure Information Dispostion Home / Self-Care Referrals No Doctor, Assigned (PCP) Patient Instructions ED Chest Pain Atypical [place]kn Cause, ED Care, [facility] Additional Instructions Please follow up with your primary care doctor with in the next 24 hours. Any worsening of your symptoms, please return to the ED immediately. This includes any fevers greater than 100.4, worsening pain, chest pain, shortness breath, persistent nausea, vomiting, unable to eat or drink, or any other concerning signs or symptoms from your standpoint. Please follow-up with [facility] within the next week. Please start taking a vitamin. Please stop smoking.
== END 2017-10-14 16:48 | disposition home or self-care (01) ==
LOC: EDBD 12:04 → C.EDC 12:06
DX: R07.9 Chest pain, unspecified (principal); Z33.1 Pregnant state, incidental; F31.9 Bipolar disorder, unspecified; F17.200 Nicotine dependence, unspecified, uncomplicated; Z87.59 Personal history of other complications of pregnancy, childbirth and the puerperium

== ENCOUNTER 2021-01-22 17:46 | Inpatient (IN) ==
[2021-01-22 19:00] LABS: Pregnancy Test, Urine Negative (Negative)
[2021-01-22 19:02] LABS: Appearance Urine Clear (Clear); Bilirubin Urine Negative (Negative); Blood Urine 3+ (Negative); Color Urine Yellow; Epithelial Cell Urine Auto >30 /lpf (0-5); Glucose Urine UA Negative (Negative); Ketones Urine Trace (Negative); Leukocyte Esterase Urine Negative (Negative); Nitrite Urine Negative (Negative); Protein Urine Negative (Negative); Urobilinogen Urine Negative (Negative); pH Urine 5.5 (4.5-7.5)
--- NOTE | 2021-01-22 19:11 | Emergency Department Note ---
Impression & Plan Depression with suicidal ideation ED Provider Note NAME: KACIE SILVEIRA AGE: 25 SEX: F : 1995 ARRIVES VIA: Ambulance INFORMANT: Patient, ED PROVIDER(S): Micah De Leon MD Chief Complaint: Depression with suicidal ideation and plan HPI: Patient does present from home due to concern for SI with plan. The patient had been involved in a verbal altercation with her boyfriend. The patient does live at a homeless retirement. Patient denies any fevers chills but does feel as though she is shaky and anxious. The patient is concerned about her outpatient mental wellness and feels as though the medications that she is on have made her worse. The patient denies any access to guns or weapons. The patient states her sleep and appetite have been okay. Patient is employed but undomiciled. The patient denies any alcohol or drug use. The patient does use tobacco. The patient did have a plan to overdose on her medications and radicular self. The patient does have a prior history of attempts several years ago with a similar plan. Patient denies any HI or AVH. ROS: See HPI for pertinent positives and negatives. A total of 10 systems were reviewed and otherwise negative. Past medical history: See below Surgical history: See below Social history: See below Physical Exam: GENERAL: [Well appearing, well nourished,] NAD, [wearing a mask], non-toxic. EYE EXAM: Normal conjunctiva. PERRL, no anisocoria and EOM's grossly intact w/o pain. [OROPHARYNX: Moist mucus membranes. Grossly normal dentition. ] NECK: Supple, no nuchal rigidity, no adenopathy, non-tender. No signs of meningismus. LUNGS: Clear to auscultation. Normal chest wall mechanics. HEART: NSR, no MRG. ABDOMEN: Abdomen soft, non-tender, normo-active bowel sounds, no masses, no rebound or guarding. BACK: No CVA TTP. SKIN: No rashes and no bruising. UPPER EXTREMITIES: Upper extremities are grossly normal. LOWER EXTREMITIES: Grossly normal, no edema. NEURO EXAM: A&O x3, cranial nerves II-XII grossly intact, normal speech, moves all 4 extremities on command w/o issue. Psych: Depressed mood, SI with plan, negative HI or AVH. Differential diagnoses: Mood disorder, infection, hypoglycemia, electrolyte abnormalities, cardiac sources, intracerebral event, toxicologic, trauma, neurologic, as well as other pathologies. Course: Patient was seen and evaluated the bedside. Full history physical exam was performed. MDM: Patient was seen due to concern for mental wellness. The patient did have blood work completed along with urinalysis. The patient was deemed medically cleared a referral was made patient was accepted to [facility]. The patient had complaints of mild leg discomfort. On exam patient does not have any leg swelling or obvious deformity. The patient was ordered some ibuprofen. Patient was admitted to [facility] . Past Med/Surg History Medical History Bipolar 1 disorder Bipolar disorder current episode depressed Depression Seizure Surgical History No significant past surgical history Social History Smoking Status: Current every day smoker Tobacco Type: Cigarettes and Cigars Preferred Language: Macedonian Feels Safe at Home: Yes Allergies Allergies Allergy/AdvReac Type Severity Reaction Status Date / Time aripiprazole [From Abilify] AdvReac Unknown Unknown Unverified 01/22/21 22:17 Home Meds Home Medications Medication Instructions Recorded Confirmed hydroxyzine HCl 50 mg tablet 50 mg PO TID PRN 01/13/21 01/22/21 lamotrigine 200 mg tablet 200 mg PO DAILY 01/13/21 01/22/21 Results & Data (ED) Vital Signs Vital Signs - 24 hr 01/22/21 18:00 01/22/21 23:56 Temperature 37.1 C Temperature Source Oral Pulse Rate 91 H Pulse Rate [Left Finger] 82 Respiratory Rate 20 18 Respiratory Effort / Characteristics Non-Labored Non-Labored Spontaneous Respiratory Depth Normal Normal Respiratory Pattern Regular Blood Pressure 97/60 L Blood Pressure [Right Arm] 92/68 L Blood Pressure Mean 72 Blood Pressure Mean [Right Arm] 76 Blood Pressure Position Lying Pulse Oximetry 96 96 Oxygen Delivery Method Room Air Room Air Sepsis Recent Fever Within 48 Hours No Sepsis New/Unexplained Change in Mental Status No Sepsis Action Taken by Nursing No Action Required Home Medications Current Medication List: was personally reviewed by me Laboratory Data Attestation: I reviewed the patient's lab results. Result diagrams: 01/22/21 19:10 01/22/21 19:10 Lab Results 01/22/21 01/22/21 01/22/21 Range/Units 18:15 18:15 18:15 WBC (4.8-10.8) K/uL RBC (4.2-5.4) M/uL Hgb (12.0-16.0) g/dL Hct (37-47) % MCV (80-100) fL MCH (25-34) pg MCHC (32-36) g/dL RDW Std Deviation (36.4-46.3) fL RDW Coeff of Marycruz (11.5-14.5) % Plt Count (130-400) K/uL MPV (7.4-10.4) fL Immature Gran % (Auto) % Neut % (Auto) % Lymph % (Auto) % Forrest % (Auto) % Eos % (Auto) % Baso % (Auto) % Neut # (Auto) (1.4-6.5) K/uL Lymph # (Auto) (1.2-3.4) K/uL Forrest # (Auto) (0.11-0.59) K/uL Eos # (Auto) (0-0.5) K/uL Baso # (Auto) (0-0.2) K/uL Immature Gran # (Auto) (0.00-0.02) K/uL Sodium (136-145) mmol/L Potassium (3.5-5.1) mmol/L Chloride (98-107) mmol/L Carbon Dioxide (21-32) mmol/L Anion Gap (3-11) BUN (7-18) mg/dl Creatinine (0.6-1.2) mg/dl Est Cr Clr Drug Dosing ml/min Est GFR ( Amer) ml/min Est GFR (Non-Af Amer) ml/min BUN/Creatinine Ratio (10-20) Glucose (70-99) mg/dl Calcium (8.5-10.1) mg/dl Total Bilirubin (0.2-1) mg/dl AST (15-37) U/L ALT (12-78) U/L Alkaline Phosphatase (45-117) U/L Total Protein (6.4-8.2) gm/dl Albumin (3.4-5.0) gm/dl Globulin (2.5-4.0) gm/dl Albumin/Globulin Ratio (0.9-2) TSH (0.300-4.500) uIu/ml Urine Color Yellow Urine Appearance Clear (Clear) Urine pH 5.5 (4.5-7.5) Ur Specific [place] 1.010 (1.000-1.030) Urine Protein Negative (Negative) Urine Glucose (UA) Negative (Negative) Urine Ketones Trace H (Negative) Urine Blood 3+ H (Negative) Urine Nitrite Negative (Negative) Urine Bilirubin Negative (Negative) Urine Urobilinogen Negative (Negative) Ur Leukocyte Esterase Negative (Negative) Urine WBC (Auto) 5-10 H (0-5) /hpf Urine RBC (Auto) 5-10 H (0-4) /hpf U Hyaline Cast (Auto) 1-5 (0-5) /lpf U Epithel Cells (Auto) >30 H (0-5) /lpf Urine Bacteria (Auto) 1+ H (Negative) Urine Yeast Not Reportable Urine Test Negative (Negative) Salicylates (2.8-20) mg/dl Urine Opiates Screen Neg (Neg) Ur Methadone, Qual Neg (Neg) Acetaminophen (10-30) ug/ml Urine Barbiturates Neg (Neg) Ur Phencyclidine (PCP) Neg (Neg) U Amphetamin/Meth Scrn Neg (Neg) MDMA (Ecstasy) Screen Neg (Neg) U Benzodiazepines Scrn Neg (Neg) Ur Cocaine Metabolite Neg (Neg) U Marijuana (THC) Screen Neg (Neg) Ethyl Alcohol mg/dL (0-3) mg/dl COVID-19 Eval Order SARS-CoV-2, RNA, NAAT (NEGATIVE) 01/22/21 01/22/21 01/22/21 Range/Units 19:10 19:10 19:10 WBC 8.04 (4.8-10.8) K/uL RBC 4.06 L (4.2-5.4) M/uL Hgb 11.5 L (12.0-16.0) g/dL Hct 34.8 L (37-47) % MCV 85.7 (80-100) fL MCH 28.3 (25-34) pg MCHC 33.0 (32-36) g/dL RDW Std Deviation 46.2 (36.4-46.3) fL RDW Coeff of Marycruz 14.7 H (11.5-14.5) % Plt Count 257 (130-400) K/uL MPV 11.0 H (7.4-10.4) fL Immature Gran % (Auto) 0.1 % Neut % (Auto) 70.1 % Lymph % (Auto) 24.5 % Forrest % (Auto) 4.0 % Eos % (Auto) 1.1 % Baso % (Auto) 0.2 % Neut # (Auto) 5.63 (1.4-6.5) K/uL Lymph # (Auto) 1.97 (1.2-3.4) K/uL Forrest # (Auto) 0.32 (0.11-0.59) K/uL Eos # (Auto) 0.09 (0-0.5) K/uL Baso # (Auto) 0.02 (0-0.2) K/uL Immature Gran # (Auto) 0.01 (0.00-0.02) K/uL Sodium 142 (136-145) mmol/L Potassium 4.1 (3.5-5.1) mmol/L Chloride 112 H (98-107) mmol/L Carbon Dioxide 22 (21-32) mmol/L Anion Gap 8.0 (3-11) BUN 9 (7-18) mg/dl Creatinine 0.77 (0.6-1.2) mg/dl Est Cr Clr Drug Dosing 83.5 ml/min Est GFR ( Amer) 123.5 ml/min Est GFR (Non-Af Amer) 106.6 ml/min BUN/Creatinine Ratio 11.1 (10-20) Glucose 70 (70-99) mg/dl Calcium 8.7 (8.5-10.1) mg/dl Total Bilirubin 0.4 (0.2-1) mg/dl AST 13 L (15-37) U/L ALT 19 (12-78) U/L Alkaline Phosphatase 68 (45-117) U/L Total Protein 7.0 (6.4-8.2) gm/dl Albumin 3.6 (3.4-5.0) gm/dl Globulin 3.4 (2.5-4.0) gm/dl Albumin/Globulin Ratio 1.1 (0.9-2) TSH 0.723 (0.300-4.500) uIu/ml Urine Color Urine Appearance (Clear) Urine pH (4.5-7.5) Ur Specific [place] (1.000-1.030) Urine Protein (Negative) Urine Glucose (UA) (Negative) Urine Ketones (Negative) Urine Blood (Negative) Urine Nitrite (Negative) Urine Bilirubin (Negative) Urine Urobilinogen (Negative) Ur Leukocyte Esterase (Negative) Urine WBC (Auto) (0-5) /hpf Urine RBC (Auto) (0-4) /hpf U Hyaline Cast (Auto) (0-5) /lpf U Epithel Cells (Auto) (0-5) /lpf Urine Bacteria (Auto) (Negative) Urine Yeast Urine Test (Negative) Salicylates 4.1 (2.8-20) mg/dl Urine Opiates Screen (Neg) Ur Methadone, Qual (Neg) Acetaminophen < 2 L (10-30) ug/ml Urine Barbiturates (Neg) Ur Phencyclidine (PCP) (Neg) U Amphetamin/Meth Scrn (Neg) MDMA (Ecstasy) Screen (Neg) U Benzodiazepines Scrn (Neg) Ur Cocaine Metabolite (Neg) U Marijuana (THC) Screen (Neg) Ethyl Alcohol mg/dL (0-3) mg/dl COVID-19 Eval Order SARS-CoV-2, RNA, NAAT (NEGATIVE) 01/22/21 01/22/21 01/22/21 Range/Units 19:10 21:06 21:06 WBC (4.8-10.8) K/uL RBC (4.2-5.4) M/uL Hgb (12.0-16.0) g/dL Hct (37-47) % MCV (80-100) fL MCH (25-34) pg MCHC (32-36) g/dL RDW Std Deviation (36.4-46.3) fL RDW Coeff of Marycruz (11.5-14.5) % Plt Count (130-400) K/uL MPV (7.4-10.4) fL Immature Gran % (Auto) % Neut % (Auto) % Lymph % (Auto) % Forrest % (Auto) % Eos % (Auto) % Baso % (Auto) % Neut # (Auto) (1.4-6.5) K/uL Lymph # (Auto) (1.2-3.4) K/uL Forrest # (Auto) (0.11-0.59) K/uL Eos # (Auto) (0-0.5) K/uL Baso # (Auto) (0-0.2) K/uL Immature Gran # (Auto) (0.00-0.02) K/uL Sodium (136-145) mmol/L Potassium (3.5-5.1) mmol/L Chloride (98-107) mmol/L Carbon Dioxide (21-32) mmol/L Anion Gap (3-11) BUN (7-18) mg/dl Creatinine (0.6-1.2) mg/dl Est Cr Clr Drug Dosing ml/min Est GFR ( Amer) ml/min Est GFR (Non-Af Amer) ml/min BUN/Creatinine Ratio (10-20) Glucose (70-99) mg/dl Calcium (8.5-10.1) mg/dl Total Bilirubin (0.2-1) mg/dl AST (15-37) U/L ALT (12-78) U/L Alkaline Phosphatase (45-117) U/L Total Protein (6.4-8.2) gm/dl Albumin (3.4-5.0) gm/dl Globulin (2.5-4.0) gm/dl Albumin/Globulin Ratio (0.9-2) TSH (0.300-4.500) uIu/ml Urine Color Urine Appearance (Clear) Urine pH (4.5-7.5) Ur Specific [place] (1.000-1.030) Urine Protein (Negative) Urine Glucose (UA) (Negative) Urine Ketones (Negative) Urine Blood (Negative) Urine Nitrite (Negative) Urine Bilirubin (Negative) Urine Urobilinogen (Negative) Ur Leukocyte Esterase (Negative) Urine WBC (Auto) (0-5) /hpf Urine RBC (Auto) (0-4) /hpf U Hyaline Cast (Auto) (0-5) /lpf U Epithel Cells (Auto) (0-5) /lpf Urine Bacteria (Auto) (Negative) Urine Yeast Urine Test (Negative) Salicylates (2.8-20) mg/dl Urine Opiates Screen (Neg) Ur Methadone, Qual (Neg) Acetaminophen (10-30) ug/ml Urine Barbiturates (Neg) Ur Phencyclidine (PCP) (Neg) U Amphetamin/Meth Scrn (Neg) MDMA (Ecstasy) Screen (Neg) U Benzodiazepines Scrn (Neg) Ur Cocaine Metabolite (Neg) U Marijuana (THC) Screen (Neg) Ethyl Alcohol mg/dL < 3.0 (0-3) mg/dl COVID-19 Eval Order Covid19 [facility] SARS-CoV-2, RNA, NAAT NEGATIVE (NEGATIVE) Administered Medications Discontinued Medications Hydroxyzine HCl (Hydroxyzine Hcl 25 Mg Tab) 25 mg PO NOW STA Stop: 01/22/21 20:59 Last Admin: 01/22/21 21:15 Dose: 25 mg Documented by: [id number] Ibuprofen (Ibuprofen 200 Mg Tab) 400 mg PO NOW STA Stop: 01/22/21 23:03 Last Admin: 01/22/21 23:10 Dose: 400 mg Documented by: [id number] Discharge Plan Visit Data Chief Complaint: Mental Health Evaluation ED Provider: Micah De Leon Discharge Problem: Depression with suicidal ideation Patient Disposition: Admitted As Inpatient Discharge Instructions Interventions: ED Discharge Assessment Last Done: 01/22/21 23:57 Forms Stand Alone Forms: [facility], Suicide Prevention Resources Prescriptions Prescriptions: No Action lamotrigine 200 mg tablet 200 mg PO DAILY RF: 0 hydroxyzine HCl 50 mg tablet 50 mg PO TID PRN (Reason: Anxiety ) RF: 0 Referrals Referrals: Garcia Carrera [Primary Care Provider] -
[2021-01-22 19:20] LABS: Amphetamines+Metham, Urine Neg (Neg); Barbiturates, Urine Neg (Neg); Benzodiazepine, Urine Neg (Neg); Cocaine, Urine Neg (Neg); MDMA (Ecstacy), Urine Neg (Neg); Methadone, Urine Neg (Neg); Opiate, Urine Neg (Neg); Phencyclidine, Urine Neg (Neg)
[2021-01-22 19:32] LABS: Basophils # (auto) 0.02 K/uL (0-0.2); Basophils % (auto) 0.2 %; Eosinophils # (auto) 0.09 K/uL (0-0.5); Eosinophils % (auto) 1.1 %; Hematocrit (blood only) 34.8 % (37-47); Hemoglobin 11.5 g/dL (12.0-16.0); Immature Granulocytes # (auto) 0.01 K/uL (0.00-0.02); Immature Granulocytes % (auto) 0.1 %; Lymphocytes # (auto) 1.97 K/uL (1.2-3.4); Lymphocytes % (auto) 24.5 %; Mean Corpuscular Hemoglobin 28.3 pg (25-34); Mean Corpuscular Volume 85.7 fL (80-100); Monocytes # (auto) 0.32 K/uL (0.11-0.59); Neutrophils # (auto) 5.63 K/uL (1.4-6.5); Neutrophils % (auto) 70.1 %; Platelet Count 257 K/uL (130-400); RDW Coefficient of Variation 14.7 % (11.5-14.5); RDW Standard Deviation 46.2 fL (36.4-46.3); Red Blood Count 4.06 M/uL (4.2-5.4); White Blood Count 8.04 K/uL (4.8-10.8)
[2021-01-22 19:53] LABS: Acetaminophen < 2 ug/ml (10-30); Albumin Level 3.6 gm/dl (3.4-5.0); BUN Creatinine Ratio 11.1 (10-20); Calcium 8.7 mg/dl (8.5-10.1); Creatinine Clr Calc Pharmacy 83.5 ml/min; Est GFR (African American) 123.5 ml/min; Est GFR (Non-African American) 106.6 ml/min; Potassium 4.1 mmol/L (3.5-5.1); Salicylate 4.1 mg/dl (2.8-20)
[2021-01-22 20:03] LABS: Albumin Globulin Ratio 1.1 (0.9-2); Bilirubin,Total 0.4 mg/dl (0.2-1); Globulin 3.4 gm/dl (2.5-4.0); Thyroid Stimulating Hormone 0.723 uIu/ml (0.300-4.500)
[2021-01-22 20:26] LABS: Bacteria Urine Automated 1+ (Negative)
[2021-01-22] MEDS ORDERED: hydrOXYzine HCl 25 MG TAB PO STA (20:58)
[2021-01-22] MEDS ORDERED: IBUPROFEN 200 MG TAB PO STA (23:02)
[2021-01-22] MEDS ORDERED: BISMUTH SUBSALICYLATE LIQD 236 ML PO PRN (23:42)
[2021-01-22] MEDS ORDERED: SODIUM CHLORIDE 0.65% NA SOLN 45 ML (OCEAN) PRN (23:42)
[2021-01-22] MEDS ORDERED: MAGNESIUM HYDROXIDE SUSP 30 ML UDC PO PRN (23:42)
[2021-01-22] MEDS ORDERED: ALUMINUM/MAGNESIUM SUSP 30 ML UDC PO PRN (23:42)
[2021-01-23] MEDS ORDERED: diphenhydrAMINE Capsule 25 MG CAP PO PRN (07:55)
[2021-01-23] MEDS: NICOTINE 21 MG/24 HR TDSY TD SCH (08:46)
[2021-01-23] MEDS ORDERED: lamoTRIgine 100 MG TAB PO SCH ×2 (09:00→22:00)
[2021-01-23] MEDS: ACETAMINOPHEN 325 MG TAB PO PRN (10:09)
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
[2021-01-23] MEDS ORDERED: EUCERIN CR 120 GM JAR EXT PRN (15:08)
[2021-01-23] MEDS: hydrOXYzine HCl 25 MG TAB PO PRN (16:54)
[2021-01-23] MEDS: OLANZAPINE 2.5 MG TAB PO SCH (20:33)
[2021-01-24] MEDS: OLANZAPINE 2.5 MG TAB PO SCH ×2 (07:46→20:32)
[2021-01-24] MEDS: hydrOXYzine HCl 25 MG TAB PO PRN ×2 (07:46→12:16)
[2021-01-24] MEDS: NICOTINE 21 MG/24 HR TDSY TD SCH (07:47)
[2021-01-24] MEDS ORDERED: LOPERAMIDE HCL 2 MG CAP PO PRN (09:00)
--- NOTE | 2021-01-24 16:54 | Psychiatric Progress Note ---
Date of Service January 24, 2021 Impression / Recommendations Impression This is a 25-year-old female with a history of PTSD, bipolar disorder, who presents with worsening depression and suicidal ideation. Upon interview, patient is not displaying any anaya or psychosis he is expressing difficulty with mood stability as opposed to feeling depressed. During the course of the interview patient did not appear depressed but did show mood lability. She is agreeable to medication changes in order to better address her mood. She will benefit from inpatient hospitalization for purposes of safety, stabilization, medication management. (1) Bipolar 1 disorder: The patient was admitted to the [facility] ([facility] unit) on every 15 minute checks (behavioral with suicide precautions for safety. The patient will participate in group, recreational, and milieu therapies and will be offered additional individual and family sessions as clinically appropriate. 01/24/2021we will continue Lamictal at 100 mg p.o. twice daily, Zyprexa 2.5 mg p.o. twice daily. Patient seeming to make progress on regimen. 01/23/2021we will hold patient's Geodon for now and substitute with Zyprexa 2.5 mg p.o. twice daily. We will continue patient's Lamictal at a dose of 200 mg p.o. nightly. Many of her self-reported issues seem to have a social cause for them as opposed to psychiatric, we will have social work arrange aftercare appointments in addition to assist patient with obtaining resources. Protective Factors Assessment Employed: No Interval History Chief Complaint "I feel better on this medication". Review of Systems Sleep Information Total Hours of Sleep: 6.25 Sleep Comments: pt awoke x1 and ate cereals with milk during the night. pt on q-15 minute checks Meal Information Percent Meal Consumed - Breakfast: 60 Percent Meal Consumed - Lunch: 75 Percent Meal Consumed - Dinner: 95 Subjective Subjective Patient seen, chart reviewed and case discussed with treatment team, nursing and social work. Patient reports a good night of sleep and strong appetite. No side effects reported or observed. Regarding mood, patient reports some improvement which they attribute to the medications as well as the therapy they have received on the unit. Patient states that she feels the medication is helping her remain more stable with regard to her mood. She is denying any adverse effects at this time. She is reporting starting to feel better and is currently denying any further suicidal ideation. She is requesting that the Lamictal dosage be split throughout the day. I spent 30 minutes with the patient, 50% of which was dedicated to counselling and coordination of care. Physical Exam Psychiatric Orientation: alert and oriented x 3 Apperance: appropriately dressed Eye Contact: + fair eye contact Motor Behavior: no abnormal motor movements Speech: normal rate/rhythm/volume of speech Affect: + labile affect Mood: + irritable mood Thought Process: linear/logical thought process Thought Content: + cognitive distortions and reality based without delusions Suicidal Thoughts: denies suicidal plan and denies suicidal intent; + reports suicidal thoughts Homicidal Thoughts: denies homicidal thoughts Hallucinations: no auditory hallucinations and no visual hallucinations Cognition: recent memory grossly intact Insight: + poor insight Judgement: + fair judgement Vital Signs (Past 24 Hours) Last Vital Signs Temp 36.7 C 01/24/21 06:35 Pulse 98 H 01/24/21 06:35 Resp 16 01/24/21 06:35 BP 103/70 01/24/21 06:35 Pulse Ox 96 01/22/21 23:56 Results & Data ([facility] [place]) Current Inpatient Medications Current Inpatient Medications: Current Inpatient Medications Acetaminophen (Acetaminophen 325 Mg Tab) 650 mg PO Q4H PRN PRN Reason: Headache or Minor Fever Stop: 02/21/21 23:41 Last Admin: 01/23/21 10:09 Dose: 650 mg Documented by: Al Hydrox/Mg Hydrox/Simethicone (Aluminum/Magnesium Susp 30 Ml Udc) 30 ml PO Q4H PRN PRN Reason: GI Upset Stop: 02/21/21 23:41 Bismuth Subsalicylate (Bismuth Subsalicylate Liqd 236 Ml) 15 ml PO PRN PRN PRN Reason: Loose Stool Stop: 02/21/21 23:41 Diphenhydramine HCl (Diphenhydramine Capsule 25 Mg Cap) 25 mg PO Q6 PRN PRN Reason: Rash Stop: 02/22/21 07:54 Last Admin: 01/23/21 08:40 Dose: 25 mg Documented by: Hydroxyzine HCl (Hydroxyzine Hcl 25 Mg Tab) 50 mg PO TID PRN PRN Reason: anxiety Stop: 02/22/21 02:07 Last Admin: 01/24/21 12:16 Dose: 50 mg Documented by: Lamotrigine (Lamotrigine 100 Mg Tab) 200 mg PO HS NANY Stop: 02/22/21 21:59 Last Admin: 01/23/21 20:33 Dose: 200 mg Documented by: Loperamide HCl (Loperamide Hcl 2 Mg Cap) 2 mg PO Q12 PRN PRN Reason: Diarrhea Stop: 02/23/21 08:59 Magnesium Hydroxide (Magnesium Hydroxide Susp 30 Ml Udc) 30 ml PO DAILY PRN PRN Reason: Constipation Stop: 02/21/21 23:41 Miscellaneous (Remove Nicoderm Patch) 1 ea N/A DAILY@0859 [facility] Stop: 02/22/21 08:58 Last Admin: 01/24/21 07:47 Dose: 1 ea Documented by: Multi-Ingredient Cream (Eucerin Cr 120 Gm Jar) 1 appln EXT Q4 PRN PRN Reason: itchy Stop: 02/22/21 15:07 Last Admin: 01/23/21 16:55 Dose: 1 appln Documented by: Nicotine (Nicotine 21 Mg/24 Hr Tdsy) 21 mg TD QAM NANY Stop: 02/22/21 08:59 Last Admin: 01/24/21 07:47 Dose: 21 mg Documented by: Olanzapine (Olanzapine 2.5 Mg Tab) 2.5 mg PO BID NANY Stop: 02/22/21 20:59 Last Admin: 01/24/21 07:46 Dose: 2.5 mg Documented by: Sodium Chloride (Sodium Chloride 0.65% Na Soln 45 Ml ([place])) 1 - 2 sprays NA PRN PRN PRN Reason: Nasal Dryness/Congestion Stop: 02/21/21 23:41 Mental Health & Subst Abuse Tx Psychiatrist Name of Psychiatrist: [facility] Dai Psychiatrist's Psychiatric Appointment Comment: 3 [facility] [address] [id number] Therapist Name of Therapist: [facility] Elliott Therapist's Therapy Appointment Comment: 3 [facility] [address] [id number] Vacuum Filter Operator Name of Vacuum Filter Operator: Wale Zhang Phone Number for Vacuum Filter Operator: [phone] Case Management Appointment Comment: [id number] [place] [address] Post Discharge Appointments Primary Care Physician Name Of Family Doctor: [facility] Date of Appointment with PCP: 01/28/21 Time of Appointment with PCP: 10:00 AM Provider Appointment Comment: with Laura - telemed video visit (log in at [email or web address]) Contact Information Discharge Address: [place] the Cold
[2021-01-24] MEDS: lamoTRIgine 100 MG TAB PO SCH (20:32)
[2021-01-25] MEDS: lamoTRIgine 100 MG TAB PO SCH (08:45)
[2021-01-25] MEDS: OLANZAPINE 2.5 MG TAB PO SCH (08:45)
[2021-01-25] MEDS: NICOTINE 21 MG/24 HR TDSY TD SCH (08:45)
[2021-01-25] MEDS: ACETAMINOPHEN 325 MG TAB PO PRN (08:56)
[2021-01-25] MEDS ORDERED: DESTROY THIS MEDICATION ONE (13:15)
[2021-01-25] MEDS: hydrOXYzine HCl 25 MG TAB PO PRN (13:51)
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
--- NOTE | 2021-02-06 11:30 | Coding Query ---
CODING QUERY To promote full compliance with coding requirements relating to patient care, provider participation is requested in all cases of insurance coder uncertainty. Please assist us with the question(s) below: Coding Question(s): There is documentation in the record and on Discharge Summary of Bipolar 1 Disorder and the Discharge Summary documents MDD (Major Depressive Disorder) in the Principal Diagnosis area. It is not clear if the Bipolar 1 Disorder is ruled out and felt to be Major Depressive Disorder. Please Specify below: ( ) Bipolar 1 Disorder (X) Major Depressive Disorder without Bipolar 1 Disorder ( ) Other: Please Specify Physician's Response(s): Thank you Serene Martins Principal Diagnosis: "that condition established after study, to be chiefly responsible for occasioning the admission of the patient to the hospital for care." Co-Existing Principal Diagnosis: "when two or more diagnoses equally meet the criteria for principal diagnosis as determined by the circumstances of admission, diagnostic work up, and/or therapy provided, and the Alphabetic Index, Tabular List, or another coding guideline does not provide sequencing direction, any one of the diagnoses may be sequenced first." "When the physician has documented what appears to be a current diagnosis in the body of the record, but has not included the diagnosis in the final diagnostic statement, the physician should be asked whether the diagnosis should be added." (Source Coding [facility] 2 QTR90. p3-4) MYAH
== END 2021-01-25 15:05 | disposition home or self-care (01) | DRG 881 ==
LOC: ED 17:46 → 3S 23:42
DX: Z62.810 Personal history of physical and sexual abuse in childhood; M79.606 Pain in leg, unspecified; F17.210 Nicotine dependence, cigarettes, uncomplicated; R45.851 Suicidal ideations; Z91.5 Personal history of self-harm; F43.10 Post-traumatic stress disorder, unspecified; Z91.410 Personal history of adult physical and sexual abuse; Z79.899 Other long term (current) drug therapy; Z88.8 Allergy status to other drugs, medicaments and biological substances; Z63.9 Problem related to primary support group, unspecified; F32.9 Major depressive disorder, single episode, unspecified; Z59.0 Homelessness

== ENCOUNTER 2023-11-09 05:29 | Inpatient (IN) ==
--- NOTE | 2023-10-15 14:42 | Anesthesiology Consultation ---
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 No known infectious disease contacts in past 10 days or current infectious disease symptoms. No recent travel outside the country. History Surgery Operation Date: 11/09/23 07:30 Proposed Procedures p Section (Delivery of Baby Through Abdominal Incision) - Jaycee Lantigua DO s with Bilateral Tubal Ligation - Jaycee Lantigua DO Height/Weight Height: 5 ft 3.5 in Weight: 66.224 kg Allergies Allergy/AdvReac Type Severity Reaction Status Date / Time amoxicillin Allergy Mild Unknown Verified 10/15/23 13:09 Penicillins Allergy Mild Unknown Verified 10/15/23 13:09 aripiprazole [From Abilify] AdvReac Unknown Unknown Verified 10/15/23 13:09 cariprazine [From Vraylar] AdvReac Unknown Unknown Verified 10/15/23 13:09 quetiapine [From Seroquel] AdvReac Unknown Unknown Verified 10/15/23 13:09 trazodone AdvReac Unknown Unknown Verified 10/15/23 13:09 epidural anesthesia Allergy Severe Low BP, Uncoded 10/15/23 13:09 low HR Medications Home Medications Medication Instructions Recorded Confirmed Last Taken vitamin no.180-ferrous 1 tab PO DAILY #90 tabs 03/31/23 10/15/23 04/30/23 fumarate 27 mg-folic acid 1 mg tablet ( Plus Vitamin-Mineral) buspirone 10 mg tablet 10 mg PO TID 06/22/23 10/15/23 Unknown lamotrigine 25 mg tablet (Lamictal) 25 mg PO UD 08/14/23 10/15/23 Unknown acetaminophen 500 mg tablet 1,000 mg PO QID PRN Pain 10/15/23 10/15/23 Unknown Past Medical History Medical History ADHD Anxiety Bipolar 1 disorder Borderline personality disorder Depression History of kidney stones (2019) History of suicide attempt (2017) no further occurrence Hx of cardiac murmur as a teenager "acts up when I have seizures - I can feel my heart skipping" Manic-depressive illness Multiple personality disorder Oppositional defiant disorder Problems with learning PTSD (post-traumatic stress disorder) Scoliosis Seizure "Pseudoseizures" - follows with Neuro at [facility] last saw Vazquez 06/18/23 & will see 10/19/23- now occurring every other day - has increased in frequency with pregancy, goes unconscious - shakes and falls to ground -heart rate and bp will drop- will have multiple (2-4) in 1 hour that will last 2-10 minutes. Last was on Thursday10/11/23. Fiance and Advocate "Felice Hutchins" states he has had to do CPR in the past on pt. due to "heart stopping" Pt. is on Lamictal but for psychiatric illness not seizures SOB (shortness of breath) on exertion "told me it wasn't bad enough to get an inhaler" - worse with Past Family History Family History Aunt Ovarian cancer great aunt Other Breast cancer Depression Diabetes Dyslipidemia Heart disease Hypertension Kidney disease Denies family history of Colorectal cancer Uterine cancer Past Surgical History Surgical History S/P x2 - 2016 and 2018 S/P wisdom tooth extraction Status post laser lithotripsy of ureteral calculus (2019) Social History Smoking Status: Current every day smoker tobacco type: cigarettes Smoking cigarettes per day: 1/2 to 1 PPD (advised) Do You Dip or Chew Tobacco: No Hx Alcohol Use: No Hx Substance Use: No substance use type: does not use Lab Results Anesthesia Preop Results Results Anesthesia Widget: WBC 9.47 K/ul (4.8-10.8) 09/16/23 Hgb 11.8 g/dl (12.0-16.0) L 09/16/23 Hct 35.8 % (37.0-47.0) L 09/16/23 Plt 165 K/uL (130-400) 09/16/23 Na 134 mmol/L (136-145) L 09/16/23 K 4.2 mmol/L (3.5-5.1) 09/16/23 Cl 104 mmol/L (98-107) 09/16/23 CO2 26 mmol/L (21-32) 09/16/23 BUN 4 mg/dl (6-23) L 09/16/23 Creat 0.50 mg/dl (0.6-1.2) L 09/16/23 Glucose Level 75 mg/dl (70-99(Fasting)) 09/16/23 Urine Color Yellow 09/16/23 Urine Appearance Clear (Clear) 09/16/23 Urine pH 6.5 (4.5-7.5) 09/16/23 Urine Specific [place] 1.013 (1.000-1.030) 09/16/23 Urine Protein Negative (Negative) 09/16/23 Urine Glucose (UA) Negative (Negative) 09/16/23 Urine Ketones Negative (Negative) 09/16/23 Urine Blood Negative (Negative) 09/16/23 Urine Nitrite Negative (Negative) 09/16/23 Urine Bilirubin Negative (Negative) 09/16/23 Urine Urobilinogen Negative (Negative) 09/16/23 Urine Leukocyte Esterase Trace (Negative) H 09/16/23 Urine WBC (Auto) 6-10 /hpf (0-5) H 09/16/23 Urine RBC (Auto) 0-2 /hpf (0-2) 09/16/23 Urine Hyaline Casts (Auto) 0-2 /lpf (0-2) 09/16/23 Urine Epithelial Cells (Auto) 3-5 /hpf (0-2) H 09/16/23 Urine Bacteria (Auto) 2+ (None Seen) H 09/16/23 Testing Laboratory Results 09/16/23= URINE CULTURE: More than three types of organisms present, all low counts mixed probable skin lottie Electrocardiogram Date: 05/01/23 Findings: + NSR @ (69bpm) Normal EKG per cardio Chest X-Ray Date: 01/24/23 Findings: + NAD
--- NOTE | 2023-11-04 13:37 | History & Physical Report ---
Date of Service November 04, 2023 Assessment & Plan (1) Previous delivery affecting , antepartum: Plan: Plan for repeat section with tubal sterilization. She signed informed consent, we reviewed risks, benefits, alternatives in detail. Does NOT want percocet - ok with vidocin. History of Present Illness Chief Complaint: Repeat section Primary Care Provider: Kimberly Zepeda, DO 28yo with EDC 11/16/23. H/o CS x 2. Desires tubal sterilization. Previous x2 C/S WITH TUBAL SCHEDULED FOR 11/09/[address] JOHNSTON AND DR. OVALLE ASSIST. Hx seizures-last 12/2022 -Follows with [facility] -Was on Lamictal and states neurologist had her stop taking when she became -[place] [facility] [place]Visit 06/18 -Patient on Lamictal for mood and neurology states not for seizures -No further neurology recs and should continue to follow with psychiatry Allergies Allergy/AdvReac Type Severity Reaction Status Date / Time amoxicillin Allergy Intermediate Seizure Verified 11/04/23 12:22 Penicillins Allergy Intermediate Seizure Verified 11/04/23 12:22 aripiprazole [From Abilify] AdvReac Intermediate Unresponsiv Verified 11/04/23 12:22 e cariprazine [From Vraylar] AdvReac Intermediate Unknown Verified 11/04/23 12:22 quetiapine [From Seroquel] AdvReac Intermediate Seizure Verified 11/04/23 12:22 trazodone AdvReac Intermediate Shortness Verified 11/04/23 12:22 of breath Home Medications Medication Instructions Recorded Confirmed Type vitamin no.180-ferrous 1 tab PO DAILY #90 tabs 03/31/23 11/04/23 Rx fumarate 27 mg-folic acid 1 mg tablet ( Plus Vitamin-Mineral) buspirone 10 mg tablet 10 mg PO TID 06/22/23 11/04/23 History lamotrigine 25 mg tablet (Lamictal) 25 mg PO UD 08/14/23 11/04/23 History Patient History Medical History ADHD Anxiety Bipolar 1 disorder Borderline personality disorder Depression History of kidney stones (2019) History of suicide attempt (2017) no further occurrence Hx of cardiac murmur as a teenager "acts up when I have seizures - I can feel my heart skipping" Manic-depressive illness Multiple personality disorder Oppositional defiant disorder Problems with learning PTSD (post-traumatic stress disorder) Scoliosis Seizure "Pseudoseizures" - follows with Neuro at [facility] last saw Vazquez 06/18/23 & will see 10/19/23- now occurring every other day - has increased in frequency with pregancy, goes unconscious - shakes and falls to ground -heart rate and bp will drop- will have multiple (2-4) in 1 hour that will last 2-10 minutes. Last was on Thursday10/11/23. Fiance and Advocate "Felice Hutchins" states he has had to do CPR in the past on pt. due to "heart stopping" Pt. is on Lamictal but for psychiatric illness not seizures SOB (shortness of breath) on exertion "told me it wasn't bad enough to get an inhaler" - worse with Surgical History S/P x2 - 2017 and 2018 S/P wisdom tooth extraction Status post laser lithotripsy of ureteral calculus (2019) Family History Aunt Ovarian cancer great aunt Other Breast cancer Depression Diabetes Dyslipidemia Heart disease Hypertension Kidney disease Denies family history of Colorectal cancer Uterine cancer Social History Smoking Status: Current every day smoker Tobacco Type: Cigarettes Cigarettes Per Day: 3; Second Hand Exposure: No; Do You Dip or Chew Tobacco: No; Hx Alcohol Use: No Hx Substance Use: No Preferred Language: Arabic Communication Ability: Effective Visual Impairment: No Limitations Hearing Ability: Normal Cook 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 Required: No Beliefs That Will Affect Care: None marital status: Single marital status details: Cherelle Hutchins (26) [phone] Current Living Situation: Significant Other Current Living Situation Comment: lives with fob, no pets-does not have custody of children current occupational status: unemployed Feels Safe at Home: Yes Assistive Devices: Glasses Review of Systems All systems reviewed & are unremarkable except as noted in HPI & below Physical Exam Constitutional: WD/WN, vitals as above Respiratory: normal respiratory effort, lungs clear to auscultation no respiratory distress Cardiovascular: Rate/Rhythm: regular rate and regular rhythm Gastrointestinal (Abdomen): Inspection/Auscultation: abdomen normal to inspection Percussion/Palpation: abdomen soft; abdomen nontender Gravid. No s/s chorio or abruption. Skin: no rashes, warm and dry Psychiatric: A+Ox3, euthymic affect Coding Level of Care Code None Diagnoses Previous delivery affecting , antepartum O34.219
[2023-11-09] MEDS ORDERED: SODIUM CHLORIDE 0.9% 250 ML IV PRN (05:37)
--- OUTSIDE RECORDS SUMMARY | 2023-11-09 05:40 | External Medical Summary | Summary of Care ---
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 Role Phone Unavailable Primary Care Provider Unavailabl e Reason for Visit * Reason Onset Date Comments Medication Refill 11/04/2023 Encounter Details Date Type Department Care Team (Late st Contact Info) Description 11/04/2023 Refill Psychiatry Kirk Cisneros [address] [place] [address] Gayle Castellanos CRNP [address] [place] [address] RADHA (generalized anxiety disorder) Allergies Active Allergy Reactions Criticality Noted Date Comments Aripiprazole Neuro complications (Please comment) 07/17/2021 Restless legs, unable to walk Amoxicillin 02/23/2023 Rash Lidocaine 03/19/2018 Quetiapine Seizure High 07/17/2021 Trazodone Seizure High 07/17/2021 Lightheaded, dizzy, and seizures documented as of this encounter (statuses as of 11/04/2023) Medications Medication Sig Dispensed Refills Start Date End Date Status lamoTRIgine 25 MG Oral Tablet (LaMICtal)Indicat ions:PTSD (post-traumatic stress disorder) Take two tablets in morning and one tablet at bedtime. 90 Tablet 2 10/02/2023 Active busPIRone HCl 10 MG Oral Tablet (Buspar)Indicatio ns:RADHA (generalized anxiety disorder) Take 1 Tablet by mouth in the morning and 1 Tablet at noon and 1 Tablet before bedtime. 90 Tablet 1 11/04/2023 Active busPIRone HCl 10 MG Oral Tablet (Buspar)Indicatio ns:RADHA (generalized anxiety disorder) Take 1 Tablet by mouth in the morning and 1 Tablet at noon and 1 Tablet before bedtime. 90 Tablet 1 09/04/2023 11/04/2023 Discontinued (Refill) documented as of this encounter (statuses as of 11/04/2023) Active Problems Problem Noted Date Diagnosed Date Food insecurity 03/09/2023 Overview: Per [facility] Protocol PTSD (post-traumatic stress disorder) 02/23/2023 Borderline personality disorder 02/23/2023 RADHA (generalized anxiety disorder) 02/23/2023 Seizure disorder, simple par tial, without intractable epilepsy 07/17/2021 Convulsions 07/17/2021 Attention deficit hyperactivity disorder (ADHD) 08/04/2005 Overview: ICD-10 update of inactive term documented as of this encounter (statuses as of 11/04/2023) Immunizations Name Administration Dates Next Due DTaP Dipth/Tet/Acell Pertussis (Infanrix), Peds 01/21/2000,02/23/1996,05/04/1995,03/03,01/01/1995 HIB PRP-OMP, 3 dose (Pedvax) 02/23/1996, 05/04/1995,03/03/1995,01/01 HIB PRP-T, 4 dose (ActHib) 02/23/1996,,03/03/1995,01/01 HPV Vaccine, 4-Valent 08/15/2008,04/04/2008,07/2007 Haemophilius B (HIB), unspecified 1995,05/04/1995,03/03/1995,01/01 Hepatitis A Vaccine 09/02/2011 Hepatitis B, 0-19 yrs 04/03/1995,1994,09/29 Hepatitis B, 20+ yrs 04/03/1995,1994,10/16 IPV - Polio Virus Vaccine (Inact) 1999,02/23/1996,05/04/1995,03/03,01/01/1995 MMR - Measles/Mumps/Rubella Vaccine 01/21/2000,0 02/23/1996 Meningococcal MCV4P Conjugat e Vaccine (Menactra) 09/02/2011 OPV - Polio Virus Vaccine (Oral) 996,05/04/1995,03/03/1995,01/01 Pneumococcal Polysaccharide PPV23 (Pneumovax) 07/17/2021 Seasonal Influenza, PF, 6 M & above, IM , (FluLaval or Fluzone) 07/17/2021 Seasonal Influenza, Quad, Na coty (Flumist) 05/04/2008 Seasonal Influenza, Split, I IV3, With Preserve, Inj 03/06/2015,04/19/2014,09/02/2011 documented as of this encounter Social History Tobacco Use Types Packs/Day Years Used Date Smoking Tobacco: Every Day Cigarettes Smokeless Tobacco: Never Alcohol Use Standard Drinks/Week Comments Yes 0 (1 standard drink = 0.6 oz pur e alcohol) occ PHQ-2 Answer Date Recorded PHQ Adult Total Score 13 09/17/2023 Hunger Vital Sign Answer Date Recorded Within the past 12 months, y ou worried that your food would run out before you got the money to buy more. Sometimes true Within the past 12 months, t he food you bought just didn't last and you didn't have money to get more. Sometimes true 07/2023 Sex and Gender Information Value Date Recorded Sex Assigned at Female 01/28/2023 1:31 PM EDT Gender Identity Female 01/28/2023 1:31 PM EDT Sexual Orientation Not on file Job Start Date Occupation Industry Not on file Not on file Not on file documented as of this encounter Miscellaneous Notes * Telephone Encounter - Darci Arriaza MD - 11/04/2023 2:52 PM EDTSigned Prescriptions: Disp Refills busPIRone HCl 10 MG Oral Tablet (Buspar) 90 Tab*1 Sig: Take 1 Tablet by mouth in the morning and 1 Tablet at noon and 1 Tablet before bedtime. Authorizing Provider: DARCI ARRIAZA * Telephone Encounter - Peggy Romero MED ASSIST - 11/04/2023 2:42 PM EDT Pharmacy requesting refill on Buspar 10mg. Medication was last filled on 09/04/23 with 1 refills. Patient last seen on 10/02/23 with return appointment scheduled for 11/25/23. Patient had 1 cancelled appointments and 0 NO SHOW appointments. documented in this encounter Plan of Treatment Upcoming Encounters Date Type Department Care Team (Late st Contact Info) Description 11/25/2023 10:00 AM EDT Telemedicine Psychiatry Kirk Cisneros [address] [place] [address] Josy Arevalo MD [address] [place] [address] Health Maintenance Due Date Last Done Comments DTaP,Tdap,and Td Vaccines (6 - Tdap) 2005 01/21/2000, 02/23/1996, 05/04/1995, Additional history exists Pneumococcal Vaccine: Pediat rics (0 to 5 Years) and At-Risk Patients (6 to 64 Years) (2 of 2 - PCV) 07/17/2022 07/17/2021 COVID-19 Vaccine ( - 2022-2 4 season) 2023 Depression, Most Recent Scor e >= 10 (will fire each visit until score < 10) 09/18/2023 09/17/2023, 09/03/2023 Influenza Vaccine (FLU shot) (Season Ended) 2024 07/17/2021, 03/06/2015, 04/19/2014, Additional history exists Pap Smear 02/10/2025 02/10/2022 Hepatitis B Completed 04/03/1995, 07/1994, 1994, Additional history exists GARDASIL-HPV IMMUNIZATION SERIES Completed 08/15/2008, 04/04/2008, 02/01/2008 MENINGOCOCCAL (MENACTRA/MENVEO) Completed 2 documented as of this encounter Medical Devices Not on filedocumented as of this encounter Visit Diagnoses Diagnosis RADHA (generalized anxiety disorder) Generalized anxiety disorder documented in this encounter
[2023-11-09] MEDS: LACTATED RINGER'S 1,000 ML IV SCH (05:58)
[2023-11-09 06:24] LABS: Basophils # (auto) 0.04 K/uL (0.00-0.20); Basophils % (auto) 0.4 %; Eosinophils # (auto) 0.28 K/uL (0.00-0.50); Eosinophils % (auto) 2.8 %; Hematocrit (blood only) 34.4 % (37.0-47.0); Hemoglobin 11.2 g/dl (12.0-16.0); Immature Granulocytes # (auto) 0.06 K/uL (0.01-0.20); Immature Granulocytes % (auto) 0.6 %; Lymphocytes # (auto) 2.89 K/uL (1.20-3.40); Lymphocytes % (auto) 28.4 %; Mean Corpuscular Hemoglobin 26.7 pg (25.0-34.0); Mean Corpuscular Hgb Conc 32.6 g/dL (32.0-36.0); Mean Corpuscular Volume 81.9 fL (80.0-100.0); Mean Platelet Volume 12.9 fL (9.4-12.4); Monocytes # (auto) 0.48 K/uL (0.11-0.59); Monocytes % (auto) 4.7 %; Neutrophils # (auto) 6.43 K/uL (1.40-6.50); Neutrophils % (auto) 63.1 %; Platelet Count 175 K/uL (130-400); RDW Coefficient of Variation 13.2 % (11.5-14.5); RDW Standard Deviation 38.9 fL (36.4-46.3); White Blood Count 10.18 K/ul (4.8-10.8)
[2023-11-09] MEDS: CITRIC ACID/SODIUM CITRATE 15 ML UDC PO SCH (07:06)
--- NOTE | 2023-11-09 07:16 | History & Physical Bridge Note ---
Date of Service November 09, 2023 History & Physical Bridge Note I have examined the patient, reviewed the History & Physical and in the interval since the performance of the History & Physical I have noted the following changes of clinical significance: no changes noted
[2023-11-09] MEDS: ceFAZolin 2000MG 2,000 MG/15 ML SYR IV SCH (07:25)
[2023-11-09] MEDS ORDERED: fentaNYL citrate PF 100 MCG/2 ML VIAL ONE (07:28)
[2023-11-09] MEDS ORDERED: MoRPHine SULFATE PF 1 MG/ML 10 ML AMP/VIAL ONE (07:28)
[2023-11-09] MEDS ORDERED: KETOROLAC 30 MG/ML VIAL ONE (07:28)
[2023-11-09] MEDS ORDERED: ONDANSETRON INJ 2 MG/ML 2 ML VIAL ONE (07:28)
[2023-11-09] MEDS ORDERED: OXYTOCIN 10 UNITS/ML VIAL ONE ×2 (07:28→08:04)
[2023-11-09] MEDS ORDERED: DEXAMETHASONE SOD INJ 4 MG/ML VIAL ONE (07:28)
[2023-11-09] MEDS ORDERED: PHENYLEPHRINE 100MCG/ML 10ML SYR IV ONE (07:28)
[2023-11-09] MEDS ORDERED: NALOXONE HCL 1 MG in SODIUM CHLORIDE 0.9% 1,000 ML IV PRN (08:06)
[2023-11-09] MEDS ORDERED: KETOROLAC 30 MG/ML VIAL IV PRN (08:06)
[2023-11-09] MEDS ORDERED: LACTATED RINGER'S 500 ML IV PRN (08:06)
[2023-11-09] MEDS ORDERED: diphenhydrAMINE 50 MG/ML VIAL IV PRN (08:06)
[2023-11-09] MEDS ORDERED: ONDANSETRON INJ 2 MG/ML 2 ML VIAL IV PRN (08:06)
[2023-11-09] MEDS ORDERED: NALBUPHINE HCL 5 MG in SYRINGE 0 ML IV PRN (08:06)
[2023-11-09] MEDS ORDERED: MoRPHine SULFATE PF 1 MG/ML 10 ML AMP/VIAL INT SPINAL ONE (08:06)
[2023-11-09] MEDS ORDERED: PROMETHAZINE HCL 6.25 MG in SODIUM CHLORIDE 0.9% 50 ML IV PRN (08:06)
[2023-11-09] MEDS ORDERED: NALOXONE HCL 0.08 MG in SYRINGE 1.8 ML IV PRN (08:06)
[2023-11-09] MEDS ORDERED: METOCLOPRAMIDE HCL 20 MG in SODIUM CHLORIDE 0.9% 50 ML IV PRN (08:06)
[2023-11-09] MEDS ORDERED: DROPERIDOL 5 MG/2 ML VIAL IV PRN (08:06)
[2023-11-09] MEDS ORDERED: ePHEDrine sulfate 50 MG/ML AMP IV PRN (08:06)
[2023-11-09] MEDS ORDERED: HYDROmorphone INJ 0.5 MG/0.5 ML SYR IV PRN (08:06)
[2023-11-09] MEDS ORDERED: NALOXONE HCL 0.4 MG/1 ML VIAL/CARP IV PRN (08:06)
[2023-11-09] MEDS ORDERED: SODIUM CHLORIDE 0.9% 1,000 ML IV SCH (08:15)
[2023-11-09] MEDS ORDERED: DC INTRASPINAL MORPHINE SCH (08:15)
[2023-11-09] MEDS ORDERED: NO NARCOTICS OR SEDATIVES SCH (08:15)
[2023-11-09 08:31] LABS: Base Excess Cord Arterial Bld -1.4 mEq/L (-9-1.8); CO2 Cord Arterial Blood 54 mmHg (39.1-73.5); HCO3 Cord Arterial Blood 26 mmol/L (19.7-28.5); PO2 Cord Arterial Blood < 20 mmHg (4.1-31.7); pH Cord Arterial Blood 7.29 (7.1-7.38)
[2023-11-09 08:32] LABS: Base Excess Cord Venous Blood -0.7 mEq/L (-7.7-1.9); Cord Venous Blood HCO3 25 mmol/L (18.4-26.8); Cord Venous Blood PCO2 43 mmHg (30.4-57.2); Cord Venous Blood PO2 30 mmHg (14.1-43.3); Cord Venous Blood pH 7.37 (7.20-7.44); O2 Saturation Cord Venous Bld 61.2 % (<68)
[2023-11-09] MEDS ORDERED: BENZOCAINE 20% SPRY 85 APPLN/85 GM CAN EXT PRN (08:57)
[2023-11-09] MEDS ORDERED: HYDROCORTISONE ACETATE 25 MG SUPP PR PRN (08:57)
[2023-11-09] MEDS ORDERED: DIPHTHER/TETAN/PERTUS Vaccine (Tdap, Adol/Adult) 0.5mL IM ONE (08:57)
[2023-11-09] MEDS ORDERED: MAGNESIUM HYDROXIDE SUSP 30 ML UDC PO PRN (08:57)
--- NOTE | 2023-11-09 09:09 | Anesthesiology Progress Note ---
Date of Service November 09, 2023 Anesthesia Post Procedure Vital Signs Vital Signs: Temp Pulse Resp BP Pulse Ox 11/09/23 09:03 100 11/09/23 09:03 61 11/09/23 09:03 59 L 90/50 L 11/09/23 07:05 16 11/09/23 07:05 36.5 C 16 11/09/23 07:00 84 98/61 L 11/09/23 05:43 36.8 C 18 11/09/23 05:43 82 99/64 L Transfer of Care Handoff Completed per policy Notes Mental Status: alert / awake / arousable Patient Amnestic to Procedure: Yes Nausea / Vomiting: adequately controlled Pain: adequately controlled Airway Patency, RR, SpO2: stable & adequate BP & HR: stable & adequate Hydration State: stable & adequate Neuraxial Anesthesia: was administered and sensory block is resolving Anesthetic Complications: no major complications apparent and Pt Satisfied with anesthetic care
--- NOTE | 2023-11-09 09:10 | Operative Report ---
Post Operative Report Pre & Post Diagnosis Operation Date: 11/09/23 07:30 Pre-Op Diagnosis: History of section x 2, desire for tubal sterilization Post-Op Diagnosis: Same as above I identified the patient and participated in the time-out.: Yes Procedure Operation Date: 11/09/23 07:30 Actual Procedures Repeat Low Transverse Section with tubal sterilization @ 807 - Jaycee Lantigua DO Surgeon Jaycee Lantigua DO Community Outreach Director Juve Donato MD, Dr Romero Crain PGY1 Quantitative Blood Loss (QBL) 297 Findings Consistent with Post-Op Diagnosis Viable female , Apgars 8/9 Weight 5#14oz. Specimens placenta, cord blood, cord gas Drains gayle clear yellow Anesthesia Type Spinal Complications none Disposition Accompanied Patient To Recovery: Yes Disposition: L&D Indications 28yo [id number] @ 39 w 0d with h/o CS x 2, desire for tubal. Description of Procedure The patient was seen in her labor and delivery room, risks benefits and alternatives to surgery were reviewed. Informed consent obtained. Questions were answered. She was taken to the operating room, spinal anesthesia was administered. She was then prepared and draped in the usual sterile fashion in the supine position with a leftward tilt. Timeout was confirmed. A Pfannenstiel skin incision was made with a scalpel, and carried through to the underlying layer of fascia. Fascia was nicked at midline, and this incision was extended bilaterally. The superior aspect of the fascial incision was grasped with Domitila clamps x2, elevated off the underlying rectus abdominis muscles, and dissected sharply and bluntly. In similar fashion, the inferior aspect of the fascial incision was dissected. The rectus abdominis muscles were , and the peritoneum was entered bluntly digitally. This was extended bilaterally. The bladder flap was taken down carefully using Metzenbaum scissors. Using a new scalpel, a low transverse uterine incision was created. Clear amniotic fluid noted. The infant was delivered from a cephalic presentation. The head delivered, followed by shoulders and body. Spontaneous cry on the field. The cord was doubly clamped and cut, and the was handed off to the waiting trap puller. A segment was retained for cord gases. Cord blood was obtained. The placenta was delivered spontaneously intact. The uterus was exteriorized, and cleared of all clots and debris. The hysterotomy incision was reapproximated using 0 Vicryl in a running locked stitch. A second layer of the same suture was used to imbricate the incision. Posterior uterus was evaluated and normal. Tubal performed with Ligasure - bilateral tubes removed in their entirety. The uterus was returned to the abdomen, and gutters were cleared of clots and debris. Excellent hemostasis was observed. The fascial incision was reapproximated using 0 Vicryl in a running stitch. The subcutaneous tissue was irrigated, and reapproximated using 2-0 plain gut in a running stitch. The skin was reapproximated using 4-0 Vicryl in a running subcuticular stitch. Steri-Strips and a bandage were applied. The patient tolerated the procedure well, and will be taken to the recovery area in stable and good condition. I attest to the content of the Intraoperative Record and any orders documented therein. Any exceptions are noted below. OB Procedure Charges [id number] Add on Tubal for C/S
[2023-11-09 10:55] LABS: Amphetamines+Metham, Urine Neg (Neg); Barbiturates, Urine Neg (Neg); Benzodiazepine, Urine Neg (Neg); Cocaine, Urine Neg (Neg); Fentanyl, Urine Neg (Neg); MDMA (Ecstacy), Urine Neg (Neg); Marijuana, Urine Pos (Neg); Methadone, Urine Neg (Neg); Opiate, Urine Neg (Neg); Phencyclidine, Urine Neg (Neg)
[2023-11-09] MEDS: MEPERIDINE HCL 25 MG/ML CARP/VIAL IV PRN (10:59)
[2023-11-09] MEDS: OXYTOCIN 30 UNITS/LR 1,003 ML IV SCH (11:14)
[2023-11-09] MEDS: busPIRone 5 MG TAB PO SCH (12:14)
[2023-11-09] MEDS: SIMETHICONE 80 MG CHEW PO SCH (12:17)
[2023-11-09] MEDS: lamoTRIgine 25 MG TAB PO SCH ×2 (13:26→21:25)
[2023-11-09] MEDS: diphenhydrAMINE 50 MG/ML VIAL IV PRN (13:26)
[2023-11-09] MEDS: DOCUSATE SODIUM 100 MG CAP PO SCH (21:25)
[2023-11-10] MEDS ORDERED: oxyCODONE/ACETAMINOPHEN 5mg/325mg TAB PO PRN (02:07)
[2023-11-10] MEDS ORDERED: PROMETHAZINE HCL 25 MG in SODIUM CHLORIDE 0.9% 50 ML IV PRN (02:07)
[2023-11-10] MEDS ORDERED: ONDANSETRON INJ 2 MG/ML 2 ML VIAL IV PRN (02:07)
[2023-11-10] MEDS ORDERED: KETOROLAC 30 MG/ML VIAL IV PRN (02:07)
[2023-11-10] MEDS ORDERED: diphenhydrAMINE Capsule 25 MG CAP PO PRN (02:07)
[2023-11-10] MEDS ORDERED: diphenhydrAMINE 50 MG/ML VIAL IV PRN (02:07)
[2023-11-10] MEDS: IBUPROFEN 600 MG TAB PO PRN (04:04)
[2023-11-10 06:38] LABS: Basophils # (auto) 0.03 K/uL (0.00-0.20); Basophils % (auto) 0.3 %; Eosinophils # (auto) 0.18 K/uL (0.00-0.50); Eosinophils % (auto) 1.7 %; Hematocrit (blood only) 28.7 % (37.0-47.0); Hemoglobin 9.3 g/dl (12.0-16.0); Immature Granulocytes # (auto) 0.06 K/uL (0.01-0.20); Immature Granulocytes % (auto) 0.6 %; Lymphocytes # (auto) 2.98 K/uL (1.20-3.40); Lymphocytes % (auto) 27.5 %; Mean Corpuscular Hemoglobin 27.1 pg (25.0-34.0); Mean Corpuscular Hgb Conc 32.4 g/dL (32.0-36.0); Mean Corpuscular Volume 83.7 fL (80.0-100.0); Mean Platelet Volume 12.5 fL (9.4-12.4); Monocytes # (auto) 0.41 K/uL (0.11-0.59); Monocytes % (auto) 3.8 %; Neutrophils # (auto) 7.19 K/uL (1.40-6.50); Neutrophils % (auto) 66.1 %; Platelet Count 126 K/uL (130-400); RDW Coefficient of Variation 13.2 % (11.5-14.5); RDW Standard Deviation 39.6 fL (36.4-46.3); Red Blood Count 3.43 M/uL (4.20-5.40); White Blood Count 10.85 K/ul (4.8-10.8)
--- NOTE | 2023-11-10 06:54 | Obstetrical Progress Note ---
Date of Service <Sofie Crain DO - Last Filed: 11/10/23 06:57> November 10, 2023 Assessment & Plan <Sofie Crain DO - Last Filed: 11/10/23 06:57> (1) care following delivery: Feels well today. Eating well, voiding well. Has ambulated some so far. Pain well controlled with prn analgesics. Routine care; OOB, ambulation, diet progression as tolerated. Anticipate discharge 48-72 hours after c section delivery, likely tomorrow but possibly . After discharge will have 6 week follow-up with Dr. Lantigua. <Charlie Pillai MD - Last Filed: 11/10/23 07:25> (1) care following delivery: Subjective <Sofie Crain DO - Last Filed: 11/10/23 06:57> Pt is a 28 y/o female who is POD#1 following repeat delivery at 38 weeks. Today, pt states she is feeling really well. She states she has been peeing since the gayle was removed and her bleeding has actually been very minimal with just light spotting here and there so far. She states her pain has also been mild so far. She states she did have some stuff to eat last night and yesterday and no issues with nausea or vomiting. She is passing gas. She is wearing joseline abdominal binder which seems to help. No questions or complaints at this time. Constitutional: no fever, no chills or no sweats Respiratory: no dyspnea Cardiovascular: no chest pain or no palpitations Breast: no breast pain Genitourinary (female): no dysuria Neurologic: no headache(s) no changes in vision, no headaches Physical Exam <Sofie Crain DO - Last Filed: 11/10/23 06:57> General: Alert, oriented. No acute distress. Cardiac: Regular rate and rhythm, no murmurs, rubs, or gallops. Respiratory: Clear to auscultation bilaterally, no wheezes/rales/rhonchi. No increased work of breathing. Symmetrical chest rise. No respiratory distress. Abdomen: Soft, nontender, nondistended. Bowel sounds present. Uterus: Uterine fundus firm, palpable just below the umbilicus. Surgical scar clean and healing well. Lower extremities: No lower extremity edema or swelling. No deep calf pain. Results & Data <Sofie Crain DO - Last Filed: 11/10/23 06:57> Vital Signs (Past 12 Hours) Vital Signs Temp Pulse Resp BP BP Pulse Ox O2 Del Method 11/10/23 04:00 36.5 C 66 18 104/70 97 Room Air 11/10/23 02:07 16 95 11/10/23 01:59 16 96 11/10/23 00:58 16 99 11/10/23 00:30 36.9 C 67 16 96/66 L 99 Room Air 11/09/23 23:55 18 98 11/09/23 23:00 16 96 11/09/23 22:37 20 100 11/09/23 21:43 20 100 11/09/23 20:45 20 100 11/09/23 19:45 20 98 11/09/23 19:45 36.7 C 64 20 98/64 L 98 Room Air Supervising Physician <Charlie Pillai MD - Last Filed: 11/10/23 07:25> Co-Signing Physician Notes Patient seen with resident and agree with the above findings and plan. Doing well today. routine care Resident Activity Tracking <Sofie Crain DO - Last Filed: 11/10/23 06:57> Resident Involvement: Resident Care Provided Care Provided: OB Delivery
[2023-11-10] MEDS: FERROUS SULFATE 325 MG TAB PO SCH (09:02)
[2023-11-10] MEDS: PRENATAL VITAMIN 1 TAB PO SCH (09:02)
[2023-11-10] MEDS: bisacodyL 5 MG TABEC PO SCH (20:07)
[2023-11-11] MEDS: SENNA 8.6 MG TAB PO PRN (06:11)
[2023-11-11 06:30] LABS: Hemoglobin 8.9 g/dl (12.0-16.0)
--- NOTE | 2023-11-11 07:13 | Obstetrical Progress Note ---
Date of Service <Sofie Crain DO - Last Filed: 11/11/23 07:27> November 11, 2023 Assessment & Plan <Sofie Carlitos DO Breann - Last Filed: 11/11/23 07:27> (1) care following delivery: Continuing to do well, Eating well, voiding well, ambulating well. Pain well controlled with prn ibuprofen Routine care; OOB, ambulation, continue regular diet. Anticipate discharge 48-72 hours after c section delivery, today or tomorrow. After discharge will have 6 week follow-up with Dr. Lantigua. <Amanda Fu MD, FACOG - Last Filed: 11/11/23 08:10> (1) care following delivery: Subjective <Sofie Carlitos DO Breann - Last Filed: 11/11/23 07:27> Pt is a 28 y/o female who is POD#2 following repeat delivery at 38 weeks. Today, pt states she is doing great. She states that she thought she would be in more pain but really she has had basically no pain or only a little pain that is relieved with ibuprofen since the delivery. She states she had a bowel movement this morning and while it took her awhile to pass she did not strain very much. Otherwise, she is continuing to ambulate, void, and tolerate oral intake without issue. She notes occasional headaches but has not slept great here. She is hopeful to go home today. Constitutional: no fever, no chills or no sweats Respiratory: no dyspnea Cardiovascular: no chest pain or no palpitations Breast: no breast pain Genitourinary (female): no dysuria Neurologic: no headache(s) Physical Exam <Sofie Crain DO - Last Filed: 11/11/23 07:27> General: Alert, oriented. No acute distress. Cardiac: Regular rate and rhythm, no murmurs, rubs, or gallops. Respiratory: Clear to auscultation bilaterally, no wheezes/rales/rhonchi. No inc reased work of breathing. Symmetrical chest rise. No respiratory distress. Abdomen: Soft, nontender, nondistended. Bowel sounds present. Uterus: Uterine fundus firm, palpable just below the umbilicus. Surgical scar clean and healing well with steristrips in place. Lower extremities: No lower extremity edema or swelling. No deep calf pain. Results & Data <Sofie Crain DO - Last Filed: 11/11/23 07:27> Vital Signs (Past 12 Hours) Vital Signs Temp Pulse Resp BP 11/11/23 00:45 36.6 C 76 16 99/64 L 11/10/23 19:15 36.8 C 78 18 94/67 L Supervising Physician <Amanda Fu MD, FACOG - Last Filed: 11/11/23 08:10> Co-Signing Physician Notes Resident Physician Supervision Note: I was present with Dr. Crain during the history and exam. I discussed the case with the resident and agree with the findings and plan as documented in the note. Any exceptions or clarifications are listed here: stable doing well. eating, voiding, ambulating. no pain issues abd soft ff 2 down nt, incision c/d/i with steris. ext nt calves. pod #2 s/p repeat c/s. wants to go home. instructions reviewed. f/u 6 wk pp check. checked on papdmp and no issues, s cripts sent. Documented By: Amanda Fu MD, FACOG Resident Activity Tracking <Sofie Crain DO - Last Filed: 11/11/23 07:27> Resident Involvement: Resident Care Provided Care Provided: OB Delivery
[2023-11-11] MEDS ORDERED: bisacodyL 10 MG SUPP PR PRN (08:57)
--- NOTE | 2023-11-13 08:35 | Discharge Summary ---
Date of Service November 13, 2023 Admission HPI Per Admitting Provider 28yo with EDC 11/16/23. H/o CS x 2. Desires tubal sterilization. Previous x2 C/S WITH TUBAL SCHEDULED FOR 11/09/[address] LANT[address]UA AND DR. OVALLE ASSIST. Hx seizures-last 12/2022 -Follows with [facility] -Was on Lamictal and states neurologist had her stop taking when she became -Referral for [facility] [place] [facility] -Visit 06/18 -Patient on Lamictal for mood and neurology states not for seizures -No further neurology recs and should continue to follow with psychiatry Admission Exam (Per Admitting) Constitutional WD/WN, vitals as above Respiratory normal respiratory effort, lungs clear to auscultation no respiratory distress Cardiovascular Rate/Rhythm: regular rate and regular rhythm Gastrointestinal (Abdomen) Inspection/Auscultation: abdomen normal to inspection Percussion/Palpation: abdomen soft; abdomen nontender Skin no rashes, warm and dry Psychiatric A+Ox3, euthymic affect Discharge Data Consultations 11/09/23 05:32 Consult Anesthesiology Stat Procedures Performed Operation Date: 11/09/23 07:30 Actual Procedures p Section in LD [facility] @ 807 - Jaycee Lantigua, DO Hospital Course (1) care following delivery: Continuing to do well, Eating well, voiding well, ambulating well. Pain well controlled with prn ibuprofen Routine care; OOB, ambulation, continue regular diet. Anticipate discharge 48-72 hours after c section delivery, today or tomorrow. After discharge will have 6 week follow-up with Dr. Lantigua. Coding Level of Care Code None Diagnoses care following delivery Z39.2
== END 2023-11-11 12:35 | disposition home or self-care (01) | DRG 785 ==
LOC: 4S1 05:29 → EDSTATUS 07:30 → 4E2 12:32
DX: Z88.0 Allergy status to penicillin; Z37.0 Single live birth; O99.334 Smoking (tobacco) complicating childbirth; Z30.2 Encounter for sterilization; F17.210 Nicotine dependence, cigarettes, uncomplicated; O34.211 Maternal care for low transverse scar from previous cesarean delivery; Z79.899 Other long term (current) drug therapy; Z88.8 Allergy status to other drugs, medicaments and biological substances; Z3A.38 38 weeks gestation of pregnancy

== ENCOUNTER 2023-12-07 03:10 | Observation (INO) ==
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
--- OUTSIDE RECORDS SUMMARY | 2023-12-07 03:17 | External Medical Summary | Summary of Care ---
Author Name Unknown Organization [facility] Address [address] [place] [address] Phone [phone] Care Team Providers Care Organic Preparation Technician Name Role Phone Unavailable Primary Care Provider Unavailabl e Reason for Visit * - Authorized Specialty Diagnoses / Procedures Referred By Myesha t Referred To Contact Referral ID Status Reason Start Date Expiration Date V isits Requested Visits Authorized [id number] Authorized 01/30/2023 01/29/2024 [id number] Encounter Details Date Type Department Care Team (Late st Contact Info) Description 11/25/2023 10:00 AM EDT Telemedicine Psychiatry Kirk Cisneros [address] [place] [address] Josy Arevalo MD [address] [place] [address] PTSD (post-traumatic stress disorder)*; AMARJIT (generalized anxiety disorder); Borderline personality disorder (HCC) Allergies Active Allergy Reactions Criticality Noted Date Comments Aripiprazole Neuro complications (Please comment) 07/17/2021 Restless legs, unable to walk Amoxicillin 02/23/2023 Rash Lidocaine 03/19/2018 Quetiapine Seizure High 07/17/2021 Trazodone Seizure High 07/17/2021 Lightheaded, dizzy, and seizures documented as of this encounter (statuses as of 11/25/2023) Medications Medication Sig Dispensed Refills Start Date [...] as of this encounter (statuses as of 11/25/2023) Active Problems Problem Noted Date Diagnosed Date Food insecurity 03/09/2023 Overview: Per [facility] Protocol PTSD (post-traumatic stress disorder) 02/23/2023 Borderline personality disorder 02/23/2023 AMARJIT (generalized anxiety disorder) 02/23/2023 Seizure disorder, simple par tial, without intractable epilepsy 07/17/2021 Convulsions 07/17/2021 Attention deficit hyperactivity disorder (ADHD) 08/04/2005 Overview: ICD-10 update of inactive term documented as of this encounter (statuses as of 11/25/2023) Immunizations Name Administration Dates Next Due DTaP [...] MD - 11/25/2023 7:45 AM EDT Porsha Adhikari it was a pleasure to see you today. Prior to your next appointment: I recommend reading as much as you can about your psychiatric illness. I find that this website is a good place to start: [email or web address]. Make a list of questions as you [...] prior-authorization requests, please call the [facility] Psychiatry office at [phone]. Please note that to best serve all [...] Josy Arevalo MD Adult Psychiatrist [facility] [phone] 11/24/23 documented in this encounter Plan of Treatment Upcoming Encounters Date Type Department Care Team (Late st Contact Info) Description 12/30/2023 10:30 AM EDT Telemedicine Psychiatry Kirk Cisneros [address] [place] [address] Josy Arevalo MD [address] [facility] [place] [address] Health Maintenance Due [...]
--- NOTE | 2023-12-07 03:27 | Emergency Department Note ---
History of Present Illness General Chief complaint: Flank Pain Stated complaint: L FLANK, HIP, BACK PAIN, UNABLE TO VOID Time Seen by Provider: 12/07/23 03:14 History of Present Illness Maximum Pain Intensity: 10 This 28-year-old female presents the ER complaining of chest pain, abdominal pain, back pain and urinary symptoms for the past few days. Patient had a C- section last month. She is not breast-feeding. Patient denies fever, chills, cough, congestion. Home Medications Medication Instructions Recorded Confirmed Type vitamin no.180-ferrous 1 tab PO DAILY #90 tabs 03/31/23 11/16/23 Rx fumarate 27 mg-folic acid 1 mg tablet ( Plus Vitamin-Mineral) buspirone 10 mg tablet 10 mg PO TID 06/22/23 11/16/23 History lamotrigine 25 mg tablet (Lamictal) 25 mg PO UD 08/14/23 11/16/23 History oxycodone-acetaminophen 5 mg-325 1 tab PO Q4H PRN pain #12 tabs 11/11/23 11/16/23 Rx mg tablet (Percocet) albuterol sulfate 90 mcg/actuation See Rx Instructions inhalation 11/16/23 11/16/23 Rx aerosol inhaler (Ventolin HFA) .COMPLEX PRN shortness of breath or wheezing #8.5 grams cetirizine 10 mg tablet (Zyrtec) 10 mg PO DAILY #30 tabs 11/16/23 11/16/23 Rx ciprofloxacin HCl 500 mg tablet 500 mg PO BID #14 tabs 11/16/23 11/16/23 Rx (Cipro) ibuprofen 600 mg tablet 600 mg PO Q4H PRN pain #30 tabs 11/16/23 11/16/23 Rx simethicone 80 mg chewable tablet 80 mg PO DAILY@08,13,17,21 #30 tabs 11/16/23 11/16/23 Rx (Gas Relief (simethicone)) Allergies Allergy/AdvReac Type Severity Reaction Status Date / Time amoxicillin Allergy Intermediate Seizure Verified 11/16/23 08:01 Penicillins Allergy Intermediate Seizure Verified 11/16/23 08:01 latex Allergy Itching Verified 11/16/23 08:01 aripiprazole [From Abilify] AdvReac Intermediate Unresponsiv Verified 11/16/23 08:01 e cariprazine [From Vraylar] AdvReac Intermediate Unknown Verified 11/16/23 08:01 quetiapine [From Seroquel] AdvReac Intermediate Seizure Verified 11/16/23 08:01 trazodone AdvReac Intermediate Shortness Verified 11/16/23 08:01 of breath Past Med/Surg History Problem List (Updated 12/07/23 @ 04:32 by Radha Diggs PA-C) Acute UTI (Acute) Renal colic on left side (Acute) Abdominal pain (Acute) Chest pain (Acute) Nonepileptic episode Constipation History of nephrolithiasis Altered mood associated with anaya Amenorrhea of unknown anatomic location Borderline personality disorder ADHD PTSD (post-traumatic stress disorder) Seizure (Acute) Candidal vaginitis (Acute) Bipolar disorder current episode depressed Depression (Chronic) Medical History care following delivery Borderline personality disorder History of kidney stones (2019) Hx of cardiac murmur as a teenager "acts up when I have seizures - I can feel my heart skipping" SOB (shortness of breath) on exertion "told me it wasn't bad enough to get an inhaler" - worse with ADHD Seizure "Pseudoseizures" - follows with Neuro at [facility] last saw Vazquez 06/18/23 & will see 10/19/23- now occurring every other day - has increased in frequency with pregancy, goes unconscious - shakes and falls to ground -heart rate and bp will drop- will have multiple (2-4) in 1 hour that will last 2-10 minutes. Last was on Thursday10/11/23. Fiance and Advocate "Felice Hutchins" states he has had to do CPR in the past on pt. due to "heart stopping" Pt. is on Lamictal but for psychiatric illness not seizures PTSD (post-traumatic stress disorder) Bipolar 1 disorder Depression Multiple personality disorder Scoliosis Problems with learning Oppositional defiant disorder Manic-depressive illness Anxiety History of suicide attempt (2017) no further occurrence Surgical History Previous delivery affecting , antepartum Status post laser lithotripsy of ureteral calculus (2019) S/P wisdom tooth extraction S/P x2 - 2017 and 2018 Family History Aunt Ovarian cancer great aunt Other Breast cancer Depression Diabetes Dyslipidemia Heart disease Hypertension Kidney disease Denies family history of Colorectal cancer Uterine cancer Social History Smoking Status: Current every day smoker Tobacco Type: Cigarettes Cigarettes Per Day: 3; Second Hand Exposure: Yes; Do You Dip or Chew Tobacco: No; Hx Alcohol Use: No Hx Substance Use: No Preferred Language: Finnish Communication Ability: Effective Visual Impairment: No Limitations Hearing Ability: Normal Risk Analyst Required: No Beliefs That Will Affect Care: None marital status: Single marital status details: Teresaflo Viveros Cuong (26) [phone] Current Living Situation: Significant Other Current Living Situation Comment: Felice TERRY current occupational status: unemployed Feels Safe at Home: Yes Assistive Devices: None Review of Systems A total of 10 systems reviewed and were otherwise negative Physical Exam Vital Signs Vital Signs - 24 hr 12/07/23 03:17 12/07/23 03:25 Temperature 36.7 C Temperature Source Oral Pulse Rate 95 H 70 Pulse Rhythm Regular Pulse Strength Normal Respiratory Rate 16 Respiratory Effort / Characteristics Non-Labored Respiratory Depth Normal Respiratory Pattern Regular Blood Pressure 130/63 Blood Pressure Mean 85 Blood Pressure Position Sitting Pulse Oximetry 100 Oxygen Delivery Method Room Air Sepsis Recent Fever Within 48 Hours No Sepsis New/Unexplained Change in Mental Status No Sepsis Action Taken by Nursing No Action Required VITALS: Vitals are noted on the nurse's note and reviewed by myself. Vital signs stable. GENERAL: White female moving all around, in no acute distress, nondiaphoretic, well-developed well-nourished. SKIN: Capillary reflex less than 2 seconds. HEENT: Normocephalic. PERRLA. EOMI. Nares patent. Mucous membranes moist. Neck is supple without nuchal rigidity. HEART: Regular rate and rhythm LUNGS: Clear to auscultation bilaterally without wheezes, rales or rhonchi. No retractions or accessory muscle use. ABDOMEN: Positive bowel sounds x 4. Normal tympanic percussion. Soft, mild diffuse tenderness, without masses or organomegaly. Dela Cruz sign negative. No guarding or rebound tenderness. no CVA tenderness MUSCULOSKELETAL: No gross musculoskeletal defects. NEURO: Patient was alert and oriented to person place and time. No focal neurological deficits. Course Administered Medications Discontinued Medications Diphenhydramine HCl (Diphenhydramine 50 Mg/Ml Vial) 25 mg IV NOW STA Stop: 12/07/23 03:25 Last Admin: 12/07/23 03:31 Dose: 25 mg Documented By: STACY Droperidol (Droperidol 5 Mg/2 Ml Vial) 1.25 mg IV ONE STA Stop: 12/07/23 03:25 Last Admin: 12/07/23 03:31 Dose: 1.25 mg Documented By: STACY Sodium Chloride (Nss) 1,000 mls @ 999 mls/hr IV .Q1H1M STA Stop: 12/07/23 04:20 Last Infusion: 12/07/23 04:33 Dose: Infused Documented By: Admin: 12/07/23 03:31 Dose: 999 mls/hr Documented By: STACY Ceftriaxone Sodium (Rocephin) 2,000 mg in 50 mls @ 100 mls/hr IV NOW STA Stop: 12/07/23 04:35 Last Admin: 12/07/23 04:26 Dose: 100 mls/hr Documented By: STACY Ioversol (Optiray 320 125ml) 125 ml IV ONCE ONE Stop: 12/07/23 03:46 Last Admin: 12/07/23 03:46 Dose: 117 ml Documented By: CODY Tamsulosin HCl (Tamsulosin Hcl 0.4 Mg Cap) 0.4 mg PO NOW ONE Stop: 12/07/23 04:33 Last Admin: 12/07/23 04:41 Dose: 0.4 mg Documented By: STACY Medical Decision Making Medical Records Attestation: I reviewed the patient's medical records. Home Medications Current Medication List: was personally reviewed by me Laboratory Data Attestation: I reviewed the patient's lab results. 12/07/23 03:18 12/07/23 03:18 Lab Results 12/07/23 12/07/23 12/07/23 Range/Units 03:18 03:31 Unknown WBC 6.61 (4.8-10.8) K/ul RBC 4.19 L (4.20-5.40) M/uL Hgb 11.2 L (12.0-16.0) g/dl POC Hgb 11.6 L (12.0-16.0) g/dl Hct 35.2 L (37.0-47.0) % POC Hct 34 L (37-47) % MCV 84.0 (80.0-100.0) fL MCH 26.7 (25.0-34.0) pg MCHC 31.8 L (32.0-36.0) g/dL RDW Std Deviation 44.5 (36.4-46.3) fL RDW Coeff of Marycruz 14.6 H (11.5-14.5) % Plt Count 169 (130-400) K/uL MPV 12.3 (9.4-12.4) fL Immature Gran % (Auto) 0.3 % Neut % (Auto) 39.7 % Lymph % (Auto) 49.0 % Perkins % (Auto) 4.5 % Eos % (Auto) 5.9 % Baso % (Auto) 0.6 % Neut # (Auto) 2.62 (1.40-6.50) K/uL Lymph # (Auto) 3.24 (1.20-3.40) K/uL Perkins # (Auto) 0.30 (0.11-0.59) K/uL Eos # (Auto) 0.39 (0.00-0.50) K/uL Baso # (Auto) 0.04 (0.00-0.20) K/uL Immature Gran # (Auto) 0.02 (0.01-0.20) K/uL POC Sodium 142 (135-144) mmol/L Sodium 141 (136-145) mmol/L POC Potassium 3.7 (3.3-5.0) mmol/L Potassium 3.4 L (3.5-5.1) mmol/L POC Chloride 107 (101-112) mmol/L Chloride 109 H (98-107) mmol/L Carbon Dioxide 26 (21-32) mmol/L POC Total CO2 22 L (24-31) mmol/L Anion Gap 6 (3-11) POC Anion Gap 18.0 (16-25) mmol/L POC BUN 12 (7-18) mg/dl BUN 13 (6-23) mg/dl Creatinine 0.79 (0.6-1.2) mg/dl POC Creatinine 0.8 (0.6-1.3) mg/dl Est Cr Clr Drug Dosing 92.9 ml/min Est GFR ( Amer) 117.2 ml/min Est GFR (Non-Af Amer) 101.2 ml/min BUN/Creatinine Ratio 16.5 (10-20) Glucose 82 (70-99(Fasting)) mg/dl POC Glucose (other) 90 (70-99) mg/dl Calcium 8.9 (8.6-10.3) mg/dl POC Ioniz Calcium Zay 1.21 (1.12-1.32) mmol/l Total Bilirubin 0.3 (0.2-1.0) mg/dl AST 15 (13-39) U/L ALT 14 (7-52) U/L Alkaline Phosphatase 63 (34-104) U/L Troponin I High Sens 5.0 (0-14) pg/ml Total Protein 6.0 (6.0-8.3) gm/dl Albumin 3.8 (3.4-5.0) gm/dl Globulin 2.2 L (2.5-4.0) gm/dl Albumin/Globulin Ratio 1.7 (0.9-2) Lipase 21 (11-82) U/L Urine Color Yellow Urine Appearance Cloudy A (Clear) Urine pH 6.5 (4.5-7.5) Ur Specific [place] 1.025 (1.000-1.030) Urine Protein 1+ H (Negative) Urine Glucose (UA) Negative (Negative) Urine Ketones 3+ H (Negative) Urine Blood 1+ H (Negative) Urine Nitrite Negative (Negative) Urine Bilirubin Negative (Negative) Urine Urobilinogen Negative (Negative) Ur Leukocyte Esterase 2+ H (Negative) Urine WBC (Auto) 21-50 H (0-5) /hpf Urine RBC (Auto) 0-2 (0-2) /hpf U Hyaline Cast (Auto) 0-2 (0-2) /lpf U Epithel Cells (Auto) >20 H (0-2) /hpf Urine Bacteria (Auto) 3+ H (None Seen) Imaging Data Attestation: I personally reviewed and interpreted this imaging study as follows: Radiologist's Impression: Abdomen/Pelvis CT 12/07/23 03:20 Exam(s): CT ABDOMEN + PELVIS With Contrast IV Amt: 117 ML OPTIRAY 320 EXAM: CT Abdomen and Pelvis With Intravenous Contrast CLINICAL HISTORY: abd pain, flank pain, recent delivery. TECHNIQUE: Axial computed tomography images of the abdomen and pelvis with intravenous contrast. CTDI is 14.39 mGy and DLP is 702.28 mGy-cm. Automated exposure control was utilized for the study. A dose lowering technique was utilized adhering to the principles of ALARA. CONTRAST: Patient received 117 ML OPTIRAY 320 of IV contrast COMPARISON: November 09, 2020 FINDINGS: ABDOMEN: Liver: Unremarkable. No mass. Gallbladder and bile ducts: Unremarkable. No calcified stones. No ductal dilation. Pancreas: Unremarkable. No mass. No ductal dilation. Spleen: Unremarkable. No splenomegaly. Adrenals: Unremarkable. No mass. Kidneys and ureters: Moderately severe left hydroureteronephrosis with 3-4 mm obstructing left UVJ calculus. Stomach and bowel: Unremarkable. No obstruction. No mucosal thickening. PELVIS: Appendix: No findings to suggest acute appendicitis. Bladder: Unremarkable. No mass. ABDOMEN and PELVIS: Intraperitoneal space: Unremarkable. No free air. No significant fluid collection. Bones/joints: No acute findings. Soft tissues: Unremarkable. Vasculature: Unremarkable. No abdominal aortic aneurysm. Lymph nodes: Unremarkable. No enlarged lymph nodes. IMPRESSION: Moderately severe left hydroureteronephrosis with 3-4 mm obstructing left UVJ calculus. Electronically signed by: Ricky Busch MD 12/07/23 04:30 AM Chest CTA 12/07/23 03:21 Exam(s): CTA CHEST IV Amt: 117 ML OPTIRAY 320 EXAM: CT Angiography Chest With Intravenous Contrast CLINICAL HISTORY: Reason for exam: Chest Pain, eval for PE. TECHNIQUE: Axial computed tomographic angiography images of the chest with intravenous contrast. CTDI is 14.39 mGy and DLP is 702.28 mGy-cm. Automated exposure control was utilized for the study. A dose lowering technique was utilized adhering to the principles of ALARA. MIP reconstructed images were created and reviewed. COMPARISON: No relevant prior studies available. FINDINGS: LUNGS: No focal consolidation, pleural effusion, or pneumothorax. HEART: Within normal limits. VASCULATURE: No acute pulmonary embolism. THYROID: Within normal limits. MEDIASTINUM + LYMPH NODES: There are no pathologically enlarged mediastinal, hilar, or axillary lymph nodes. SUPERIOR ABDOMEN: The included portions of the superior abdomen are within normal limits. MUSCULOSKELETAL: Within normal limits. IMPRESSION: No acute pulmonary embolism. Electronically signed by: Simone Park MD 12/07/23 04:25 AM MDM Narrative Prior records/ancillary studies reviewed and summarized above. Nursing notes reviewed. Additional history obtained from EMS. The patient's history was concerning for chest pain, abdominal pain, flank pain and urinary issues. Differential diagnosis: Etiologies such as metabolic, behavioral health, infection, hypo/hyperglycemia, electrolyte abnormalities, cardiac sources, intracerebral event, toxicologic, neurologic, as well as others were entertained. Physical examination: As above. ER treatment provided: IV Lock An order was placed for continuous cardiac monitoring. The monitor shows a rate of 60-100 with a sinus rhythm per my interpretation. IV fluids, droperidol and Benadryl ordered, Rocephin Flomax Tylenol and Toradol ordered for kidney stone On reassessment the patient felt better. Diagnostics interpretation by me: ECG: Ordered for chest pain EKG: Normal sinus, normal intervals, no acute ST-T wave changes. Impression sinus bradycardia independent interpreted The labs Independently Interpreted by myself revealed no worrisome leukocytosis Improving anemia Negative troponin Urine concerning for possible infection versus contamination and sent for culture. Prior culture was reviewed Name: KACIE SILVEIRA Acct: [id number] [facility] 1995 [facility] [place] 0 11/04/21 Age: 28 Sex: F Dis Date: Loc: Laboratory Specimen Drop Off Spec: [id number] Collected: 11/04/21-UNK Received: 11/04/21-[address]: Lida Oliver MD Source: Urine,Clean Catch OV Order: Ordered: Urine Culture Procedure Result Verified Site Urine Culture Final 11/06/21-1214 Organism 1 Escherichia coli [place] Count >100,000 CFU/ml Sens Sensitivities to Follow E coli RX M.I.C. --- --------- Amox/Clav S <=8/4 Ampicillin S <=8 Amp/Sul S <=8/4 Cefazolin S <=2 Cefepime S <=2 Ceftriaxone S <=1 Ciprofloxacin S <=0.25 Ertapenem S <=0.5 Gentamicin S <=4 Levofloxacin S <=0.5 Meropenem S <=1 Nitrofurantoin S <=32 Tobramycin S <=4 Trimeth/Sulfa S <=2/38 Pip/Tazo S <=16 S = SENSITIVE I = INTERMEDIATE R = RESISTANT Imaging studies: Chest x-ray with no acute consolidation, pneumothorax or free air per my independent interpretation CTs as above HEART SCORE: Hx: high/mod/low suspicion: 0 ECG: ST depression/nonspecific changes/normal: 0 Age: Greater than 65/45-64/less than 45: 0 Risk factors: (Hypertension, hyperlipidemia, diabetes, coronary disease, tobacco use, cocaine use): 0 Troponin: Greater than 2 times normal limits/1-2 times normal limits/normal: 0 Total: 0 Consultation: A consultation was placed with the hospitalist. The case was discussed and diagnostics were reviewed. The patient was evaluated in the ER for further treatment. Exam and history seem consistent with kidney stone with concerns for UTI. Patient started antibiotics. Medicine was consulted and case discussed. She will be admitted to the medical service. Patient was neurovascularly and neurologically intact. She is afebrile nontoxic. Stable vital signs. Labs and imaging were reviewed. Patient was started on antibiotics. Medicine was consulted. Patient will be admitted to the medical service.By the evaluation outlined above emergent etiologies such as electrolyte abnormalities, cardiac sources, intracerebral event, toxologic, neurologic, abnormalities blood glucose, metabolic, as well as others were deemed relatively unlikely. The pt informed about the findings as listed above. All questions were answered and pleased with the treatment. The chart was completed utilizing [email or web address] Speech voice recognition software. Grammatical errors, random word insertions, pronoun errors, and incomplete sentences are an occassional consequence of this system due to software limitations, ambient noise, and hardware issues. Any formal questions or concerns about the content, text, or information contained within the body of this dictation should be directly addressed to the physician veterinary technician assistant for clarification. Impression & Plan Renal colic on left side, Chest pain, Abdominal pain, Acute UTI Discharge Plan Visit Data Chief Complaint: Flank Pain Stated Complaint: L FLANK, HIP, BACK PAIN, UNABLE TO VOID ED Provider: Bianca Hernandez ED Midlevel Provider: Radha Diggs Discharge Problem: Renal colic on left side, Chest pain, Abdominal pain, Acute UTI Patient Disposition: Admitted As Inpatient Condition: Good Discharge Instructions Activity Restrictions/Additional Instructions: Forms Stand Alone Forms: Important Visit Information Prescriptions Prescriptions: No Action Plus Vitamin-Mineral 27 mg iron- 1 mg tablet 1 tab PO DAILY Qty: 90 3RF lamotrigine [Lamictal] 25 mg tablet 25 mg PO UD Rx Instructions: 50 mg in am and 25 mg at night cetirizine [Zyrtec] 10 mg tablet 10 mg PO DAILY Qty: 30 0RF simethicone [Gas Relief (simethicone)] 80 mg tablet,chewable 80 mg PO DAILY@08,13,17,21 Qty: 30 0RF Rx Instructions: Use as needed for gas relief albuterol sulfate [Ventolin HFA] 90 mcg/actuation HFA aerosol inhaler See Rx Instructions inhalation .COMPLEX PRN (Reason: shortness of breath or wheezing) Qty: 8.5 0RF Rx Instructions: 1-2 INH 4-6 PRN; ibuprofen 600 mg tablet 600 mg PO Q4H PRN (Reason: pain) Qty: 30 1RF ciprofloxacin HCl [Cipro] 500 mg tablet 500 mg PO BID Qty: 14 0RF buspirone 10 mg tablet 10 mg PO TID oxycodone-acetaminophen [Percocet] 5-325 mg Tablet 1 tab PO Q4H PRN (Reason: pain) Qty: 12 0RF Referrals Referrals: Kimberly Zepeda DO [Primary Care Provider] - Discharge Problem: Chest pain Qualifiers: Chest pain type: unspecified Qualified Code(s): R07.9 - Chest pain, unspecified
[2023-12-07] MEDS: diphenhydrAMINE 50 MG/ML VIAL IV STA (03:31)
[2023-12-07] MEDS: SODIUM CHLORIDE 0.9% 1,000 ML IV STA (03:31)
[2023-12-07] MEDS: DROPERIDOL 5 MG/2 ML VIAL IV STA (03:31)
[2023-12-07 03:45] LABS: iSTAT Creatinine 0.8 mg/dl (0.6-1.3); iSTAT Hemoglobin 11.6 g/dl (12.0-16.0); iSTAT Ionized Calcium 1.21 mmol/l (1.12-1.32); iSTAT Potassium 3.7 mmol/L (3.3-5.0)
[2023-12-07] MEDS: OPTIRAY 320 125ml IV ONE (03:46)
[2023-12-07 03:51] LABS: Basophils # (auto) 0.04 K/uL (0.00-0.20); Basophils % (auto) 0.6 %; Eosinophils # (auto) 0.39 K/uL (0.00-0.50); Eosinophils % (auto) 5.9 %; Hematocrit (blood only) 35.2 % (37.0-47.0); Hemoglobin 11.2 g/dl (12.0-16.0); Immature Granulocytes # (auto) 0.02 K/uL (0.01-0.20); Immature Granulocytes % (auto) 0.3 %; Lymphocytes # (auto) 3.24 K/uL (1.20-3.40); Mean Corpuscular Hemoglobin 26.7 pg (25.0-34.0); Mean Corpuscular Hgb Conc 31.8 g/dL (32.0-36.0); Mean Platelet Volume 12.3 fL (9.4-12.4); Monocytes % (auto) 4.5 %; Neutrophils # (auto) 2.62 K/uL (1.40-6.50); Neutrophils % (auto) 39.7 %; Platelet Count 169 K/uL (130-400); RDW Coefficient of Variation 14.6 % (11.5-14.5); RDW Standard Deviation 44.5 fL (36.4-46.3); Red Blood Count 4.19 M/uL (4.20-5.40); White Blood Count 6.61 K/ul (4.8-10.8)
[2023-12-07 04:02] LABS: Appearance Urine Cloudy (Clear); Bacteria Urine Automated 3+ (None Seen); Bilirubin Urine Negative (Negative); Blood Urine 1+ (Negative); Cast Urine Automated 0-2 /lpf (0-2); Color Urine Yellow; Epithelial Cell Urine Auto >20 /hpf (0-2); Glucose Urine UA Negative (Negative); Ketones Urine 3+ (Negative); Leukocyte Esterase Urine 2+ (Negative); Nitrite Urine Negative (Negative); Protein Urine 1+ (Negative); RBC Urine Automated 0-2 /hpf (0-2); Specific Gravity Urine 1.025 (1.000-1.030); Urobilinogen Urine Negative (Negative); WBC Urine Automated 21-50 /hpf (0-5); pH Urine 6.5 (4.5-7.5)
[2023-12-07 04:06] LABS: Albumin Globulin Ratio 1.7 (0.9-2); Albumin Level 3.8 gm/dl (3.4-5.0); BUN Creatinine Ratio 16.5 (10-20); Bilirubin,Total 0.3 mg/dl (0.2-1.0); Calcium 8.9 mg/dl (8.6-10.3); Creatinine Clr Calc Pharmacy 92.9 ml/min; Est GFR (African American) 117.2 ml/min; Est GFR (Non-African American) 101.2 ml/min; Globulin 2.2 gm/dl (2.5-4.0); Potassium 3.4 mmol/L (3.5-5.1)
[2023-12-07] MEDS: cefTRIAXone SODIUM 2,000 MG/50 ML BAG IV STA (04:26)
--- NOTE | 2023-12-07 04:26 | CT Scan Report ---
Exam(s): CTA CHEST IV Amt: 117 ML OPTIRAY 320 EXAM: CT Angiography Chest With Intravenous Contrast CLINICAL HISTORY: Reason for exam: Chest Pain, eval for PE. TECHNIQUE: Axial computed tomographic angiography images of the chest with intravenous contrast. CTDI is 14.39 mGy and DLP is 702.28 mGy-cm. Automated exposure control was utilized for the study. A dose lowering technique was utilized adhering to the principles of ALARA. MIP reconstructed images were created and reviewed. COMPARISON: No relevant prior studies available. FINDINGS: LUNGS: No focal consolidation, pleural effusion, or pneumothorax. HEART: Within normal limits. VASCULATURE: No acute pulmonary embolism. THYROID: Within normal limits. MEDIASTINUM + LYMPH NODES: There are no pathologically enlarged mediastinal, hilar, or axillary lymph nodes. SUPERIOR ABDOMEN: The included portions of the superior abdomen are within normal limits. MUSCULOSKELETAL: Within normal limits. IMPRESSION: No acute pulmonary embolism. Electronically signed by: Simone Park MD 12/07/23 04:25 AM
--- NOTE | 2023-12-07 04:30 | CT Scan Report ---
Exam(s): CT ABDOMEN + PELVIS With Contrast IV Amt: 117 ML OPTIRAY 320 EXAM: CT Abdomen and Pelvis With Intravenous Contrast CLINICAL HISTORY: abd pain, flank pain, recent delivery. TECHNIQUE: Axial computed tomography images of the abdomen and pelvis with intravenous contrast. CTDI is 14.39 mGy and DLP is 702.28 mGy-cm. Automated exposure control was utilized for the study. A dose lowering technique was utilized adhering to the principles of ALARA. CONTRAST: Patient received 117 ML OPTIRAY 320 of IV contrast COMPARISON: November 09, 2020 FINDINGS: ABDOMEN: Liver: Unremarkable. No mass. Gallbladder and bile ducts: Unremarkable. No calcified stones. No ductal dilation. Pancreas: Unremarkable. No mass. No ductal dilation. Spleen: Unremarkable. No splenomegaly. Adrenals: Unremarkable. No mass. Kidneys and ureters: Moderately severe left hydroureteronephrosis with 3-4 mm obstructing left UVJ calculus. Stomach and bowel: Unremarkable. No obstruction. No mucosal thickening. PELVIS: Appendix: No findings to suggest acute appendicitis. Bladder: Unremarkable. No mass. ABDOMEN and PELVIS: Intraperitoneal space: Unremarkable. No free air. No significant fluid collection. Bones/joints: No acute findings. Soft tissues: Unremarkable. Vasculature: Unremarkable. No abdominal aortic aneurysm. Lymph nodes: Unremarkable. No enlarged lymph nodes. IMPRESSION: Moderately severe left hydroureteronephrosis with 3-4 mm obstructing left UVJ calculus. Electronically signed by: Ricky Busch MD 12/07/23 04:30 AM
[2023-12-07] MEDS: TAMSULOSIN HCL 0.4 MG CAP PO ONE (04:41)
[2023-12-07 04:42] LABS: Amphetamines+Metham, Urine Neg (Neg); Barbiturates, Urine Neg (Neg); Benzodiazepine, Urine Neg (Neg); Cocaine, Urine Neg (Neg); Fentanyl, Urine Neg (Neg); MDMA (Ecstacy), Urine Neg (Neg); Marijuana, Urine Pos (Neg); Methadone, Urine Neg (Neg); Opiate, Urine Neg (Neg); Phencyclidine, Urine Neg (Neg)
--- NOTE | 2023-12-07 04:46 | History & Physical Report ---
Date of Service December 07, 2023 Assessment & Plan (1) History of nephrolithiasis: (2) Hydroureteronephrosis: (3) Acute UTI: (4) Abdominal pain: (5) PTSD (post-traumatic stress disorder): (6) ADHD: (7) Borderline personality disorder: (8) Depression: Plan Porsha is a 28F w/ bipolar depression, PTSD, ADHD, borderline personality disorder and constipation who presented for flank pain and was found to have a obstructing kidney stone. Of note, patient recently delivered a baby via 1 month ago. L Nephrolithiasis w/ L Hydroureteronephrosis - Hemodynamically stable, no leukocytosis or GEE - CTAP: Moderately severe left hydroureteronephrosis with 3-4 mm obstructing left UVJ calculus. - CXR and Chest CTA unremarkable - Pain Management: Tylenol 1g TID, Morphine 4 mg Q4h PRN, Dilaudid 0.25 mg for breakthrough pain - Nausea Management: Zofran 4 mg IV PRN - Urology Consulted, appreciate recommendations NPO pending urology consultation/intervention - MIVF ongoing w/ LR at 80 ml/hr, s/p 1L NSS in ED Chronic Conditions - BPD/PTSD/ADHD: NPO pending Urology Eval, would restart upon initiation of diet - Constipation: continue vitamins and Miralax upon restart of diet Code: Full Diet: NPO pending urology eval IVF: LR @ 80 Dispo: Med/surg History of Present Illness Chief Complaint: Flank Pain Primary Care Provider: Kimberly Zepeda DO Porsha is a 28F w/ bipolar depression, PTSD, ADHD, borderline personality disorder and constipation who presented for flank pain and was found to have a obstructing kidney stone. Of note, patient recently delivered a baby via 1 month ago. ED Course: Droperidol, 1L NSS, 2g NSS HPI: Patient notes that she started experiencing left sided flank pain today, denies history of similar symptoms. Denies fevers or chills. No dysuria, frequency, or suprapubic pain. No change in bowel habits. Denies headaches or lightheadedness. Notes that her is healing well but she occasionally has pain a/w her tubal ligation. She notes a desire to get home to her as soon as possible. Patient states she is very anxious about being away from home and requests sleep/anxiety aide. Patient notes that her pain and nausea are well controlled at present. Allergies Allergy/AdvReac Type Severity Reaction Status Date / Time amoxicillin Allergy Intermediate Seizure Verified 11/16/23 08:01 Penicillins Allergy Intermediate Seizure Verified 11/16/23 08:01 latex Allergy Itching Verified 11/16/23 08:01 aripiprazole [From Abilify] AdvReac Intermediate Unresponsiv Verified 11/16/23 08:01 e cariprazine [From Vraylar] AdvReac Intermediate Unknown Verified 11/16/23 08:01 quetiapine [From Seroquel] AdvReac Intermediate Seizure Verified 11/16/23 08:01 trazodone AdvReac Intermediate Shortness Verified 11/16/23 08:01 of breath Home Medications Medication Instructions Recorded Confirmed Type vitamin no.180-ferrous 1 tab PO DAILY #90 tabs 03/31/23 11/16/23 Rx fumarate 27 mg-folic acid 1 mg tablet ( Plus Vitamin-Mineral) buspirone 10 mg tablet 10 mg PO TID 06/22/23 11/16/23 History lamotrigine 25 mg tablet (Lamictal) 25 mg PO UD 08/14/23 11/16/23 History oxycodone-acetaminophen 5 mg-325 1 tab PO Q4H PRN pain #12 tabs 11/11/23 11/16/23 Rx mg tablet (Percocet) albuterol sulfate 90 mcg/actuation See Rx Instructions inhalation 11/16/23 11/16/23 Rx aerosol inhaler (Ventolin HFA) .COMPLEX PRN shortness of breath or wheezing #8.5 grams cetirizine 10 mg tablet (Zyrtec) 10 mg PO DAILY #30 tabs 11/16/23 11/16/23 Rx ibuprofen 600 mg tablet 600 mg PO Q4H PRN pain #30 tabs 11/16/23 11/16/23 Rx simethicone 80 mg chewable tablet 80 mg PO DAILY@08,13,17,21 #30 tabs 11/16/23 11/16/23 Rx (Gas Relief (simethicone)) cefpodoxime 200 mg tablet 200 mg PO Q12H #14 tabs 12/07/23 Rx Past Med/Surg History Problem List (Updated 12/07/23 @ 08:47 by RASHAD Winters) Calculus of distal left ureter Hydroureteronephrosis Marijuana use (Acute) Acute UTI (Acute) Renal colic on left side (Acute) Abdominal pain (Acute) Chest pain (Acute) Nonepileptic episode Constipation History of nephrolithiasis Altered mood associated with anaya Amenorrhea of unknown anatomic location Borderline personality disorder ADHD PTSD (post-traumatic stress disorder) Seizure (Acute) Candidal vaginitis (Acute) Bipolar disorder current episode depressed Depression (Chronic) Medical History care following delivery Borderline personality disorder History of kidney stones (2019) Hx of cardiac murmur as a teenager "acts up when I have seizures - I can feel my heart skipping" SOB (shortness of breath) on exertion "told me it wasn't bad enough to get an inhaler" - worse with ADHD Seizure "Pseudoseizures" - follows with Neuro at [facility] last saw Seok 06/18/23 & will see 10/19/23- now occurring every other day - has increased in frequency with pregancy, goes unconscious - shakes and falls to ground -heart rate and bp will drop- will have multiple (2-4) in 1 hour that will last 2-10 minutes. Last was on Thursday10/11/23. Fiance and Advocate "Felice Hutchins" states he has had to do CPR in the past on pt. due to "heart stopping" Pt. is on Lamictal but for psychiatric illness not seizures PTSD (post-traumatic stress disorder) Bipolar 1 disorder Depression Multiple personality disorder Scoliosis Problems with learning Oppositional defiant disorder Manic-depressive illness Anxiety History of suicide attempt (2018) no further occurrence Surgical History Previous delivery affecting , antepartum Status post laser lithotripsy of ureteral calculus (2019) S/P wisdom tooth extraction S/P x2 - 2017 and 2018 Family History Aunt Ovarian cancer great aunt Other Breast cancer Depression Diabetes Dyslipidemia Heart disease Hypertension Kidney disease Denies family history of Colorectal cancer Uterine cancer Social History Smoking Status: Current every day smoker Tobacco Type: Cigarettes Cigarettes Per Day: 8; Second Hand Exposure: Yes; Do You Dip or Chew Tobacco: No; Hx Alcohol Use: No Hx Substance Use: Yes Preferred Language: Burkinan Communication Ability: Effective Visual Impairment: No Limitations Hearing Ability: Normal Mason Foreman/Superintendant Required: No Beliefs That Will Affect Care: None marital status: Single marital status details: Fob Felice Hutchins (26) [phone] Current Living Situation: Family Current Living Situation Comment: Felice Cuong- [facility] current occupational status: unemployed Feels Safe at Home: Yes Assistive Devices: Glasses Physical Exam Physical Exam: Gen: NAD, somnolent HEENT: Supple, no LAD, MMM Resp:Non-labored, no wheezing/rhonchi/rales, CTAB CV:RRR, normal S1/S2, no M/R/G Abd: Soft, non-distended, L flank and RLQ TTP, normoactive bowels, no masses, no CVA tenderness Extr: 2+ dp bilaterally, no edema Skin: No rashes lesions or erythema Results & Data Results & Data Vital Signs (Past 12 Hours) Vital Signs Temp Pulse Resp BP Pulse Ox O2 Del Method 12/07/23 03:25 70 12/07/23 03:17 36.7 C 95 H 16 130/63 100 Room Air Supervising Physician Co-Signing Physician Notes Attending addendum: I have physically seen this patient, have supervised the medical residents activities, and agree with the H&P unless as otherwise noted. Assessment and Plan: 4 mm obstructing left UVJ stone/moderately severe left hydroureteronephrosis- NPO Follow urine culture and sensitivity Empiric ceftriaxone 2 g IV daily Acetaminophen 1 g IV every 8 hours as needed for pain or fever Morphine sulfate 4 mg IV every 4 hours as needed for moderate to severe pain Dilaudid 0.25 mg IV as needed every 3 hours for breakthrough pain Zofran 4 mg IV every 6 hours as needed LR at 80 mL/h, after having received 1 L normal saline bolus in the ED Consult urology BPD/PTSD/ADHD- Medications on hold until post urology assessment/procedure Resident Activity Tracking Resident Involvement: Resident Care Provided Care Provided: Adult [facility]
[2023-12-07] MEDS ORDERED: ONDANSETRON INJ 2 MG/ML 2 ML VIAL IV PRN (05:55)
[2023-12-07] MEDS ORDERED: ALBUTEROL HFA 8 GM INHALER INH PRN (05:55)
[2023-12-07] MEDS ORDERED: MoRPHine SULFATE 4 MG/ML 1 ML CARP\\VIAL IV PRN (05:55)
[2023-12-07] MEDS ORDERED: MELATONIN 3 MG TAB PO PRN (05:55)
[2023-12-07] MEDS: LACTATED RINGER'S 1,000 ML IV SCH (06:08)
[2023-12-07] MEDS: ACETAMINOPHEN 1,000 MG/100 ML VIAL IV STA (06:08)
--- NOTE | 2023-12-07 06:11 | Urology Consultation ---
Date of Consultation December 07, 2023 Assessment & Plan (1) Renal colic on left side: The patient has been admitted on the hospitalist service. From a urologic perspective we recommend the following: Provide analgesics Provide antiemetics She has received Flomax in the emergency department for expulsive therapy Provide IV fluid for hydration Due to her abnormal urinalysis she has been placed on Rocephin. Appropriate urine culture has been sent and antibiotics be tailored based on these results once they are available Would recommend keeping the patient n.p.o. for the present time. She will be reevaluated by our dayshift team on 12/27/2023 to determine if any procedural intervention is required At the present time the patient is normotensive without tachycardia, fever, or acute kidney injury and therefore trial of conservative management is appropriate at the present time Additional recommendations be forthcoming based on her clinical course as it unfolds History of Present Illness Reason for Consultation: Nephrolithiasis Attending Physician: Kit Velez MD History of Present Illness This is a 28-year-old female who presented the emergency department secondary to left flank pain that began yesterday. She notes that the pain does not have any modifying factors but does radiate to the front of her abdomen. She has had associated nausea and vomiting but denies any fevers, shakes, or chills. She denies any dysuria or hematuria. The patient notes that she has had kidney stones in the past but has been several years. She notes that she did require procedural intervention for these kidney stones. In addition, the patient notes that she recently delivered a baby via section approximately 1 month ago. Since arrival to hospital this patient has had labs and imaging which I independently reviewed. Chest x-ray did not show any evidence of pneumonia. The patient underwent a CT angiogram of the chest that showed no evidence of pulmonary embolism. CT scan of the abdomen pelvis showed concern the patient had a 3 to 4 mm obstructing kidney stone at the left ureterovesical junction resulting in left hydronephrosis. Labs included CBC her white blood cell count and platelet count were normal. Hemoglobin and hematocrit were 11.2 and 35.2. Chemistry profile showed sodium and potassium were normal. Her BUN and creatinine were normal. Urinalysis did show cloudy urine with 2+ leukocyte Estrace and pyuria with 21-50 white blood cells per high-power field and 3+ bact eria. There were no nitrites on the study. At the time my interview the patient was resting comfortably in bed she was in no distress. Allergies Allergy/AdvReac Type Severity Reaction Status Date / Time amoxicillin Allergy Intermediate Seizure Verified 11/16/23 08:01 Penicillins Allergy Intermediate Seizure Verified 11/16/23 08:01 latex Allergy Itching Verified 11/16/23 08:01 aripiprazole [From Abilify] AdvReac Intermediate Unresponsiv Verified 11/16/23 08:01 e cariprazine [From Vraylar] AdvReac Intermediate Unknown Verified 11/16/23 08:01 quetiapine [From Seroquel] AdvReac Intermediate Seizure Verified 11/16/23 08:01 trazodone AdvReac Intermediate Shortness Verified 11/16/23 08:01 of breath Home Medications Medication Instructions Recorded Confirmed Type vitamin no.180-ferrous 1 tab PO DAILY #90 tabs 03/31/23 11/16/23 Rx fumarate 27 mg-folic acid 1 mg tablet ( Plus Vitamin-Mineral) buspirone 10 mg tablet 10 mg PO TID 06/22/23 11/16/23 History lamotrigine 25 mg tablet (Lamictal) 25 mg PO UD 08/14/23 11/16/23 History oxycodone-acetaminophen 5 mg-325 1 tab PO Q4H PRN pain #12 tabs 11/11/23 11/16/23 Rx mg tablet (Percocet) albuterol sulfate 90 mcg/actuation See Rx Instructions inhalation 11/16/23 11/16/23 Rx aerosol inhaler (Ventolin HFA) .COMPLEX PRN shortness of breath or wheezing #8.5 grams cetirizine 10 mg tablet (Zyrtec) 10 mg PO DAILY #30 tabs 11/16/23 11/16/23 Rx ciprofloxacin HCl 500 mg tablet 500 mg PO BID #14 tabs 11/16/23 11/16/23 Rx (Cipro) ibuprofen 600 mg tablet 600 mg PO Q4H PRN pain #30 tabs 11/16/23 11/16/23 Rx simethicone 80 mg chewable tablet 80 mg PO DAILY@08,13,17,21 #30 tabs 11/16/23 11/16/23 Rx (Gas Relief (simethicone)) Patient History Medical History care following delivery Borderline personality disorder History of kidney stones (2019) Hx of cardiac murmur as a teenager "acts up when I have seizures - I can feel my heart skipping" SOB (shortness of breath) on exertion "told me it wasn't bad enough to get an inhaler" - worse with ADHD Seizure "Pseudoseizures" - follows with Neuro at [facility] last saw Seok 06/18/23 & will see 10/19/23- now occurring every other day - has increased in frequency with pregancy, goes unconscious - shakes and falls to ground -heart rate and bp will drop- will have multiple (2-4) in 1 hour that will last 2-10 minutes. Last was on Thursday10/11/23. Fiance and Advocate "Felice Hutchins" states he has had to do CPR in the past on pt. due to "heart stopping" Pt. is on Lamictal but for psychiatric illness not seizures PTSD (post-traumatic stress disorder) Bipolar 1 disorder Depression Multiple personality disorder Scoliosis Problems with learning Oppositional defiant disorder Manic-depressive illness Anxiety History of suicide attempt (2018) no further occurrence Surgical History Previous delivery affecting , antepartum Status post laser lithotripsy of ureteral calculus (2019) S/P wisdom tooth extraction S/P x2 - 2016 and 2018 Family History Aunt Ovarian cancer great aunt Other Breast cancer Depression Diabetes Dyslipidemia Heart disease Hypertension Kidney disease Denies family history of Colorectal cancer Uterine cancer Social History Smoking Status: Current every day smoker Tobacco Type: Cigarettes Cigarettes Per Day: 3; Second Hand Exposure: Yes; Do You Dip or Chew Tobacco: No; Hx Alcohol Use: No Hx Substance Use: No Preferred Language: Zimbabwean Communication Ability: Effective Visual Impairment: No Limitations Hearing Ability: Normal Rotary Engine Assembler Required: No Beliefs That Will Affect Care: None marital status: Single marital status details: Cherelle Hutchins (26) [phone] Current Living Situation: Significant Other Current Living Situation Comment: Felice [facility] current occupational status: unemployed Feels Safe at Home: Yes Assistive Devices: None Review of Systems Review of Systems: All systems reviewed & are unremarkable except as noted in HPI & below Physical Exam Constitutional: WD/WN, vitals as above Eyes: no conjunctival abnormality ENMT: Ears: no hearing impairment Mouth: no oropharynx abnormality Neck: trachea midline Respiratory: normal respiratory effort; no respiratory distress and no labored breathing Cardiovascular: Rate/Rhythm: regular rate and regular rhythm Gastrointestinal (Abdomen): Abdomen is soft and nondistended. There is no rebound tenderness or guarding. There is some slight pain with palpation lower abdomen. Musculoskeletal: No calf tenderness Skin: no rashes Neurologic: moves all extremities Psychiatric: Orientation: alert and oriented x 3 Affect: + flat affect Genitourinary: Slight CVA tenderness with percussion on the left. No CVA tenderness with percussion on the right Results & Data Vital Signs (Past 12 Hours) Vital Signs Temp Pulse Pulse Resp BP BP Pulse Ox 12/07/23 04:57 65 16 114/80 100 12/07/23 03:25 70 12/07/23 03:17 36.7 C 95 H 16 130/63 100 O2 Del Method 12/07/23 04:57 Room Air 12/07/23 03:25 12/07/23 03:17 Room Air PG Care Time/CCT Total # of Minutes Spent Total Time Spent with Patient: Total time spent is greater than 50% in coordination of care (as documented) at patient's floor/unit and/or counseling patient: Coding Level of Care Code 16424 IN/OBS CONSULT LVL 5,80M Diagnoses Renal colic on left side N23
[2023-12-07 06:22] VITALS: TEMP 97.9
[2023-12-07] MEDS: KETOROLAC TROMETHAMINE 15 MG/ML VIAL IV STA (06:42)
[2023-12-07 07:57] VITALS: BP 112/70; PULSE 60; RESP 14; O2SAT 97
[2023-12-07] MEDS: HYDROmorphone INJ 0.5 MG/0.5 ML SYR IV PRN (07:58)
--- NOTE | 2023-12-07 08:39 | XRay Report ---
XR chest 1V portable HISTORY: 28 years-old Female Chest pain, nonspecific COMPARISON: CTA chest of same day TECHNIQUE: AP view of the chest FINDINGS: Cardiomediastinal and hilar silhouettes are within normal limits. No pneumothorax, pleural effusion, airspace consolidation or pulmonary edema. Bones of the chest appear grossly intact. IMPRESSION: No acute process. ACT 112: Negative or not required by law. The above report was generated using voice recognition software. It may contain grammatical, syntax o r spelling errors. Electronically signed by: Charlie Rutherford M.D. 12/07/2023 8:38 AM
--- NOTE | 2023-12-07 08:46 | Urology Progress Note ---
Date of Service December 07, 2023 Assessment & Plan (1) Calculus of distal left ureter: (2) Hydroureteronephrosis: (3) Renal colic on left side: Plan: Follow-up of distal ureteral stone, suspected UTI She is afebrile, hemodynamically stable Labs reviewedcreatinine 0.79, no leukocytosis Urine culture pending Patient reports passing her stone, but was not collected into urine strainer Denies pain at present No acute intervention at this time Reasonable to discharge to home when medically stable Recommend course of empiric antibiotics and follow culture Will arrange outpatient urology follow-up with renal ultrasound will sign off, please contact our service with any additional questions or concerns Admission and Anticipated Discharge Date Admission Date: December 07, 2023 Subjective Patient seen and examined at bedside this morning She is resting in bed, awakens to her name Reports that she passed her stone Stone was not collected in urine strainer She reports she heard it drop into the toilet Denies flank pain at present Review of Systems Constitutional: as per Subjective / HPI Genitourinary: as per Subjective / HPI Physical Exam Constitutional: well developed and well nourished; no acute distress Respiratory: normal respiratory effort; no respiratory distress and no labored breathing Gastrointestinal (Abdomen): Inspection/Auscultation: abdomen normal to inspection Musculoskeletal: Head/Neck/Chest: normocephalic Neurologic: moves all extremities and awake Psychiatric: Orientation: alert and oriented x 3 Results & Data Vital Signs (Past 12 Hours) Vital Signs Temp Pulse Pulse Resp BP BP Pulse Ox 12/07/23 07:53 36.6 C 60 14 112/70 97 12/07/23 06:00 12/07/23 06:00 36.6 C 57 L 16 124/83 98 12/07/23 04:57 65 16 114/80 100 12/07/23 03:25 70 12/07/23 03:17 36.7 C 95 H 16 130/63 100 O2 Del Method 12/07/23 07:53 Room Air 12/07/23 06:00 Room Air 12/07/23 06:00 Room Air 12/07/23 04:57 Room Air 12/07/23 03:25 12/07/23 03:17 Room Air PG Care Time/CCT Total # of Minutes Spent Total Time Spent with Patient: Total time spent is greater than 50% in coordination of care (as documented) at patient's floor/unit and/or counseling patient: Coding Level of Care Code 04642 SUB INP/OBS CARE Diagnoses Calculus of distal left ureter N20.1 Hydroureteronephrosis N13.30 Renal colic on left side N23
--- NOTE | 2023-12-07 09:46 | Discharge Summary ---
Date of Service December 07, 2023 Admission HPI Per Admitting Provider Porsha is a 28F w/ bipolar depression, PTSD, ADHD, borderline personality disorder and constipation who presented for flank pain and was found to have a obstructing kidney stone. Of note, patient recently delivered a baby via 1 month ago. ED Course: Droperidol, 1L NSS, 2g NSS HPI: Patient notes that she started experiencing left sided flank pain today, denies history of similar symptoms. Denies fevers or chills. No dysuria, frequency, or suprapubic pain. No change in bowel habits. Denies headaches or lightheadedness. Notes that her is healing well but she occasionally has pain a/w her tubal ligation. She notes a desire to get home to her as soon as possible. Patient states she is very anxious about being away from home and requests sleep/anxiety aide. Patient notes that her pain and nausea are well controlled at present. Principal Diagnosis calculus of distal left ureter, hydroureteronephrosis Discharge Exam Constitutional WD/WN, vitals as above Respiratory normal respiratory effort, lungs clear to auscultation Cardiovascular RRR, no murmur, no edema Gastrointestinal (Abdomen) normal bowel sounds, soft, nontender, no hepatosplenomegaly Skin no rashes, warm and dry Psychiatric A+Ox3, euthymic affect Discharge Data Allergies Allergy/AdvReac Type Severity Reaction Status Date / Time amoxicillin Allergy Intermediate Seizure Verified 11/16/23 08:01 Penicillins Allergy Intermediate Seizure Verified 11/16/23 08:01 latex Allergy Itching Verified 11/16/23 08:01 aripiprazole [From Abilify] AdvReac Intermediate Unresponsiv Verified 11/16/23 08:01 e cariprazine [From Vraylar] AdvReac Intermediate Unknown Verified 11/16/23 08:01 quetiapine [From Seroquel] AdvReac Intermediate Seizure Verified 11/16/23 08:01 trazodone AdvReac Intermediate Shortness Verified 11/16/23 08:01 of breath Consultations 12/07/23 04:32 ED Decision to Admit Stat 12/07/23 05:55 Consult Urology Routine Ordered Studies 12/07/23 03:18 12/07/23 03:18 Abdomen/Pelvis CT 12/07/23 03:20 IMPRESSION: Moderately severe left hydroureteronephrosis with 3-4 mm obstructing left UVJ calculus. Electronically signed by: Ricky Busch MD 12/07/23 04:30 AM Chest X-Ray 12/07/23 03:20 IMPRESSION: No acute process. Electronically signed by: Charlie Rutherford M.D. 12/07/2023 8:38 AM Chest CTA 12/07/23 03:21 IMPRESSION: No acute pulmonary embolism. Electronically signed by: Simone Park MD 12/07/23 04:25 AM Vital Signs Temp 36.6 C 12/07/23 07:53 Pulse 60 12/07/23 07:53 Resp 14 12/07/23 07:53 BP 112/70 12/07/23 07:53 Pulse Ox 97 12/07/23 07:53 O2 Del Method Room Air 12/07/23 07:53 Hospital Course (1) Calculus of distal left ureter: Patient presented to ED 12/06 for flank pain. She underwent a CTAP that revealed moderately severe left hydroureteronephrosis with 3-4mm obstructing left UVJ calculus. She had a CXR and Chest CTA that were unremarkable. Urology was consulted. She was made NPO pending their evaluation. However over the next few hours, she urinated and passed the stone on her own. Following the passage of stone, she felt her flank pain start to ease up and then slowly resolve. She was without abdominal pain at time of my exam. Urology did recommend empiric antibiotic therapy. She was sent home on cefpodoxime 200mg BID x 7 days and encourage to maintain hydration. She is also to follow up outpatient with urology for a renal ultrasound. (2) Hydroureteronephrosis: see plan above. Total Time Total Time Spent Total Time Spent (In Minutes): Time spend day of discharge 32 minutes including direct patient care, medication reconciliation, documentation, review of labs and images, and coordination of care. Discharge Plan Discharge Items Patient Disposition: Home - Self-Care Reason For Visit: OBSTRUCTING STONE Discharge Diagnosis: Nephrolithasis Condition on Discharge: Good Activity: Resume your previous activity Non-emergency contact: Primary Care Provider Call non-emergency contact if: you have any medication questions, your symptoms worsen, your pain is worsening and your temperature is above 101 Follow-up/Referrals: Kimberly Zepeda, [Primary Care Provider] - 12/14/23 3:00 pm (APPOINTMENT WITH RAVI SOLORZANO) Diet: Regular Addtl Attending Provider Instructions: Ms. Adhikari, You were admitted to the hospital after finding an obstructing kidney stone on imaging. You were seen by our urology team. During your hospital stay, you passed the stone on your own. Please see recommendations below regarding discharge. 1. Please take Cefpodoxime 200mg twice daily for 7 days. Your next dose will be tonight 12/06. -Please take with food to avoid GI upset. 2. Please follow up with the urology office regarding an ultrasound of your kidneys. 3. You did have a urine culture taken. Results typically take 48-72 hours to return. If there needs to be any changes to your antibiotic following this result, we will notify you. 4. Please drink an adequate amount of fluids. 5. We recommend you use tylenol as needed for pain. 6. You may resume your outpatient medications upon discharge. 7. Please follow up with your PCP within 1-2 weeks. If you develop any worsening of your symptoms including worsened pain, fever, nausea, vomiting please report back to the ER immediately. Sincerely, Shaye Perry PA-C Pending Studies at Discharge: Yes Stand-Alone Forms: My [facility] [employer], Smoking Cessation Medications and DC Order Prescriptions: New cefpodoxime 200 mg tablet 200 mg PO Q12H Qty: 14 0RF Rx Instructions: must administer with a meal/food Continued Plus Vitamin-Mineral 27 mg iron- 1 mg tablet 1 tab PO DAILY Qty: 90 3RF lamotrigine [Lamictal] 25 mg tablet 25 mg PO UD Rx Instructions: 50 mg in am and 25 mg at night cetirizine [Zyrtec] 10 mg tablet 10 mg PO DAILY Qty: 30 0RF simethicone [Gas Relief (simethicone)] 80 mg tablet,chewable 80 mg PO DAILY@08,13,17,21 Qty: 30 0RF Rx Instructions: Use as needed for gas relief albuterol sulfate [Ventolin HFA] 90 mcg/actuation HFA aerosol inhaler See Rx Instructions inhalation .COMPLEX PRN (Reason: shortness of breath or wheezing) Qty: 8.5 0RF Rx Instructions: 1-2 INH 4-6 PRN; ibuprofen 600 mg tablet 600 mg PO Q4H PRN (Reason: pain) Qty: 30 1RF buspirone 10 mg tablet 10 mg PO TID oxycodone-acetaminophen [Percocet] 5-325 mg Tablet 1 tab PO Q4H PRN (Reason: pain) Qty: 12 0RF Discontinued ciprofloxacin HCl [Cipro] 500 mg tablet 500 mg PO BID Qty: 14 0RF Discharge Orders: Discharge Order (Routine); Ordered 12/07/23 Ordered By: Shaye Aranda/Other Patient Handouts: Urinary Tract Infections in Women, Understanding Kidney Stones, ED Kidney Stone, Passed Admission Data Admit Date/Time: 12/07/23 04:56 Attending Provider: Ronan Schmitt Admit Provider: Alesia Crouch Primary Care Provider: Kimberly Zepeda Other Providers: Kit Velez; Boby Raza; Sergio Rojas; Rocael Brooke; Adwoa Moe; Osvaldo Elias; Jayshree Gomez; Nanette Broderick; Jeb Shrestha; Ana Maria Pinedo; David Hyde; Christine Clemons; Zach Lopez Other Interventions: Discharge Summary Assessment (RN) Last Done: 12/07/23 10:06 Coding Level of Care Code 52970 INP/OBS DISCH >30 MIN Diagnoses Calculus of distal left ureter N20.1 Hydroureteronephrosis N13.30
[2023-12-07] MEDS: LORazepam 1 MG in SYRINGE 0.5 ML IV STA (10:37)
--- NOTE | 2023-12-07 16:04 | Electrocardiogram Report ---
Test Reason : Blood Pressure : / mmHG Vent. Rate : 045 BPM Atrial Rate : 045 BPM P-R Int : 144 ms QRS Dur : 076 ms QT Int : 456 ms P-R-T Axes : 034 079 063 degrees QTc Int : 394 ms Sinus bradycardia Otherwise normal ECG When compared with ECG of 01-MAY-2023 09:36, Vent. rate has decreased BY 24 BPM Confirmed by Rocael Ramesh ([id number]) on 12/07/2023 4:04:31 PM Referred By: REFERRED SELF Confirmed By:Rachid Ramesh
--- NOTE | 2023-12-08 00:55 | Billing Data ---
Date of Service December 08, 2023 Coding Level of Care Code 87003 INT INP/OBS CARE
[2023-12-08] MEDS ORDERED: cefTRIAXone SODIUM 2,000 MG/50 ML BAG IV SCH (05:00)
[2023-12-09 11:22] LABS: Marijuana Quant, GCMS Urine 136 ng/mL (<5)
== END 2023-12-07 10:36 | disposition home or self-care (01) | DRG 690 ==
LOC: ED 03:10 → SUATTDRO 04:56 → 3W 04:56 → INTOOBSV 04:56 → 3W 05:21

== ENCOUNTER 2024-01-07 12:02 | Observation (INO) ==
--- NOTE | 2024-01-07 12:57 | Emergency Department Note ---
Impression & Plan Chest pain, Elevated troponin, Upper respiratory infection, viral ED Provider Note NAME: KACIE SILVEIRA AGE: 28 SEX: F : 1995 ARRIVES VIA: Walk-In INFORMANT: Patient ED PROVIDER(S): Piyush Chatman DO CHIEF COMPLAINT: Cough, congestion, runny nose, stiff in the upper extremities and tightness in the chest HPI: Patient is a 28-year-old female with past medical history of marijuana abuse, constipation, seizure disorder, depression and bipolar who presents to the ER with multiple family members. She notes that she has a cough, congestion, runny nose, and sore throat. She notes her ears feel full. She denies any fevers. Symptoms have been present for the past 3 days. She admits to tightness throughout her chest and congestion in the chest as well. She notes this is typical when she gets upper respiratory infections. This been constant for the past 3 days. Denies any history of asthma or COPD. Denies any belly pain, nausea, vomiting, or diarrhea. No dysuria, urgency, or frequency. No other exacerbating or remitting factors. ADDITIONAL HISTORY OBTAINED: Additional history obtained from who is present bedside he notes that he just had COVID with same symptoms. Chronic Medical/Social Conditions Affecting Care: Per HPI PAST MEDICAL HISTORY:See Below PAST SURGICAL HISTORY:See Below FAMILY HISTORY:See Below SOCIAL HISTORY:See Below HOME MEDICATIONS:See Below ALLERGIES:See Below VITALS:See Below PHYSICAL EXAMINATION: GENERAL: Sitting up in bed, alert, well appearing, well nourished, no distress, non-toxic EYE EXAM: normal conjunctiva. PERRL and EOM's grossly intact. OROPHARYNX: mucous membranes are moist NECK: supple, no nuchal rigidity, no adenopathy, non-tender LUNGS: Clear to auscultation. Normal chest wall mechanics HEART: no murmurs, S1 normal and S2 normal ABDOMEN: abdomen soft, non-tender, normo-active bowel sounds, no masses, no rebound or guarding. BACK: Back is symmetrical on inspection and there is no deformity, no midline tenderness, no CVA tenderness. SKIN: no rashes and no bruising UPPER EXTREMITIES: upper extremities are grossly normal. LOWER EXTREMITIES: No pitting edema. NEURO EXAM: Normal sensorium, cranial nerves II-XII grossly intact, normal speech, no gross weakness of arms, no gross weakness of legs. MEDICAL DECISION MAKING: Patient is a 19-year-old female who presents to the ER for chest pain and upper respiratory symptoms. IV was established blood work is obtained. Additional history was present from the who was present at bedside who notes that he just had COVID. Labs show leukopenia 4.7. No significant anemia. ESR is unremarkable. BMP with a chloride of 109. LFTs bilirubin is unremarkable. Troponin was elevated. Previous troponins were negative. Lipase is normal. hCG negative. Flu COVID and RSV was negative. CTA of the chest showed no PE. With the elevated troponin patient was given Toradol and aspirin. Favor that this is unlikely ACS as she has no history of diabetes, hypertension, hyperlipidemia or CAD but rather is a smoker. Question myocarditis/pericarditis although positionally is not consistent with pericarditis. Patient was updated bedside discussed with the hospitalist for further evaluation management treatment. Consults/Care Managements Discussions: Per MDM Triage Nursing notes reviewed. Limited review of prior medical records performed Vital Signs: reviewed and remarkable for no significant abnormalities Differential diagnosis: Cardiac ischemia, aortic dissection, pulmonary embolism, pneumothorax, pneumonia, pericarditis, myocarditis, esophageal rupture, GERD, cholecystitis, pancreatitis, musculoskeletal, as well as other pathologies. ER treatment provided: See below Diagnostics interpreted by me include EKG and cardiac monitoring as listed below: -Cardiac Monitoring: An order was placed for continuous cardiac monitoring. The monitor shows a rate of 60 with sinus rhythm. -ECG: none -Laboratory studies:Interpreted by me as stated above in MDM and shown below. Imaging studies: Xrays: As interpreted by me: Portable AP upright 1 view of the chest shows no focal moderate CTs show: CT angio chest is negative Procedures:none Critical Care: None Past Med/Surg History Problem List (Updated 01/07/24 @ 18:24 by Piyush Chatman DO) Upper respiratory infection, viral (Acute) Elevated troponin (Acute) Chest pain (Acute) Symptoms of upper respiratory infection (URI) Chest discomfort Elevated troponin Calculus of distal left ureter Hydroureteronephrosis Marijuana use (Acute) Renal colic on left side (Acute) Abdominal pain (Acute) Chest pain (Acute) Nonepileptic episode Constipation History of nephrolithiasis Altered mood associated with anaya Amenorrhea of unknown anatomic location Borderline personality disorder ADHD PTSD (post-traumatic stress disorder) Seizure (Acute) Candidal vaginitis (Acute) Bipolar disorder current episode depressed Depression (Chronic) Medical History care following delivery Borderline personality disorder History of kidney stones (2019) Hx of cardiac murmur as a teenager "acts up when I have seizures - I can feel my heart skipping" SOB (shortness of breath) on exertion "told me it wasn't bad enough to get an inhaler" - worse with ADHD Seizure "Pseudoseizures" - follows with Neuro at [facility] last saw Seok 06/18/23 & will see 10/19/23- now occurring every other day - has increased in frequency with pregancy, goes unconscious - shakes and falls to ground -heart rate and bp will drop- will have multiple (2-4) in 1 hour that will last 2-10 minutes. Last was on Thursday10/11/23. Fiance and Advocate "Felice Cuong" states he has had to do CPR in the past on pt. due to "heart stopping" Pt. is on Lamictal but for psychiatric illness not seizures PTSD (post-traumatic stress disorder) Bipolar 1 disorder Depression Multiple personality disorder Scoliosis Problems with learning Oppositional defiant disorder Manic-depressive illness Anxiety History of suicide attempt (2018) no further occurrence Surgical History Previous delivery affecting , antepartum Status post laser lithotripsy of ureteral calculus (2019) S/P wisdom tooth extraction S/P x2 - 2016 and 2018 Family History Aunt Ovarian cancer great aunt Other Breast cancer Depression Diabetes Dyslipidemia Heart disease Hypertension Kidney disease Denies family history of Colorectal cancer Uterine cancer Social History Smoking Status: Never smoker Tobacco Type: Cigarettes Cigarettes Per Day: 8; Second Hand Exposure: Yes; Do You Dip or Chew Tobacco: No; Hx Alcohol Use: No Hx Substance Use: Yes Last Used Substance: Unknown Preferred Language: [place] Citizen Communication Ability: Effective Visual Impairment: No Limitations Hearing Ability: Normal [employer] Required: No Beliefs That Will Affect Care: None marital status: Single marital status details: Fob Felice Hutchins (26) [phone] Current Living Situation: Spouse and Family Current Living Situation Comment: Felice TERRY current occupational status: unemployed Feels Safe at Home: Yes Safety Concerns: Feels Safe At This Time Assistive Devices: Glasses Allergies Allergies Allergy/AdvReac Type Severity Reaction Status Date / Time amoxicillin Allergy Intermediate Seizure Verified 01/07/24 15:56 Penicillins Allergy Intermediate Seizure Verified 01/07/24 15:56 latex Allergy Itching Verified 01/07/24 15:56 aripiprazole [From Abilify] AdvReac Intermediate Unresponsiv Verified 01/07/24 15:56 e cariprazine [From Vraylar] AdvReac Intermediate Unknown Verified 01/07/24 15:56 quetiapine [From Seroquel] AdvReac Intermediate Seizure Verified 01/07/24 15:56 trazodone AdvReac Intermediate Shortness Verified 01/07/24 15:56 of breath Home Meds Home Medications Medication Instructions Recorded Confirmed lamotrigine 100 mg tablet 200 mg PO QAM 12/21/23 01/07/24 (Lamictal) Previous Rx's Medication Instructions Recorded vitamin no.180-ferrous 1 tab PO DAILY #90 tabs 03/31/23 fumarate 27 mg-folic acid 1 mg tablet ( Plus Vitamin-Mineral) albuterol sulfate 90 mcg/actuation See Rx Instructions inhalation 11/16/23 aerosol inhaler (Ventolin HFA) .COMPLEX PRN shortness of breath or wheezing #8.5 grams cetirizine 10 mg tablet (Zyrtec) 10 mg PO DAILY #30 tabs 11/16/23 ibuprofen 600 mg tablet 600 mg PO Q4H PRN pain #30 tabs 11/16/23 Results & Data (ED) Vital Signs Vital Signs - 24 hr 01/07/24 12:26 Temperature 36.6 C Temperature Source Temporal Artery Scan Pulse Rate 89 Pulse Rhythm Regular Pulse Strength Normal Respiratory Rate 20 Respiratory Effort / Characteristics Non-Labored Spontaneous Respiratory Depth Normal Blood Pressure 107/78 Blood Pressure Mean 87 Pulse Oximetry 96 Oxygen Delivery Method Room Air Sepsis Recent Fever Within 48 Hours No Sepsis New/Unexplained Change in Mental Status N/A Sepsis Action Taken by Nursing No Action Required Laboratory Data 01/07/24 13:00 01/07/24 13:00 Lab Results 01/07/24 01/07/24 01/07/24 Range/Units 12:57 13:00 15:25 WBC 4.74 L (4.8-10.8) K/ul RBC 4.79 (4.20-5.40) M/uL Hgb 12.3 (12.0-16.0) g/dl Hct 38.6 (37.0-47.0) % MCV 80.6 (80.0-100.0) fL MCH 25.7 (25.0-34.0) pg MCHC 31.9 L (32.0-36.0) g/dL RDW Std Deviation 42.5 (36.4-46.3) fL RDW Coeff of Marycruz 14.5 (11.5-14.5) % Plt Count 197 (130-400) K/uL MPV 12.4 (9.4-12.4) fL Immature Gran % (Auto) 0.2 % Neut % (Auto) 40.0 % Lymph % (Auto) 45.1 % [place] % (Auto) 5.7 % Eos % (Auto) 8.2 % Baso % (Auto) 0.8 % Neut # (Auto) 1.89 (1.40-6.50) K/uL Lymph # (Auto) 2.14 (1.20-3.40) K/uL [place] # (Auto) 0.27 (0.11-0.59) K/uL Eos # (Auto) 0.39 (0.00-0.50) K/uL Baso # (Auto) 0.04 (0.00-0.20) K/uL Immature Gran # (Auto) 0.01 (0.01-0.20) K/uL ESR 12 (0-20) mm/hr Sodium 138 (136-145) mmol/L Potassium 4.4 (3.5-5.1) mmol/L Chloride 109 H (98-107) mmol/L Carbon Dioxide 23 (21-32) mmol/L Anion Gap 6 (3-11) BUN 8 (6-23) mg/dl Creatinine 0.71 (0.6-1.2) mg/dl Est Cr Clr Drug Dosing 96.7 ml/min Est GFR ( Amer) 133.4 ml/min Est GFR (Non-Af Amer) 115.1 ml/min BUN/Creatinine Ratio 11.3 (10-20) Glucose 82 (70-99(Fasting)) mg/dl Calcium 9.2 (8.6-10.3) mg/dl Total Bilirubin 0.3 (0.2-1.0) mg/dl AST 25 (13-39) U/L ALT 16 (7-52) U/L Alkaline Phosphatase 67 (34-104) U/L Troponin I High Sens 45.0 H 41.3 H (0-14) pg/ml C-Reactive Protein < 0.50 (0-0.5) mg/dl Total Protein 7.1 (6.0-8.3) gm/dl Albumin 4.4 (3.4-5.0) gm/dl Globulin 2.7 (2.5-4.0) gm/dl Albumin/Globulin Ratio 1.6 (0.9-2) Lipase 30 (11-82) U/L HCG, Qual Negative (Negative) HCG, Quant 1 mIU/ml SARS-CoV-2 (PCR) NEGATIVE (Negative) Influenza Type A (PCR) Negative (Neg) Influenza Type B (PCR) Negative (Neg) RSV (RT-PCR) Negative (Neg) Administered Medications Lorazepam (Lorazepam 1 Mg Tab) 1 mg PO Q12 PRN PRN Reason: Anxiety Stop: 02/06/24 17:10 Last Admin: 01/07/24 17:29 Dose: 1 mg Documented By: SLIME Discontinued Medications Aspirin (Aspirin Chew 324 Mg) 324 mg PO NOW STA Stop: 01/07/24 15:49 Last Admin: 01/07/24 16:05 Dose: 324 mg Documented By: KIAN Guaifenesin (Guaifenesin 600 Mg Tabcr) 600 mg PO NOW STA Stop: 01/07/24 16:28 Last Admin: 01/07/24 17:18 Dose: Not Given Documented By: SLIME Ioversol (Optiray 320 125ml) 120 ml IV ONCE ONE Stop: 01/07/24 14:47 Last Admin: 01/07/24 14:46 Dose: 120 ml Documented By: AMIRA Ketorolac Tromethamine (Ketorolac Tromethamine 15 Mg/Ml Vial) 10 mg IV NOW ONE Stop: 01/07/24 15:49 Last Admin: 01/07/24 16:06 Dose: 10 mg Documented By: [facility] Imaging Data Radiologist's Impression: Chest X-Ray 01/07/24 12:46 SINGLE VIEW CHEST CLINICAL HISTORY: Atypical chest pain FINDINGS: An AP, portable, upright chest radiograph is compared to study dated 12/07/2023. The cardiomediastinal silhouette is unremarkable. The lungs and pleural spaces are clear. No pneumothorax is seen. The bony thorax is grossly intact. IMPRESSION: No active disease in the chest. ACT 112: Negative or not required by law. Electronically signed by: Osmar Byrne M.D. 01/07/2024 2:14 PM Chest CTA 01/07/24 14:15 CT ANGIOGRAPHY OF THE CHEST, PULMONARY EMBOLUS PROTOCOL CLINICAL HISTORY: SOB + trop cp COMPARISON STUDY: Chest CT December 07, 2023. Chest radiograph performed earlier today. TECHNIQUE: Following IV administration of 120 mL of Optiray, helical axial images of the chest were obtained utilizing the pulmonary embolus protocol. Maximal intensity projections and sagittal and coronal reformats were viewed on an independent 3D workstation. IV contrast was administered without complication. Automated exposure control was utilized for the study. A dose lowering technique was utilized adhering to the principles of ALARA. CT DOSE: 377.4 mGy.cm FINDINGS: No pulmonary emboli are identified. There is no thoracic aortic dissection. Size of the heart is normal. There is no pericardial effusion. No pneumothorax or pleural effusion. A tiny calcified granuloma within the right upper lobe is benign. There is no consolidation to suggest pneumonia. Multiple bilateral renal calculi measure up to 4 mm. IMPRESSION: 1. No pulmonary emboli identified. 2. No acute intrathoracic findings. 3. Bilateral nephrolithiasis. ACT 112: Negative or not required by law. Electronically signed by: Moody Guo M.D. 01/07/2024 3:40 PM Discharge Plan Visit Data Chief Complaint: Illness Stated Complaint: CONGESTION IN CHEST, SORE THROAT, COUGH, STIFF ED Provider: Piyush Chatman Discharge Problem: Chest pain, Elevated troponin, Upper respiratory infection, viral Patient Disposition: Admitted As Inpatient Discharge Instructions Interventions: ED Discharge Assessment Last Done: 01/07/24 16:42 Discharge Problem: Chest pain Qualifiers: Chest pain type: unspecified Qualified Code(s): R07.9 - Chest pain, unspecified
[2024-01-07 13:23] LABS: Basophils # (auto) 0.04 K/uL (0.00-0.20); Basophils % (auto) 0.8 %; Eosinophils # (auto) 0.39 K/uL (0.00-0.50); Eosinophils % (auto) 8.2 %; Hematocrit (blood only) 38.6 % (37.0-47.0); Hemoglobin 12.3 g/dl (12.0-16.0); Immature Granulocytes # (auto) 0.01 K/uL (0.01-0.20); Immature Granulocytes % (auto) 0.2 %; Lymphocytes # (auto) 2.14 K/uL (1.20-3.40); Lymphocytes % (auto) 45.1 %; Mean Corpuscular Hemoglobin 25.7 pg (25.0-34.0); Mean Corpuscular Hgb Conc 31.9 g/dL (32.0-36.0); Mean Corpuscular Volume 80.6 fL (80.0-100.0); Mean Platelet Volume 12.4 fL (9.4-12.4); Monocytes # (auto) 0.27 K/uL (0.11-0.59); Monocytes % (auto) 5.7 %; Neutrophils # (auto) 1.89 K/uL (1.40-6.50); Platelet Count 197 K/uL (130-400); RDW Coefficient of Variation 14.5 % (11.5-14.5); RDW Standard Deviation 42.5 fL (36.4-46.3); Red Blood Count 4.79 M/uL (4.20-5.40); White Blood Count 4.74 K/ul (4.8-10.8)
[2024-01-07 13:41] LABS: Alanine Aminotransferase 16 U/L (7-52); Albumin Globulin Ratio 1.6 (0.9-2); Albumin Level 4.4 gm/dl (3.4-5.0); Alkaline Phosphatase 67 U/L (34-104); Anion Gap 6 (3-11); Aspartate Aminotransferase 25 U/L (13-39); BUN Creatinine Ratio 11.3 (10-20); Bilirubin,Total 0.3 mg/dl (0.2-1.0); Blood Urea Nitrogen 8 mg/dl (6-23); Calcium 9.2 mg/dl (8.6-10.3); Carbon Dioxide 23 mmol/L (21-32); Chloride 109 mmol/L (98-107); Creatinine Clr Calc Pharmacy 96.7 ml/min; Est GFR (African American) 133.4 ml/min; Est GFR (Non-African American) 115.1 ml/min; Globulin 2.7 gm/dl (2.5-4.0); Glucose 82 mg/dl (70-99(Fasting)); Lipase 30 U/L (11-82); Potassium 4.4 mmol/L (3.5-5.1); Sodium 138 mmol/L (136-145); Total Protein 7.1 gm/dl (6.0-8.3)
[2024-01-07 13:54] LABS: Influenza A virus by PCR Negative (Neg); Influenza B virus by PCR Negative (Neg); RSV by PCR Negative (Neg); SARS CoV2 RNA(COVID-19) Ceph NEGATIVE (Negative)
--- NOTE | 2024-01-07 14:16 | XRay Report ---
SINGLE VIEW CHEST CLINICAL HISTORY: Atypical chest pain FINDINGS: An AP, portable, upright chest radiograph is compared to study dated 12/07/2023. The cardiome diastinal silhouette is unremarkable. The lungs and pleural spaces are clear. No pneumothorax is seen . The bony thorax is grossly intact. IMPRESSION: No active disease in the chest. ACT 112: Negative or not required by law. Electronically signed by: Osmar Byrne M.D. 01/07/2024 2:14 PM
[2024-01-07] MEDS: OPTIRAY 320 125ml IV ONE (14:46)
--- NOTE | 2024-01-07 14:53 | Electrocardiogram Report ---
Test Reason : Blood Pressure : */* mmHG Vent. Rate : 60 BPM Atrial Rate : 60 BPM P-R Int : 140 ms QRS Dur : 72 ms QT Int : 402 ms P-R-T Axes : 60 78 53 degrees QTcB Int : 402 ms Normal sinus rhythm with sinus arrhythmia Normal ECG When compared with ECG of 07-Dec-2023 03:49, No significant change was found Confirmed by Rocael Ramesh ([id number]) on 01/07/2024 2:53:19 PM Referred By: REFERRED SELF Confirmed By: Rocael Ramesh
--- NOTE | 2024-01-07 15:42 | CT Scan Report ---
CT ANGIOGRAPHY OF THE CHEST, PULMONARY EMBOLUS PROTOCOL CLINICAL HISTORY: SOB + trop cp COMPARISON STUDY: Chest CT December 07, 2023. Chest radiograph performed earlier today. TECHNIQUE: Following IV administration of 120 mL of Optiray, helical axial images of the chest were o btained utilizing the pulmonary embolus protocol. Maximal intensity projections and sagittal and cor onal reformats were viewed on an independent 3D workstation. IV contrast was administered without co mplication. Automated exposure control was utilized for the study. A dose lowering technique was ut ilized adhering to the principles of ALARA. CT DOSE: 377.4 mGy.cm FINDINGS: No pulmonary emboli are identified. There is no thoracic aortic dissection. Size of the he art is normal. There is no pericardial effusion. No pneumothorax or pleural effusion. A tiny calcifie d granuloma within the right upper lobe is benign. There is no consolidation to suggest pneumonia. Mu ltiple bilateral renal calculi measure up to 4 mm. IMPRESSION: 1. No pulmonary emboli identified. 2. No acute intrathoracic findings. 3. Bilateral nephrolithiasis. ACT 112: Negative or not required by law. Electronically signed by: Moody Guo M.D. 01/07/2024 3:40 PM
--- NOTE | 2024-01-07 15:47 | History & Physical Report ---
Date of Service January 07, 2024 Assessment & Plan (1) Chest discomfort: Plan: Admit to [facility] telemetry on pulse oximetry Currently hemodynamically stable, stable on room air, nontoxic-appearing Presented to the ED with approximately 3 days of substernal chest tight ness/congestion along with nonproductive cough and congestion Found to have initial high-sensitivity troponin level 45 ECG shows the patient's known sinus arrhythmia without acute ST segment or T wave changes Chest x-ray and CTA of the chest were negative for acute findings Symptoms are not reproducible, do not change with positional changes At this time the patient's chest discomfort appears most likely to be associated with a viral myocarditis 2-hour repeat high-sensitivity troponin is down to 41 Status post 324 mg p.o. aspirin and 10 mg IV Toradol We will continue to monitor on telemetry overnight and will trend high- sensitivity troponin overnight to ensure she continues to improve Will obtain TTE tomorrow Will hold further doses of NSAIDs at this time as her clinical picture is more consistent with a myocarditis which has not been shown to respond well to NSAIDs and has a chance to progress with NSAID therapy Parent Tylenol for pain Regular diet AM CBC, CMP, mag, PT/INR (2) Symptoms of upper respiratory infection (URI): Plan: Patient has symptoms consistent with URI including nonproductive cough, congestion, wheezing Patient's tested positive for COVID last week, he has been asymptomatic for the past 48 hours Patient tested negative for COVID 19, RSV, and influenza on PCR testing today At this time we will continue airborne isolation overnight and retest COVID- 19/RSV/influenza PCR tomorrow in case she had a false negative today different possible exposure and spread the patient and staff while admitted Symptomatic care with as needed Tylenol, incentive spirometry, and as needed guaifenesin Will hold as needed albuterol for now as she has very minimal wheezing on exam and do not want to exacerbate possible cardiac damage until TTE can be obtained tomorrow (3) Elevated troponin: Plan: CT chest discomfort (4) Borderline personality disorder: Plan: Continue Lamictal Plan The patient was discussed with Dr. Porter at the time of the admission History of Present Illness Chief Complaint: URI symptoms, chest pain/tightness Primary Care Provider: DO Porsha Simms is a 28F w/ bipolar depression, PTSD, ADHD, borderline personality disorder, marijuana use, and constipation who presented to the [facility] ED on 01/07/2024 with complaints of URI symptoms, chest congestion/tightness, and tightness in the upper extremities for approximately 3 days.She remained stable in the ED.Labs were significant for an initial high- sensitivity troponin of 45 with COVID-19/influenza/RSV screens negative. Chest x-ray was read as negative for acute findings. ECG shows normal sinus rhythm with her previously known sinus arrhythmia without acute ST segment or T wave changes. CTA of the chest With PE protocol was read as Negative for acute intrathoracic findings including PE. Prior to my evaluation the patient was given 324 mg aspirin and 10mg IV Toradol. Patient was seen in bed in no acute distress at the time of the exam with her bedside, history is obtained from both. The patient's tested positive for COVID approximately 10 days ago and has subsequently had resolution of his symptoms. Approximately 3 days ago the patient started develop substernal chest congestion, and nonproductive cough, and sinus congestion. She denies radiation of her chest discomfort, changes in her chest discomfort with changing positions, fever, chills, hemoptysis, pleuritic chest pain, shortness of breath, abdominal pain, nausea/vomiting, dysuria, hematuria, lower extremity swelling, and recent trauma. She was using ibuprofen at home with improvement in her symptoms. She is currently comfortable at rest and without significant chest discomfort at the time my exam. Please refer to Dr. Porter' attestation for any changes to the treatment plan Allergies Allergy/AdvReac Type Severity Reaction Status Date / Time amoxicillin Allergy Intermediate Seizure Verified 01/07/24 15:56 Penicillins Allergy Intermediate Seizure Verified 01/07/24 15:56 latex Allergy Itching Verified 01/07/24 15:56 aripiprazole [From Abilify] AdvReac Intermediate Unresponsiv Verified 01/07/24 15:56 e cariprazine [From Vraylar] AdvReac Intermediate Unknown Verified 01/07/24 15:56 quetiapine [From Seroquel] AdvReac Intermediate Seizure Verified 01/07/24 15:56 trazodone AdvReac Intermediate Shortness Verified 01/07/24 15:56 of breath Home Medications Medication Instructions Recorded Confirmed Type vitamin no.180-ferrous 1 tab PO DAILY #90 tabs 03/31/23 01/07/24 Rx fumarate 27 mg-folic acid 1 mg tablet ( Plus Vitamin-Mineral) albuterol sulfate 90 mcg/actuation See Rx Instructions inhalation 11/16/23 01/07/24 Rx aerosol inhaler (Ventolin HFA) .COMPLEX PRN shortness of breath or wheezing #8.5 grams cetirizine 10 mg tablet (Zyrtec) 10 mg PO DAILY #30 tabs 11/16/23 01/07/24 Rx ibuprofen 600 mg tablet 600 mg PO Q4H PRN pain #30 tabs 11/16/23 01/07/24 Rx lamotrigine 100 mg tablet 200 mg PO QAM 12/21/23 01/07/24 History (Lamictal) Past Med/Surg History Problem List (Updated 01/07/24 @ 16:29 by Phan Self PA-C) Symptoms of upper respiratory infection (URI) Chest discomfort Elevated troponin Calculus of distal left ureter Hydroureteronephrosis Marijuana use (Acute) Renal colic on left side (Acute) Abdominal pain (Acute) Chest pain (Acute) Nonepileptic episode Constipation History of nephrolithiasis Altered mood associated with anaya Amenorrhea of unknown anatomic location Borderline personality disorder ADHD PTSD (post-traumatic stress disorder) Seizure (Acute) Candidal vaginitis (Acute) Bipolar disorder current episode depressed Depression (Chronic) Medical History care following delivery Borderline personality disorder History of kidney stones (2019) Hx of cardiac murmur as a teenager "acts up when I have seizures - I can feel my heart skipping" SOB (shortness of breath) on exertion "told me it wasn't bad enough to get an inhaler" - worse with ADHD Seizure "Pseudoseizures" - follows with Neuro at [facility] last saw Seok 06/18/23 & will see 10/19/23- now occurring every other day - has increased in frequency with pregancy, goes unconscious - shakes and falls to ground -heart rate and bp will drop- will have multiple (2-4) in 1 hour that will last 2-10 minutes. Last was on Thursday10/11/23. Fiance and Advocate "Felice Hutchins" states he has had to do CPR in the past on pt. due to "heart stopping" Pt. is on Lamictal but for psychiatric illness not seizures PTSD (post-traumatic stress disorder) Bipolar 1 disorder Depression Multiple personality disorder Scoliosis Problems with learning Oppositional defiant disorder Manic-depressive illness Anxiety History of suicide attempt (2018) no further occurrence Surgical History Previous delivery affecting , antepartum Status post laser lithotripsy of ureteral calculus (2019) S/P wisdom tooth extraction S/P x2 - 2017 and 2018 Family History Aunt Ovarian cancer great aunt Other Breast cancer Depression Diabetes Dyslipidemia Heart disease Hypertension Kidney disease Denies family history of Colorectal cancer Uterine cancer Social History Smoking Status: Current every day smoker Tobacco Type: Cigarettes Cigarettes Per Day: 8; Second Hand Exposure: Yes; Do You Dip or Chew Tobacco: No; Hx Alcohol Use: No Hx Substance Use: Yes Preferred Language: Bolivian Communication Ability: Effective Visual Impairment: No Limitations Hearing Ability: Normal Chain Puller Required: No Beliefs That Will Affect Care: None marital status: Single marital status details: Cherelle Hutchins ([phone] Current Living Situation: Family Current Living Situation Comment: Felice TERRY current occupational status: unemployed Feels Safe at Home: Yes Assistive Devices: Glasses Physical Exam Physical Exam: Physical Exam: General: In no acute distress, stated age, well-nourished, non-toxic appearing HEENT: Normocephalic, atraumatic, no scleral icterus, pupils around round, symmetrical, and reactive to light, moist mucus membranes, trachea midline, no thyromegaly Chest/Pulm: No respiratory distress, symmetrical chest expansion, scattered expiratory wheezing Cardiac: RRR, no murmurs noted Abdomen: Negative for ascites and bruising, normoactive bowel sounds, soft, non-tender to palpation throughout Musculoskeletal: Symmetrical and without signs of acute trauma, upper and lower extremities with full ROM, no atrophy, spasticity, or flaccidity Extremities: Radial, dorsalis pedis, and posterior tibial pulses are intact and symmetrical, no edema noted in the BL LE's Skin: Warm, dry, no rashes , lesions, or scars noted Neuro: Alert and oriented to person, place, month, year, and president, no focal defects, no tremors noted Psych: No acute distress, calm and cooperative during the exam Results & Data Results & Data Vital Signs (Past 12 Hours) Vital Signs Temp Pulse Resp BP Pulse Ox O2 Del Method 01/07/24 12:26 36.6 C 89 20 107/78 96 Room Air Laboratory Results Abnormal lab results 01/07/24 Range/Units 13:00 WBC 4.74 L (4.8-10.8) K/ul MCHC 31.9 L (32.0-36.0) g/dL Chloride 109 H (98-107) mmol/L Troponin I High Sens 45.0 H (0-14) pg/ml Diagnostic Findings Chest X-Ray 01/07/24 12:46 SINGLE VIEW CHEST CLINICAL HISTORY: Atypical chest pain FINDINGS: An AP, portable, upright chest radiograph is compared to study dated 12/07/2023. The cardiomediastinal silhouette is unremarkable. The lungs and pleural spaces are clear. No pneumothorax is seen. The bony thorax is grossly intact. IMPRESSION: No active disease in the chest. ACT 112: Negative or not required by law. Electronically signed by: Osmar Byrne M.D. 01/07/2024 2:14 PM Chest CTA 01/07/24 14:15 CT ANGIOGRAPHY OF THE CHEST, PULMONARY EMBOLUS PROTOCOL CLINICAL HISTORY: SOB + trop cp COMPARISON STUDY: Chest CT December 07, 2023. Chest radiograph performed earlier today. TECHNIQUE: Following IV administration of 120 mL of Optiray, helical axial images of the chest were obtained utilizing the pulmonary embolus protocol. Maximal intensity projections and sagittal and coronal reformats were viewed on an independent 3D workstation. IV contrast was administered without complic ation. Automated exposure control was utilized for the study. A dose lowering technique was utilized adhering to the principles of ALARA. CT DOSE: 377.4 mGy.cm FINDINGS: No pulmonary emboli are identified. There is no thoracic aortic dissection. Size of the heart is normal. There is no pericardial effusion. No pneumothorax or pleural effusion. A tiny calcified granuloma within the right upper lobe is benign. There is no consolidation to suggest pneumonia. Multiple bilateral renal calculi measure up to 4 mm. IMPRESSION: 1. No pulmonary emboli identified. 2. No acute intrathoracic findings. 3. Bilateral nephrolithiasis. ACT 112: Negative or not required by law. Electronically signed by: Moody Guo M.D. 01/07/2024 3:40 PM ECG Additional Comments: Normal sinus rhythm with sinus arrhythmia Normal ECG When compared with ECG of 07-Dec-2023 03:49, No significant change was found Confirmed by Rocael Ramesh ([id number]) on 01/07/2024 2:53:19 PM Code Status & VTE Plan Code Status Full code VTE Prophylaxis Plan VTE Prophylaxis will be ordered: Yes Supervising Physician Co-Signing Physician Notes I have personally seen, evaluated and examined the patient. I have also personally discussed the management of the patient with the resident physician/TOREY and I agree with the exam findings documented in the history and physical examination and the documented assessment and plan unless otherwise stated below. Brief Exam: In general this is a 28-year-old female companied by her and her baby at the time my exam. She denies any active chest pain currently. Her repeat troponin is down to 41. EKG is reassuring. HEENT: Normocephalic atraumatic. Heart: Regular rate and rhythm. I do not appreciate murmur or ectopy or rub. Lungs: Clear bilaterally. Abdomen: Flat soft and nontender. Extremities: Intact without edema. Neurologically she is alert and oriented x 3 with no focal deficit on exam. Assessment/plan. Repeat COVID test in the morning. Airborne isolation till then given high risk of exposure. Echocardiogram. Serial troponins. Sed rate and CRP. test pending. Please refer to orders for further planning. PG Care Time/CCT Total # of Minutes Spent Total Time Spent with Patient: Total time spent is greater than 50% in coordination of care (as documented) at patient's floor/unit and/or counseling patient: Coding [place] [address] INT INP/OBS CARE 2/55MIN Patient Type Established Medical Decision Making Moderate Complexity Diagnoses Chest discomfort R07.89 Symptoms of upper respiratory infection (URI) R09.89 Elevated troponin R79.89 Borderline personality disorder F60.3
[2024-01-07] MEDS: ASPIRIN CHEW 324 MG PO STA (16:05)
[2024-01-07] MEDS: KETOROLAC TROMETHAMINE 15 MG/ML VIAL IV ONE (16:06)
[2024-01-07 16:07] LABS: C Reactive Protein < 0.50 mg/dl (0-0.5)
[2024-01-07] MEDS ORDERED: ACETAMINOPHEN 325 MG TAB PO PRN (16:20)
[2024-01-07] MEDS: guaiFENesin 600 MG TABCR PO STA (17:18)
[2024-01-07] MEDS: LORazepam 1 MG TAB PO PRN (17:29)
[2024-01-07 17:40] LABS: Pregnancy Test, Serum Negative (Negative)
--- OUTSIDE RECORDS SUMMARY | 2024-01-07 18:25 | External Medical Summary | Summary of Care ---
Author Name Unknown Organization [facility] Address [address] [place] [address] Phone [phone] Care Team Providers Care Customer Support Technician Name Role Phone Unavailable Primary Care Provider Unavailabl e Reason for Visit * Reason Onset Date Comments Pre Cert/Prior Auth 01/06/2024 Encounter Details Date Type Department Care Team (Late st Contact Info) Description 01/06/2024 Telephone Psychiatry [facility] [address] [place] [address] Josy Arevalo MD [address] [place] [address] Pre Cert/Prior Auth Allergies Active Allergy Reactions Criticality Noted Date Comments Aripiprazole Neuro complications (Please comment) 07/17/2021 Restless legs, unable to walk Amoxicillin 02/23/2023 Rash Lidocaine 03/19/2018 Quetiapine Seizure High 07/17/2021 Trazodone Seizure High 07/17/2021 Lightheaded, dizzy, and seizures documented as of this encounter (statuses as of 01/07/2024) Medications Medication Sig Dispensed Refills Start Date End Date Status lamoTRIgine 100 MG Oral Tablet (LaMICtal) Take 2 Tablets by mouth in the morning. 60 Tablet 2 12/30/2023 Active Zuranolone 25 MG Oral Capsule Take 50 mg by mouth at bedtime for 14 days. 28 Capsule 12/30/2023 01/13/2024 Active documented as of this encounter (statuses as of 01/07/2024) Active Problems Problem Noted Date Diagnosed Date Food insecurity 03/09/2023 Overview: Per [facility] Protocol PTSD (post-traumatic stress disorder) 02/23/2023 Borderline personality disorder 02/23/2023 RADHA (generalized anxiety disorder) 02/23/2023 Seizure disorder, simple par tial, without intractable epilepsy 07/17/2021 Convulsions 07/17/2021 Attention deficit hyperactivity disorder (ADHD) 08/04/2005 Overview: ICD-10 update of inactive term documented as of this encounter (statuses as of 01/07/2024) Immunizations Name Administration Dates Next Due DTaP Dipth/Tet/Acell Pertussis (Infanrix), Peds 01/21/2000,02/23/1996,05/04/1995,03/03,01/01/1995 HIB PRP-OMP, 3 dose (Pedvax) 02/23/1996, 05/04/1995,03/03/1995,01/01 HIB PRP-T, 4 Dose, PF, IM (H iberix, ActHib) 02/23/1996,05/04/1995,03/03/1995,01/01 HPV Vaccine, 4-Valent 08/15/2008,04/04/2008,07/2007 Haemophilius B (HIB), [...] Answer Date Recorded PHQ Adult Total Score 21 12/30/2023 Hunger Vital Sign Answer Date Recorded Within [...] encounter Miscellaneous Notes * Telephone Encounter - Meagan Smalls LPN - 01/06/2024 9:09 AM EDT Psychiatry Pre-Cert Request Medication/Disease State Information: Medication: Zuranolone 25 MG Oral Capsule Diagnosis (including ICD-10): F53.0 Medication(s) Tried/Failed/Contraindicated: Lamictal Vistaril Lexapro-headaches Buspar Effexor-sedating Cariprazine-seizure Depakote Seroquel-seizure Abilify-akathisia Trazodone Wellbutrin- not helpful See corresponding visit note(s) for additional supporting clinical information. Office Information: Prescriber: Mickey Ferris MD SIG: Take 50 mg by mouth at bedtime for 14 days documented in this encounter Plan of Treatment Upcoming Encounters Date Type Department Care Team (Late st Contact Info) Description 01/28/2024 10:30 AM EDT Telemedicine Psychiatry [facility] [address] [place] [address] Josy Arevalo MD [address] [facility] [place] [address] Health Maintenance Due Date Last Done Comments DTaP,Tdap,and Td Vaccines (6 - Tdap) 2005 01/21/2000, 02/23/1996, 05/04/1995, Additional history exists Pneumococcal Vaccine: Pediat rics (0 to 5 Years) and At-Risk Patients (6 to 64 Years) (2 of 2 - PCV) 07/17/2022 07/17/2021 COVID-19 Vaccine (1 - 2022-2 4 season) 2023 Influenza Vaccine (FLU shot) (#1) 2024 07/17/2021, 03/06/2015, 04/19/2014, Additional history exists Depression Monitoring 12/29/2024 12/30/2023 , 11/25/2023, 09/17/2023, Additional history exists Pap Smear 02/10/2025 02/10/2022 Hepatitis B Vaccine Completed 04/03/1995, 04/03/1995, 1994, Additional history exists HPV (Gardasil) Vaccine Completed 9, 04/04/2008, 02/01/2008 MENINGOCOCCAL (MENACTRA/MENVEO) Completed 2 documented as of this encounter Medical Devices Not on filedocumented as of this encounter
[2024-01-07] MEDS: guaiFENesin 600 MG TABCR PO SCH (20:30)
[2024-01-07] MEDS: MELATONIN 3 MG TAB PO PRN (21:18)
[2024-01-08 00:47] VITALS: RESP 18
--- OUTSIDE RECORDS SUMMARY | 2024-01-08 01:04 | External Medical Summary | Summary of Care ---
Author Name Unknown Organization [facility] Address [address] [place] [address] Phone [phone] Care Team Providers Care Manager Retention Name Role Phone Unavailable Primary Care Provider Unavailabl e Reason for Visit * Reason Onset Date Comments Precert In Process 01/06/2024 8 [facility] Zurzuvae 25MG Encounter Details Date Type Department Care Team (Late st Contact Info) Description 01/06/2024 Telephone Psychiatry Kirk Cisner[facility] [address] [place] [address] Josy Arevalo MD [address] [place] [address] Precert In Process (8 [facility] Zurz... Allergies Active Allergy Reactions Criticality Noted Date [...] (H iberix, ActHib) 02/23/1996,05/04/1995,03/03/1995,01/01 HPV Vaccine, 4-Valent 08/15/2008,04/04/2008,0 07/2007 Haemophilius B (HIB), unspecified 1995,05/04/1995,03/03/1995,01/01 Hepatitis A [...] encounter Miscellaneous Notes * Telephone Encounter - Donna Kenney OSA - 01/07/2024 11:13 AM EDT [facility] [address] Authorization Submission Submission Information: Medication: Zurzuvae 25MG capsules Portal used: [facility] Insurance: [facility] Authorization #/Quick: [id number] Kenney Medication Litigation Manager [facility] 01/07/24,11:12 AM * Telephone Encounter - Meagan Smalls LPN [...] Description 01/28/2024 10:30 AM EDT Telemedicine Psychiatry Elissa [place], [place] [address] [place] [id number] Josy Arevalo MD [address] [place] [address] Health Maintenance Due Date Last [...]
[2024-01-08 03:56] LABS: Basophils # (auto) 0.04 K/uL (0.00-0.20); Basophils % (auto) 0.6 %; Eosinophils # (auto) 0.45 K/uL (0.00-0.50); Eosinophils % (auto) 6.9 %; Hematocrit (blood only) 35.7 % (37.0-47.0); Hemoglobin 11.3 g/dl (12.0-16.0); Immature Granulocytes # (auto) 0.01 K/uL (0.01-0.20); Immature Granulocytes % (auto) 0.2 %; Lymphocytes # (auto) 2.98 K/uL (1.20-3.40); Lymphocytes % (auto) 45.9 %; Mean Corpuscular Hemoglobin 25.7 pg (25.0-34.0); Mean Corpuscular Hgb Conc 31.7 g/dL (32.0-36.0); Mean Corpuscular Volume 81.3 fL (80.0-100.0); Mean Platelet Volume 12.2 fL (9.4-12.4); Monocytes # (auto) 0.34 K/uL (0.11-0.59); Monocytes % (auto) 5.2 %; Neutrophils # (auto) 2.67 K/uL (1.40-6.50); Neutrophils % (auto) 41.2 %; Platelet Count 191 K/uL (130-400); RDW Coefficient of Variation 14.5 % (11.5-14.5); RDW Standard Deviation 43.1 fL (36.4-46.3); Red Blood Count 4.39 M/uL (4.20-5.40); White Blood Count 6.49 K/ul (4.8-10.8)
[2024-01-08 04:14] LABS: Albumin Globulin Ratio 1.7 (0.9-2); Albumin Level 3.8 gm/dl (3.4-5.0); BUN Creatinine Ratio 15.9 (10-20); Bilirubin,Total 0.2 mg/dl (0.2-1.0); Calcium 9.2 mg/dl (8.6-10.3); Est GFR (African American) 140.5 ml/min; Est GFR (Non-African American) 121.2 ml/min; Globulin 2.2 gm/dl (2.5-4.0); Magnesium 1.7 mg/dl (1.7-2.4); Potassium 3.8 mmol/L (3.5-5.1)
[2024-01-08 04:20] LABS: Troponin I High Sensitivity 41.2 pg/ml (0-14)
[2024-01-08 04:22] LABS: INR 0.9 (0.9-1.1); Prothrombin Time 10.3 Seconds (9.0-12.0)
[2024-01-08 06:22] LABS: Influenza A virus by PCR Negative (Neg); Influenza B virus by PCR Negative (Neg); RSV by PCR Negative (Neg); SARS CoV2 RNA(COVID-19) Ceph NEGATIVE (Negative)
[2024-01-08] MEDS: lamoTRIgine 100 MG TAB PO SCH (07:36)
[2024-01-08 07:44] VITALS: BP 112/74; TEMP 97.7; O2SAT 98
--- NOTE | 2024-01-08 08:01 | Hospitalist Progress Note ---
Date of Service January 08, 2024 Assessment & Plan (1) Chest discomfort: Plan: Presented w/ CP, +COVID a week ago. Was inpatient in November for obstructing kidney stone and prior to that delivered baby via in October Admit to med telemetry on pulse oximetry Currently hemodynamically stable, stable on room air, nontoxic-appearing Presented to the ED with approximately 3 days of substernal chest tightness/congestion along with nonproductive cough and congestion Found to have initial high-sensitivity troponin level 45 ECG shows the patient's known sinus arrhythmia without acute ST segment or T wave changes Chest x-ray and CTA of the chest were negative for acute findings Symptoms are not reproducible, do not change with positional changes At this time the patient's chest discomfort appears most likely to be associated with a viral myocarditis 2-hour repeat high-sensitivity troponin is down to 41 Status post 324 mg p.o. aspirin and 10 mg IV Toradol We will continue to monitor on telemetry overnight and will trend high-sensit ivity troponin overnight to ensure she continues to improve Will obtain TTE tomorrow Will hold further doses of NSAIDs at this time as her clinical picture is more consistent with a myocarditis which has not been shown to respond well to NSAIDs and has a chance to progress with NSAID therapy Parent Tylenol for pain Regular diet AM CBC, CMP, mag, PT/INR 01/07 CTA negative for PE Troponin 45--> 41.3 --> 36.6 --> 41.2. Continues to trend Repeat Flu/RSV/COVID testing NEGATIVE Inflammatory markers not elevated ESR 12, CRP <0.50 Pt wanting nicotine gum. Also see prior NSAID w/ ibuprofen likely for pain w/ kidney stones in November Add Pepcid IV BID given worsened w/ NSAIDs and smoking hx to see if improvement. ?underlying reflux ECHO pending (2) Symptoms of upper respiratory infection (URI): Plan: Patient has symptoms consistent with URI including nonproductive cough, congestion, wheezing Patient's tested positive for COVID last week, he has been asymptomatic for the past 48 hours Patient tested negative for COVID 19, RSV, and influenza on PCR testing today At this time we will continue airborne isolation overnight and retest COVID- 19/RSV/influenza PCR tomorrow in case she had a false negative today different possible exposure and spread the patient and staff while admitted Symptomatic care with as needed Tylenol, incentive spirometry, and as needed guaifenesin Will hold as needed albuterol for now as she has very minimal wheezing on exam and do not want to exacerbate possible cardiac damage until TTE can be obtained tomorrow (3) Elevated troponin: Plan: CT chest discomfort (4) Borderline personality disorder: Plan: Continue Lamictal Plan The patient was discussed with Dr. Porter at the time of the admission Admission and Anticipated Discharge Date Admission Date: January 07, 2024 Results & Data Results & Data Vital Signs (Past 12 Hours) Vital Signs Temp Pulse Pulse Pulse Resp BP Pulse Ox 01/08/24 07:44 36.5 C 56 L 18 112/74 98 01/08/24 03:22 36.9 C 54 L 18 103/69 96 01/08/24 00:46 36.9 C 63 18 109/72 97 01/07/24 21:57 61 O2 Del Method 01/08/24 07:44 Room Air 01/08/24 03:22 Room Air 01/08/24 00:46 Room Air 01/07/24 21:57 Laboratory Results 01/08/24 01/08/24 01/07/24 Range/Units 05:15 03:33 21:19 WBC 6.49 (4.8-10.8) K/ul RBC 4.39 (4.20-5.40) M/uL Hgb 11.3 L (12.0-16.0) g/dl Hct 35.7 L (37.0-47.0) % MCV 81.3 (80.0-100.0) fL MCH 25.7 (25.0-34.0) pg MCHC 31.7 L (32.0-36.0) g/dL RDW Std Deviation 43.1 (36.4-46.3) fL RDW Coeff of Marycruz 14.5 (11.5-14.5) % Plt Count 191 (130-400) K/uL MPV 12.2 (9.4-12.4) fL Immature Gran % (Auto) 0.2 % Neut % (Auto) 41.2 % Lymph % (Auto) 45.9 % [place] % (Auto) 5.2 % Eos % (Auto) 6.9 % Baso % (Auto) 0.6 % Neut # (Auto) 2.67 (1.40-6.50) K/uL Lymph # (Auto) 2.98 (1.20-3.40) K/uL [place] # (Auto) 0.34 (0.11-0.59) K/uL Eos # (Auto) 0.45 (0.00-0.50) K/uL Baso # (Auto) 0.04 (0.00-0.20) K/uL Immature Gran # (Auto) 0.01 (0.01-0.20) K/uL ESR (0-20) mm/hr PT 10.3 (9.0-12.0) Seconds INR 0.9 (0.9-1.1) Sodium 139 (136-145) mmol/L Potassium 3.8 (3.5-5.1) mmol/L Chloride 111 H (98-107) mmol/L Carbon Dioxide 21 (21-32) mmol/L Anion Gap 7 (3-11) BUN 10 (6-23) mg/dl Creatinine 0.63 (0.6-1.2) mg/dl Est Cr Clr Drug Dosing 109.0 ml/min Est GFR ( Amer) 140.5 ml/min Est GFR (Non-Af Amer) 121.2 ml/min BUN/Creatinine Ratio 15.9 (10-20) Glucose 91 (70-99(Fasting)) mg/dl Calcium 9.2 (8.6-10.3) mg/dl Magnesium 1.7 (1.7-2.4) mg/dl Total Bilirubin 0.2 (0.2-1.0) mg/dl AST 15 (13-39) U/L ALT 13 (7-52) U/L Alkaline Phosphatase 57 (34-104) U/L Troponin I High Sens 41.2 H 36.6 H (0-14) pg/ml C-Reactive Protein (0-0.5) mg/dl B-Natriuretic Peptide 28 (0-100) pg/ml Total Protein 6.0 (6.0-8.3) gm/dl Albumin 3.8 (3.4-5.0) gm/dl Globulin 2.2 L (2.5-4.0) gm/dl Albumin/Globulin Ratio 1.7 (0.9-2) Lipase (11-82) U/L HCG, Qual (Negative) HCG, Quant mIU/ml SARS-CoV-2 (PCR) NEGATIVE (Negative) Influenza Type A (PCR) Negative (Neg) Influenza Type B (PCR) Negative (Neg) RSV (RT-PCR) Negative (Neg) 01/07/24 01/07/24 01/07/24 Range/Units 15:25 13:00 12:57 WBC 4.74 L (4.8-10.8) K/ul RBC 4.79 (4.20-5.40) M/uL Hgb 12.3 (12.0-16.0) g/dl Hct 38.6 (37.0-47.0) % MCV 80.6 (80.0-100.0) fL MCH 25.7 (25.0-34.0) pg MCHC 31.9 L (32.0-36.0) g/dL RDW Std Deviation 42.5 (36.4-46.3) fL RDW Coeff of Marycruz 14.5 (11.5-14.5) % Plt Count 197 (130-400) K/uL MPV 12.4 (9.4-12.4) fL Immature Gran % (Auto) 0.2 % Neut % (Auto) 40.0 % Lymph % (Auto) 45.1 % [place] % (Auto) 5.7 % Eos % (Auto) 8.2 % Baso % (Auto) 0.8 % Neut # (Auto) 1.89 (1.40-6.50) K/uL Lymph # (Auto) 2.14 (1.20-3.40) K/uL [place] # (Auto) 0.27 (0.11-0.59) K/uL Eos # (Auto) 0.39 (0.00-0.50) K/uL Baso # (Auto) 0.04 (0.00-0.20) K/uL Immature Gran # (Auto) 0.01 (0.01-0.20) K/uL ESR 12 (0-20) mm/hr PT (9.0-12.0) Seconds INR (0.9-1.1) Sodium 138 (136-145) mmol/L Potassium 4.4 (3.5-5.1) mmol/L Chloride 109 H (98-107) mmol/L Carbon Dioxide 23 (21-32) mmol/L Anion Gap 6 (3-11) BUN 8 (6-23) mg/dl Creatinine 0.71 (0.6-1.2) mg/dl Est Cr Clr Drug Dosing 96.7 ml/min Est GFR ( Amer) 133.4 ml/min Est GFR (Non-Af Amer) 115.1 ml/min BUN/Creatinine Ratio 11.3 (10-20) Glucose 82 (70-99(Fasting)) mg/dl Calcium 9.2 (8.6-10.3) mg/dl Magnesium (1.7-2.4) mg/dl Total Bilirubin 0.3 (0.2-1.0) mg/dl AST 25 (13-39) U/L ALT 16 (7-52) U/L Alkaline Phosphatase 67 (34-104) U/L Troponin I High Sens 41.3 H 45.0 H (0-14) pg/ml C-Reactive Protein < 0.50 (0-0.5) mg/dl B-Natriuretic Peptide (0-100) pg/ml Total Protein 7.1 (6.0-8.3) gm/dl Albumin 4.4 (3.4-5.0) gm/dl Globulin 2.7 (2.5-4.0) gm/dl Albumin/Globulin Ratio 1.6 (0.9-2) Lipase 30 (11-82) U/L HCG, Qual Negative (Negative) HCG, Quant 1 mIU/ml SARS-CoV-2 (PCR) NEGATIVE (Negative) Influenza Type A (PCR) Negative (Neg) Influenza Type B (PCR) Negative (Neg) RSV (RT-PCR) Negative (Neg) Diagnostic Findings Chest X-Ray 01/07/24 12:46 SINGLE VIEW CHEST CLINICAL HISTORY: Atypical chest pain FINDINGS: An AP, portable, upright chest radiograph is compared to study dated 12/07/2023. The cardiomediastinal silhouette is unremarkable. The lungs and pleural spaces are clear. No pneumothorax is seen. The bony thorax is grossly intact. IMPRESSION: No active disease in the chest. ACT 112: Negative or not required by law. Electronically signed by: Osmar Byrne M.D. 01/07/2024 2:14 PM Chest CTA 01/07/24 14:15 CT ANGIOGRAPHY OF THE CHEST, PULMONARY EMBOLUS PROTOCOL CLINICAL HISTORY: SOB + trop cp COMPARISON STUDY: Chest CT December 07, 2023. Chest radiograph performed earlier today. TECHNIQUE: Following IV administration of 120 mL of Optiray, helical axial images of the chest were obtained utilizing the pulmonary embolus protocol. Maximal intensity projections and sagittal and coronal reformats were viewed on an independent 3D workstation. IV contrast was administered without complication. Automated exposure control was utilized for the study. A dose lowering technique was utilized adhering to the principles of ALARA. CT DOSE: 377.4 mGy.cm FINDINGS: No pulmonary emboli are identified. There is no thoracic aortic dissection. Size of the heart is normal. There is no pericardial effusion. No pneumothorax or pleural effusion. A tiny calcified granuloma within the right upper lobe is benign. There is no consolidation to suggest pneumonia. Multiple bilateral renal calculi measure up to 4 mm. IMPRESSION: 1. No pulmonary emboli identified. 2. No acute intrathoracic findings. 3. Bilateral nephrolithiasis. ACT 112: Negative or not required by law. Electronically signed by: Moody Guo M.D. 01/07/2024 3:40 PM PG Care Time/CCT Total # of Minutes Spent Total Time Spent with Patient: Total time spent is greater than 50% in coordination of care (as documented) at patient's floor/unit and/or counseling patient: Coding Diagnoses Chest discomfort R07.89 Symptoms of upper respiratory infection (URI) R09.89 Elevated troponin R79.89 Borderline personality disorder F60.3
[2024-01-08] MEDS ORDERED: NICOTINE POLACRILEX 2 MG GUM MT PRN (08:26)
[2024-01-08] MEDS ORDERED: NICOTINE 7 MG/24 HR TDSY TD SCH (09:00)
[2024-01-08] MEDS: FAMOTIDINE 20MG IV PUSH 20 MG/5 ML SYR IV SCH (09:48)
--- NOTE | 2024-01-08 09:51 | XCELERA ---
[id number]
--- NOTE | 2024-01-08 10:09 | Discharge Summary ---
Discharge Summary Date of Service January 08, 2024 Principal Dx & Hospital Course #1 = Principal Diagnosis (1) Chest discomfort: Presented w/ CP, +COVID a week ago. Was inpatient in November for obstructing kidney stone and prior to that delivered baby via in October Reports 3 days of substernal chest tightness/congestion with nonproductive cough/congestion Trop on high sensitivity testing 45 with EKG w/ patients known sinus arrythmia however no acute ST segment or TW changes Cxr negative CTA chest NEGATIVE for PE Given 324mg aspirin, Toradol IV x 1 and was to monitor overnight, ?concenrs for viral myocarditis Further NSAIDs held given not improved/responded to such Tylenol ordered for pain and ECHO ordered for evaluation Patient remains NSR on telemetry, no further chest pain reported, no shortness of breath and remains on room air, 98% prior to discharge. Repeat COVID/Flu/Influenza testing negative and WBC wnl and remained afebrile Serial troponins w/ trending down --> 41.3, 36.6. Did have slight bump 41.2 but repeat again 31.3 and patient remaining chest pain free/wanting to go home Inflammatory markers checked for completeness, NOT elevated -- ESR 12. CRP <0.50 ECHO NORMAL, normal EF, no wma Further discussed with patient following request for nicotine gum and recent NSAID therapy for kidney stones (however reports not having used much NSAIDs recently) however she DID report having Chipotle/spicy sauce prior to admission and suspect possible underlying component of reflux Placed on pepcid BID and sent rx for such at discharge and encouraged to avoid spicy foods/NSAIDs and follow up with primary care if any ongoing issues can consider adding PPI therapy Avoidance of tobacco encouraged (2) Symptoms of upper respiratory infection (URI): Reported nonproductive cough/congestion and wheezing. CXR/CTA chest as above negative for PNA/PE Did maintain isolation precautions given positive for covid last week however negative on admission Repeat COVID/RSV/Influenza testing NEGATIVE again AM 8/9 ?residual vs reflux as above Sympomatic care as above, no further wheezing on exam and 98% on RA Suspect possible reflux contributing to her nonproductive cough in setting of sm oking/spicy foods (3) Elevated troponin: As above, could be residual from viral infection however testing negative. Imaging negative.ECHO normal. Trop trended down and stable telemetry monitoring Discussed to RETURN TO ER IF ANY WORSENING DISCOMFORT, AVOID SPICY FOODS, PEPCID AT DC, F/U PCP (4) Borderline personality disorder: Stable, continued lamictal Plan discharged on pepcid therapy, avoidance of spicy foods/NSAIDs and outpatient follow up for PPI if needed To return to ER with any worsening discomfort/fever/cp/sob Notes For Next Care Provider Patient presented for chest pain following spicy food/Chipotle prior to admission in setting of tobacco use. No further chest pain while inpatient and placed on pepcid and instructed patient to avoid spicy foods/NSAIDs at discharge and to follow up about possible PPI therapy if pepcid ineffective Medication Changes From Visit Ibuprofen prn placed on hold Pepcid 20mg PO BID for now, monitor for need for PPI Admission HPI Per Admitting Provider Porsha is a 28F w/ bipolar depression, PTSD, ADHD, borderline personality disorder, marijuana use, and constipation who presented to the [facility] ED on 01/07/2024 with complaints of URI symptoms, chest congestion/tightness, and tightness in the upper extremities for approximately 3 days.She remained stable in the ED.Labs were significant for an initial high- sensitivity troponin of 45 with COVID-19/influenza/RSV screens negative. Chest x-ray was read as negative for acute findings. ECG shows normal sinus rhythm with her previously known sinus arrhythmia without acute ST segment or T wave changes. CTA of the chest With PE protocol was read as Negative for acute intrathoracic findings including PE. Prior to my evaluation the patient was given 324 mg aspirin and 10mg IV Toradol. Patient was seen in bed in no acute distress at the time of the exam with her bedside, history is obtained from both. The patient's tested positive for COVID approximately 10 days ago and has subsequently had resolution of his symptoms. Approximately 3 days ago the patient started develop hernandez bsternal chest congestion, and nonproductive cough, and sinus congestion. She denies radiation of her chest discomfort, changes in her chest discomfort with changing positions, fever, chills, hemoptysis, pleuritic chest pain, shortness of breath, abdominal pain, nausea/vomiting, dysuria, hematuria, lower extremity swelling, and recent trauma. She was using ibuprofen at home with improvement in her symptoms. She is currently comfortable at rest and without significant chest discomfort at the time my exam. Please refer to Dr. Porter' attestation for any changes to the treatment plan Admission Exam Per Admitting Provider Physical Exam: General: In no acute distress, stated age, well-nourished, non-toxic appearing HEENT: Normocephalic, atraumatic, no scleral icterus, pupils around round, symmetrical, and reactive to light, moist mucus membranes, trachea midline, no thyromegaly Chest/Pulm: No respiratory distress, symmetrical chest expansion, scattered expiratory wheezing Cardiac: RRR, no murmurs noted Abdomen: Negative for ascites and bruising, normoactive bowel sounds, soft, non- tender to palpation throughout Musculoskeletal: Symmetrical and without signs of acute trauma, upper and lower extremities with full ROM, no atrophy, spasticity, or flaccidity Extremities: Radial, dorsalis pedis, and posterior tibial pulses are intact and symmetrical, no edema noted in the BL LE's Skin: Warm, dry, no rashes , lesions, or scars noted Neuro: Alert and oriented to person, place, month, year, and president, no focal defects, no tremors noted Psych: No acute distress, calm and cooperative during the exam Discharge Exam General: 28yo female laying flat in bed, on her phone, NAD, would like to go home Head atraumatic, normocephalic, mmm, trachea midline Resp: even/unlabored, no w/c/r, on room air CV: RRR, no mrg, no pitting edema GI: +BS, soft/NT ; no gayle MSK/Neuro: nonfocal, answering questions appropriately, no confusion Psych: AOx3, cooperative , flat affect at times Updated Medication List Medication Instructions Recorded Confirmed Type vitamin no.180-ferrous 1 tab PO DAILY #90 tabs 03/31/23 01/07/24 Rx fumarate 27 mg-folic acid 1 mg tablet ( Plus Vitamin-Mineral) albuterol sulfate 90 mcg/actuation See Rx Instructions inhalation 11/16/23 01/07/24 Rx aerosol inhaler (Ventolin HFA) .COMPLEX PRN shortness of breath or wheezing #8.5 grams cetirizine 10 mg tablet (Zyrtec) 10 mg PO DAILY #30 tabs 11/16/23 01/07/24 Rx ibuprofen 600 mg tablet 600 mg PO Q4H PRN pain #30 tabs 11/16/23 01/07/24 Rx lamotrigine 100 mg tablet 200 mg PO QAM 12/21/23 01/07/24 History (Lamictal) famotidine 20 mg tablet (Pepcid) 20 mg PO BID #60 tabs 01/08/24 Rx Hospital Stay Data Consultations 01/07/24 15:39 ED Decision to Admit Stat Diagnostic Imagining Performed Chest X-Ray 01/07/24 12:46 SINGLE VIEW CHEST CLINICAL HISTORY: Atypical chest pain FINDINGS: An AP, portable, upright chest radiograph is compared to study dated 12/07/2023. The cardiomediastinal silhouette is unremarkable. The lungs and pleural spaces are clear. No pneumothorax is seen. The bony thorax is grossly intact. IMPRESSION: No active disease in the chest. ACT 112: Negative or not required by law. Electronically signed by: Osmar Byrne M.D. 01/07/2024 2:14 PM Chest CTA 01/07/24 14:15 CT ANGIOGRAPHY OF THE CHEST, PULMONARY EMBOLUS PROTOCOL CLINICAL HISTORY: SOB + trop cp COMPARISON STUDY: Chest CT December 07, 2023. Chest radiograph performed earlier today. TECHNIQUE: Following IV administration of 120 mL of Optiray, helical axial images of the chest were obtained utilizing the pulmonary embolus protocol. Maximal intensity projections and sagittal and coronal reformats were viewed on an independent 3D workstation. IV contrast was administered without complication. Automated exposure control was utilized for the study. A dose lowering technique was utilized adhering to the principles of ALARA. CT DOSE: 377.4 mGy.cm FINDINGS: No pulmonary emboli are identified. There is no thoracic aortic dissection. Size of the heart is normal. There is no pericardial effusion. No pneumothorax or pleural effusion. A tiny calcified granuloma within the right upper lobe is benign. There is no consolidation to suggest pneumonia. Multiple bilateral renal calculi measure up to 4 mm. IMPRESSION: 1. No pulmonary emboli identified. 2. No acute intrathoracic findings. 3. Bilateral nephrolithiasis. ACT 112: Negative or not required by law. Electronically signed by: Moody Guo M.D. 01/07/2024 3:40 PM ECHOCARDIOGRAM 01/08/2024 This was essentially a normal study. Left ventricular systolic function is normal. Right ventricular systolic pressure is normal. No significant valvular heart disease Discharge Instructions Given to Patient (Per Discharging Provider) You have been hospitalized for chest pain and mild elevation in troponin. This may have been from viral illness however viral testing is negative and inflammatory markers are NOT elevated and you have been in normal sinus rhtyhm on monitor. Chest xray was negative and CT scan was NEGATIVE for blood clot. Repeat COVID/flu/influenza testing is NEGATIVE. Your ultrasound of the heart was normal and I suspect may a combination of smoking and spicy foods with possible underlying reflux may have been contributing. We have send you a prescription for pepcid to take 1-2 times daily and if any ongoing needs you may need to discuss about a "PPI" like protonix with primary care in follow up. Please avoid spicy foods as well as NSAIDs/ibuprofen/motrin as these can may reflux worse. Smoking can also make this worse and cessation/quiting is advised. Or at least utilizing gum in the meantime/patch. Please follow up with primary care in the next 7-10 days to monitor your status after hospitalization. Please return to the ER with any repeat chest pain, shortness of breath, fever, or for any other symptoms concerning for you. It has been a pleasure being a part of the medical team providing for you while you have been in the hospital. Take care! Total Time Total Time Spent Total Time Spent (In Minutes): 35 Supervising Physician Co-Signing Physician Notes The patient was not seen by me. The chart was reviewed. Case discussed with DONG Campbell. Agree with assessment and plan Coding Level of Care Code 79577 INP/OBS DISCH >30 MIN Diagnoses Chest discomfort R07.89 Symptoms of upper respiratory infection (URI) R09.89 Elevated troponin R79.89 Borderline personality disorder F60.3
[2024-01-08 10:55] VITALS: PULSE 54
== END 2024-01-08 11:45 | disposition home or self-care (01) ==
LOC: ED 12:02 → INTOOBSV 15:52 → 2W 15:52 → SUATTDRO 15:52 → 2W 16:42